=== PATIENT | female | born 1945 | race Caucasian/White ===

== ENCOUNTER 2020-03-28 07:40 | Outpatient (REF) | payer MEDICARE, SELFPAY ==
--- NOTE | 2020-03-28 09:06 | PM.OP ---
Brief Operative Note Date of procedure: 03/28/20 Procedure: This is doctor Joann Smith. This is an ultrasound-guided fine-needle aspiration report. Patient name: Ayana Aragon :1945 Date of Examination: 03/28/2020 Referring Physician Is: Marisol Haddad MD Indication: Multinodular Thyroid Porcedure: Procedure was explained to the patient. Alternatives, the risk and benefits were discussed. Written consent was obtained. A time-out was also obtained. After sterile preparation, fine-needle aspiration of a Left Mid Pole 1.4 cm thyroid nodule was performed using direct ultrasound guidance to confirm accurate needle placement. Four aspirations were made using 27 gauge needles. Samples were submitted for cytology. One pass was dedicated for [employer] sequencing risk and insurance manager testing. The patient tolerated the procedure well. Aftercare instructions were provided. Impression: Uncomplicated fine needle aspiration biopsy of a L Mid Pole 1.4 cm thyroid nodule under ultrasound guideance.
[2020-03-28] MEDS: Lidocaine HCl 1 % 20 ML VIAL 5 ML SUBCUT (11:56)
== END 2020-03-28 07:41 | disposition home or self-care (01) ==
LOC: HO.US 07:40
PROVIDERS: PCP Internal Medicine; Visit Provider Internal Medicine
DX: E04.2 Nontoxic multinodular goiter (principal)
CPT/HCPCS: 10005; 88172; 88173; 88177

== ENCOUNTER → 2020-04-15 09:10 | Outpatient (BNVA) | payer MEDICARE, SELFPAY | PROVIDERS: PCP Internal Medicine; Referring Provider Internal Medicine; Visit Provider Internal Medicine | DX: E21.3 Hyperparathyroidism, unspecified (principal); E05.90 Thyrotoxicosis, unspecified without thyrotoxic crisis or storm; E04.2 Nontoxic multinodular goiter; E55.9 Vitamin D deficiency, unspecified; M85.80 Other specified disorders of bone density and structure, unspecified site; Z79.899 Other long term (current) drug therapy | CPT/HCPCS: 99214; Q3014 ==

== ENCOUNTER 2020-04-15 15:11 | Outpatient (REF) | payer MEDICARE, SELFPAY ==
--- NOTE | 2020-04-15 15:20 | XR_ITS ---
EXAMINATION: XR HIP, LEFT CLINICAL INFORMATION: Left hip pain COMPARISON: Lumbar spine x-ray June 2006 TECHNIQUE: Two views of the left hip. FINDINGS: Bone alignment is normal. No fracture or dislocation is seen. The joint space is normal. There is a 5 mm calcification in the left pelvis just lateral to the bladder. This is new from previous lumbar spine x-ray June 2006. It is uncertain whether this could represent a left distal ureteral stone. Soft tissues are otherwise unremarkable. IMPRESSION: Normal-appearing left hip. 5 mm calcification in the left pelvis questionable for a left distal ureteral stone.
== END 2020-04-15 15:12 | disposition home or self-care (01) ==
LOC: HO.HMGCX 15:11
PROVIDERS: PCP Internal Medicine; Visit Provider Internal Medicine
DX: M25.552 Pain in left hip (principal)
CPT/HCPCS: 73502

== ENCOUNTER 2020-04-19 07:30 | Outpatient (REF) | payer MEDICARE, SELFPAY ==
[2020-04-19 11:58] LABS: Albumin Level 3.8 g/dL (3.5-5.0); Estimated Glomerular Filt Rate > 60
[2020-04-19 12:06] LABS: Calcium 10.4 mg/dL (8.4-10.2)
[2020-04-19 12:19] LABS: Thyroid Stimulating Hormone 0.11 mIU/mL (0.32-4.0); Vitamin D 25-OH Total 28.4 ng/mL (>30)
[2020-04-19 15:00] LABS: T4 Thyroxine 8.8 ug/dL (4.5-12.0)
[2020-04-20 09:06] LABS: Triiodothyronine T3 Total 116 ng/dL (76-181)
[2020-04-22 15:46] LABS: Calcium, Ionized 5.9 mg/dL (4.8-5.6)
[2020-04-22 20:21] LABS: Calcium (PTHI) 10.8 mg/dL (8.6-10.4); PTHI 107 pg/mL (14-64)
== END 2020-04-19 07:31 | disposition home or self-care (01) ==
LOC: HO.HMGCLDS 07:30
PROVIDERS: PCP Internal Medicine; Visit Provider Internal Medicine
DX: E21.3 Hyperparathyroidism, unspecified (principal); E05.90 Thyrotoxicosis, unspecified without thyrotoxic crisis or storm; E04.2 Nontoxic multinodular goiter; E55.9 Vitamin D deficiency, unspecified
CPT/HCPCS: 82040; 82306; 82310; 82330; 82565; 83970; 84100; 84436; 84443; 84480

== ENCOUNTER → 2020-05-28 09:40 | Outpatient (BNVA) | payer MEDICARE, SELFPAY | PROVIDERS: PCP Internal Medicine; Visit Provider Obstetrics & Gynecology | DX: Z76.89 Persons encountering health services in other specified circumstances (principal) ==

== ENCOUNTER 2020-05-31 14:19 | Outpatient (REF) | payer MEDICARE, SELFPAY ==
--- NOTE | 2020-05-31 14:23 | US_ITS ---
EXAMINATION: ULTRASOUND PELVIS COMPLETE CLINICAL INFORMATION: Postmenopausal bleeding. COMPARISON: Ultrasound pelvis 05/17/2019. TECHNIQUE: Routine transabdominal and transvaginal imaging of pelvis is performed. FINDINGS: On transabdominal ultrasound the uterus is anteverted and anteflexed measuring 12.7 cm in length, 5.7 cm in AP and 7.1 cm in transverse dimension. Endometrial thickness is 3.4 cm with thickened cystic area seen within the endometrium. There is a hypoechoic lesion in the anterior upper body of the uterus. It measures 2.3 x 1.7 x 1.7 cm and is suggestive of a fibroid. No additional lesion seen. Right ovary measures 2.0 x 1.5 x 2.1 cm and volume 3.1 mL. Previously it measured 1.8 x 1.2 x 1.8 cm. Left ovary is not seen. There is no free fluid in the cul-de-sac. US/US transvaginal IMPRESSION: Thickened endometrium with cystic areas and increased vascularity. This could be secondary to hormonal congestion. The rest of the uterus and right ovary is unremarkable. The left ovary is not seen.
--- NOTE | 2020-05-31 14:23 | US_ITS ---
EXAMINATION: ULTRASOUND PELVIS COMPLETE CLINICAL INFORMATION: Postmenopausal bleeding. COMPARISON: Ultrasound pelvis 05/17/2019. TECHNIQUE: Routine transabdominal and transvaginal imaging of pelvis is performed. FINDINGS: On transabdominal ultrasound the uterus is anteverted and anteflexed measuring 12.7 cm in length, 5.7 cm in AP and 7.1 cm in transverse dimension. Endometrial thickness is 3.4 cm with thickened cystic area seen within the endometrium. There is a hypoechoic lesion in the anterior upper body of the uterus. It measures 2.3 x 1.7 x 1.7 cm and is suggestive of a fibroid. No additional lesion seen. Right ovary measures 2.0 x 1.5 x 2.1 cm and volume 3.1 mL. Previously it measured 1.8 x 1.2 x 1.8 cm. Left ovary is not seen. There is no free fluid in the cul-de-sac. US/US pelvic complete IMPRESSION: Thickened endometrium with cystic areas and increased vascularity. This could be secondary to hormonal congestion. The rest of the uterus and right ovary is unremarkable. The left ovary is not seen.
== END 2020-05-31 14:20 | disposition home or self-care (01) ==
LOC: HO.HMGCX 14:19
PROVIDERS: PCP Internal Medicine; Visit Provider Obstetrics & Gynecology
DX: N95.0 Postmenopausal bleeding (principal)
CPT/HCPCS: 76830; 76856

== ENCOUNTER → 2020-06-14 10:45 | Outpatient (BNVA) | payer MEDICARE, SELFPAY | PROVIDERS: Visit Provider Obstetrics & Gynecology | DX: N95.0 Postmenopausal bleeding (principal) | CPT/HCPCS: 99212; Q3014 ==

== ENCOUNTER → 2020-07-08 11:38 | Outpatient (BNVA) | payer MEDICARE, SELFPAY | PROVIDERS: PCP Internal Medicine; Visit Provider Obstetrics & Gynecology | DX: N95.0 Postmenopausal bleeding (principal) | CPT/HCPCS: 99212 ==

== ENCOUNTER 2020-07-11 06:09 | Day surgery (SDC) | payer MEDICARE, SELFPAY ==
[2020-07-05 12:18] VITALS: BMI 32.5
--- NOTE | 2020-07-10 10:00 | HO.ANESPROP2 ---
Documented by User: Bridgett Pedraza 07/10/20 10:11 HPI - Anesthesia Eval Consult details Narrative: 75yo F for D&C Diagnostic Hysteroscopy,with possible myosure Pending parathyroidectomy and ? thyroidectomy PMFSH Past Medical History Medical History Breast cancer in situ Family history of premature CAD Hip pain, left History of Capone's esophagus HLD (hyperlipidemia) HTN (hypertension) Hyperparathyroidism Hyperthyroidism Multinodular thyroid Osteopenia Vitamin D deficiency Family History Family History Father History of heart attack CVD (cardiovascular disease) Unknown family medical history Mother Unknown family medical history CVD (cardiovascular disease) Cirrhosis of liver Heart disease Maternal Grandfather No problems noted. Maternal Grandmother No problems noted. Paternal Grandfather No problems noted. Paternal Grandmother No problems noted. Sister No problems noted. Sister No problems noted. Son No problems noted. Daughter No problems noted. Daughter No problems noted. Surgical History Surgical History H/O colonoscopy History of esophagogastroduodenoscopy (EGD) History of lumpectomy of left breast History of rotator cuff surgery Hx of cholecystectomy Hx of dilation and curettage Social History Social History Alcohol intake: current Alcohol intake frequency: a few times a month Alcohol type: wine Smoking Status: Never smoker Second Hand Smoke Exposure: No Use of substances other than those prescribed or required for medical reasons: No Advance Directives: Yes Advance Directives Information Provided: No Advance Directives on File: Yes Advance Directives Date on File: 03/28/20 Sexual orientation: Straight/Heterosexual Gender identity: female Narrative Narrative: Follow cardiology Q2 years for fam hx of premature CAD. Last seen 06/2019, stable and well optimized per cardiology. Meds Allergies Allergy/AdvReac Type Severity Reaction Status Date / Time codeine [Codeine] Allergy Mild SWELLING, Verified 07/11/20 06:16 vomiting, headache Home Medications Medication Instructions Recorded Confirmed Type albuterol sulfate 90 mcg/actuation 90 mcg INHALATION Q4-6H PRN 04/15/20 07/05/20 History breath activated powder inhaler apremilast 30 mg tablet 30 mg PO BID 04/15/20 07/05/20 History atorvastatin 10 mg tablet 10 mg PO DAILY 04/15/20 07/05/20 History biotin 10,000 mcg capsule 10,000 mcg PO DAILY 04/15/20 07/05/20 History cetirizine 10 mg tablet 10 mg PO BEDTIME PRN 04/15/20 07/05/20 History cholecalciferol (vitamin D3) 25 25 mcg PO DAILY 04/15/20 07/05/20 History mcg (1,000 unit) capsule Exam Exam Date and Time: July 10, 2020 1000 Height,Weight and Vital Signs: Height 5 ft Weight 75.75 kg Pertinent Lab Results Pertinent Lab Results: Laboratory Tests 04/19/20 04/19/20 07:39 07:39 Creatinine 0.73 Calcium 10.4 H TSH 0.11 L PTH Intact 107 H Calcium (PTH Intact) 10.8 H Narrative Narrative: EKG 06/2019: NSR ECHO 12/2017: LVEF 60-65%, Impaired relax, Mild AR, RV sys pressure nml Assessment and Plan Assessment Anesthesia Assessment: Chart Reviewed Documented by User: Nuvia Campbell 07/11/20 07:50 PMFSH Past Medical History Medical History Breast cancer in situ Family history of premature CAD Hip pain, left History of Capone's esophagus HLD (hyperlipidemia) HTN (hypertension) Hyperparathyroidism Hyperthyroidism Multinodular thyroid Osteopenia Vitamin D deficiency Family History Family History Father History of heart attack CVD (cardiovascular disease) Unknown family medical history Mother Unknown family medical history CVD (cardiovascular disease) Cirrhosis of liver Heart disease Maternal Grandfather No problems noted. Maternal Grandmother No problems noted. Paternal Grandfather No problems noted. Paternal Grandmother No problems noted. Sister No problems noted. Sister No problems noted. Son No problems noted. Daughter No problems noted. Daughter No problems noted. Family history of problems with anesthesia: No Surgical History Surgical History H/O colonoscopy History of esophagogastroduodenoscopy (EGD) History of lumpectomy of left breast History of rotator cuff surgery Hx of cholecystectomy Hx of dilation and curettage History of Problems with Anesthesia: Yes (PONV) Social History Social History Alcohol intake: current Alcohol intake frequency: a few times a month Alcohol type: wine Smoking Status: Never smoker Second Hand Smoke Exposure: No Use of substances other than those prescribed or required for medical reasons: No Advance Directives: Yes Advance Directives Information Provided: No Advance Directives on File: Yes Advance Directives Date on File: 03/28/20 Sexual orientation: Straight/Heterosexual Gender identity: female Meds Allergies Allergy/AdvReac Type Severity Reaction Status Date / Time codeine [Codeine] Allergy Mild SWELLING, Verified 07/11/20 06:16 vomiting, headache Home Medications Medication Instructions Recorded Confirmed Type albuterol sulfate 90 mcg/actuation 90 mcg INHALATION Q4-6H PRN 04/15/20 07/05/20 History breath activated powder inhaler apremilast 30 mg tablet 30 mg PO BID 04/15/20 07/05/20 History atorvastatin 10 mg tablet 10 mg PO DAILY 04/15/20 07/05/20 History biotin 10,000 mcg capsule 10,000 mcg PO DAILY 04/15/20 07/05/20 History cetirizine 10 mg tablet 10 mg PO BEDTIME PRN 04/15/20 07/05/20 History cholecalciferol (vitamin D3) 25 25 mcg PO DAILY 04/15/20 07/05/20 History mcg (1,000 unit) capsule Exam Height,Weight and Vital Signs: Vital Signs Temp Pulse Resp BP Pulse Ox 07/11/20 06:23 97.8 F 47 L 16 171/82 H 97 Airway Mallampati Class: III TM Dist: >3cm Neck ROM: Full Heart: RRR Lungs: CTAB Assessment and Plan Assessment Anesthesia Assessment: Anesthesia Plan Discussed and Chart Reviewed Final Anesthetic Review NPO: Yes ASA Class: II Final Preanesthetic Review: No Changes in Pt Med Stat, Meds/Allgs Chart Reviewed, Consent Obtained/Reviewed and Anes Risks/Benef Reviewed Patient Risk: Low Procedure Risk: Low Assessment/Block/Sedation in SS: Assess/Block/Sedation-SS Anesthetic Plan Anesthetic Plan: GA Disposition: Standard PACU
[2020-07-10 12:38] VITALS: BMI 32.5
[2020-07-11] VITALS (9 sets, daily range): BP systolic 111–171; BP diastolic 67–85; PULSE 45–58; RESP 12–18; TEMP 36.1–36.6; O2SAT 97–100
[2020-07-11] MEDS: Lactated Ringers 1,000 ML 100 ML IVCONT (06:40)
--- NOTE | 2020-07-11 07:17 | MHC.SHP ---
Pre-Procedural Eval Section A The patient is an INPATIENT: No Changes since office visit: No Cold of Flu in the past 2 weeks, No New Medical Problems, No Changes in Medication and No Patient answered all questions The History & Physical has been completed within 30 days and I have reviewed it.: Yes Section B Chief Complaint: postmenopausal bleeding Allergies: Allergies Allergy/AdvReac Type Severity Reaction Status Date / Time codeine [Codeine] Allergy Mild SWELLING, Verified 07/11/20 06:16 vomiting, headache Plan I have reviewed the history and physical and performed a pertinent physical examination on my patient. No changes have occurred unless specified.
--- NOTE | 2020-07-11 09:18 | P.OP_ITS ---
Operative Note Operative Note Date of Service: 07/11/20 Narrative: Ms. Aragon is a postmenopausal 75 year old with postmenopausal bleeding and thickened endometrial lining on US. She presents today for hysteroscopy d&c for sampling of the endometrial lining. Surgical Risks: The patient was informed of the risks and benefits of a hysteroscopy with dilation and curettage. Risks included but were not limited to bleeding, infection, injury to the vulva, vagina, or cervix, and uterine perforation with possible need for further surgery. The patient expressed understanding of the risks involved, all questions were answered, and the patient consented to the procedure. The patient was taken to the operating room where a time out was confirmed to confirm correct patient and correct procedure. Adequategeneral anesthesia was established. The patient was then positioned on the operating table in the dorsal lithotomy position with her legs supported using stirrups. All pressure points were padded and a warm blanket was placed to maintain control of core body temperature. The patient was then prepped and draped in the usual sterile fashion. A bimanual exam was performed and the uterus was found to be approximately 12 cm size, anteverted. A straight catheter was inserted into the bladder and urine was obtained. A bivalve speculum was then inserted into the vagina. The anterior lip of the cervix was visualized and grasped using a single tooth tenaculum. The cervix was adequately dilated using Serrano dilators for the introduction of the hysteroscope. The hysteroscope was introduced under direct visualization using normal saline solution as the distending media. The hysteroscope was advanced to the fundus and the entire uterine cavity was inspected. A polypoid mass was found to be filling the entire uterine cavity. The myosure device was inserted and advanced and sharp curettage was performed. Due to the size of the mass, the decision was made to switch the myosure XL and both hysteroscope and myosure were exchanged. Before the new hysteroscope was introduced, several passes were made with tracee stone forceps to manually remove portions of the mass. The XL hysteroscope was then introduced and the mass visualized. The myosure XL was then introduced and advanced and sharp curettage was performed until adequate visualization could no longer be achieved due to overdilation of the cervix as well as bleeding from the polyp. The hysteroscope was then removed. The tracee stone forceps were then advanced and used to remove more of the mass until nothing further was able to be removed. The suspected polyp was unable to be confirmed to have been removed in its entiretey and likely was not. The sharp curette was then introduced and a sharp curetting was performed starting at the 12 o?clock position and rotating a total of 360 degrees in order to cover all s urfaces. Endometrial tissue was obtained and was sent to pathology. Following the curetting, good hemostasis was noted. The single-tooth tenaculum was removed from the anterior lip of the cervix and hemostasis was also noted at the tenaculum puncture sites. The speculum was then removed from the vagina. At the end of the procedure, all needle, sponge, and instrument counts were noted to be correct x2. The patient was transferred to the recovery room in stable condition. Due to the amount of the fluid on the floor and soaking the surgeon's pants and socks, it was difficult to obtain an accurate fluid deficit; however, it was estimated at 1,000mL. EBL: 50cc
--- NOTE | 2020-07-11 12:27 | HO.POSTANES ---
Post Anesthesia Evaluation Post Anesthesia Evaluation Vital Signs: Vital Signs Temp Pulse Resp BP Pulse Ox 07/11/20 10:50 97.2 F 52 18 139/67 100 07/11/20 10:24 48 L 16 145/69 H 99 07/11/20 10:09 45 L 18 153/73 H 100 07/11/20 09:54 47 L 16 142/79 H 98 07/11/20 09:39 51 18 150/72 H 98 07/11/20 09:34 45 L 18 146/70 H 98 07/11/20 09:29 48 L 16 151/69 H 100 07/11/20 09:24 96.9 F 58 12 111/85 100 07/11/20 06:23 97.8 F 47 L 16 171/82 H 97 Anesthesia: General LMA Mental Status: Awake Pain Control: Satisfactory Nausea/Vomiting: None Hydration: Adequate Anesthesia-Related Issues: No Anes. Related Issues
== END 2020-07-11 11:17 | disposition home or self-care (01) ==
PROVIDERS: PCP Internal Medicine; Visit Provider Obstetrics & Gynecology
PROC: 0UDB8ZX Extraction of Endometrium, Via Natural or Artificial Opening Endoscopic, Diagnostic (ICD-10-PCS; CPT 58558; principal; 2020-07-11 07:30)
DX: N95.0 Postmenopausal bleeding (principal); N84.0 Polyp of corpus uteri; Z85.3 Personal history of malignant neoplasm of breast; I10 Essential (primary) hypertension; M85.80 Other specified disorders of bone density and structure, unspecified site; E55.9 Vitamin D deficiency, unspecified; E21.3 Hyperparathyroidism, unspecified; Z90.49 Acquired absence of other specified parts of digestive tract; Z79.899 Other long term (current) drug therapy; Z82.49 Family history of ischemic heart disease and other diseases of the circulatory system; Z88.8 Allergy status to other drugs, medicaments and biological substances
CPT/HCPCS: 58558; 88305; J1100; J1885; J2250; J2405; J3010

== ENCOUNTER → 2020-07-24 11:45 | Outpatient (BNVA) | payer MEDICARE, SELFPAY | PROVIDERS: PCP Internal Medicine; Visit Provider Obstetrics & Gynecology | DX: Z09 Encounter for follow-up examination after completed treatment for conditions other than malignant neoplasm (principal); Z87.42 Personal history of other diseases of the female genital tract | CPT/HCPCS: Q3014 ==

== ENCOUNTER 2020-08-08 08:53 | Outpatient (REF) | payer MEDICARE, SELFPAY ==
[2020-08-08 12:04] LABS: Alanine Aminotransferase 21 U/L (0-31); Aspartate Amino Transferase 16 U/L (5-31); Cholesterol 156 mg/dL; HDL Cholesterol 57 mg/dL; LDL Cholesterol Calculated 83 mg/dl; Triglycerides 83 mg/dL
== END 2020-08-08 08:54 | disposition home or self-care (01) ==
LOC: HO.HMGCLDS 08:53
PROVIDERS: PCP Internal Medicine; Visit Provider Internal Medicine
DX: I10 Essential (primary) hypertension (principal)
CPT/HCPCS: 36415; 80061; 84450; 84460

== ENCOUNTER 2020-08-26 11:09 | Outpatient (REF) | payer MEDICARE, SELFPAY ==
[2020-08-26 14:41] LABS: Free T4 (Free Thyroxine) 1.13 ng/dL (0.71-1.85); Thyroid Stimulating Hormone 0.06 uIU/mL (0.32-4.0)
[2020-08-27 20:47] LABS: Triiodothyronine T3 Total 126 ng/dL (76-181)
== END 2020-08-26 11:10 | disposition home or self-care (01) ==
LOC: HO.HMGCLDS 11:09
PROVIDERS: PCP Internal Medicine; Visit Provider Internal Medicine
DX: E05.90 Thyrotoxicosis, unspecified without thyrotoxic crisis or storm (principal)
CPT/HCPCS: 36415; 84439; 84443; 84480

== ENCOUNTER 2020-09-02 10:49 | Outpatient (REF) | payer MEDICARE, SELFPAY ==
[2020-09-02 14:51] LABS: Free T4 (Free Thyroxine) 1.14 ng/dL (0.71-1.85); Thyroid Stimulating Hormone 0.05 uIU/mL (0.32-4.0)
[2020-09-03 07:56] LABS: Triiodothyronine T3 Total 99 ng/dL (76-181)
== END 2020-09-02 10:50 | disposition home or self-care (01) ==
LOC: HO.HMGCLDS 10:49
PROVIDERS: PCP Internal Medicine; Visit Provider Internal Medicine
DX: E05.90 Thyrotoxicosis, unspecified without thyrotoxic crisis or storm (principal)
CPT/HCPCS: 36415; 84439; 84443; 84480

== ENCOUNTER → 2020-09-10 11:10 | Outpatient (BNVA) | payer MEDICARE, SELFPAY | PROVIDERS: Visit Provider Obstetrics & Gynecology | DX: N84.0 Polyp of corpus uteri (principal) | CPT/HCPCS: 99212 ==

== ENCOUNTER → 2020-09-11 08:52 | Outpatient (BNVA) | payer MEDICARE, SELFPAY | PROVIDERS: Visit Provider Internal Medicine | CPT/HCPCS: Q3014 ==

== ENCOUNTER 2020-09-12 06:07 | Day surgery (SDC) | payer MEDICARE, SELFPAY ==
[2020-09-05 14:44] VITALS: BMI 30.9
--- NOTE | 2020-09-11 09:03 | P.CONAN_ITS ---
Documented by User: Bridgett Keila 09/11/20 09:09 HPI - Anesthesia Eval Consult details Narrative: 75yo F for D&C Diagnostic Hysteroscopy s/p D&C 06/2020 with GA-LMA 4 (incomplete removal of polyp) PMFSH Active Problems Active Problems: All Active Problems (Updated 09/05/20 @ 14:48 by Mile Jose) Postmenopausal bleeding (Acute) Otitis media (Acute) Otalgia of left ear (Acute) HTN (hypertension) (Acute) Hip pain, left (Acute) Osteopenia (Acute) Vitamin D deficiency (Acute) Multinodular thyroid (Acute) Hyperthyroidism (Acute) Hyperparathyroidism (Acute) Past Medical History Medical History Breast cancer in situ COVID-19 vaccine administered Family history of premature CAD Hip pain, left History of Capone's esophagus History of postoperative nausea and vomiting HLD (hyperlipidemia) HTN (hypertension) Hx of bronchitis Hyperparathyroidism Hyperthyroidism Multinodular thyroid Osteopenia Otalgia of left ear Otitis media Vitamin D deficiency Family History Family History Father History of heart attack CVD (cardiovascular disease) Unknown family medical history Mother Unknown family medical history CVD (cardiovascular disease) Cirrhosis of liver Heart disease Maternal Grandfather No problems noted. Maternal Grandmother No problems noted. Paternal Grandfather No problems noted. Paternal Grandmother No problems noted. Sister No problems noted. Sister No problems noted. Son No problems noted. Daughter No problems noted. Daughter No problems noted. Surgical History Surgical History H/O colonoscopy History of esophagogastroduodenoscopy (EGD) History of hysteroscopy History of lumpectomy of left breast History of rotator cuff surgery Hx of cholecystectomy Hx of dilation and curettage Social History Social History Are you a primary animal care supervisor to a significant other at home: No Do you presently have visiting nurse or other home services: No Alcohol intake: current Alcohol intake frequency: a few times a month Alcohol type: wine Smoking Status: Never smoker Second Hand Smoke Exposure: No Use of substances other than those prescribed or required for medical reasons: No Have you been hit, kicked, punched, or otherwise hurt by someone within the past year? If so, by whom?: No Advance Directives: Yes Advance Directives Information Provided: Yes Advance Directives on File: Yes Advance Directives Date on File: 03/28/20 Recently lost weight without trying: No Sexual orientation: Straight/Heterosexual Gender identity: female Meds Allergies Allergy/AdvReac Type Severity Reaction Status Date / Time codeine [Codeine] Allergy Mild SWELLING, Verified 09/11/20 09:54 vomiting, headache Home Medications Medication Instructions Recorded Confirmed Last Taken Type albuterol sulfate 90 mcg/actuation 90 mcg INHALATION Q4-6H PRN 04/15/20 09/11/20 Unknown History breath activated powder inhaler apremilast 30 mg tablet 30 mg PO BID 04/15/20 09/11/20 Unknown History cetirizine 10 mg tablet 10 mg PO BEDTIME PRN 04/15/20 09/11/20 Unknown History cholecalciferol (vitamin D3) 25 25 mcg PO DAILY 04/15/20 09/11/20 Unknown History mcg (1,000 unit) capsule flu vacc (65yr ml IM 07/22/20 09/11/20 Unknown History up)-MF59C(PF) 60 mcg(15 mcgx4)/0.5 mL IM syringe metoprolol succinate 50 mg PO BEDTIME 09/05/20 09/11/20 Unknown History omeprazole 20 mg PO DAILY PRN 09/05/20 09/11/20 Unknown History Exam Exam Date and Time: September 11, 2020 0903 Height,Weight and Vital Signs: Height 4 ft 11.75 in Weight 71.214 kg Narrative Narrative: EKG 06/2019: NSR ECHO 12/2017: LVEF 60-65%, Impaired relax, Mild AR, RV sys pressure nml Assessment and Plan Assessment Anesthesia Assessment: Chart Reviewed Documented by User: Zulay Quezada 09/12/20 07:46 PMFSH Past Medical History Medical History Breast cancer in situ COVID-19 vaccine administered Family history of premature CAD Hip pain, left History of Capone's esophagus History of postoperative nausea and vomiting HLD (hyperlipidemia) HTN (hypertension) Hx of bronchitis Hyperparathyroidism Hyperthyroidism Multinodular thyroid Osteopenia Otalgia of left ear Otitis media Vitamin D deficiency Family History Family History Father History of heart attack CVD (cardiovascular disease) Unknown family medical history Mother Unknown family medical history CVD (cardiovascular disease) Cirrhosis of liver Heart disease Maternal Grandfather No problems noted. Maternal Grandmother No problems noted. Paternal Grandfather No problems noted. Paternal Grandmother No problems noted. Sister No problems noted. Sister No problems noted. Son No problems noted. Daughter No problems noted. Daughter No problems noted. Surgical History Surgical History H/O colonoscopy History of esophagogastroduodenoscopy (EGD) History of hysteroscopy History of lumpectomy of left breast History of rotator cuff surgery Hx of cholecystectomy Hx of dilation and curettage Social History Social History Are you a primary animal care supervisor to a significant other at home: No Do you presently have visiting nurse or other home services: No Alcohol intake: current Alcohol intake frequency: a few times a month Alcohol type: wine Smoking Status: Never smoker Second Hand Smoke Exposure: No Use of substances other than those prescribed or required for medical reasons: No Have you been hit, kicked, punched, or otherwise hurt by someone within the past year? If so, by whom?: No Advance Directives: Yes Advance Directives Information Provided: Yes Advance Directives on File: Yes Advance Directives Date on File: 03/28/20 Recently lost weight without trying: No Sexual orientation: Straight/Heterosexual Gender identity: female Meds Allergies Allergy/AdvReac Type Severity Reaction Status Date / Time codeine [Codeine] Allergy Mild SWELLING, Verified 09/11/20 09:54 vomiting, headache Home Medications Medication Instructions Recorded Confirmed Last Taken Type albuterol sulfate 90 mcg/actuation 90 mcg INHALATION Q4-6H PRN 04/15/20 09/11/20 Unknown History breath activated powder inhaler apremilast 30 mg tablet 30 mg PO BID 04/15/20 09/11/20 Unknown History cetirizine 10 mg tablet 10 mg PO BEDTIME PRN 04/15/20 09/11/20 Unknown History cholecalciferol (vitamin D3) 25 25 mcg PO DAILY 04/15/20 09/11/20 Unknown History mcg (1,000 unit) capsule flu vacc (65yr ml IM 07/22/20 09/11/20 Unknown History up)-MF59C(PF) 60 mcg(15 mcgx4)/0.5 mL IM syringe metoprolol succinate 50 mg PO BEDTIME 09/05/20 09/11/20 Unknown History omeprazole 20 mg PO DAILY PRN 09/05/20 09/11/20 Unknown History Exam Airway Mallampati Class: II TM Dist: >3cm Neck ROM: Full Loose/Missing/Broken Teeth: No Heart: RRR Lungs: CTA Assessment and Plan Assessment Anesthesia Assessment: Anesthesia Plan Discussed and Chart Reviewed Final Anesthetic Review NPO: Yes ASA Class: II Final Preanesthetic Review: Meds/Allgs Chart Reviewed, Consent Obtained/Reviewed and Anes Risks/Benef Reviewed Patient Risk: Low Procedure Risk: Low Anesthetic Plan Anesthetic Plan: GA Disposition: Standard PACU
[2020-09-12] VITALS (7 sets, daily range): BP systolic 118–160; BP diastolic 52–79; PULSE 43–56; RESP 14–18; TEMP 36.3–36.8; O2SAT 96–100; BMI 33.0
[2020-09-12] MEDS: Lactated Ringers 1,000 ML 100 ML IVCONT (06:36)
--- NOTE | 2020-09-12 07:08 | MHC.SHP ---
Pre-Procedural Eval Section A The patient is an INPATIENT: No Changes since office visit: No Cold of Flu in the past 2 weeks, No New Medical Problems, No Changes in Medication and No Patient answered all questions The History & Physical has been completed within 30 days and I have reviewed it.: Yes Section B Chief Complaint: PMB Allergies: Allergies Allergy/AdvReac Type Severity Reaction Status Date / Time codeine [Codeine] Allergy Mild SWELLING, Verified 09/11/20 09:54 vomiting, headache Plan I have reviewed the history and physical and performed a pertinent physical examination on my patient. No changes have occurred unless specified.
--- NOTE | 2020-09-12 09:02 | P.OP_ITS ---
Operative Note Operative Note Date of Service: 09/12/20 Narrative: Ms. Aragon is a 75 year old postmenopausal woman with postmenopausal bleeding. She previously underwent hysteroscopy D&C for further evaluation of her bleeding after US demonstrated a thickened endometrial lining; however, an endometrial polyp was identified at that time which was unable to be removed in entirety at that time. She presents today for planned hysteroscopy D&C to remove the remaining polyp given the increased risk of malignant transformation in postmenopausal women. Surgical Risks: The patient was informed of the risks and benefits of a hysteroscopy with dilation and curettage. Risks included but were not limited to bleeding, infection, injury to the vulva, vagina, or cervix, and uterine perforation with possible need for further surgery. The patient expressed understanding of the risks involved, all questions were answered, and the patient consented to the procedure. The patient was taken to the operating room where a time out was confirmed to confirm correct patient and correct procedure. Adequate general anesthesia was established. The patient was then positioned on the operating table in the dorsal lithotomy position with her legs supported using stirrups. All pressure points were padded and awarm blanket was placed to maintain control of core body temperature. The patient was then prepped and draped in the usual sterile fashion. A straight catheter was inserted into the bladder and 100mL of urine was obtained. A bivalve speculum was then inserted into the vagina. The anterior lip of the cervix was visualized and grasped using a single tooth tenaculum. A single Serrano dilator was used to gauge the direction of the cervix and hydrodilation was then performed with the hysteroscope in an attempt to avoid over-dilation. The hysteroscope was introduced under direct visualization using normal saline solution as the distending media. The hysteroscope was advanced to the fundus and the entire uterine cavity was inspected. A small polyp was noted on the posterior surface and a large polyp that appeared to be attached at the anterior and right side of the cavity filled the remaining cavity. The myosure device was advanced and curettage was performed until visibility deteriorated to the point that this was felt to be unsafe. The myosure was then withdrawn into the sleeve of the hysteroscope and the hysteroscope was removed from the uterus. Tracee Stone forceps were advanced and used to remove more of the polyp with limited success. The hysteroscope was again advanced to the fundus and the tenaculum was repositioned on the cervix to pinch the os closed around the hysteroscope. The myosure device then introduced and advanced and curettage was performed until visibility deteriorated to the point that this was felt to be unsafe. The tracee stone forceps were then advanced and used to remove more of the polyp until no further polyp was obtained. The hysteroscope was again advanced. Gauze was packed into the vagina in an attempt to form a seal around the cervix to keep fluid in. The myosure was then advanced and again curettage performed until visibility deteriorated and the procedure was no longer felt to be safe. Despite the extra measures taken, fluid was pouring out of the cervix and all over the floor. The myosure was withdrawn into the sleeve of the hysteroscope and the hysteroscope was then removed and a sharp curetting was performed starting at th e 12 o?clock position and rotating a total of 360 degrees in order to cover all surfaces. Endometrial tissue was obtained and was sent to pathology. Following the curetting, good hemostasis was noted. The single-tooth tenaculum was removed from the anterior lip of the cervix and hemostasis was also noted at the tenaculum puncture sites. The speculum was then removed from the vagina. At the end of the procedure, all needle, sponge, and instrument counts were noted to be correct x2. The patient was transferred to the recovery room in stable condition.
== END 2020-09-12 10:10 | disposition home or self-care (01) ==
LOC: HO.SSS 06:07
PROVIDERS: PCP Internal Medicine; Visit Provider Obstetrics & Gynecology
PROC: 0UDB8ZX Extraction of Endometrium, Via Natural or Artificial Opening Endoscopic, Diagnostic (ICD-10-PCS; CPT 58558; principal; 2020-09-12 07:30)
DX: N95.0 Postmenopausal bleeding (principal); N84.0 Polyp of corpus uteri; I10 Essential (primary) hypertension; E55.9 Vitamin D deficiency, unspecified; E21.3 Hyperparathyroidism, unspecified; M85.80 Other specified disorders of bone density and structure, unspecified site; Z85.3 Personal history of malignant neoplasm of breast; Z79.899 Other long term (current) drug therapy; Z90.49 Acquired absence of other specified parts of digestive tract; Z88.8 Allergy status to other drugs, medicaments and biological substances
CPT/HCPCS: 58558; 88305; J1100; J2405; J3010

== ENCOUNTER → 2020-09-27 11:19 | Outpatient (BNVA) | payer MEDICARE, SELFPAY | PROVIDERS: PCP Internal Medicine; Visit Provider Obstetrics & Gynecology | DX: N84.0 Polyp of corpus uteri (principal) | CPT/HCPCS: Q3014 ==

== ENCOUNTER 2020-12-18 08:00 | Outpatient (REF) | payer MEDICARE, SELFPAY ==
[2020-12-18 14:31] LABS: Alanine Aminotransferase 35 U/L (0-31); Albumin Level 4.3 g/dL (3.5-5.0); Alkaline Phosphatase 108 U/L (39-117); Anion Gap 13 (12-20); Aspartate Amino Transferase 25 U/L (5-31); Bilirubin Total 0.4 mg/dL (0.0-1.0); Blood Urea Nitrogen 17 mg/dL (9-16); Calcium 10.8 mg/dL (8.4-10.2); Carbon Dioxide 22 mmol/L (22-29); Chloride 110 mmol/L (96-108); Estimated Glomerular Filt Rate > 60; Glucose Random 93 mg/dL (60-115); Phosphorus 3.3 mg/dL (2.7-4.5); Potassium 4.6 mmol/L (3.3-5.1); Sodium 140 mmol/L (135-145); Total Protein 6.5 g/dL (6.5-8.0)
[2020-12-18 14:52] LABS: Free T4 (Free Thyroxine) 1.38 ng/dL (0.71-1.85); Vitamin D 25-OH Total 29.6 ng/mL (>30)
[2020-12-19 10:16] LABS: Calcium, Ionized 5.7 mg/dL (4.8-5.6)
[2020-12-19 13:32] LABS: Calcium (PTHI) 10.9 mg/dL (8.6-10.4); PTHI 85 pg/mL (14-64)
== END 2020-12-18 08:01 | disposition home or self-care (01) ==
LOC: HO.HMGCLDS 08:00
PROVIDERS: PCP Internal Medicine; Visit Provider Internal Medicine
DX: E21.3 Hyperparathyroidism, unspecified (principal); E04.2 Nontoxic multinodular goiter; M85.80 Other specified disorders of bone density and structure, unspecified site; E55.9 Vitamin D deficiency, unspecified; E89.0 Postprocedural hypothyroidism
CPT/HCPCS: 36415; 80053; 82306; 82330; 83970; 84100; 84439; 84443; Q3014

== ENCOUNTER 2021-02-05 08:04 | Outpatient (REF) | payer MEDICARE, SELFPAY ==
[2021-02-05 12:23] LABS: Alanine Aminotransferase 30 U/L (0-31); Albumin Level 4.1 g/dL (3.5-5.0); Alkaline Phosphatase 95 U/L (39-117); Anion Gap 10 (12-20); Aspartate Amino Transferase 20 U/L (5-31); Bilirubin Total 0.5 mg/dL (0.0-1.0); Blood Urea Nitrogen 18 mg/dL (9-16); Calcium 10.3 mg/dL (8.4-10.2); Carbon Dioxide 24 mmol/L (22-29); Chloride 110 mmol/L (96-108); Estimated Glomerular Filt Rate > 60; Glucose Random 99 mg/dL (60-115); Phosphorus 3.1 mg/dL (2.7-4.5); Potassium 4.6 mmol/L (3.3-5.1); Sodium 139 mmol/L (135-145); Total Protein 6.2 g/dL (6.5-8.0)
[2021-02-05 12:45] LABS: Thyroid Stimulating Hormone 0.43 uIU/mL (0.32-4.0); Vitamin D 25-OH Total 30.2 ng/mL (>30)
[2021-02-06 15:56] LABS: Calcium (PTHI) 10.1 mg/dL (8.6-10.4); PTHI 87 pg/mL (14-64)
== END 2021-02-05 08:05 | disposition home or self-care (01) ==
LOC: HO.HMGCLDS 08:04
PROVIDERS: PCP Internal Medicine; Visit Provider Internal Medicine
DX: E21.0 Primary hyperparathyroidism (principal); E03.9 Hypothyroidism, unspecified; E55.9 Vitamin D deficiency, unspecified
CPT/HCPCS: 36415; 80053; 82306; 83970; 84100; 84443

== ENCOUNTER → 2021-06-03 09:10 | Outpatient (BNVA) | payer MEDICARE, SELFPAY | PROVIDERS: PCP Internal Medicine; Visit Provider Advanced Practice Midwife ==

== ENCOUNTER → 2021-06-23 09:40 | Outpatient (BNVA) | payer MEDICARE, SELFPAY | PROVIDERS: PCP Internal Medicine; Visit Provider Obstetrics & Gynecology | DX: Q52.4 Other congenital malformations of vagina (principal); N84.0 Polyp of corpus uteri | CPT/HCPCS: 99212 ==

== ENCOUNTER → 2021-09-09 13:04 | Outpatient (BNVA) | payer MEDICARE, SELFPAY | PROVIDERS: PCP Internal Medicine; Referring Provider Internal Medicine; Visit Provider Internal Medicine Cardiovascular Disease | DX: R06.02 Shortness of breath (principal); I10 Essential (primary) hypertension | CPT/HCPCS: 93005; 99212 ==

== ENCOUNTER → 2021-09-10 10:03 | Outpatient (REF) | payer MEDICARE, SELFPAY ==
--- NOTE | 2021-09-10 10:10 | CA_ITS ---
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 The calculated ejection fraction is 64% by biplane method. - LV peak GLS -20.4%. - No obvious valvular pathology seen on this study. Findings Left Ventricle Normal left ventricular cavity size. There is normal left ventricular wall thickness. The left ventricular systolic function is normal. The calculated ejection fraction is 64% by biplane method. There is no evidence of regional wall motion abnormalities. Diastolic function is normal for age. LV peak GLS -20.4%. Right Ventricle Normal right ventricular cavity size and systolic function. Atria Both atria are normal in size. Aortic Valve There is a normal trileaflet aortic valve. There is no aortic valve stenosis. There is no aortic valve regurgitation. Mitral Valve The mitral valve appears normal. There is trace mitral valve regurgitation. There is no mitral valve stenosis. Pulmonic Valve The pulmonic valve was not well visualized. Tricuspid Valve Normal tricuspid valve structure. There is trace tricuspid valve regurgitation. The pulmonary artery systolic pressure is normal. Great Vessels The asc aorta is normal in size. Venous The inferior vena cava is normal in size and collapses greater than 50% with inspiration. Pericardium/Pleural There is no evidence of pericardial effusion. Prior Study Comparison No significant change compared to prior study dated: 01/25/2018. Recommendations, Care & Conclusions No obvious valvular pathology seen on this study. Measurements 2D Linear Measurements IVSd: 0.98 0.6-0.9/0.6-1.0 cm LVIDd: 4.56 3.9-5.3/4.2-5.9 cm LVIDd Index: 2.59 2.4-3.2/2.2-3.1 cm/m2 LVIDs: 2.51 2.0-3.6 cm LVPWd: 0.91 0.7-1.1 cm LA Diam: 3.10 2.7-3.8/3.0-4.0 cm LAIDs Index: 1.76 1.5-2.3 cm/m2 LV Mass: 180.46 67-162/88-224 g LV Mass Index: 102.53 43-95/49-115 g/m2 LVOT Diam: 1.70 3.0+(-)1.3 cm 2D Systolic Function EF 4C: 64.30 >55% EF 2C: 60.80 >55% EF BiP: 63.50 >55% Mitral Valve MV Pk E: 0.92 MV PK A: 0.94 MV Decel Time: 218.00 E/A: 1.00 E'Lateral: 10.90 E'Medial: 7.18 E/E' Med: 12.90 E/E' Lat: 8.50 PHT: 64.00 MVA PHT: 3.44 Decel Harnett: 4.23 Aortic Valve AoV Pk Anil: 1.72 AoV Mn Anil: 1.10 AoV VTI: 0.40 AoV Pk Grad: 12.00 Aov Mn Grad: 6.00 AMY Cont.VTI: 1.95 LVOT LVOT Pk Anil: 1.46 LVOT Mn Anil: 0.93 LVOT VTI: 0.34 LVOT Pk Grad: 9.00 LVOT Mn Grad: 4.00 LVOT Diam: 1.70 LVOT Area: 2.27 Diastolic Function MV Pk E: 0.92 MV Pk A: 0.94 E/A: 1.00 E'Medial: 7.18 E/E' Med: 12.90 E' Laterial: 10.90 E/E' Lat: 8.50 Right Ventricle TAPSE (mm): 24.30 TVS' Anil: 12.70 Tricuspid Valve TR Pk Anil: 2.09 TR Pk Grad: 17.00 RA Press: 3.00 RVSP: 20.00 Great Vessels Aorta Sinus of Valsalva: 3.30 2.0-3.[address] Ridge: 2.65 1.7-3.4 cm Ao Asc: 3.30 2.1-3.4 cm Ao Arch: 3.10 Updated in Other Vendor System with Status of Final Darion Batista MD electronically signed on 09/12/2021 4:20:23 PM with status of Final
== END ==
LOC: HO.CARD 10:03
PROVIDERS: PCP Internal Medicine; Visit Provider Internal Medicine Cardiovascular Disease
DX: R06.02 Shortness of breath (principal); I10 Essential (primary) hypertension
CPT/HCPCS: 93306; 93356

== ENCOUNTER → 2021-09-11 08:59 | Outpatient (REF) | payer MEDICARE, SELFPAY ==
--- NOTE | 2021-09-11 09:14 | CA_ITS ---
Acquisition Time: 2021-09-11 09:39:20 Total Exercise Time: 00:05:03 Test Indications: CP, SOB Medications: SEE CHART Protocol: ANTOINE Max HR: 166 BPM 113% of Pred: 146 BPM Max BP: 200/090 mmHG Max Work Load: 7.0 METS Exercise stress test with exercise 5 min 3 sec of Antoine protocol, achieving 103% MPHR, 6.9 METs, with moderate shortness of breath, no chest discomfort, with isolated PVC, with elevated BP 164/78 prior to exercise and heather to 194/74 with exercise, then down to 158/90 in recovery, with T wave inversion lead III and slightly in aVF at baseline, without EKG changes meeting criteria for ischemia with exercise or recovery. On arrival to stress lab, BP was 172/90 and then heather to 200/90. She had held her metoprolol last evening. She was given Metoprolol tartrate 25mg po and allowed to rest for 30 min. BP came down to 164/78, asymptomatic and test was started. Test reviewed with Dr Batista Referred By: Fredy Wise Overread By: GLORIA CASTRO
== END ==
LOC: HO.CARD 08:59
PROVIDERS: PCP Internal Medicine; Visit Provider Internal Medicine Cardiovascular Disease
DX: R06.02 Shortness of breath (principal); I10 Essential (primary) hypertension
CPT/HCPCS: 93017

== ENCOUNTER 2021-09-12 06:45 | Outpatient (REF) | payer MEDICARE, SELFPAY ==
[2021-09-12 12:03] LABS: Alanine Aminotransferase 23 U/L (0-31); Anion Gap 13 (12-20); Aspartate Amino Transferase 16 U/L (5-31); Blood Urea Nitrogen 14 mg/dL (9-16); Calcium 10.6 mg/dL (8.4-10.2); Carbon Dioxide 23 mmol/L (22-29); Chloride 109 mmol/L (96-108); Cholesterol 170 mg/dL; Estimated Glomerular Filt Rate > 60; Glucose Fasting 92 mg/dL (60-99); HDL Cholesterol 59 mg/dL; LDL Cholesterol Calculated 96 mg/dl; Potassium 4.7 mmol/L (3.3-5.1); Sodium 140 mmol/L (135-145); Triglycerides 75 mg/dL
[2021-09-12 12:07] LABS: Free T4 (Free Thyroxine) 1.37 ng/dL (0.71-1.85); Thyroid Stimulating Hormone 0.57 uIU/mL (0.32-4.0); Vitamin D 25-OH Total 27.1 ng/mL (>30)
== END 2021-09-12 06:46 | disposition home or self-care (01) ==
LOC: HO.HMGCLDS 06:45
PROVIDERS: Visit Provider Internal Medicine
DX: E89.0 Postprocedural hypothyroidism (principal); I10 Essential (primary) hypertension; E55.9 Vitamin D deficiency, unspecified; M25.552 Pain in left hip; M85.80 Other specified disorders of bone density and structure, unspecified site; N95.9 Unspecified menopausal and perimenopausal disorder
CPT/HCPCS: 36415; 80048; 80061; 82306; 84439; 84443; 84450; 84460

== ENCOUNTER 2021-11-03 09:03 | Outpatient (REF) | payer MEDICARE, SELFPAY ==
[2021-11-03 11:50] LABS: Albumin Level 4.1 g/dL (3.5-5.0)
[2021-11-03 12:08] LABS: Free T4 (Free Thyroxine) 1.56 ng/dL (0.71-1.85); Thyroid Stimulating Hormone 0.39 uIU/mL (0.32-4.0); Vitamin D 25-OH Total 45.6 ng/mL (>30)
[2021-11-04 12:42] LABS: Calcium (PTHI) 8.5 mg/dL (8.6-10.4); PTHI 6 pg/mL (16-77)
== END 2021-11-03 09:04 | disposition home or self-care (01) ==
LOC: HO.HMGCLDS 09:03
PROVIDERS: PCP Internal Medicine; Visit Provider Internal Medicine
DX: E21.0 Primary hyperparathyroidism (principal); M85.80 Other specified disorders of bone density and structure, unspecified site; E55.9 Vitamin D deficiency, unspecified; E89.0 Postprocedural hypothyroidism; E20.9 Hypoparathyroidism, unspecified
CPT/HCPCS: 36415; 82040; 82306; 83970; 84100; 84439; 84443; Q3014

== ENCOUNTER 2022-01-16 07:56 | Outpatient (REF) | payer MEDICARE, SELFPAY ==
[2022-01-16 12:27] LABS: Free T4 (Free Thyroxine) 1.75 ng/dL (0.71-1.85); Thyroid Stimulating Hormone 0.56 uIU/mL (0.32-4.0); Vitamin D 25-OH Total 56.9 ng/mL (>30)
[2022-01-16 12:34] LABS: Alanine Aminotransferase 17 U/L (0-31); Albumin Level 4.1 g/dL (3.5-5.0); Alkaline Phosphatase 74 U/L (39-117); Anion Gap 13 (12-20); Aspartate Amino Transferase 16 U/L (5-31); Bilirubin Total 0.5 mg/dL (0.0-1.0); Blood Urea Nitrogen 15 mg/dL (9-16); Calcium 8.3 mg/dL (8.4-10.2); Carbon Dioxide 25 mmol/L (22-29); Chloride 106 mmol/L (96-108); Estimated Glomerular Filt Rate > 60; Glucose Random 98 mg/dL (60-115); Phosphorus 4.8 mg/dL (2.7-4.5); Potassium 4.5 mmol/L (3.3-5.1); Sodium 139 mmol/L (135-145); Total Protein 6.4 g/dL (6.5-8.0)
[2022-01-20 15:52] LABS: Calcium (PTHI) 8.3 mg/dL (8.6-10.4); PTHI 11 pg/mL (16-77)
== END 2022-01-16 07:57 | disposition home or self-care (01) ==
LOC: HO.HMGCLDS 07:56
PROVIDERS: PCP Internal Medicine; Visit Provider Internal Medicine
DX: E20.9 Hypoparathyroidism, unspecified (principal); E55.9 Vitamin D deficiency, unspecified; E89.0 Postprocedural hypothyroidism
CPT/HCPCS: 36415; 80053; 82306; 83970; 84100; 84439; 84443

== ENCOUNTER 2022-01-20 09:55 | Outpatient (REF) | payer MEDICARE, SELFPAY ==
--- NOTE | ~2022-01-20 | MM_ITS ---
EXAMINATION: BONE DENSITOMETRY CLINICAL INDICATION: Primary hyperparathyroidism. COMPARISON: Previous BD dated 11/01/2018 and baseline BD dated 10/09/2010. TECHNIQUE: Using a OYE! DXA System (software version: 13.1) manufactured by [employer], dual-energy x-ray absorptiometry was performed of the lumbar spine, left hip, and left forearm radius 33%. The images are of good technical quality. Summary results are attached. FINDINGS: AP SPINE L1-L4: Current: BMD 1.367 g/cm2, Z-score 2.9, T-score 1.6, normal, 0.4% decrease from previous, 4.0% increase from baseline (<5% change is not significant). Prior: BMD 1.373 g/cm2. Baseline: BMD 1.315 g/cm2. LEFT FEMUR, NECK: Current: BMD 0.787 g/cm2, Z-score -0.2, T-score -1.8, osteopenia. Prior: BMD 0.846 g/cm2. Baseline: BMD 0.851 g/cm2. LEFT FEMUR, TOTAL: Current: BMD 0.944 g/cm2, Z-score 0.9, T-score -0.5, normal, 7.5% decrease from previous, 4.0% decrease from baseline (<5% change is not significant). Prior: BMD 1.021 g/cm2. Baseline: BMD 0.983 g/cm2. LEFT FOREARM RADIUS 33%: BMD 0.754 g/cm2, Z-score 0.8, T-score -1.4, osteopenia, 0.0% change from baseline (<5% change is not significant). Baseline: BMD 0.754 g/cm2. IDENTIFIED RISK FACTORS: Menopause, family history (parent hip fracture), hyperparathyroid. HISTORY OF FRACTURE: None listed. MEDICATIONS: Calcium, vitamin D. MM/XR DEXA appendicular skeleton IMPRESSION: 1. DIAGNOSIS: Osteopenia based on the lowest T-score value of -1.8 in the femoral neck applying World Health Organization criteria. 2. 10-YEAR FRACTURE RISK PREDICTION, FRAX: Major osteoporotic fracture (clinical spine, forearm, hip or shoulder) 19.4%. Hip fracture 10.1%. 3. Treatment Recommendations: NOF guidelines recommend consideration for treatment in postmenopausal women and men age 50 and older presenting with the following: -A hip or vertebral (clinical or morphometric) fracture. -T-score less than or equal to -2.5 at the femoral neck or spine after appropriate evaluation to exclude secondary causes. -Low bone mass at the hip or spine and a 10-year fracture probability by FRAX of greater than or equal to 3% for hip fracture or greater than or equal to 20% for major osteoporotic fracture based on the [place] adapted WHO algorithm. 4. Other Recommendations: All treatment decisions require clinical judgment and consideration of individual patient factors, including patient preferences, comorbidities, previous drug use, risk factors not captured in the FRAX model (e.g. frailty, falls, vitamin D deficiency, increased bone turnover, interval significant decline in bone density) and possible under or overestimation of fracture risk by FRAX. Additional medical evaluation for secondary cause of low bone mineral density may be appropriate. FUTURE SCAN RECOMMENDATION: People with diagnosed cases of osteoporosis or at high risk for fracture should have regular bone mineral density tests. For patients eligible for Medicare, routine testing is allowed once every 2 years. The testing frequency can be increased to one year for patients who have rapidly progressing disease, those who are receiving or discontinuing medical therapy to restore bone mass, or have additional risk factors.
== END 2022-01-20 09:56 | disposition home or self-care (01) ==
LOC: HO.MAMMO 09:55
PROVIDERS: PCP Internal Medicine; Visit Provider Internal Medicine
DX: Z13.820 Encounter for screening for osteoporosis (principal); E21.0 Primary hyperparathyroidism; Z78.0 Asymptomatic menopausal state
CPT/HCPCS: 77081

== ENCOUNTER 2022-01-24 10:07 | Outpatient (REF) | payer MEDICARE, SELFPAY ==
[2022-01-24 11:50] LABS: Alanine Aminotransferase 15 U/L (0-31); Albumin Level 4.2 g/dL (3.5-5.0); Alkaline Phosphatase 82 U/L (39-117); Anion Gap 15 (12-20); Aspartate Amino Transferase 15 U/L (5-31); Bilirubin Total 0.5 mg/dL (0.0-1.0); Blood Urea Nitrogen 21 mg/dL (9-16); Calcium 8.8 mg/dL (8.4-10.2); Carbon Dioxide 26 mmol/L (22-29); Chloride 104 mmol/L (96-108); Estimated Glomerular Filt Rate > 60; Glucose Random 94 mg/dL (60-115); Potassium 4.6 mmol/L (3.3-5.1); Sodium 140 mmol/L (135-145); Total Protein 6.5 g/dL (6.5-8.0)
== END 2022-01-24 10:08 | disposition home or self-care (01) ==
LOC: HO.HMGCLDS 10:07
PROVIDERS: PCP Internal Medicine; Visit Provider Internal Medicine
DX: E20.9 Hypoparathyroidism, unspecified (principal)
CPT/HCPCS: 36415; 80053

== ENCOUNTER → 2022-01-26 10:17 | Outpatient (BNVA) | payer MEDICARE, SELFPAY | PROVIDERS: PCP Internal Medicine; Visit Provider Internal Medicine | DX: E20.9 Hypoparathyroidism, unspecified (principal); E89.0 Postprocedural hypothyroidism; M85.80 Other specified disorders of bone density and structure, unspecified site; E55.9 Vitamin D deficiency, unspecified; Z79.899 Other long term (current) drug therapy | CPT/HCPCS: 99212 ==

== ENCOUNTER 2022-02-25 07:13 | Outpatient (REF) | payer MEDICARE, SELFPAY ==
[2022-02-25 11:43] LABS: Alanine Aminotransferase 18 U/L (0-31); Albumin Level 4.1 g/dL (3.5-5.0); Alkaline Phosphatase 74 U/L (39-117); Anion Gap 15 (12-20); Aspartate Amino Transferase 13 U/L (5-31); Bilirubin Total 0.3 mg/dL (0.0-1.0); Blood Urea Nitrogen 16 mg/dL (9-16); Calcium 8.5 mg/dL (8.4-10.2); Carbon Dioxide 26 mmol/L (22-29); Chloride 104 mmol/L (96-108); Estimated Glomerular Filt Rate > 60; Glucose Random 102 mg/dL (60-115); Phosphorus 4.7 mg/dL (2.7-4.5); Potassium 4.4 mmol/L (3.3-5.1); Sodium 141 mmol/L (135-145); Total Protein 6.6 g/dL (6.5-8.0)
[2022-02-25 11:51] LABS: Vitamin D 25-OH Total 55.8 ng/mL (>30)
[2022-02-26 12:26] LABS: Calcium (PTHI) 8.8 mg/dL (8.6-10.4); PTHI 8 pg/mL (16-77)
== END 2022-02-25 07:14 | disposition home or self-care (01) ==
LOC: HO.HMGCLDS 07:13
PROVIDERS: PCP Internal Medicine; Visit Provider Internal Medicine
DX: E20.9 Hypoparathyroidism, unspecified (principal); E55.9 Vitamin D deficiency, unspecified
CPT/HCPCS: 36415; 80053; 82306; 83970; 84100

== ENCOUNTER 2022-03-17 10:00 | Outpatient (RCR) | payer MEDICARE, SELFPAY ==
--- NOTE | 2022-02-25 12:31 | MHC.PT.EP ---
[facility] [place] Office [place] Office [place] Office [address] Glory Rossi [address] [phone] F: [phone] F: [phone] F: [phone] F: [phone] Physical Therapy Plan of Care Date of Evaluation: Date of Surgery: Diagnosis: This is a 76 yo female presenting to skilled PT with a script for pain in L shoulder. Assessment: This is a 76 yo female presenting to skilled PT with a script for pain in L shoulder. Patient reports L shoulder pain that started many years ago but has been increasing over the past few years. Pain is located bicep and radiates into the shoulder. Pain is described as achy. Pain increases with sleeping, lifting, reaching, UB ADL's (LB as well but not as severe). No pain at rest. Patient denies numbness or tingling. Denies falls, denies radiating symptoms and neck pain. Patient has a history of R rotator cuff repair and at that time she reports that she was told she had L shoulder bone spurs, arthritis and tears as well. She does not want another surgery and is interested in conservative tx only at this time. Assessment reveals pain that ranges up to a 6/10. She demos decreased shoulder and cervical ROM, decreased shoulder and scapular strength, impaired posture with forward GHJ and cervical spine, as well as gross functional decline with reaching, lifting, ADLs and sleeping. She is a good candidate for skilled PT 2x/wk for 5wks. Frequency and Duration: The patient will be seen 2x/wk for 5wks Short Term Goals: I in HEP Demo good scap/retract/stab with HEP without need from cues from PT Senior Care Goals: Demos functional ROM and strength Improve SPADI by at least 10 points Improve pain at the worst to no more than 2/10 Demo/report proper lifting, reaching, carrying techniques without increase in pain or radiating symptoms Treatment Plan: Modalities to reduce pain, spasms and effusion. Manual therapy to restore motion and function. Therapeutic exercise to improve strength and flexibility. Neuromuscular re-education for posture and balance. Therapeutic activities to return to functional activities of daily living. Electronically signed by: Dana Dubuc, PT Please sign and return to therapist. Thank you for your referral.
--- NOTE | 2022-03-17 10:57 | MHC.PT.PR ---
[facility] [place] Office [place] Office [employer] Office [address] [phone] F: [phone] F: [phone] F: [phone] F: [phone] Physical Therapy Progress Note Diagnosis: This is a 76 yo female presenting to skilled PT with a script for pain in L shoulder. Date of Surgery: Date of Evaluation: 02/25/22 Treatments to Date: 4 Cancellations to Date: 0 No Shows to Date: Subjective: Patient reporting that she continues to have pain, now feels like it is getting worse. Pain Score and Location: 5 L shoulder and bicep Objective Measures: Demos 155 flexion, 65 abduction, 35 ER in 45 degs abduction Assessment: 03/17: Ayana feels like she has not been improving with PT. She has trialed 4 weeks of PT. She has been faithful with her exercises and feels as if her pain may be getting worse. We have trialed strengthening, postural work, stretching/ROM and manual work for soft tissue. At this time she would like to hold PT and follow up with her PCP. She is interested in getting an injection for pain but not in surgery. Holding PT until she sees PCP tomorrow for further direction. PT Plan: Hold PT Frequency and Duration: The patient will be seen 2x/wk for 5wks Treatment Plan: Therapeutic Exercise Dynamic Therapeutic Activities Neuromuscular Re-ed Manual Therapies Taping Home Exercise Program Hot or Cold Pack Reviewed/ Agreed with Student Documentation: Therapist: Thank you once again for your referral.
--- NOTE | 2022-08-13 10:20 | MHC.PT.DC ---
[facility] [place] Office [place] Office [place] Office [address] Glory Rossi [address] [phone] F: [phone] F: [phone] F: [phone] F: [phone] Physical Therapy Discharge Report Diagnosis: This is a 76 yo female presenting to skilled PT with a script for pain in L shoulder. Date of Surgery: Date of Evaluation: 02/25/22 Date of Discharge: 08/13/22 Treatments to Date: 4 Cancellations to Date: 0 No Shows to Date: Discharge Status: Independent with HEP Patient Elected to Stop Recommend MD Follow-up Discharge Summary: Ayana feels like she has not been improving with PT. She has trialed 4 weeks of PT. She has been faithful with her exercises and feels as if her pain may be getting worse. We have trialed strengthening, postural work, stretching/ROM and manual work for soft tissue. At this time she would like to hold PT and follow up with her PCP. She is interested in getting an injection for pain but not in surgery. Holding PT until she sees PCP tomorrow for further direction. Electronically signed by: Dana Goodwin PT Please sign and return to therapist. Thank you for your referral.
== END 2022-08-13 10:20 | disposition home or self-care (01) ==
LOC: HO.PTCHIC 10:00
PROVIDERS: PCP Internal Medicine; Visit Provider Internal Medicine
DX: M25.512 Pain in left shoulder (principal)
CPT/HCPCS: 97110; 97140; 97162

== ENCOUNTER 2022-03-18 14:18 | Outpatient (REF) | payer MEDICARE, SELFPAY ==
--- NOTE | ~2022-03-18 | XR_ITS ---
EXAMINATION: XR SHOULDER, LEFT CLINICAL INFORMATION: Pain in left shoulder. COMPARISON: None TECHNIQUE: AP external rotation, Grashey, scapular Y, and axillary views of the left shoulder. FINDINGS: There is moderate acromioclavicular osteoarthritis. Small glenoid osteophytes. Glenohumeral joint is otherwise well preserved. No fracture. Alignment is anatomic. Soft tissues are normal with no abnormal calcifications. 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
== END 2022-03-18 14:19 | disposition home or self-care (01) ==
LOC: HO.HMGCX 14:18
PROVIDERS: PCP Internal Medicine; Visit Provider Internal Medicine
DX: M25.512 Pain in left shoulder (principal)
CPT/HCPCS: 73030

== ENCOUNTER 2022-03-26 13:23 | Outpatient (REF) | payer MEDICARE, SELFPAY ==
[2022-03-26 16:53] LABS: Albumin Level 4.3 g/dL (3.5-5.0); Calcium 8.6 mg/dL (8.4-10.2); Phosphorus 4.1 mg/dL (2.7-4.5)
[2022-03-27 12:47] LABS: Calcium (PTHI) 8.7 mg/dL (8.6-10.4); PTHI 9 pg/mL (16-77)
== END 2022-03-26 13:24 | disposition home or self-care (01) ==
LOC: HO.HMGCLDS 13:23
PROVIDERS: PCP Internal Medicine; Visit Provider Internal Medicine
DX: E20.9 Hypoparathyroidism, unspecified (principal)
CPT/HCPCS: 36415; 82040; 82310; 83970; 84100

== ENCOUNTER 2022-04-17 10:23 | Outpatient (REF) | payer MEDICARE, SELFPAY ==
[2022-04-17 12:17] LABS: Albumin Level 4.4 g/dL (3.5-5.0); Phosphorus 4.6 mg/dL (2.7-4.5)
[2022-04-17 12:44] LABS: Vitamin D 25-OH Total 57.7 ng/mL (>30)
[2022-04-19 13:07] LABS: Calcium (PTHI) 9.5 mg/dL (8.6-10.4); PTHI <6 pg/mL (16-77)
== END 2022-04-17 10:24 | disposition home or self-care (01) ==
LOC: HO.HMGCLDS 10:23
PROVIDERS: PCP Internal Medicine; Visit Provider Internal Medicine
DX: E20.9 Hypoparathyroidism, unspecified (principal); E55.9 Vitamin D deficiency, unspecified
CPT/HCPCS: 36415; 82040; 82306; 83970; 84100

== ENCOUNTER → 2022-04-20 08:38 | Outpatient (BNVA) | payer MEDICARE, SELFPAY | PROVIDERS: PCP Internal Medicine; Visit Provider Physician Assistant | DX: M19.012 Primary osteoarthritis, left shoulder (principal) | CPT/HCPCS: 20610; 99202; J1040 ==

== ENCOUNTER 2022-05-05 07:50 | Outpatient (REF) | payer MEDICARE, SELFPAY ==
[2022-05-05 11:53] LABS: Albumin Level 4.2 g/dL (3.5-5.0)
[2022-05-06 14:17] LABS: Calcium (PTHI) 8.4 mg/dL (8.6-10.4); PTHI 10 pg/mL (16-77)
== END 2022-05-05 07:51 | disposition home or self-care (01) ==
LOC: HO.HMGCLDS 07:50
PROVIDERS: PCP Internal Medicine; Visit Provider Internal Medicine
DX: E20.9 Hypoparathyroidism, unspecified (principal)
CPT/HCPCS: 36415; 82040; 83970

== ENCOUNTER 2022-05-19 08:24 | Outpatient (REF) | payer MEDICARE, SELFPAY ==
[2022-05-19 12:02] LABS: Albumin Level 4.2 g/dL (3.5-5.0); Phosphorus 4.9 mg/dL (2.7-4.5)
[2022-05-22 13:06] LABS: Calcium (PTHI) 8.4 mg/dL (8.6-10.4); PTHI 10 pg/mL (16-77)
== END 2022-05-19 08:25 | disposition home or self-care (01) ==
LOC: HO.HMGCLDS 08:24
PROVIDERS: PCP Internal Medicine; Visit Provider Internal Medicine
DX: E20.9 Hypoparathyroidism, unspecified (principal)
CPT/HCPCS: 36415; 82040; 83970; 84100

== ENCOUNTER 2022-07-01 09:40 | Outpatient (REF) | payer MEDICARE, SELFPAY ==
[2022-07-01 11:41] LABS: Phosphorus 4.5 mg/dL (2.7-4.5)
[2022-07-02 14:13] LABS: Calcium (PTHI) 8.9 mg/dL (8.6-10.4); PTHI 7 pg/mL (16-77)
== END 2022-07-01 09:41 | disposition home or self-care (01) ==
LOC: HO.HMGCLDS 09:40
PROVIDERS: PCP Internal Medicine; Visit Provider Internal Medicine
DX: E20.9 Hypoparathyroidism, unspecified (principal)
CPT/HCPCS: 36415; 83970; 84100

== ENCOUNTER → 2022-07-06 10:49 | Outpatient (BNVA) | payer MEDICARE, SELFPAY | PROVIDERS: PCP Internal Medicine; Visit Provider Internal Medicine | DX: E20.9 Hypoparathyroidism, unspecified (principal); E03.9 Hypothyroidism, unspecified; E55.9 Vitamin D deficiency, unspecified; M85.80 Other specified disorders of bone density and structure, unspecified site; Z79.899 Other long term (current) drug therapy | CPT/HCPCS: 99212 ==

== ENCOUNTER → 2022-07-08 14:07 | Outpatient (BNVA) | payer MEDICARE, SELFPAY | PROVIDERS: PCP Internal Medicine; Visit Provider Internal Medicine | DX: K21.9 Gastro-esophageal reflux disease without esophagitis (principal); K44.9 Diaphragmatic hernia without obstruction or gangrene; R12 Heartburn | CPT/HCPCS: 99202 ==

== ENCOUNTER 2022-08-04 10:21 | Outpatient (REF) | payer MEDICARE, SELFPAY ==
[2022-08-04 12:25] LABS: Alanine Aminotransferase 17 U/L (0-31); Albumin Level 4.2 g/dL (3.5-5.0); Alkaline Phosphatase 70 U/L (39-117); Anion Gap 16 (12-20); Aspartate Amino Transferase 17 U/L (5-31); Bilirubin Total 0.6 mg/dL (0.0-1.0); Blood Urea Nitrogen 18 mg/dL (9-16); Calcium 8.2 mg/dL (8.4-10.2); Carbon Dioxide 22 mmol/L (22-29); Chloride 107 mmol/L (96-108); Estimated Glomerular Filt Rate > 60; Glucose Random 98 mg/dL (60-115); Potassium 4.1 mmol/L (3.3-5.1); Sodium 141 mmol/L (135-145); Total Protein 6.5 g/dL (6.5-8.0)
[2022-08-04 12:28] LABS: Free T4 (Free Thyroxine) 1.39 ng/dL (0.71-1.85); Thyroid Stimulating Hormone 0.77 uIU/mL (0.32-4.0); Vitamin D 25-OH Total 51.8 ng/mL (>30)
[2022-08-05 11:49] LABS: PTHI 9 pg/mL (16-77)
== END 2022-08-04 10:22 | disposition home or self-care (01) ==
LOC: HO.HMGCLDS 10:21
PROVIDERS: PCP Internal Medicine; Visit Provider Internal Medicine
DX: E55.9 Vitamin D deficiency, unspecified (principal); E89.0 Postprocedural hypothyroidism; E20.9 Hypoparathyroidism, unspecified
CPT/HCPCS: 36415; 80053; 82306; 83970; 84100; 84439; 84443

== ENCOUNTER 2022-08-19 08:55 | Outpatient (REF) | payer MEDICARE, SELFPAY ==
[2022-08-19 11:55] LABS: Albumin Level 4.3 g/dL (3.5-5.0); Phosphorus 4.8 mg/dL (2.7-4.5)
[2022-08-21 13:19] LABS: Calcium (PTHI) 8.7 mg/dL (8.6-10.4); PTHI 10 pg/mL (16-77)
== END 2022-08-19 08:56 | disposition home or self-care (01) ==
LOC: HO.HMGCLDS 08:55
PROVIDERS: PCP Internal Medicine; Visit Provider Internal Medicine
DX: E20.9 Hypoparathyroidism, unspecified (principal)
CPT/HCPCS: 36415; 82040; 83970; 84100

== ENCOUNTER → 2022-08-31 11:06 | Outpatient (BNVA) | payer MEDICARE, SELFPAY | PROVIDERS: PCP Internal Medicine; Visit Provider Internal Medicine | DX: K21.9 Gastro-esophageal reflux disease without esophagitis (principal); R12 Heartburn; K44.9 Diaphragmatic hernia without obstruction or gangrene | CPT/HCPCS: 99212 ==

== ENCOUNTER → 2022-09-10 12:53 | Outpatient (BNVA) | payer MEDICARE, SELFPAY | PROVIDERS: PCP Internal Medicine; Referring Provider Internal Medicine; Visit Provider Internal Medicine Cardiovascular Disease | DX: I10 Essential (primary) hypertension (principal); Z79.899 Other long term (current) drug therapy | CPT/HCPCS: 93005; 99212 ==

== ENCOUNTER 2022-09-11 09:27 | Outpatient (REF) | payer MEDICARE, SELFPAY ==
[2022-09-11 13:09] LABS: Alanine Aminotransferase 18 U/L (0-31); Anion Gap 11 (12-20); Aspartate Amino Transferase 17 U/L (5-31); Blood Urea Nitrogen 19 mg/dL (9-16); Calcium 8.7 mg/dL (8.4-10.2); Carbon Dioxide 28 mmol/L (22-29); Chloride 107 mmol/L (96-108); Cholesterol 165 mg/dL; Estimated Glomerular Filt Rate 55; Glucose Fasting 98 mg/dL (60-99); HDL Cholesterol 54 mg/dL; LDL Cholesterol Calculated 97 mg/dl; Potassium 4.6 mmol/L (3.3-5.1); Sodium 141 mmol/L (135-145); Triglycerides 73 mg/dL
== END 2022-09-11 09:28 | disposition home or self-care (01) ==
LOC: HO.HMGCLDS 09:27
PROVIDERS: PCP Internal Medicine; Visit Provider Internal Medicine
DX: E78.00 Pure hypercholesterolemia, unspecified (principal); I10 Essential (primary) hypertension
CPT/HCPCS: 36415; 80048; 80061; 84450; 84460

== ENCOUNTER → 2022-10-01 08:21 | Outpatient (REF) | payer MEDICARE, SELFPAY ==
--- NOTE | ~2022-10-01 | NM_ITS ---
EXERCISE MYOCARDIAL PERFUSION STUDY INDICATION: Coronary disease, assess for ischemia TECHNIQUE: The patient was brought in for an exercise perfusion study on 10/01/2022. Patient performed exercise as per Antoine protocol and was injected 30 mCi of sestamibi once target heart rate was achieved. Images were obtained using the SPECT gamma camera interlaced with the gating device. Images were obtained in supine position. Resting perfusion study was performed on 10/05/2022. Patient was administered 30 mCi of sestamibi intravenously at rest. Images were then obtained in supine position. Images were processed with the software and compared side to side in short axis, horizontal long axis and vertical long axis views. Total DLP 95mGy-cm. FINDINGS: Raw images were reviewed. The stress perfusion study showed no significant perfusion abnormality. Both uncorrected as well as CT attenuation corrected images were reviewed. The gated study shows normal LV systolic function with calculated LVEF of 70%. LV cavity is normal in size. The gated study shows normal wall thickening and contraction of segments. Resting study shows no significant perfusion abnormality. Gating at rest reveals normal wall motion with ejection fraction at 69%. The findings are consistent with no reversible or fixed perfusion abnormality. NM/NM cardiolite stress test IMPRESSION: 1. Myocardial perfusion imaging study shows normal myocardial perfusion. 2. Gated LVEF is 70% during stress; 69% during rest. 3. Transient ischemic dilatation not present. EKG component of the test reported separately.
--- NOTE | 2022-10-01 08:23 | CA_ITS ---
Acquisition Time: 2022-10-01 08:36:47 Total Exercise Time: 00:04:38 Test Indications: SOB, PALPITATIONS Medications: SEE CHART Protocol: DIANE Max HR: 142 BPM 97% of Pred: 145 BPM Max BP: 172/088 mmHG Max Work Load: 6.5 METS Exercise stress test exercise 4 min 38 sec of Diane protocol achieving 94% MPHR with moderate SOB, no chest discomfort, with isolated PACs, with normotensive response to exercise, without EKG changes meeting criteria for ischemia. In recovery her breathing quickly improved. Nuclear images pending. Test reviewed with Dr. Metzger. Referred By: Fredy Wise Overread By: GLORIA CASTRO
== END ==
LOC: HO.CARD 08:21
PROVIDERS: PCP Internal Medicine; Visit Provider Internal Medicine Cardiovascular Disease
DX: I10 Essential (primary) hypertension (principal); M85.80 Other specified disorders of bone density and structure, unspecified site; Z82.49 Family history of ischemic heart disease and other diseases of the circulatory system
CPT/HCPCS: 78452; 93017; A9500

== ENCOUNTER 2022-10-08 07:52 | Outpatient (REF) | payer MEDICARE, SELFPAY ==
[2022-10-08 12:02] LABS: Alanine Aminotransferase 17 U/L (0-31); Albumin Level 4.1 g/dL (3.5-5.0); Alkaline Phosphatase 74 U/L (39-117); Anion Gap 15 (12-20); Aspartate Amino Transferase 14 U/L (5-31); Bilirubin Total 0.5 mg/dL (0.0-1.0); Blood Urea Nitrogen 18 mg/dL (9-16); Carbon Dioxide 23 mmol/L (22-29); Chloride 107 mmol/L (96-108); Estimated Glomerular Filt Rate > 60; Glucose Random 102 mg/dL (60-115); Phosphorus 4.4 mg/dL (2.7-4.5); Potassium 4.3 mmol/L (3.3-5.1); Sodium 141 mmol/L (135-145); Total Protein 6.3 g/dL (6.5-8.0)
[2022-10-08 12:18] LABS: Vitamin D 25-OH Total 59.3 ng/mL (>30)
[2022-10-12 11:03] LABS: Calcium (PTHI) 9.3 mg/dL (8.6-10.4); PTHI 8 pg/mL (16-77)
== END 2022-10-08 07:53 | disposition home or self-care (01) ==
LOC: HO.HMGCLDS 07:52
PROVIDERS: PCP Internal Medicine; Visit Provider Internal Medicine
DX: E20.9 Hypoparathyroidism, unspecified (principal); E55.9 Vitamin D deficiency, unspecified
CPT/HCPCS: 36415; 80053; 82306; 83970; 84100

== ENCOUNTER 2022-12-04 07:11 | Outpatient (REF) | payer MEDICARE, SELFPAY ==
[2022-12-04 11:58] LABS: Cholesterol 143 mg/dL; HDL Cholesterol 50 mg/dL; LDL Cholesterol Calculated 78 mg/dl; Triglycerides 78 mg/dL
== END 2022-12-04 07:12 | disposition home or self-care (01) ==
LOC: HO.HMGCLDS 07:11
PROVIDERS: PCP Internal Medicine; Visit Provider Internal Medicine Cardiovascular Disease
DX: E55.9 Vitamin D deficiency, unspecified (principal); E78.00 Pure hypercholesterolemia, unspecified; E89.0 Postprocedural hypothyroidism; I10 Essential (primary) hypertension; M85.80 Other specified disorders of bone density and structure, unspecified site; Z78.0 Asymptomatic menopausal state; Z87.19 Personal history of other diseases of the digestive system
CPT/HCPCS: 36415; 80061

== ENCOUNTER → 2022-12-08 13:13 | Outpatient (BNVA) | payer MEDICARE, SELFPAY | PROVIDERS: PCP Internal Medicine; Visit Provider Internal Medicine | DX: R12 Heartburn (principal); K21.9 Gastro-esophageal reflux disease without esophagitis; K44.9 Diaphragmatic hernia without obstruction or gangrene | CPT/HCPCS: 99212 ==

== ENCOUNTER 2023-01-08 07:43 | Outpatient (REF) | payer MEDICARE, SELFPAY ==
[2023-01-08 12:32] LABS: Calcium 8.6 mg/dL (8.4-10.2)
[2023-01-11 15:24] LABS: Calcium (PTHI) 8.4 mg/dL (8.6-10.4); PTHI 10 pg/mL (16-77)
== END 2023-01-08 07:44 | disposition home or self-care (01) ==
LOC: HO.HMGCLDS 07:43
PROVIDERS: PCP Internal Medicine; Visit Provider Internal Medicine
DX: E20.9 Hypoparathyroidism, unspecified (principal)
CPT/HCPCS: 36415; 82040; 82310; 83970; 84100

== ENCOUNTER 2023-02-03 07:50 | Outpatient (AMB) | payer MEDICARE, SELFPAY ==
--- NOTE | 2023-02-03 07:51 | MHC.OFFVIS ---
Intake Intake Visit Reasons: F/U Hypoparathyroidism Intake Note: Hypoparathyroidism follow up visit. [employer] Required: No Allergies codeine [Codeine] Allergy (Mild, Verified 02/03/23 09:07) SWELLING, vomiting, headache Medication List - Last Reconciled 02/03/23 by Joann Smith DO acetaminophen ER (Tylenol 8 Hour) 650 mg PO Q8H PRN albuterol sulfate 90 mcg/actuation 90 mcg inhalation Q4-6H PRN alclometasone 0.05% appl topical apremilast (Otezla) 30 mg PO BID atorvastatin 40 mg PO DAILY 90 days biotin 1 mg PO DAILY calcitriol 0.25 mcg PO DAILY 30 days [id number]-copper-jenna 325 mg-12.5 mcg -2.75 mg (Citracal-D3 Maximum Plus) 3 tabs PO DAILY cholecalciferol (vitamin D3) 25 mcg PO DAILY ketoconazole 2% 1 appl topical DAILY levothyroxine 112 mcg PO DAILY 30 days losartan 100 mg PO DAILY meclizine 25 mg PO BID PRN metoprolol succinate ER 50 mg PO BEDTIME omeprazole 20 mg (2 x 10 mg) PO DAILY 90 days [wedge pillow As directed] HPI HPI Comments History of Present Illness Details 77 YO F with PMHx NTMNG and Hypercalcemia who is seen in F/U for Hyperthyroidism with a MNG and hyperparathyroidism. 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 She underwent surgical resection of this 5th parathyroid gland 10/06/2021 with reimplantation of a small fragment in the L brachioradialis muscle on 10/06/2021. 1) NTMNG and Subclinical Hyperthyroidism: Patient has had biochemical evidence of subclinical hyperthyroidism. She had a Thyroid Uptake and Scan completed 02/15/20 with normal uptake, but marked heterogeneity within the gland consistent with a toxic MNG. The patient had a thyroid US completed in 2010 which revealed multiple bilateral thyroid nodules. Some of which did meet indication for FNA biopsy, but she did not pursue this until recently. Thyroid US was repeated 01/08/2020 and this did reveal a multinodular thyroid with multiple nodules meeting indication for FNA biopsy. She underwent FNA biopsy 03/28/2020, at which time only 1 nodule, a Left mid pole 1.4 cm nodule, was found to meet indication for FNA biopsy. Cytology was Benign ([place] Category II). She underwent a total thyroidectomy by Dr. Nikolay Hugo 11/18/2020 with benign surgical pathology. She remains on levothyroxine 112 mcg PO daily. TSH has remained at goal. 2) Hyperparathyroidism: The patient has had documented hypercalcemia since 2002. Her Calcium was 12.0 on 07/14/2019, with a PTH of 90. No Vitamin D or Albumin was assessed. Vitamin D level was 02/16/2019 and was 31.3. She had labs repeated 12/27/2019 which revealed Calcium 11.7 with PTH 97 and Vitamin D WNL. She was on HCTZ at this time. She was asked to stop the HCTZ and labs were repeated 3 weeks later on 01/31/2020 with Calcium 11.1, Albumin 4.2, Vitamin D 31.2 and PTH 80. Her 24 hour urine calcium was high normal at 254. She was referred to Dr. Hugo,. She underwent a 3.5 gland surgical parathyroidectomy with only a remnant of the R superior parathyroid remaining. Unfortunately intraoperative PTH did not meet curative cirteria, declining from 119-90. Thymus was resected, which did contain microscopic parathyroid tissue. She was referred again to Dr. 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 She underwent resection of this 5th parathyroid gland 10/06/2021 with reimplantation of a small fragment in the L brachioradialis muscle. Postoperative PTH declined to 9, and has remained low ever since. She has had issues with hypocalcemia as well as cramping. She remains on Citracal 325 mg 4 tabs daily in divided doses. She also remains on calcitriol 0.25 mcg PO daily. Calcium mildly above goal, but she does report that she experiences cramping and paresthesias approximately once a week. DEXA: 01/20/2022 FINDINGS: AP SPINE L1-L4: Current: BMD 1.367 g/cm2, Z-score 2.9, T-score 1.6, normal, 0.4% decrease from previous, 4.0% increase from baseline (<5% change is not significant). Prior: BMD 1.373 g/cm2. Baseline: BMD 1.315 g/cm2. LEFT FEMUR, NECK: Current: BMD 0.787 g/cm2, Z-score -0.2, T-score -1.8, osteopenia. Prior: BMD 0.846 g/cm2. Baseline: BMD 0.851 g/cm2. LEFT FEMUR, TOTAL: Current: BMD 0.944 g/cm2, Z-score 0.9, T-score -0.5, normal, 7.5% decrease from previous, 4.0% decrease from baseline (<5% change is not significant). Prior: BMD 1.021 g/cm2. Baseline: BMD 0.983 g/cm2. LEFT FOREARM RADIUS 33%: BMD 0.754 g/cm2, Z-score 0.8, T-score -1.4, osteopenia, 0.0% change from baseline (<5% change is not significant). Baseline: BMD 0.754 g/cm2. Labs: Laboratory Tests 01/08/23 01/08/23 07:49 07:49 Albumin 4.0 PTH Intact 10 L Calcium (PTH Intac t) 8.4 L PFSH Medical History Breast cancer in situ Chronic heartburn Family history of early CAD Family history of premature CAD Hip pain, left History of Capone's esophagus HLD (hyperlipidemia) HTN (hypertension) Hypoparathyroidism Hypothyroidism Osteopenia Primary hyperparathyroidism Psoriasis Shoulder pain, left Toxic multinodular goiter Vitamin D deficiency Surgical History H/O colonoscopy History of esophagogastroduodenoscopy (EGD) History of hysteroscopy History of lumpectomy of left breast History of rotator cuff surgery History of surgery History of total thyroidectomy Hx of cholecystectomy Hx of dilation and curettage S/P subtotal parathyroidectomy Family History Father History of heart attack CVD (cardiovascular disease) Unknown family medical history Mother Unknown family medical history CVD (cardiovascular disease) Cirrhosis of liver Heart disease Substance use disorder Maternal Grandfather No problems noted. Maternal Grandmother Breast cancer Paternal Grandfather No problems noted. Paternal Grandmother No problems noted. Sister No problems noted. Sister No problems noted. Son No problems noted. Daughter No problems noted. Daughter No problems noted. 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 This was resected 10/06/2021 with reimplantation of a fragment into the L brachioradialis. She has subsequently developed hypoparathyroidism. She remains on calcitriol 0.25 mcg PO daily and Citracal 4 tabs daily. We reviewed that goal Calcium is 8.0-8.5 currently to prevent calcium pyrophosphate deposition. Labs at goal. We will repeat labs in 4 weeks time. I advised her to contact our office for any paresthesias or cramping. She will then F/U in 3 months time. All of her questions were answered. She is in agreement with this plan of care. I spent 20 minutes in reviewing the record, seeing the patient and documenting in the medical record, including 5 minutes on the phone with the Patient. (2) Hypothyroidism: Code(s): E03.9 - Hypothyroidism, unspecified Qualifiers: Hypothyroidism type: postoperative Qualified Code(s): E89.0 - Postprocedural hypothyroidism Plan: Patient with postoperative hypothyroidism. Remains on Levothyroxine 112 mcg PO daily. TSH at goal. No changes. (3) Osteopenia: Code(s): M85.80 - Other specified disorders of bone density and structure, unspecified site Qualifiers: Osteopenia location: unspecified Qualified Code(s): M85.80 - Other specified disorders of bone density and structure, unspecified site Plan: She has osteopenia of the spine and the forearm. Risk factor is primary hyperparathyroidism. She is S/P parathyroidectomy 10/06/2021. DXA in osteopenic range. No treatment at this time. (4) Vitamin D deficiency: Code(s): E55.9 - Vitamin D deficiency, unspecified Plan: She remains on Vitamin D 1000 IU daily. Will continue. Orders: Orders Comprehensive Met. Panel 3 Months E89.2 - Postprocedural hypoparathyroidism Phosphorus 3 Months E89.2 - Postprocedural hypoparathyroidism PTHI 3 Months E89.2 - Postprocedural hypoparathyroidism Telehealth Telehealth Location of provider rendering services: practice address Location of patient: address on file Patient Identification confirmed using: Name, : Yes Telehealth method: voice only Patient verbally consented to treatment: Yes Patient verbally consented to billing insurance company: Yes Patient informed of any privacy concerns related to visit: Yes Coding Level of Care Code Tele Est Pt Level 3 (82113) Diagnoses Hypoparathyroidism E20.9 Hypothyroidism E89.0 Hypothyroidism type: postoperative Osteopenia M85.80 Osteopenia location: unspecified Vitamin D deficiency E55.9
== END 2023-02-03 14:23 | disposition home or self-care (01) ==
LOC: HO.ENCR 07:50
PROVIDERS: PCP Internal Medicine; Visit Provider Internal Medicine
DX: E20.9 Hypoparathyroidism, unspecified (principal); E89.0 Postprocedural hypothyroidism; M85.80 Other specified disorders of bone density and structure, unspecified site; E55.9 Vitamin D deficiency, unspecified
CPT/HCPCS: 99443

== ENCOUNTER → 2023-02-03 07:50 | Outpatient (BNVA) | payer MEDICARE, SELFPAY | PROVIDERS: PCP Internal Medicine; Visit Provider Internal Medicine ==

== ENCOUNTER 2023-03-04 06:54 | Day surgery (SDC) | payer MEDICARE, SELFPAY ==
[2023-03-02 15:02] VITALS: BMI 34.0
--- NOTE | 2023-03-03 09:13 | P.CONAN_ITS ---
Documented by User: Bridgett Pedraza NP 03/03/23 09:16 HPI - Anesthesia Eval Consult details Narrative: 77yo F for Upper Endoscopy 09/2022 cardiac w/u for ESCOBAR with stress test (nml) and coronary calcium score (nml) [facility] Active Problems Active Problems: All Active Problems (Updated 03/02/23 @ 15:08 by Elvia Farias, RN) Anomaly of vagina (Acute) Endometrial polyp (Acute) Heartburn symptom (Acute) Arthritis of left acromioclavicular joint (Acute) GERD (gastroesophageal reflux disease) (Acute) Hiatal hernia (Acute) HLD (hyperlipidemia) (Acute) History of Capone's esophagus (Acute) Chronic heartburn (Acute) Psoriasis (Acute) Shoulder pain, left (Acute) Hypoparathyroidism (Acute) Hypothyroidism (Acute) S/P subtotal parathyroidectomy (Acute) History of total thyroidectomy (Acute) HTN (hypertension) (Acute) Osteopenia (Acute) Vitamin D deficiency (Acute) Past Medical History Medical History PONV (postoperative nausea and vomiting) Family history of early CAD Chronic heartburn Psoriasis Shoulder pain, left Hypoparathyroidism Hypothyroidism Primary hyperparathyroidism Toxic multinodular goiter Family history of premature CAD History of Capone's esophagus Breast cancer in situ Hip pain, left HTN (hypertension) HLD (hyperlipidemia) Osteopenia Vitamin D deficiency Family History Family History Father History of heart attack CVD (cardiovascular disease) Unknown family medical history Mother Unknown family medical history CVD (cardiovascular disease) Cirrhosis of liver Heart disease Substance use disorder Maternal Grandfather No problems noted. Maternal Grandmother Breast cancer Paternal Grandfather No problems noted. Paternal Grandmother No problems noted. Sister No problems noted. Sister No problems noted. Son No problems noted. Daughter No problems noted. Daughter No problems noted. Family history of problems with anesthesia: No Surgical History Surgical History History of surgery S/P subtotal parathyroidectomy History of total thyroidectomy History of hysteroscopy Hx of dilation and curettage History of esophagogastroduodenoscopy (EGD) H/O colonoscopy History of lumpectomy of left breast Hx of cholecystectomy History of rotator cuff surgery History of Problems with Anesthesia: Yes (PONV) Social History Social History Housing: House Are you a primary care transition mgr to a significant other at home: No Do you presently have visiting nurse or other home services: No Alcohol intake: current Alcohol intake frequency: a few times a month Alcohol type: wine Patient Tobacco Use Status: Never used Tobacco e-Cigarette/Vaping Use: Never Used Second Hand Smoke Exposure: No Are you DNR?: No Advance Directives: No Advance Directives Information Provided: Yes Advance Directives Date on File: 03/28/20 Recently lost weight without trying: No Nutrition Risks: No Nutritional Risk Current occupational status: retired 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 Sexual orientation: Straight/Heterosexual Gender identity: Female Cognitive needs: No Hearing needs: No Vision needs: Yes Meds Allergies Allergy/AdvReac Type Severity Reaction Status Date / Time codeine [Codeine] Allergy Mild SWELLING, Verified 02/03/23 09:07 vomiting, headache Home Medications Medication Instructions Recorded Confirmed Last Taken Type albuterol sulfate 90 mcg/actuation 90 mcg inhalation Q4-6H PRN 04/15/20 02/03/23 Unknown History breath activated powder inhaler Shortness Of Breath apremilast 30 mg tablet (Otezla) 30 mg PO BID 04/15/20 02/03/23 Unknown History cholecalciferol (vitamin D3) 25 25 mcg PO DAILY 04/15/20 02/03/23 Unknown History mcg (1,000 unit) capsule biotin 1 mg capsule 1 mg PO DAILY 09/09/21 02/03/23 Unknown History alclometasone 0.05 % topical cream appl topical 09/18/21 02/03/23 Unknown History ketoconazole 2 % topical cream 1 appl topical DAILY 09/18/21 02/03/23 Unknown History calcium 325 mg-vit D3 12.5 3 tab PO DAILY 04/20/22 02/03/23 Unknown History mcg-zinc 2.75 [id number] tablet (Citracal-D3 Maximum Plus) Exam Exam Date and Time: March 03, 2023 0913 Height,Weight and Vital Signs: Height 5 ft Weight 78.999 kg Pertinent Lab Results Pertinent Lab Results: Laboratory Tests 10/08/22 07:59 Sodium 141 Potassium 4.3 Chloride 107 Carbon Dioxide 23 BUN 18 H Creatinine 0.84 Narrative Narrative: NM cardiolite stress test 09/2022 IMPRESSION: ? 1.? Myocardial perfusion imaging study shows normal myocardial perfusion. 2.? Gated LVEF is 70% during stress; 69% during rest. 3. Transient ischemic dilatation not present. ? EKG component of the test reported separately. Assessment and Plan Assessment Anesthesia Assessment: Chart Reviewed Final Anesthetic Review Family History of Problems with Anesthesia: No History of Problems with Anesthesia: Yes (PONV) Documented by User: Zulay Quezada MD 03/04/23 07:45 PMFSH Past Medical History Medical History PONV (postoperative nausea and vomiting) Family history of early CAD Chronic heartburn Psoriasis Shoulder pain, left Hypoparathyroidism Hypothyroidism Primary hyperparathyroidism Toxic multinodular goiter Family history of premature CAD History of Capone's esophagus Breast cancer in situ Hip pain, left HTN (hypertension) HLD (hyperlipidemia) Osteopenia Vitamin D deficiency Family History Family History Father History of heart attack CVD (cardiovascular disease) Unknown family medical history Mother Unknown family medical history CVD (cardiovascular disease) Cirrhosis of liver Heart disease Substance use disorder Maternal Grandfather No problems noted. Maternal Grandmother Breast cancer Paternal Grandfather No problems noted. Paternal Grandmother No problems noted. Sister No problems noted. Sister No problems noted. Son No problems noted. Daughter No problems noted. Daughter No problems noted. Surgical History Surgical History History of surgery S/P subtotal parathyroidectomy History of total thyroidectomy History of hysteroscopy Hx of dilation and curettage History of esophagogastroduodenoscopy (EGD) H/O colonoscopy History of lumpectomy of left breast Hx of cholecystectomy History of rotator cuff surgery Social History Social History Housing: House Are you a primary care transition mgr to a significant other at home: No Do you presently have visiting nurse or other home services: No Alcohol intake: current Alcohol intake frequency: a few times a month Alcohol type: wine Patient Tobacco Use Status: Never used Tobacco e-Cigarette/Vaping Use: Never Used Second Hand Smoke Exposure: No Are you DNR?: No Advance Directives: No Advance Directives Information Provided: Yes Advance Directives Date on File: 03/28/20 Recently lost weight without trying: No Nutrition Risks: No Nutritional Risk Current occupational status: retired 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 Sexual orientation: Straight/Heterosexual Gender identity: Female Cognitive needs: No Hearing needs: No Vision needs: Yes Meds Allergies Allergy/AdvReac Type Severity Reaction Status Date / Time codeine [Codeine] Allergy Mild SWELLING, Verified 02/03/23 09:07 vomiting, headache Home Medications Medication Instructions Recorded Confirmed Last Taken Type albuterol sulfate 90 mcg/actuation 90 mcg inhalation Q4-6H PRN 04/15/20 02/03/23 Unknown History breath activated powder inhaler Shortness Of Breath apremilast 30 mg tablet (Otezla) 30 mg PO BID 04/15/20 02/03/23 Unknown History cholecalciferol (vitamin D3) 25 25 mcg PO DAILY 04/15/20 02/03/23 Unknown History mcg (1,000 unit) capsule biotin 1 mg capsule 1 mg PO DAILY 09/09/21 02/03/23 Unknown History alclometasone 0.05 % topical cream appl topical 09/18/21 02/03/23 Unknown History ketoconazole 2 % topical cream 1 appl topical DAILY 09/18/21 02/03/23 Unknown History calcium 325 mg-vit D3 12.5 3 tab PO DAILY 04/20/22 02/03/23 Unknown History mcg-zinc 2.75 [id number]-[id number] tablet (Citracal-D3 Maximum Plus) Exam Airway Mallampati Class: II TM Dist: >3cm Neck ROM: Full Loose/Missing/Broken Teeth: No Heart: RRR Lungs: CTA Assessment and Plan Assessment Anesthesia Assessment: Anesthesia Plan Discussed Final Anesthetic Review NPO: Yes ASA Class: II Final Preanesthetic Review: Meds/Allgs Chart Reviewed, Consent Obtained/Reviewed and Anes Risks/Benef Reviewed Patient Risk: Low Procedure Risk: Intermediate Anesthetic Plan Anesthetic Plan: MAC: Disposition: Standard PACU
[2023-03-04 07:22] VITALS: BP 164/84; PULSE 57; RESP 18; TEMP 36.3; O2SAT 96; BMI 33.2
--- NOTE | 2023-03-04 08:13 | MHC.SHP ---
Pre-Procedural Eval Section A Date of Service: 03/04/23 Section B Chief Complaint: Heartburn,GERD,Diaphragmatic hernia Details of Present Illness: PMH: Breast cancer in situ Chronic heartburn Family history of early CAD Family history of premature CAD Hip pain, left History of Capone's esophagus HLD (hyperlipidemia) HTN (hypertension) Hypoparathyroidism Hypothyroidism Osteopenia Primary hyperparathyroidism Psoriasis Shoulder pain, left Toxic multinodular goiter Vitamin D deficiency Surgical History: H/O colonoscopy History of esophagogastroduodenoscopy (EGD) History of hysteroscopy History of lumpectomy of left breast History of rotator cuff surgery History of surgery History of total thyroidectomy Hx of cholecystectomy Hx of dilation and curettage S/P subtotal parathyroidectomy Present Medications: see Short Stay Collaborative assessment Allergies: Allergies Allergy/AdvReac Type Severity Reaction Status Date / Time codeine [Codeine] Allergy Mild SWELLING, Verified 02/03/23 09:07 vomiting, headache Review of Systems Review of Systems Comment: 10 point ROS negative except as above Exam Exam Comment: Gen appear: No acute distress HEENT: no icterus Chest: No overt resp distress Abd: soft, nontender, nondistended Psych: Stable affect, answering questions appropriately Neuro: A/Ox3 noted to move all extremities spontaneously Ext: no peripheral edema Plan Diagnosis/Plan: Unchanged I have reviewed the history and physical and performed a pertinent physical examination on my patient. No changes have occurred unless specified. Time Spent With Patient Time: Total time managing care of this patient today ____ minutes.
--- NOTE | 2023-03-04 08:15 | P.OP_ITS ---
Operative Note Operative Note Date of Service: 03/04/23 Narrative: Procedure: Esophagogastroduodenoscopy Endoscopist: Jyoti Luna MD Indication: Dysphagia, GERD Anesthesia Provider: Zulay Quezada MD Anesthesia Type: MAC Instrument: Olympus [id number] ?? EGD Procedure:?? The procedure, indications, preparation and potential complications were reviewed with the patient, who indicated understanding and gave written informed consent to proceed. A physical exam was performed. The endoscope was introduced through the mouth, and advanced to the second part of duodenum. The mucosa was carefully examined on slow withdrawal of the endoscope. The patient tolerated the procedure well. There were no immediate complications.? ? EGD Findings:? * Esophagus:? Normal mucosa noted in the entire esophagus. The Z line was at 32 with a small Schatzki's ring right above. There was a small hiatal hernia noted with the diaphragmatic pinch at 35 cm. Middle and lower esophagus forceps biopsies were obtained to rule out eosinophilic esophagitis. * Stomach:? Normal mucosa was noted in the stomach. * Duodenum:? Normal mucosa was noted in the whole of the examined duodenum. Additional intervention: A fixed wire through the scope balloon was utilized to dilate the Schatzki's ring incrementally from 15 to 18 mm with small mucosal breaks confirming disruption of the ring. ? EGD Impressions:? * Normal esophagus mucosa (biopsy) * Schatzki's ring (dilation) * Hiatal hernia * Normal stomach * Normal duodenum ?? Recommendations:?? * Dysphagia likely 2/2 to Schatzki's ring. Pt to call us for recurrence of symptoms to repeat dilation as needed. * Follow biopsy results. Our office will call or send a letter with results within 7-10 days. * Continue PPI therapy. * Avoid NSAIDs. Above has been reviewed with the patient. Relevant educational hand outs were provided at discharge.
[2023-03-04 08:45] VITALS: BP 112/61; PULSE 67; RESP 16; TEMP 35.6; O2SAT 98
[2023-03-04 09:00] VITALS: BP 153/79; PULSE 56; RESP 16; TEMP 36.2; O2SAT 98
== END 2023-03-04 09:55 | disposition home or self-care (01) ==
PROVIDERS: PCP Internal Medicine; Visit Provider Internal Medicine
PROC: 0DJ08ZZ Inspection of Upper Intestinal Tract, Via Natural or Artificial Opening Endoscopic (ICD-10-PCS; CPT 43235; principal; 2023-03-04 08:10)
DX: K22.2 Esophageal obstruction (principal); K44.9 Diaphragmatic hernia without obstruction or gangrene; R13.10 Dysphagia, unspecified; K21.9 Gastro-esophageal reflux disease without esophagitis; I10 Essential (primary) hypertension; E78.5 Hyperlipidemia, unspecified
CPT/HCPCS: 43239; 43249; 88305; C1726; J2405

== ENCOUNTER → 2023-03-04 06:54 | Outpatient (BNV) | payer MEDICARE, SELFPAY | PROVIDERS: PCP Internal Medicine; Visit Provider Internal Medicine | DX: K22.2 Esophageal obstruction (principal); K21.9 Gastro-esophageal reflux disease without esophagitis | CPT/HCPCS: 43239; 43249 ==

== ENCOUNTER 2023-03-11 07:17 | Outpatient (REF) | payer MEDICARE, SELFPAY ==
[2023-03-11 12:21] LABS: Alanine Aminotransferase 14 U/L (0-31); Anion Gap 13 (12-20); Aspartate Amino Transferase 15 U/L (5-31); Blood Urea Nitrogen 16 mg/dL (9-16); Calcium 9.3 mg/dL (8.4-10.2); Carbon Dioxide 25 mmol/L (22-29); Chloride 106 mmol/L (96-108); Estimated Glomerular Filt Rate > 60; Glucose Fasting 99 mg/dL (60-99); Potassium 3.9 mmol/L (3.3-5.1); Sodium 140 mmol/L (135-145)
[2023-03-11 12:42] LABS: Free T4 (Free Thyroxine) 1.14 ng/dL (0.71-1.85); Thyroid Stimulating Hormone 1.19 uIU/mL (0.32-4.0); Vitamin D 25-OH Total 67.9 ng/mL (>30)
== END 2023-03-11 07:18 | disposition home or self-care (01) ==
LOC: HO.HMGCLDS 07:17
PROVIDERS: PCP Internal Medicine; Visit Provider Internal Medicine
DX: E78.00 Pure hypercholesterolemia, unspecified (principal); I10 Essential (primary) hypertension; M85.80 Other specified disorders of bone density and structure, unspecified site; E55.9 Vitamin D deficiency, unspecified; E89.0 Postprocedural hypothyroidism; Z78.0 Asymptomatic menopausal state; Z87.19 Personal history of other diseases of the digestive system
CPT/HCPCS: 36415; 80048; 82306; 84439; 84443; 84450; 84460

== ENCOUNTER 2023-03-22 10:39 | Outpatient (AMB) | payer MEDICARE, SELFPAY ==
--- NOTE | 2023-03-22 11:01 | A.OFFPC_ITS ---
Vital Signs 03/22/23 11:03 Height 5 ft BP 168/78 H Blood Pressure Location Rt brachial Position Sitting Pulse 53 Pulse Source Pulse Oximeter Pulse Oximetry (%) 99 Oxygen Delivery Method Room Air Intake Visit Reasons: 6m follow up HTN Intake Note: patient is here for her 6 month f/u Allergies codeine [Codeine] Allergy (Mild, Verified 12/08/23 14:11) SWELLING, vomiting, headache Medication List - Last Reconciled 03/22/23 by Marisol Haddad MD acetaminophen ER (Tylenol 8 Hour) 650 mg PO Q8H PRN albuterol sulfate 90 mcg/actuation 90 mcg inhalation Q4-6H PRN alclometasone 0.05% appl topical apremilast (Otezla) 30 mg PO BID atorvastatin 40 mg PO DAILY 90 days biotin 1 mg PO DAILY calcitriol 0.25 mcg PO DAILY 30 days [id number]-copper-jenna 325 mg-12.5 mcg -2.75 mg (Citracal-D3 Maximum Plus) 3 tabs PO DAILY cholecalciferol (vitamin D3) 25 mcg PO DAILY ketoconazole 2% 1 appl topical DAILY levothyroxine 112 mcg PO DAILY 30 days losartan 100 mg PO DAILY meclizine 25 mg PO BID PRN metoprolol succinate ER 50 mg PO BEDTIME omeprazole 20 mg (2 x 10 mg) PO DAILY 90 days [wedge pillow As directed] Tobacco use date assessed: 03/22/23 Fall risk assessment: No Falls in past year Last assessed Fall Risk: 03/22/23 Dental Screening Dental Screen Date: 03/22/23 Did you have a dental visit in the last 12 months?: Yes Did you have a dental problem in the last 6 months where you did not have access to dental care?: No Was dental information given to patient?: Patient has dentist HPI 6m follow up HTN HPI Details 77-year-old lady here today for follow-u p. She has hypertension with elevated blood pressure today. Currently take losartan 100 mg daily and metoprolol succinate ER 50 mg at bed time. Has been feeling well with no complaints of headache, no lightheadedness, no chest pain, no shortness of breath, or palpitations PFSH Medical History (Updated 12/08/23 @ 14:21 by Marisol Haddad MD) PONV (postoperative nausea and vomiting) Family history of early CAD Psoriasis Hypothyroidism Primary hyperparathyroidism Toxic multinodular goiter Family history of premature CAD History of Capone's esophagus Breast cancer in situ HTN (hypertension) HLD (hyperlipidemia) Osteopenia Vitamin D deficiency Surgical History (Updated 12/08/23 @ 14:17 by Marisol Haddad MD) History of cardiac cath History of surgery S/P subtotal parathyroidectomy History of total thyroidectomy History of hysteroscopy Hx of dilation and curettage History of esophagogastroduodenoscopy (EGD) H/O colonoscopy History of lumpectomy of left breast Hx of cholecystectomy History of rotator cuff surgery Family History Father History of heart attack CVD (cardiovascular disease) Unknown family medical history Mother Unknown family medical history CVD (cardiovascular disease) Cirrhosis of liver Heart disease Substance use disorder Maternal Grandfather No problems noted. Maternal Grandmother Breast cancer Paternal Grandfather No problems noted. Paternal Grandmother No problems noted. Sister No problems noted. Sister No problems noted. Son No problems noted. Daughter No problems noted. Daughter No problems noted. 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 Depression Screening Interpretation: Negative Source: Developed by Drs. Hemant Morrison, Ashanti Chaves, Duong Matthews and colleagues, with an educational fabienne from [employer]. Thrive Questionnaire Date Thrive assessed: 09/16/22 AUDIT C Alcohol Use Questionnaire (AUDIT-C) 1. How often do you have a drink containing alcohol?: 2-4 times a month 2. How many drinks containing alcohol do you have on a typical day when you are drinking?: 1 or 2 3. How often do you have six or more drinks on one occasion?: Never Total Score: 2 GENESIS-7 AMB Questionnaire GENESIS-7 Date GENESIS - 7 assessed: 09/16/22 Feeling nervous, anxious, or on edge: 0 = Not at all Not being able to stop or control worryin = Not at all Worrying too much about different things: 0 = Not at all Trouble relaxin = Not at all Being so restless that it is hard to sit still: 0 = Not at all Becoming easily annoyed or irritable: 0 = Not at all Feeling afraid as if something awful might happen: 0 = Not at all Total GENESIS-7 score (0-4 normal; 5-9 mild; 10-14 moderate; 15-21 severe): 0 Source: Developed by Drs. Hemant Morrison, Ashanti Chaves, Duong Matthews and colleagues, with an educational fabienne from [employer]. Review of Systems Const Reports no additional complaints ENT Denies dizziness Card Denies chest pain, Denies chest pain with activity, Denies edema, Denies lightheadedness, Denies palpitations, Denies dyspnea and Denies orthopnea Resp Denies cough and Denies dyspnea Neuro Denies dizziness Endo Denies palpitations Physical exam (Primary Care) Vital Signs: Last Vital Signs Pulse 53 03/22/23 11:03 BP 168/78 H 03/22/23 11:03 Pulse Ox 99 03/22/23 11:03 Oxygen Delivery Method Room Air 03/22/23 11:03 BMI Assessment/Plan discussion: High BMI High, discussed plan: lifestyle, weight reduction, dietary and physical activity Tobacco/Smoking Status: Tobacco use Status Tobacco use date assessed 03/22/23 03/22/23 11:16 Patient Tobacco Use Status Never used Tobacco 03/22/23 11:02 e-Cigarette/Vaping Use Never Used 03/22/23 11:02 Depression Screening Interpretation: Negative Thrive Assessment: Date of Thrive Assessment Date Thrive assessed 09/16/22 03/22/23 11:02 Const General: no acute distress and alert Nutritional Appearance: obese Orientation/consciousness: patient oriented x3 HENMT Mouth: Normal oral and palatal mucosa present and moist mucous membranes Eyes General: appearance normal, both eyes and all related structures Neck Neck: Yes normal visual inspection, Yes full ROM, Yes no lymphadenopathy and Yes supple Resp Auscultation: clear to auscultation bilaterally Cardio Other: S1-S2 present regular rate and rhythm GI Palpation (GI): Soft to palpation, nontender, no guarding and no masses Neuro General: patient oriented x3, tone normal, moves all extremities, Normal light touch and pain sensation, no focal motor deficits and CN's II-XI intact bilaterally Extrem General: Yes full ROM, Yes no joint enlargement, Yes no clubbing, cyanosis or edema, Yes no pedal edema, Yes no calf tenderness and Yes normal gait Psych Appearance: grossly normal and well kempt Mental Status: mental status grossly normal Speech and movement: Normal speech and movement present Affect: normal affect Thought process: Normal thought process present Results Reviewed Results Reviewed: RUN: 03/22/23 112 PAGE 1 [facility] [address] [place] [id number] Ekg Manager: Abraham Andrade M.D. Specimen Inquiry Name: Ayana Aragon Age/Sex: 77/F : 1945 Unit#: [id number] Attend Dr: Marisol Haddad MD Re03/11/23 Status: DEP REF Location: [facility] Disch: SPEC : [id number] GISELLE: 03/11/23 STATUS: COMP REQ : [id number] RECD: 03/11/[address]: Marisol Haddad MD COMP: 03/11/23 ENTERED: 03/11/[address]: ORDERED: Met Prof Fast, AST, ALT, Vitamin D 25-OH, Free T4, TSH Test Result Flag Reference Site Sodium 140 135-145 mmol/L Potassium 3.9 3.3-5.1 mmol/L CL 106 96-108 mmol/L CO2 25 22-29 mmol/L Gap 13 12-20 BUN 16 9-16 mg/dL Creat 0.81 0.5-1.4 mg/dL EGFR > 60 NOTE: For -[place]ogol[place] individuals, multiply the result by 1.210. Chronic Kidney Disease: Estimated GFR < 60 mL/min/1.73m2 Severe Kidney Disease: Estimated GFR < 15 mL/min/1 .73m2 FBS 99 60-99 mg/dL CA 9.3 # 8.4-10.2 mg/dL AST (GOT) 15 5-31 U/L ALT (GPT) 14 0-31 U/L Vit D 25-OH Tot 67.9 >30 ng/mL Health Based Reference Values* < 20 ng/mL Deficient 20-30 ng/mL Insufficient > 30 ng/mL Sufficient *Natasha CHRISTIAN. N Engl J Med. 2007;[id number] Care must be taken in interpreting Vitamin D results from different laboratories and methodologies. Published data demonstrated that results from patients undergoing hemodialysis may show a negative bias when tested with various automated 25-OH vitamin D assays when compared to LC-MS/MS. When testing samples from patients whose predominant form of Vitamin D is Vitamin D2, such as patients receiving Vitamin D2 supplementation, results that are subtherapeutic should be confirmed with another method such as LC-MS/MS. Free T4 1.14 0.71-1.85 ng/dL TSH 3rd Gen. 1.19 0.32-4.0 uIU/mL Assessment and Plan Assessment & Plan (1) HTN (hypertension): Code(s): I10 - Essential (primary) hypertension Qualifiers: Hypertension type: essential hypertension Qualified Code(s): I10 - Essential (primary) hypertension Plan: Reviewed recent fasting labs which showed normal electrolytes, renal function, normal serum calcium and thyroid level. Blood pressure elevated today, continue metoprolol succinate 50 mg at bedtime, discontinued losartan 100 mg daily and changed to losartan-HCTZ 100-12.5 mg per tablet to take once a day in a.m.. Reinforced importance of following low-salt diet, advised to see nurse navigator in a week to check blood pressure after starting new medication Orders: Orders Aspartate Amino Transferase 08/27/23 I10 - Essential (primary) hypertension Basic Metabolic Panel Fasting 08/27/23 I10 - Essential (primary) hypertension Lipid Panel 08/27/23 I10 - Essential (primary) hypertension Alanine Aminotransferase 08/27/23 I10 - Essential (primary) hypertension Medications: New losartan-hydrochlorothiazide 100-12.5 mg 1 tab PO DAILY 90 tabs 1RF I10 - Essential (primary) hypertension Discontinued losartan Discontinued Reason: Doctor's Order 100 mg PO DAILY 90 tabs 1RF I10 - Essential (primary) hypertension Coding Level of Care Code Est Pt Level 4 (83264) Complex EM visit Add On G2211 Diagnoses Essential hypertension I10 Hypertension type: essential hypertension
[2023-03-22 11:03] VITALS: BP 168/78; PULSE 53; O2SAT 99
== END 2023-03-22 12:04 | disposition home or self-care (01) ==
PROVIDERS: Visit Provider Internal Medicine
DX: I10 Essential (primary) hypertension (principal)
CPT/HCPCS: 99214; G2211

== ENCOUNTER 2023-03-22 13:08 | Outpatient (AMB) | payer MEDICARE, SELFPAY ==
--- NOTE | 2023-03-22 13:17 | MHC.OFFVIS ---
Intake Vital Signs 03/22/23 13:19 Height 5 ft Weight 169 lb 12.095 oz BMI 33.1 BP 203/83 H Blood Pressure Location Lt brachial Position Sitting Pulse 51 Intake Visit Reasons: s/p egd- Jeremy Intake Note: Ayana presents in the office as a follow up egd. CC: She states that she is not having concerns since the procedure. She just wants to stop taking omeprazole. Tuber Machine Operator Required: No Allergies codeine [Codeine] Allergy (Mild, Verified 03/22/23 13:19) SWELLING, vomiting, headache HPI HPI Comments History of Present Illness Details This is a 77-year-old female with past medical history of history of Capone's in 2002 & 2005, with no further metaplasia noted on 2008 & 2011, nontoxic multinodular goiter, history of hyperparathyroidism, status post parathyroidectomy, osteopenia secondary to hyperparathyroidism, hypertension, osteoarthritis, psoriasis, obesity, hiatal hernia who presents to the office for follow up. Previously seen by Dr. Mann. Initial visit 07/08/22: Reports that has had intermittent issues with GERD in the past, which would resolve with p.r.n. Tums or omeprazole. For the past few months however, has been having daily GERD which describes as heartburn up to her throat especially at nighttime when she is laying down. Symptoms improved when she sleeps on a recliner. Continues to space out dinners from her bedtime by at least 4-5 hours. Tried omeprazole 20 mg with breakfast for a few weeks, which did not help when she was then switched to famotidine 40 mg. She takes this twice a day to get relief. Denies any regurgitation, nausea, vomiting, dysphagia or odynophagia. No unintentional weight loss. No abdominal pain. Colonoscopy 2016 (Dr Mann): sigmoid diverticulosis, no polyps EGD/colo 2011 (Dr Mann): Hiatal hernia, no BE on GEJ bx. Small T.A. Diverticulosis. 08/31/22: Reports complete resolution of symptoms since taking high-dose omeprazole for 4 weeks and adding a wedge pillow at nighttime. She in fact wonders if the omeprazole was can be reduced. Otherwise, no complaints to include abdominal pain, nausea vomiting, or regurgitation. No unintentional weight loss. 12/08/22: Still with intermittent heartburn with occasional feeling of food getting stuck in her upper throat. Stress test from September reassuring. 03/04/23: EGD with dilation Normal esophagus mucosa (biopsy) Schatzki's ring (dilation) Hiatal hernia Normal stomach Normal duodenum Path: A. Esophagus, lower, biopsy: Squamous mucosa with mild hyperplasia, spongiosis, and mild intraepithelial lymphocytic infiltrate; no columnar mucosa present (see comment). B. Esophagus, middle, biopsy: Squamous mucosa with mild hyperplasia, spongiosis, and mild intraepithelial lymphocytic infiltrate; no columnar mucosa present; no evidence of eosinophilic esophagitis (see comment). 03/22/23: Reports improvement in sensation of food getting stuck as well as regurgitation since dilation. Has hx of osteopenia 2/2 hyperparathyroidism and wonders if can go off PPI therapy. FOR[facility]LY [facility], [facility] Medical History PONV (postoperative nausea and vomiting) Family history of early CAD Chronic heartburn Psoriasis Shoulder pain, left Hypoparathyroidism Hypothyroidism Primary hyperparathyroidism Toxic multinodular goiter Family history of premature CAD History of Capone's esophagus Breast cancer in situ Hip pain, left HTN (hypertension) HLD (hyperlipidemia) Osteopenia Vitamin D deficiency Surgical History History of surgery S/P subtotal parathyroidectomy History of total thyroidectomy History of hysteroscopy Hx of dilation and curettage History of esophagogastroduodenoscopy (EGD) H/O colonoscopy History of lumpectomy of left breast Hx of cholecystectomy History of rotator cuff surgery Family History Father History of heart attack CVD (cardiovascular disease) Unknown family medical history Mother Unknown family medical history CVD (cardiovascular disease) Cirrhosis of liver Heart disease Substance use disorder Maternal Grandfather No problems noted. Maternal Grandmother Breast cancer Paternal Grandfather No problems noted. Paternal Grandmother No problems noted. Sister No problems noted. Sister No problems noted. Son No problems noted. Daughter No problems noted. Daughter No problems noted. 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 Sexual orientation: Straight/Heterosexual Gender identity: Female Cognitive needs: No Hearing needs: No Vision needs: Yes Physical Exam Vital Signs: Last Vital Signs Pulse 51 03/22/23 13:19 BP 203/83 H 03/22/23 13:19 BMI result Body Mass Index 33.1 Gen appear: NAD, well nourished HEENT: no icterus, no cervical lymphadenopathy Chest: clear to auscultation CVS: Regular S1/S2 Abd: soft, nontender, nondistended Ext: no peripheral edema Neuro: A/Ox3, noted to move all extremities spontaneously Assessment & Plan Assessment & Plan (1) GERD (gastroesophageal reflux disease): Code(s): K21.9 - Gastro-esophageal reflux disease without esophagitis (2) Schatzki's ring of distal esophagus: Code(s): K22.2 - Esophageal obstruction Plan Reports improvement in intermittent dysphagia to solids since dilation of schatzki's ring. EGD and path findings reviewed and since only mild reflux burden noted, can try H2 tere therapy instead of PPI as per pt's request due to underlying osteopenia. Pt was advised to call our office if sx of dysphagia return to consider repeat EGD with dilation. Follow up PRN Medications: New famotidine 20 mg PO BEDTIME 90 tabs 1RF Coding Level of Care Code Est Pt Level 4 (22644) Diagnoses GERD (gastroesophageal reflux disease) K21.9 Schatzki's ring of distal esophagus K22.2
[2023-03-22 13:19] VITALS: BP 203/83; PULSE 51; BMI 33.1
== END 2023-03-22 16:23 | disposition home or self-care (01) ==
PROVIDERS: PCP Internal Medicine; Visit Provider Internal Medicine
DX: K21.9 Gastro-esophageal reflux disease without esophagitis (principal); K22.2 Esophageal obstruction
CPT/HCPCS: 99214

== ENCOUNTER → 2023-03-22 13:08 | Outpatient (BNVA) | payer MEDICARE, SELFPAY | PROVIDERS: PCP Internal Medicine; Visit Provider Internal Medicine | DX: K21.9 Gastro-esophageal reflux disease without esophagitis (principal); K22.2 Esophageal obstruction | CPT/HCPCS: 99212 ==

== ENCOUNTER 2023-04-28 08:28 | Outpatient (REF) | payer MEDICARE, SELFPAY ==
[2023-04-28 11:55] LABS: Alanine Aminotransferase 19 U/L (0-31); Albumin Level 4.1 g/dL (3.5-5.0); Alkaline Phosphatase 91 U/L (39-117); Anion Gap 13 (12-20); Aspartate Amino Transferase 18 U/L (5-31); Bilirubin Total 0.3 mg/dL (0.0-1.0); Blood Urea Nitrogen 14 mg/dL (9-16); Calcium 9.5 mg/dL (8.4-10.2); Carbon Dioxide 28 mmol/L (22-29); Chloride 104 mmol/L (96-108); Estimated Glomerular Filt Rate > 60; Glucose Random 100 mg/dL (60-115); Potassium 4.2 mmol/L (3.3-5.1); Sodium 141 mmol/L (135-145); Total Protein 7.1 g/dL (6.5-8.0)
[2023-04-29 13:48] LABS: Calcium (PTHI) 9.3 mg/dL (8.6-10.4); PTHI <6 pg/mL (16-77)
== END 2023-04-28 08:29 | disposition home or self-care (01) ==
LOC: HO.HMGCLDS 08:28
PROVIDERS: PCP Internal Medicine; Visit Provider Internal Medicine
DX: E89.2 Postprocedural hypoparathyroidism (principal)
CPT/HCPCS: 36415; 80053; 83970; 84100

== ENCOUNTER 2023-05-06 09:48 | Outpatient (AMB) | payer MEDICARE, SELFPAY ==
--- NOTE | 2023-05-06 09:50 | A.OFFVIS_ITS ---
Intake Vital Signs 05/06/23 09:51 Height 5 ft Weight 167 lb 15.876 oz BMI 32.8 BP 126/64 Blood Pressure Location Lt brachial Position Sitting Pulse 52 Pulse Source Pulse Oximeter Intake Visit Reasons: F/U Hypoparathyroidism Intake Note: Patient present today for Hypoparathyroidism follow up visit. Armoured Corps Officer Required: No Accompanied by: Self / Same As Patient Allergies codeine [Codeine] Allergy (Mild, Verified 05/06/23 10:01) SWELLING, vomiting, headache HPI HPI Comments History of Present Illness Details 77 YO F with PMHx NTMNG and Hypercalcemia who is seen in F/U for Hyperthyroidism with a MNG and hyperparathyroidism. 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 She underwent surgical resection of this 5th parathyroid gland 10/06/2021 with reimplantation of a small fragment in the L brachioradialis muscle on 10/06/2021. Patient last saw Dr. Hogan on 02/03/2023 1) NTMNG and Subclinical Hyperthyroidism: Patient has had biochemical evidence of subclinical hyperthyroidism. She had a Thyroid Uptake and Scan completed 02/15/20 with normal uptake, but marked heterogeneity within the gland consistent with a toxic MNG. The patient had a thyroid US completed in 2010 which revealed multiple bilateral thyroid nodules. Some of which did meet indication for FNA biopsy, but she did not pursue this until recently. Thyroid US was repeated 01/08/2020 and this did reveal a multinodular thyroid with multiple nodules meeting indication for FNA biopsy. She underwent FNA biopsy 03/28/2020, at which time only 1 nodule, a Left mid pole 1.4 cm nodule, was found to meet indication for FNA biopsy. Cytology was Benign (Cutler Category II). She underwent a total thyroidectomy by Dr. Nikolay Hugo 11/18/2020 with benign surgical pathology. She remains on levothyroxine 112 mcg PO daily. TSH has remained at goal. 2) Hyperparathyroidism: The patient has had documented hypercalcemia since 2002. Her Calcium was 12.0 on 07/14/2019, with a PTH of 90. No Vitamin D or Albumin was assessed. Vitamin D level was 02/16/2019 and was 31.3. She had labs repeated 12/27/2019 which revealed Calcium 11.7 with PTH 97 and Vitamin D WNL. She was on HCTZ at this time. She was asked to stop the HCTZ and labs were repeated 3 weeks later on 01/31/2020 with Calcium 11.1, Albumin 4.2, Vitamin D 31.2 and PTH 80. Her 24 hour urine calcium was high normal at 254. She was referred to Dr. Hugo,. She underwent a 3.5 gland surgical parathyroidectomy with only a remnant of the R superior parathyroid remaining. Unfortunately intraoperative PTH did not meet curative cirteria, declining from 119-90. Thymus was resected, which did contain microscopic parathyroid tissue. She was referred again to Dr. 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 She underwent resection of this 5th parathyroid gland 10/06/2021 with reimplantation of a small fragment in the L brachioradialis muscle. Postoperative PTH declined to 9, and has rem ained low ever since. She has had issues with hypocalcemia as well as cramping. She remains on Citracal 325 mg 4 tabs daily in divided doses. She also remains on calcitriol 0.25 mcg PO daily. Calcium mildly above goal, but she does report that she experiences cramping and paresthesias approximately once a week. DEXA: 01/20/2022 FINDINGS: AP SPINE L1-L4: Current: BMD 1.367 g/cm2, Z-score 2.9, T-score 1.6, normal, 0.4% decrease from previous, 4.0% increase from baseline (<5% change is not significant). Prior: BMD 1.373 g/cm2. Baseline: BMD 1.315 g/cm2. LEFT FEMUR, NECK: Current: BMD 0.787 g/cm2, Z-score -0.2, T-score -1.8, osteopenia. Prior: BMD 0.846 g/cm2. Baseline: BMD 0.851 g/cm2. LEFT FEMUR, TOTAL: Current: BMD 0.944 g/cm2, Z-score 0.9, T-score -0.5, normal, 7.5% decrease from previous, 4.0% decrease from baseline (<5% change is not significant). Prior: BMD 1.021 g/cm2. Baseline: BMD 0.983 g/cm2. LEFT FOREARM RADIUS 33%: BMD 0.754 g/cm2, Z-score 0.8, T-score -1.4, osteopenia, 0.0% change from baseline (<5% change is not significant). Baseline: BMD 0.754 g/cm2. Labs: Laboratory Tests 01/08/23 01/08/23 07:49 07:49 Albumin 4.0 PTH Intact 10 L Calcium (PTH Intac t) 8.4 L PFSH Medical History PONV (postoperative nausea and vomiting) Family history of early CAD Chronic heartburn Psoriasis Shoulder pain, left Hypoparathyroidism Hypothyroidism Primary hyperparathyroidism Toxic multinodular goiter Family history of premature CAD History of Capone's esophagus Breast cancer in situ Hip pain, left HTN (hypertension) HLD (hyperlipidemia) Osteopenia Vitamin D deficiency Surgical History History of surgery S/P subtotal parathyroidectomy History of total thyroidectomy History of hysteroscopy Hx of dilation and curettage History of esophagogastroduodenoscopy (EGD) H/O colonoscopy History of lumpectomy of left breast Hx of cholecystectomy History of rotator cuff surgery Family History Father History of heart attack CVD (cardiovascular disease) Unknown family medical history Mother Unknown family medical history CVD (cardiovascular disease) Cirrhosis of liver Heart disease Substance use disorder Maternal Grandfather No problems noted. Maternal Grandmother Breast cancer Paternal Grandfather No problems noted. Paternal Grandmother No problems noted. Sister No problems noted. Sister No problems noted. Son No problems noted. Daughter No problems noted. Daughter No problems noted. 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 Assessment & Plan Assessment & Plan (1) Hypoparathyroidism: Code(s): E20.9 - Hypoparathyroidism, unspecified Plan: This is a 77-year-old white female with surgically induced hypoparathyroidism currently replaced on calcitriol 0.25 mcg per day and calcium supplementation with calcium in low normal range and the past normal 24 hour urine. Plan is to continue the current management (2) Hypothyroidism: Code(s): E03.9 - Hypothyroidism, unspecified Qualifiers: Hypothyroidism type: postoperative Qualified Code(s): E89.0 - Postprocedural hypothyroidism Plan: Clinically and biochemically euthyroid on levothyroxine 112 mcg. Plan is to continue the current management Orders: Orders Calcium, 24 Hr Ur Today E20.9 - Hypoparathyroidism, unspecified Creatinine, 24 Hr Group Today E20.9 - Hypoparathyroidism, unspecified Coding Level of Care Code Est Pt Level 3 (33854) Diagnoses Hypoparathyroidism E20.9 Postoperative hypothyroidism E89.0 Hypothyroidism type: postoperative
[2023-05-06 09:51] VITALS: BP 126/64; PULSE 52; BMI 32.8
== END 2023-05-06 10:14 | disposition home or self-care (01) ==
PROVIDERS: PCP Internal Medicine; Visit Provider Internal Medicine Endocrinology, Diabetes & Metabolism
DX: E20.9 Hypoparathyroidism, unspecified (principal); E89.0 Postprocedural hypothyroidism
CPT/HCPCS: 99213

== ENCOUNTER → 2023-05-06 09:48 | Outpatient (BNVA) | payer MEDICARE, SELFPAY | PROVIDERS: PCP Internal Medicine; Visit Provider Internal Medicine Endocrinology, Diabetes & Metabolism | DX: E20.9 Hypoparathyroidism, unspecified (principal); E89.0 Postprocedural hypothyroidism; M85.80 Other specified disorders of bone density and structure, unspecified site; E55.9 Vitamin D deficiency, unspecified; Z79.899 Other long term (current) drug therapy | CPT/HCPCS: 99212 ==

== ENCOUNTER 2023-06-18 11:12 | Outpatient (REF) | payer MEDICARE, SELFPAY ==
[2023-06-18 13:44] LABS: Appearance Urine Clear; Color Urine Dark Yellow; Glucose Urine UA Negative (Negative); Leukocyte Esterase Urine Moderate (2+) (Negative); Nitrite Urine Negative (Negative); Specific Gravity - Urine 1.025 (1.005-1.025); UMIC TRIGGER UACC YES; Urine Blood Negative (Negative); Urine Ketones Trace mg/dL (Negative); Urine Protein Negative (Neg-Trace)
[2023-06-18 13:52] LABS: Bacteria Urine None Seen (None Seen); Hyaline Casts Urine 0-2 /LPF (0-2); RBC Urine 0-2 /HPF (0-2); UACC Culture Trigger YES
== END 2023-06-18 11:13 | disposition home or self-care (01) ==
LOC: HO.HMGCLDS 11:12
PROVIDERS: PCP Internal Medicine; Visit Provider Internal Medicine
DX: R82.90 Unspecified abnormal findings in urine (principal)
CPT/HCPCS: 81001; 87086

== ENCOUNTER 2023-06-24 07:30 | Outpatient (REF) | payer MEDICARE, SELFPAY ==
[2023-06-24 11:40] LABS: Total Volume 24 Hour Urine 825 mL
[2023-06-24 12:53] LABS: Creatinine, 24Hr Urine 0.7 G/Day (1.0-2.0); Creatinine, mg/dL 84.41
[2023-06-25 16:33] LABS: Calcium, 24 Hr Urine 134 mg/24 h; Calcium/Creatinine Ratio 192 mg/g creat (30-275)
== END 2023-06-24 07:31 | disposition home or self-care (01) ==
LOC: HO.HMGCLNP 07:30
PROVIDERS: PCP Internal Medicine; Visit Provider Internal Medicine Endocrinology, Diabetes & Metabolism
DX: E20.9 Hypoparathyroidism, unspecified (principal)
CPT/HCPCS: 82340; 82570

== ENCOUNTER 2023-09-08 10:02 | Outpatient (AMB) | payer MEDICARE, SELFPAY ==
--- NOTE | 2023-09-08 10:37 | MHC.OFFWIV ---
Intake Vital Signs 09/08/23 10:38 09/08/23 11:21 Weight 166 lb BP 104/60 120/80 Blood Pressure Location Rt brachial Rt brachial Position Sitting Sitting Pulse 55 Pulse Source Pulse Oximeter Pulse Oximetry (%) 97 Oxygen Delivery Method Room Air Intake Visit Reasons: EP Wax removal LT ear Intake Note: Patient here for clogged left ear after having a cold but it has been present for a few weeks. Patient Tobacco Use Status: Never used Tobacco Allergies codeine [Codeine] Allergy (Mild, Verified 09/08/23 10:39) SWELLING, vomiting, headache Do you need a note to return to daycare/school/sports/work: No HPI HPI Comments History of Present Illness Details 78 y/o female patient who presents to walk in clinic with c/o clogged left ear for few weeks now. Reports hard of hearing on that ear. Denies pain or discharge. FOR[facility]LY [facility], [facility] Medical History PONV (postoperative nausea and vomiting) Family history of early CAD Chronic heartburn Psoriasis Shoulder pain, left Hypoparathyroidism Hypothyroidism Primary hyperparathyroidism Toxic multinodular goiter Family history of premature CAD History of Capone's esophagus Breast cancer in situ Hip pain, left HTN (hypertension) HLD (hyperlipidemia) Osteopenia Vitamin D deficiency Surgical History History of surgery S/P subtotal parathyroidectomy History of total thyroidectomy History of hysteroscopy Hx of dilation and curettage History of esophagogastroduodenoscopy (EGD) H/O colonoscopy History of lumpectomy of left breast Hx of cholecystectomy History of rotator cuff surgery Family History Father History of heart attack CVD (cardiovascular disease) Unknown family medical history Mother Unknown family medical history CVD (cardiovascular disease) Cirrhosis of liver Heart disease Substance use disorder Maternal Grandfather No problems noted. Maternal Grandmother Breast cancer Paternal Grandfather No problems noted. Paternal Grandmother No problems noted. Sister No problems noted. Sister No problems noted. Son No problems noted. Daughter No problems noted. Daughter No problems noted. 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 Sexual orientation: Straight/Heterosexual Gender identity: Female Cognitive needs: No Hearing needs: No Vision needs: Yes Review of Systems Const All systems reviewed & are unremarkable except as noted in HPI and below Physical Exam Vital Signs: Last Vital Signs Pulse 55 09/08/23 10:38 BP 104/60 09/08/23 10:38 Pulse Ox 97 09/08/23 10:38 Oxygen Delivery Method Room Air 09/08/23 10:38 Const General: comfortable and no acute distress Orientation/consciousness: patient oriented x3 HEENT Head: Yes normocephalic Ears: TM normal on the right, TM abnormal obstructed by cerumen on the left and unable to visualize TM General nose exam: Normal external nose present and No nasal discharge present Face and sinus: Yes sinuses nontender Mouth: moist mucous membranes Neuro General: patient oriented x3 Psych Speech and movement: Normal speech and movement present Office Procedures Cerumen Removal From which ear canal was the cerumen removed: left Removal: irrigation Notes: patient tolerated procedure well [id number] Irrigation/Lavage Assessment & Plan Assessment & Plan (1) Cerumen impaction: Code(s): H61.20 - Impacted cerumen, unspecified ear Qualifiers: Laterality: left Qualified Code(s): H61.22 - Impacted cerumen, left ear Plan: - Debrox for 7 days - If not better RTC for lavage Medications: New carbamide peroxide 6.5% (Debrox) 5 drps otic (ears) BID 15 mL 0RF 7 days H61.22 - Impacted cerumen, left ear Coding Level of Care Code Est Pt Level 3 (57586) Diagnoses Impacted cerumen of left ear H61.22 Laterality: left CPT Codes Office Procedure - CPT: 39305-Xet Irrigation/Lavage ([id number]) Time Spent (min) 15
[2023-09-08 10:38] VITALS: BP 104/60; PULSE 55; O2SAT 97
[2023-09-08 11:21] VITALS: BP 120/80
== END 2023-09-08 12:22 | disposition home or self-care (01) ==
PROVIDERS: PCP Internal Medicine; Visit Provider Nurse Practitioner Family
DX: H61.22 Impacted cerumen, left ear (principal)
CPT/HCPCS: 69209; 99213

== ENCOUNTER 2023-09-09 12:27 | Outpatient (AMB) | payer MEDICARE, SELFPAY ==
[2023-09-09 12:48] VITALS: BP 120/80; PULSE 57; BMI 32.3
--- NOTE | 2023-09-09 12:48 | A.OFFVIS_ITS ---
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 Allergies codeine [Codeine] Allergy (Mild, Verified 09/08/23 10:39) SWELLING, vomiting, headache Medication List - Last Reconciled 09/09/23 by Fredy Wise MD acetaminophen ER (Tylenol 8 Hour) 650 mg PO Q8H PRN albuterol sulfate 90 mcg/actuation 90 mcg inhalation Q4-6H PRN alclometasone 0.05% appl topical amlodipine 2.5 mg PO QAM apremilast (Otezla) 30 mg PO BID atorvastatin 40 mg PO DAILY biotin 1 mg PO DAILY calcitriol 0.25 mcg PO DAILY 30 days [id number]-copper-jenna 325 mg-12.5 mcg -2.75 mg (Citracal-D3 Maximum Plus) 4 tabs PO DAILY carbamide peroxide 6.5% (Debrox) 5 drps otic (ears) BID 7 days cholecalciferol (vitamin D3) 25 mcg PO DAILY famotidine 20 mg PO BEDTIME ketoconazole 2% 1 appl topical DAILY ketoconazole 2% topical levothyroxine 112 mcg PO DAILY losartan-hydrochlorothiazide 100-12.5 mg 1 tab PO DAILY meclizine 25 mg PO BID PRN metoprolol succinate ER 50 mg PO BEDTIME [wedge pillow As directed] HPI HPI Comments History of Present Illness Details Ayana comes for follow-up. She has had some GI issues and currently following with GI but she says since last year after getting coronary calcium score which showed predominantly high coronary calcium in the LAD territory greater than 500 she underwent a myocardial perfusion imaging where she walked 4-1/2 minutes within normal myocardial perfusion imaging. Since then she has been regularly exercising and walking although she notices that when she is walking in the park and walks up an incline she still gets short of breath despite regular walking for 45 minutes. She denies any chest pain. Denies any orthopnea, PND, leg edema. Takes all her medications. [facility] Medical History PONV (postoperative nausea and vomiting) Family history of early CAD Chronic heartburn Psoriasis Shoulder pain, left Hypoparathyroidism Hypothyroidism Primary hyperparathyroidism Toxic multinodular goiter Family history of premature CAD History of Capone's esophagus Breast cancer in situ Hip pain, left HTN (hypertension) HLD (hyperlipidemia) Osteopenia Vitamin D deficiency Surgical History History of surgery S/P subtotal parathyroidectomy History of total thyroidectomy History of hysteroscopy Hx of dilation and curettage History of esophagogastroduodenoscopy (EGD) H/O colonoscopy History of lumpectomy of left breast Hx of cholecystectomy History of rotator cuff surgery Family History Father History of heart attack CVD (cardiovascular disease) Unknown family medical history Mother Unknown family medical history CVD (cardiovascular disease) Cirrhosis of liver Heart disease Substance use disorder Maternal Grandfather No problems noted. Maternal Grandmother Breast cancer Paternal Grandfather No problems noted. Paternal Grandmother No problems noted. Sister No problems noted. Sister No problems noted. Son No problems noted. Daughter No problems noted. Daughter No problems noted. 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 Sexual orientation: Straight/Heterosexual Gender identity: Female Cognitive needs: No Hearing needs: No Vision needs: Yes Review of Systems Const Denies chills, Denies fatigue, Denies fever(s), Denies frequent falls, Denies weakness, Denies weight gain and Denies weight loss ENT Denies dizziness Card Denies chest pain, Denies leg edema, Denies lightheadedness, Denies palpitations, Denies dyspnea, Denies dyspnea on exertion, Denies orthopnea and Denies other (loss of consciousness) Resp Denies cough, Denies dyspnea and Denies dyspnea on exertion GI Denies hematochezia and Denies change in stool character Musc Denies abnormal gait, Denies muscle weakness, Denies numbness, Denies radiating pain into limb and Denies tingling Neuro Denies abnormal gait, Denies dizziness, Denies frequent falls, Denies numbness, Denies tingling and Denies weakness Endo Denies fatigue and Denies palpitations Physical Exam Vital Signs: Last Vital Signs Pulse 57 09/09/23 12:48 BP 120/80 09/09/23 12:48 BMI result Body Mass Index 32.3 Const General: cooperative, comfortable, no acute distress, alert, awake and well groomed Nutritional Appearance: obese Orientation/consciousness: patient oriented x3 Limitations: no limitations Neck Neck: Yes trachea midline, Yes supple and Yes no JVD Resp Effort & Inspection: normal respiratory effort Auscultation: clear to auscultation bilaterally Cardio Jugular venous distension: no JVD Palpation: normal PMI Rate: regular rate Rhythm: regular rhythm Heart sounds: S1 normal heart sound present, S2 normal heart sound present, no click, no gallops, no murmurs and no rubs GI Auscultation: normal bowel sounds Skin General skin exam: no rashes or lesions noted Neuro General: patient oriented x3 and no focal motor deficits Extrem General: Yes no clubbing, cyanosis or edema Office Procedures EKG Details: EKG shows sinus bradycardia otherwise normal EKG at 57 beats per minute [id number], Complete Assessment & Plan Assessment & Plan (1) CAD (coronary artery disease): Code(s): I25.10 - Atherosclerotic heart disease of [place] coronary artery without angina pectoris Plan: Coronary artery disease in this elderly woman with heavily calcified LAD on coronary calcium score subsequently myocardial perfusion imaging at moderate workload was within normal limits. She then participate in regular physical activity remains consistently symptomatic with exertional shortness of breath on walking up an incline. There is likelihood of significant LAD stenosis. This was discussed with her. Likelihood of false negative myocardial perfusion imaging was discussed. I do recommend her to undergo cardiac catheterization to evaluate for coronary anatomy and to evaluate if she has hemodynamically significant CAD in the LAD territory. This was discussed with her. She wants to think about it. Meanwhile I have advised her to start on low-dose aspirin therapy. Continue high-intensity statin therapy. Advised lipid panel in near future to target goal LDL closer to 60 mg/dL. Continue aggressive blood pressure control. Currently on both metoprolol and amlodipine therapy. (2) HTN (hypertension): Code(s): I10 - Essential (primary) hypertension Qualifiers: Hypertension type: essential hypertension Qualified Code(s): I10 - Essential (primary) hypertension Plan: Hypertension which is currently well optimized advised to monitor blood pressure at home maintain a log. Goal blood pressure less than 130/84. Encouraged to continue to participate in regular physical activity and advised to call me with worsening symptoms. Low-salt diet was discussed. Will follow up in the clinic in 1 year's time, sooner p.r.n.. Thank you for allowing me to partake in her care Coding Level of Care Code Est Pt Level 4 (42283) Diagnoses CAD (coronary artery disease) I25.10 Essential hypertension I10 Hypertension type: essential hypertension CPT Codes EKG - CPT: 84513-[id number], Complete ([id number])
== END 2023-09-09 13:23 | disposition home or self-care (01) ==
PROVIDERS: Visit Provider Internal Medicine Cardiovascular Disease
DX: I25.10 Atherosclerotic heart disease of native coronary artery without angina pectoris (principal); I10 Essential (primary) hypertension
CPT/HCPCS: 93010; 99214

== ENCOUNTER → 2023-09-09 12:27 | Outpatient (BNVA) | payer MEDICARE, SELFPAY | PROVIDERS: Visit Provider Internal Medicine Cardiovascular Disease | DX: I25.10 Atherosclerotic heart disease of native coronary artery without angina pectoris (principal); I10 Essential (primary) hypertension; Z79.899 Other long term (current) drug therapy | CPT/HCPCS: 93005; 99212 ==

== ENCOUNTER 2023-09-14 08:56 | Outpatient (REF) | payer MEDICARE, SELFPAY ==
[2023-09-14 12:35] LABS: Alanine Aminotransferase 24 U/L (0-31); Anion Gap 13 (12-20); Blood Urea Nitrogen 14 mg/dL (9-16); Calcium 8.7 mg/dL (8.4-10.2); Carbon Dioxide 27 mmol/L (22-29); Chloride 106 mmol/L (96-108); Cholesterol 129 mg/dL (<200); Estimated Glomerular Filt Rate > 60; Glucose Fasting 89 mg/dL (60-99); HDL Cholesterol 58 mg/dL (>40); LDL Cholesterol Calculated 61 mg/dL (<100); Potassium 4.1 mmol/L (3.3-5.1); Sodium 142 mmol/L (135-145); Triglycerides 52 mg/dL (<150)
== END 2023-09-14 08:57 | disposition home or self-care (01) ==
LOC: HO.HMGCLDS 08:56
PROVIDERS: PCP Internal Medicine; Referring Provider Internal Medicine Cardiovascular Disease; Visit Provider Internal Medicine
DX: I10 Essential (primary) hypertension (principal)
CPT/HCPCS: 36415; 80048; 80061; 84460

== ENCOUNTER 2023-09-20 06:41 | Outpatient (REF) | payer MEDICARE, SELFPAY ==
[2023-09-20 11:29] LABS: INTERNATIONAL NORM RATIO 0.9 (0.9-1.1); Prothrombin Time 10.8 SEC (11.1-13.3)
[2023-09-20 11:32] LABS: Hematocrit 39.7 % (37.0-47.0); Hemoglobin 13.1 g/dl (12.0-16.0); Mean Corpuscular Hemoglobin 30.3 pg (27.0-33.0); Mean Corpuscular Volume 91.9 fL (80.0-98.0); Mean Platelet Volume 11.6 fL (9.4-12.3); Platelet Count 311 X10*3/uL (160-400); Red Blood Count 4.32 X10*6/uL (4.20-5.50); White Blood Count 6.3 X10*3/uL (4.8-10.8)
[2023-09-20 13:36] LABS: Anion Gap 14 (12-20); Blood Urea Nitrogen 24 mg/dL (9-16); Calcium 8.7 mg/dL (8.4-10.2); Carbon Dioxide 24 mmol/L (22-29); Chloride 108 mmol/L (96-108); Cholesterol 146 mg/dL (<200); Estimated Glomerular Filt Rate > 60; Glucose Random 85 mg/dL (60-115); HDL Cholesterol 60 mg/dL (>40); LDL Cholesterol Calculated 75 mg/dL (<100); Sodium 142 mmol/L (135-145); Triglycerides 55 mg/dL (<150)
== END 2023-09-20 06:42 | disposition home or self-care (01) ==
LOC: HO.HMGCLDS 06:41
PROVIDERS: PCP Internal Medicine; Visit Provider Internal Medicine Cardiovascular Disease
DX: I25.10 Atherosclerotic heart disease of native coronary artery without angina pectoris (principal); R12 Heartburn; I10 Essential (primary) hypertension
CPT/HCPCS: 36415; 80048; 80061; 85027; 85610

== ENCOUNTER 2023-09-21 09:09 | Outpatient (AMB) | payer MEDICARE, SELFPAY ==
--- NOTE | 2023-09-21 09:34 | MHC.PC.OV ---
Vital Signs 09/21/23 09:38 Height 5 ft Weight 167 lb BMI 32.6 BP 134/68 Blood Pressure Location Lt brachial Position Sitting Pulse 59 Pulse Source Pulse Oximeter Pulse Oximetry (%) 98 Oxygen Delivery Method Room Air Intake Visit Reasons: Annual PE Intake Note: Pt is here today for her PE: Last mammogram 09/03/23, bone density scan 01/20/22 and colonoscopy 05/03/17 Allergies codeine [Codeine] Allergy (Mild, Verified 12/08/23 14:11) SWELLING, vomiting, headache Medication List - Last Reconciled 09/21/23 by Marisol Haddad MD acetaminophen ER (Tylenol 8 Hour) 650 mg PO Q8H PRN albuterol sulfate 90 mcg/actuation 90 mcg inhalation Q4-6H PRN alclometasone 0.05% appl topical amlodipine 2.5 mg PO QAM apremilast (Otezla) 30 mg PO BID atorvastatin 40 mg PO DAILY biotin 1 mg PO DAILY calcitriol 0.25 mcg PO DAILY 30 days [id number]-copper-jenna 325 mg-12.5 mcg -2.75 mg (Citracal-D3 Maximum Plus) 4 tabs PO DAILY cholecalciferol (vitamin D3) 25 mcg PO DAILY famotidine 20 mg PO BEDTIME ketoconazole 2% 1 appl topical DAILY ketoconazole 2% topical levothyroxine 112 mcg PO DAILY losartan-hydrochlorothiazide 100-12.5 mg 1 tab PO DAILY meclizine 25 mg PO BID PRN metoprolol succinate ER 50 mg PO BEDTIME [wedge pillow As directed] Tobacco use date assessed: 09/21/23 Fall risk assessment: No Falls in past year Last assessed Fall Risk: 09/21/23 Dental Screening Dental Screen Date: 09/21/23 Did you have a dental visit in the last 12 months?: Yes Did you have a dental problem in the last 6 months where you did not have access to dental care?: No Was dental information given to patient?: Patient has dentist HPI Annual PE HPI Details 78-year-old lady with hyperlipidemia, hypothyroidism status post total thyroidectomy, history of hyperparathyroidism s/p subtotal parathyroidectomy, chronic GERD with hiatal hernia, here today for her physical exam. Last mammogram 09/03/23, bone density scan 01/20/22 showing osteopenia in left femoral neck, normal in AP spine and in left femur . She is up-to-date with her screening colonoscopy done 05/03/[address] Mann with no further screening indicated . She was found to have a heavily calcified LAD on coronary calcium score, with subsequent myocardial perfusion imaging at moderate workload was within normal limits. She is scheduled for cardiac catheterization next week to be done by Dr. Wise. Denies chest pain, but does get short of breath on moderate exertion and on walking on an incline.. She sees Dr. Minaya for her routine skin exam, and is diagnosed with psoriasis and asteatosis cutis, currently controlled with alcometasone and Otezla. She is up-to-date with all her vaccinations. [facility] Medical History (Updated 12/08/23 @ 14:21 by Marisol Haddad MD) PONV (postoperative nausea and vomiting) Family history of early CAD Psoriasis Hypothyroidism Primary hyperparathyroidism Toxic multinodular goiter Family history of premature CAD History of Capone's esophagus Breast cancer in situ HTN (hypertension) HLD (hyperlipidemia) Osteopenia Vitamin D deficiency Surgical History (Updated 12/08/23 @ 14:17 by Marisol Haddad MD) History of cardiac cath History of surgery S/P subtotal parathyroidectomy History of total thyroidectomy History of hysteroscopy Hx of dilation and curettage History of esophagogastroduodenoscopy (EGD) H/O colonoscopy History of lumpectomy of left breast Hx of cholecystectomy History of rotator cuff surgery Family History Father History of heart attack CVD (cardiovascular disease) Unknown family medical history Mother Unknown family medical history CVD (cardiovascular disease) Cirrhosis of liver Heart disease Substance use disorder Maternal Grandfather No problems noted. Maternal Grandmother Breast cancer Paternal Grandfather No problems noted. Paternal Grandmother No problems noted. Sister No problems noted. Sister No problems noted. Son No problems noted. Daughter No problems noted. Daughter No problems noted. 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 1. Little interest or pleasure in doing things: not at all 2. Feeling down, depressed, or hopeless: not at all 3. Trouble falling or staying asleep, or sleeping too much: not at all 4. Feeling tired or having little energy: not at all 5. Poor appetite or overeating: not at all 6. Feeling bad about yourself - or that you are a failure or have let yourself or your family down: not at all 7. Trouble concentrating on things, such as reading the newspaper or watching television: not at all 8. Moving or speaking so slowly that other people could have noticed. Or the opposite - being so fidgety or restless that you have been moving around a lot more than usual: not at all 9. Thoughts that you would be better off or of hurting yourself in some way: not at all Total score: 0 Depression Screening Interpretation: Negative Depression Screening Done: Yes 84351 - PHQ-9 Billing: Yes Source: Developed by Drs. Hemant Morrison, Ashanti Chaves, Duong Matthews and colleagues, with an educational fabienne from [employer]. Thrive Questionnaire Date Thrive assessed: 09/21/23 I am a: Patient What is your living situation today?: I have a steady place to live Within the past 12 months, did the food you bought not last and you didn't have the money to get more?: Never true Within the past 12 months, did you worry whether your food would run out before you got money to buy more?: Never true Do you have trouble paying for medicines?: No Do you have trouble getting transportation to medical appointments?: No Do you have trouble paying your heating and electricity bill?: No Do you have trouble taking care of your child, family member or friend?: No Do you have trouble with day-to-day activities such as bathing, preparing meals, shopping, managing finances, etc.?: No Are you currently unemployed and looking for a job?: No Are you interested in more education?: No THRIVE Score: 0 AUDIT C Alcohol Use Questionnaire (AUDIT-C) 1. How often do you have a drink containing alcohol?: Monthly or less 2. How many drinks containing alcohol do you have on a typical day when you are drinking?: 1 or 2 3. How often do you have six or more drinks on one occasion?: Never Total Score: 1 GENESIS-7 AMB Questionnaire GENESIS-7 Date GENESIS - 7 assessed: 09/21/23 Feeling nervous, anxious, or on edge: 0 = Not at all Not being able to stop or control worryin = Not at all Worrying too much about different things: 0 = Not at all Trouble relaxin = Not at all Being so restless that it is hard to sit still: 0 = Not at all Becoming easily annoyed or irritable: 0 = Not at all Feeling afraid as if something awful might happen: 0 = Not at all Total GENESIS-7 score (0-4 normal; 5-9 mild; 10-14 moderate; 15-21 severe): 0 Source: Developed by Drs. Hemant Morrison, Ashanti Chaves, Duong Matthews and colleagues, with an educational fabienne from [employer]. GENESIS-7 Assessment Billing GENESIS-7 Assessment Tool: GENESIS-7 Assessment 06978 Review of Systems Const Denies chills, Denies fever(s), Denies frequent falls and Denies weakness Eyes Details: goes to [facility] Dr. Nugent Denies change in vision ENT Denies dizziness Card Denies chest pain, Denies leg edema and Denies lightheadedness Resp Reports as per HPI, Denies cough and Denies excessive phlegm production GI Denies hematochezia and Denies change in stool character Reports no additional complaints Musc Denies abnormal gait, Denies muscle weakness, Denies numbness, Denies radiating pain into limb and Denies tingling Skin/Breast Details: sees Dr Minaya for psoriasis currently on Otezla, seborrheic dermatitis controlled with ketoconazole cream Denies breast pain and Denies breast mass Neuro Denies abnormal gait, Denies dizziness, Denies frequent falls, Denies numbness, Denies tingling and Denies weakness Psych Reports no additional complaints Endo Reports no additional complaints Juan/Lymph Reports no additional complaints Aller/Immun Reports no additional complaints Physical exam (Primary Care) Vital Signs: Last Vital Signs Pulse 59 09/21/23 09:38 BP 134/68 09/21/23 09:38 Pulse Ox 98 09/21/23 09:38 Oxygen Delivery Method Room Air 09/21/23 09:38 BMI result Body Mass Index 32.6 BMI Assessment/Plan discussion: High BMI High, discussed plan: lifestyle, weight reduction, dietary and physical activity Tobacco/Smoking Status: Tobacco use Status Tobacco use date assessed 09/21/23 09/21/23 09:37 Patient Tobacco Use Status Never used Tobacco 09/21/23 09:37 e-Cigarette/Vaping Use Never Used 09/21/23 09:37 PHQ-9: PHQ-9 Score PHQ-9: Total score 0 09/22/23 23:52 Depression Screening Interpretation: Negative Thrive Assessment: Date of Thrive Assessment Date Thrive assessed 09/21/23 09/21/23 09:43 Const General: no acute distress and alert Nutritional Appearance: obese Orientation/consciousness: patient oriented x3 HENMT Mouth: Normal oral and palatal mucosa present and moist mucous membranes Eyes General: appearance normal, both eyes and all related structures Neck Neck: Yes normal visual inspection, Yes full ROM, Yes no lymphadenopathy and Yes supple Chest Breast/axilla palpation: normal palpation of the breasts Resp Auscultation: clear to auscultation bilaterally Cardio Other: S1-S2 present regular rate and rhythm GI Palpation (GI): Soft to palpation, nontender, no guarding and no masses General: Yes no CVA tenderness Back/Spine/Pelvis Back: no CVA tenderness and No back tenderness Skin General skin exam: no rashes or lesions noted Neuro General: patient oriented x3, tone normal, moves all extremities, Normal light touch and pain sensation, no focal motor deficits and CN's II-XI intact bilaterally Extrem General: Yes full ROM, Yes no joint enlargement, Yes no clubbing, cyanosis or edema, Yes no pedal edema, Yes no calf tenderness and Yes normal gait Psych Appearance: grossly normal and well kempt Mental Status: mental status grossly normal Speech and movement: Normal speech and movement present Affect: normal affect Thought process: Normal thought process present Results Reviewed Results Reviewed: Name: Ayana Aragon Age/Sex: 78/[facility] 1945 [id number] [id number] Attend Dr: Fredy Wise MD Re09/20/23 Status: DEP REF Location: [facility] Disch: SPEC : [id number] GISELLE: 09/20/23 STATUS: COMP REQ : [id number] RECD: 09/20/[address]: Fredy Wise MD COMP: 09/20/23 ENTERED: 09/20/[address]: Marisol Haddad MD ORDERED: CBC No Diff Test Result Flag Reference WBC 6.3 4.8-10.8 X10*3/uL RBC 4.32 4.20-5.50 X10*6/uL HGB 13.1 12.0-16.0 g/dl HCT 39.7 37.0-47.0 % MCV 91.9 80.0-98.0 fL MCH 30.3 27.0-33.0 pg MCHC 33.0 31.0-35.0 g/dl RDW 14.0 11.0-16.0 % PLT 311 160-400 X10*3/uL MPV 11.6 9.4-12.3 fL NRBC Pct Auto 0.0 0.0-0.2 /100WBC NRBC Abs Auto 0.000 0.0-0.012 X10*3/uL RECD: 09/20/[address]: Fredy Wise MD COMP: 09/20/23 ENTERED: 09/20/[address]: Marisol Haddad MD ORDERED: BMP, Lipid Panel Test Result Flag Reference Sodium 142 135-145 mmol/L Potassium 4.0 3.3-5.1 mmol/L CL 108 96-108 mmol/L CO2 24 22-29 mmol/L Gap 14 12-20 BUN 24 H 9-16 mg/dL Creat 0.78 0.5-1.4 mg/dL EGFR > 60 NOTE: For -[place] individuals, multiply the result by 1.210. Chronic Kidney Disease: Estimated GFR < 60 mL/min/1.73m2 Severe Kidney Disease: Estimated GFR < 15 mL/min/1.73m2 Glucose, Random 85 60-115 mg/dL CA 8.7 8.4-10.2 mg/dL Triglyceride 55 <150 mg/dL Desirable Triglyceride: less than 150 mg/dL Borderline High Triglyceride 150-199 mg/dL High Triglyceride: 200-499 mg/dL Very High Triglyceride: greater than or equal to 5OO mg/dL Cholesterol 146 <200 mg/dL Desirable Cholesterol: less than 200 mg/dL Borderline High Cholesterol: 200-239 mg/dL High Cholesterol: greater than 239 mg/dL LDL Calculated 75 <100 mg/dL Desirable LDL: less than 100 mg/dL Near Optimal/Above Optimal LDL: 110-129 mg/dL Borderline High LDL: 130-159 mg/dL High LDL: 160-189 mg/dL Very High LDL: greater than or equal to 190 mg/dL HDL 60 >40 mg/dL Desirable HDL: greater than 40 mg/dL Assessment and Plan Assessment & Plan (1) CAD (coronary artery disease): Code(s): I25.10 - Atherosclerotic heart disease of [place] coronary artery without angina pectoris Qualifiers: Associated angina: without angina Coronary Disease-Associated Artery/Lesion type: [place] artery [place] vs. transplanted heart: [place] heart Qualified Code(s): I25.10 - Atherosclerotic heart disease of [place] coronary artery without angina pectoris Plan: Scheduled for cardiac catheterization to be done at [facility] next week (2) HLD (hyperlipidemia): Code(s): E78.5 - Hyperlipidemia, unspecified Qualifiers: Hyperlipidemia type: pure hypercholesterolemia Qualified Code(s): E78.00 - Pure hypercholesterolemia, unspecified Plan: Reviewed recent fasting lipid profile with patient with LDL goal closer to 60 mg/dL . Continue with atorvastatin 40 mg daily , in addition to adherence to low-cholesterol diet and regular exercise, at least 30 minutes 3 to 4 times a week. Advised patient to make healthy food choices, eat more fruits, vegetables, whole grains, wild caught fish and low-fat dairy. Limit amount of meat and fried or fatty food products, as well as processed foods and fast foods. Follow-up scheduled with repeat fasting lipid panel in 6 months. (3) HTN (hypertension): Code(s): I10 - Essential (primary) hypertension Qualifiers: Hypertension type: essential hypertension Qualified Code(s): I10 - Essential (primary) hypertension Plan: Blood pressure at goal of less than 130/80. Continue amlodipine, metoprolol succinate ER, and losartan-HCT. Reinforced importance of following a low sodium diet, getting regular exercise, and lowering stress levels. (4) GERD (gastroesophageal reflux disease): Code(s): K21.9 - Gastro-esophageal reflux disease without esophagitis Qualifiers: Esophagitis presence: without esophagitis Qualified Code(s): K21.9 - Gastro-esophageal reflux disease without esophagitis Plan: Currently on famotidine 20 mg at bedtime (5) Psoriasis: Comment: On Otezla followed by Dr. Minaya Code(s): L40.9 - Psoriasis, unspecified Plan: Currently on Otezla, followed by Dr. Minaya (6) Hypoparathyroidism: Code(s): E20.9 - Hypoparathyroidism, unspecified Plan: Status post total parathyroidectomy, continue with calcium supplement and vitamin-D (7) Hypothyroidism: Code(s): E03.9 - Hypothyroidism, unspecified Qualifiers: Hypothyroidism type: postoperative Qualified Code(s): E89.0 - Postprocedural hypothyroidism Plan: Takes levothyroxine 112 mcg daily 1 hour before breakfast (8) Osteopenia: Code(s): M85.80 - Other specified disorders of bone density and structure, unspecified site Qualifiers: Osteopenia location: unspecified Qualified Code(s): M85.80 - Other specified disorders of bone density and structure, unspecified site Plan: Advised to do regular weight-bearing exercise, continue taking calcium and vitamin-D 3 supplement (9) Annual visit for general adult medical examination with abnormal findings: Code(s): Z00.01 - Encounter for general adult medical examination with abnormal findings Plan: Reviewed recent fasting lab results with patient.. Continue regular dental visit every 6 months and regular eye exams, at least every 2 years. Take adequate calcium in diet and vitamin-D 3 at 2000 IU per cap once a day, in addition to weight-bearing exercises to help maintain good muscle tone and weight control. Instructed to do self-breast exam, and continue yearly mammogram, , currently up-to-date. Up-to-date with her bone density scan and screening colonoscopy. Up-to-date with all her vaccines Orders: Orders Basic Metabolic Panel Fasting 6 Months I25.10 - Atherosclerotic heart disease of [place] coronary artery without angina pectoris, E78.5 - Hyperlipidemia, unspecified, I10 - Essential (primary) hypertension Alanine Aminotransferase 6 Months I25.10 - Atherosclerotic heart disease of [place] coronary artery without angina pectoris, E78.5 - Hyperlipidemia, unspecified, I10 - Essential (primary) hypertension Lipid Panel 6 Months I25.10 - Atherosclerotic heart disease of [place] coronary artery without angina pectoris, E78.5 - Hyperlipidemia, unspecified, I10 - Essential (primary) hypertension Aspartate Amino Transferase 6 Months I25.10 - Atherosclerotic heart disease of [place] coronary artery without angina pectoris, E78.5 - Hyperlipidemia, unspecified, I10 - Essential (primary) hypertension Coding Level of Care Code Est Pt Prev Care >65y(91222) Diagnoses Coronary artery disease involving [place] coronary artery of [place] heart without angina pectoris I25.10 Associated angina: without angina Coronary Disease-Associated Artery/Lesion type: [place] artery [place] vs. transplanted heart: [place] heart Pure hypercholesterolemia E78.00 Hyperlipidemia type: pure hypercholesterolemia Essential hypertension I10 Hypertension type: essential hypertension Gastroesophageal reflux disease without esophagitis K21.9 Esophagitis presence: without esophagitis Psoriasis L40.9 Hypoparathyroidism E20.9 Postoperative hypothyroidism E89.0 Hypothyroidism type: postoperative Osteopenia, unspecified location M85.80 Osteopenia location: unspecified Annual visit for general adult medical examination with abnormal findings Z00.01 Additional Codes GENESIS-7 Assessment Billing - GENESIS-7 Assessment Tool: GENESIS-7 Assessment [id number] ([id number])
[2023-09-21 09:38] VITALS: BP 134/68; PULSE 59; O2SAT 98; BMI 32.6
== END 2023-09-21 10:26 | disposition home or self-care (01) ==
PROVIDERS: PCP Internal Medicine; Visit Provider Internal Medicine
DX: Z00.00 Encounter for general adult medical examination without abnormal findings (principal); I25.10 Atherosclerotic heart disease of native coronary artery without angina pectoris; E20.9 Hypoparathyroidism, unspecified; E78.00 Pure hypercholesterolemia, unspecified; I10 Essential (primary) hypertension; K21.9 Gastro-esophageal reflux disease without esophagitis; L40.9 Psoriasis, unspecified; E89.0 Postprocedural hypothyroidism; M85.80 Other specified disorders of bone density and structure, unspecified site
CPT/HCPCS: 99397

== ENCOUNTER → 2023-09-28 23:59 | Outpatient (BNV) | payer MEDICARE, SELFPAY | PROVIDERS: PCP Internal Medicine; Visit Provider Internal Medicine Cardiovascular Disease | DX: I20.89 Other forms of angina pectoris (principal); R93.1 Abnormal findings on diagnostic imaging of heart and coronary circulation | CPT/HCPCS: 93458; 99152 ==

== ENCOUNTER 2023-10-07 13:37 | Outpatient (AMB) | payer MEDICARE, SELFPAY ==
[2023-10-07 13:40] VITALS: BP 120/62; PULSE 66; BMI 32.3
--- NOTE | 2023-10-07 13:40 | MHC.OFFVIS ---
Intake Vital Signs 10/07/23 13:40 Height 5 ft Weight 165 lb 5.547 oz BMI 32.3 BP 120/62 Blood Pressure Location Lt brachial Position Sitting Pulse 66 Pulse Source Pulse Oximeter Intake Visit Reasons: Follow up post cardiac cath Academic Support Director Required: No Allergies codeine [Codeine] Allergy (Mild, Verified 10/07/23 13:44) SWELLING, vomiting, headache Medication List - Last Reconciled 10/07/23 by Thelma Leigh NP-C acetaminophen ER (Tylenol 8 Hour) 650 mg PO Q8H PRN albuterol sulfate 90 mcg/actuation 90 mcg inhalation Q4-6H PRN alclometasone 0.05% appl topical amlodipine 2.5 mg PO QAM apremilast (Otezla) 30 mg PO BID atorvastatin 40 mg PO DAILY biotin 1 mg PO DAILY calcitriol 0.25 mcg PO DAILY 30 days [id number]-copper-jenna 325 mg-12.5 mcg -2.75 mg (Citracal-D3 Maximum Plus) 4 tabs PO DAILY cholecalciferol (vitamin D3) 25 mcg PO DAILY famotidine 20 mg PO BEDTIME furosemide 20 mg PO DAILY ketoconazole 2% 1 appl topical DAILY ketoconazole 2% topical levothyroxine 112 mcg PO DAILY losartan-hydrochlorothiazide 100-12.5 mg 1 tab PO DAILY meclizine 25 mg PO BID PRN metoprolol succinate ER 50 mg PO BEDTIME [wedge pillow As directed] HPI Follow up post cardiac cath HPI Details Ayana is a 78-year-old female with past medical history of hypertension, hyperlipidemia who reported symptoms of shortness of breath with exertion who had elevated calcium score then underwent diagnostic cardiac catheterization and now presents for follow-up. Today she reports that she does still have some shortness of breath with exertion but feels that it may be from deconditioning. She denies PND, orthopnea or edema. She has no chest discomfort at rest or with activity. No heart palpitations, lightheadedness, presyncope, syncope, PND, orthopnea or edema. Has been taking the Lasix since the time of cardiac catheterization. [facility] Medical History PONV (postoperative nausea and vomiting) Family history of early CAD Psoriasis Hypoparathyroidism Hypothyroidism Primary hyperparathyroidism Toxic multinodular goiter Family history of premature CAD History of Capone's esophagus Breast cancer in situ Hip pain, left HTN (hypertension) HLD (hyperlipidemia) Osteopenia Vitamin D deficiency Surgical History (Updated 10/07/23 @ 18:44 by Thelma Leigh, STAFFING RECRUITER-C) History of cardiac cath History of surgery S/P subtotal parathyroidectomy History of total thyroidectomy History of hysteroscopy Hx of dilation and curettage History of esophagogastroduodenoscopy (EGD) H/O colonoscopy History of lumpectomy of left breast Hx of cholecystectomy History of rotator cuff surgery Family History Father History of heart attack CVD (cardiovascular disease) Unknown family medical history Mother Unknown family medical history CVD (cardiovascular disease) Cirrhosis of liver Heart disease Substance use disorder Maternal Grandfather No problems noted. Maternal Grandmother Breast cancer Paternal Grandfather No problems noted. Paternal Grandmother No problems noted. Sister No problems noted. Sister No problems noted. Son No problems noted. Daughter No problems noted. Daughter No problems noted. 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 Sexual orientation: Straight/Heterosexual Gender identity: Female Cognitive needs: No Hearing needs: No Vision needs: Yes Review of Systems Const All systems reviewed & are unremarkable except as noted in HPI and below ENT Denies dizziness Card Denies chest pain, Denies chest pain at rest, Denies chest pain with activity, Denies rapid heart rate, Denies pedal edema, Denies edema, Denies leg edema, Denies lightheadedness, Denies palpitations, Denies dyspnea, Reports dyspnea on exertion and Denies orthopnea Resp Denies cough, Denies dyspnea and Reports dyspnea on exertion GI Denies hematochezia and Denies change in stool character Musc Denies abnormal gait, Denies limited range of motion, Denies muscle cramps, Denies muscle weakness, Denies numbness, Denies radiating pain into limb, Denies stiffness and Denies tingling Neuro Denies abnormal gait, Denies dizziness, Denies numbness and Denies tingling Endo Denies palpitations Physical Exam Vital Signs: Last Vital Signs Pulse 66 10/07/23 13:40 BP 120/62 10/07/23 13:40 BMI result Body Mass Index 32.3 Const General: cooperative, healthy appearing, comfortable and no acute distress Orientation/consciousness: patient oriented x3 Neck Neck: Yes normal visual inspection Resp Effort & Inspection: normal respiratory effort Auscultation: clear to auscultation bilaterally, no crackles, no rales, no rhonchi and no wheezes Cardio Jugular venous distension: no JVD Rate: regular rate Rhythm: regular rhythm Heart sounds: S1 normal heart sound present, S2 normal heart sound present, no murmurs and no rubs Neuro General: patient oriented x3 Extrem Other: right radial cath site with palp radial pulse, hand assessment normal General: Yes normal to inspection and No no pedal edema Psych Appearance: grossly normal Mental Status: mental status grossly normal Speech and movement: Normal speech and movement present Assessment & Plan Assessment & Plan (1) CAD (coronary artery disease): Code(s): I25.10 - Atherosclerotic heart disease of [place] coronary artery without angina pectoris Qualifiers: Associated angina: without angina Coronary Disease-Associated Artery/Lesion type: [place] artery [place] vs. transplanted heart: [place] heart Qualified Code(s): I25.10 - Atherosclerotic heart disease of [place] coronary artery without angina pectoris Plan: Reported Symptom of shortness of breath with activity. Patient with cardiac risks of hypertension, hyperlipidemia, obesity. Last echo was 09/10/2021 showing normal EF, no valve abnormalities. She underwent coronary calcium score on 09/22/2022 which was elevated at 687, primarily in the LAD. A nuclear stress test was done 10/05/2022 showing normal myocardial perfusion imaging, normal EF. She then underwent a cardiac catheterization on 09/28/2023 due to persistent shortness of breath with exertion which showed no significant coronary artery stenosis. Test results reviewed with her in detail. Right radial catheterization site well healed. Mild coronary artery disease discussed. Will have her continue on aspirin indefinitely. Continue atorvastatin 40 mg daily with ideal LDL goal less than 70. Labs done on 09/14/2023 showed LDL 61, labs done 09/20/2023 showed LDL 75. Continue metoprolol and amlodipine. Blood pressure currently well controlled. Cardiac risk factor modification reviewed with her. Signs and symptoms of angina reviewed with her. Cardiology follow-up in 6 months, sooner if needed (2) History of cardiac cath: Comment: Or to 2023, left main normal, lad, RCA, left circumflex minimal luminal irregularities, elevated filling pressures, Lasix 20 mg daily started Code(s): Z98.890 - Other specified postprocedural states Plan: As above. Lasix started at time of catheterization. So far no improvement in her breathing. Her symptom may be related to deconditioning as she suspects. (3) HTN (hypertension): Code(s): I10 - Essential (primary) hypertension Qualifiers: Hypertension type: essential hypertension Qualified Code(s): I10 - Essential (primary) hypertension Plan: Well controlled. No medication changes made (4) HLD (hyperlipidemia): Code(s): E78.5 - Hyperlipidemia, unspecified Qualifiers: Hyperlipidemia type: pure hypercholesterolemia Qualified Code(s): E78.00 - Pure hypercholesterolemia, unspecified Plan: ideal LDL goal less than 70. Based on recent labs she is at goal. Continue atorvastatin. Plan Time spent on chart review, documentation, interview and assessment Orders: Orders Basic Metabolic Panel Today I10 - Essential (primary) hypertension Medications: New furosemide 20 mg PO DAILY 90 tabs 1RF Coding Level of Care Code Est Pt Level 4 (85372) Diagnoses Coronary artery disease involving [place] coronary artery of [place] heart without angina pectoris I25.10 Associated angina: without angina Coronary Disease-Associated Artery/Lesion type: [place] artery [place] vs. transplanted heart: [place] heart History of cardiac cath Z98.890 Essential hypertension I10 Hypertension type: essential hypertension Pure hypercholesterolemia E78.00 Hyperlipidemia type: pure hypercholesterolemia Time Spent (min) 28
== END 2023-10-07 14:07 | disposition home or self-care (01) ==
PROVIDERS: PCP Internal Medicine; Visit Provider Nurse Practitioner Family
DX: I25.10 Atherosclerotic heart disease of native coronary artery without angina pectoris (principal); Z98.890 Other specified postprocedural states; I10 Essential (primary) hypertension; E78.00 Pure hypercholesterolemia, unspecified
CPT/HCPCS: 99214

== ENCOUNTER 2023-10-07 14:30 | Outpatient (REF) | payer MEDICARE, SELFPAY ==
[2023-10-07 16:35] LABS: Anion Gap 12 (12-20); Aspartate Amino Transferase 20 U/L (5-31); Blood Urea Nitrogen 17 mg/dL (9-16); Calcium 9.3 mg/dL (8.4-10.2); Carbon Dioxide 32 mmol/L (22-29); Chloride 102 mmol/L (96-108); Estimated Glomerular Filt Rate > 60; Glucose Random 91 mg/dL (60-115); Potassium 3.6 mmol/L (3.3-5.1); Sodium 142 mmol/L (135-145)
== END 2023-10-07 14:31 | disposition home or self-care (01) ==
LOC: HO.HMGCLDS 14:30
PROVIDERS: PCP Internal Medicine; Visit Provider Nurse Practitioner Family
DX: I10 Essential (primary) hypertension (principal); E78.5 Hyperlipidemia, unspecified; I25.10 Atherosclerotic heart disease of native coronary artery without angina pectoris; E78.00 Pure hypercholesterolemia, unspecified; Z98.890 Other specified postprocedural states; Z79.899 Other long term (current) drug therapy
CPT/HCPCS: 36415; 80048; 84450; 99212

== ENCOUNTER 2024-02-11 08:02 | Outpatient (AMB) | payer MEDICARE, SELFPAY ==
--- NOTE | 2024-02-11 08:03 | AM.OFFWIN_ITS ---
Intake Vital Signs 02/11/24 08:04 Height 5 ft Weight 170 lb BMI 33.2 BP 122/78 Blood Pressure Location Lt brachial Position Sitting Pulse 55 Pulse Source Pulse Oximeter Temp 98.1 F Temp Source Oral Pulse Oximetry (%) 98 Oxygen Delivery Method Room Air Intake Visit Reasons: EP RT foot pain Intake Note: Pt c/o RT foot pain, bottom of foot . Started 5-6 weeks ago. Patient Tobacco Use Status: Never used Tobacco Allergies codeine [Codeine] Allergy (Mild, Verified 02/11/24 08:03) SWELLING, vomiting, headache Do you need a note to return to daycare/school/sports/work: No HPI HPI Comments History of Present Illness Details 78 y/o female patient who [facility] with c/o right foot pain x 6 weeks. Reports pain is located at the bottom of the foot. Pain worse with standing and walking. Denies injury or trauma to the foot. She has an Appointment with Podiatry scheduled. [facility] Medical History (Updated 12/08/23 @ 14:21 by Marisol Haddad MD) PONV (postoperative nausea and vomiting) Family history of early CAD Psoriasis Hypothyroidism Primary hyperparathyroidism Toxic multinodular goiter Family history of premature CAD History of Capone's esophagus Breast cancer in situ HTN (hypertension) HLD (hyperlipidemia) Osteopenia Vitamin D deficiency Surgical History (Updated 12/08/23 @ 14:17 by Marisol Haddad MD) History of cardiac cath History of surgery S/P subtotal parathyroidectomy History of total thyroidectomy History of hysteroscopy Hx of dilation and curettage History of esophagogastroduodenoscopy (EGD) H/O colonoscopy History of lumpectomy of left breast Hx of cholecystectomy History of rotator cuff surgery Family History Father History of heart attack CVD (cardiovascular disease) Unknown family medical history Mother Unknown family medical history CVD (cardiovascular disease) Cirrhosis of liver Heart disease Substance use disorder Maternal Grandfather No problems noted. Maternal Grandmother Breast cancer Paternal Grandfather No problems noted. Paternal Grandmother No problems noted. Sister No problems noted. Sister No problems noted. Son No problems noted. Daughter No problems noted. Daughter No problems noted. 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 Sexual orientation: Straight/Heterosexual Gender identity: Female Cognitive needs: No Hearing needs: No Vision needs: Yes Review of Systems Const All systems reviewed & are unremarkable except as noted in HPI and below Physical Exam Vital Signs: Last Vital Signs Temp 98.1 F 02/11/24 08:04 Pulse 55 02/11/24 08:04 BP 122/78 02/11/24 08:04 Pulse Ox 98 02/11/24 08:04 Oxygen Delivery Method Room Air 02/11/24 08:04 BMI result Body Mass Index 33.2 Const General: comfortable and no acute distress Nutritional Appearance: obese Orientation/consciousness: patient oriented x3 Neuro General: patient oriented x3, gait normal and moves all extremities Extrem Right lower extremity: normal to inspection, full ROM and foot Details: normal capillary refill, tenderness Location: of the plantar foot, toes with normal ROM and no edema; no unusual warmth, no ecchymosis and no crepitus Left lower extremity: normal to inspection, full ROM and foot Details: normal capillary refill, normal to inspection and toes with normal ROM Psych Speech and movement: Normal speech and movement present Assessment & Plan Assessment & Plan (1) Right foot pain: Code(s): M79.671 - Pain in right foot Plan: DDx's: Plantar Fasciitis. NSAIDs PRN for pain relief Soak feet in warm water 20 minutes on/off Wear comfortable shoes Avoid prolonged walking or standing. Coding Level of Care Code Est Pt Level 3 (12331) Diagnoses Right foot pain M79.671 Time Spent (min) 15
[2024-02-11 08:04] VITALS: BP 122/78; PULSE 55; TEMP 36.7; O2SAT 98; BMI 33.2
== END 2024-02-11 08:29 | disposition home or self-care (01) ==
PROVIDERS: PCP Internal Medicine; Visit Provider Nurse Practitioner Family
DX: M79.671 Pain in right foot (principal)
CPT/HCPCS: 99213

== ENCOUNTER 2024-04-04 13:32 | Outpatient (AMB) | payer MEDICARE, SELFPAY ==
--- NOTE | 2024-04-04 13:35 | MHC.OFFVIS ---
Vital Signs 04/04/24 13:37 Height 5 ft Weight 169 lb 12.095 oz BMI 33.1 BP 118/72 Blood Pressure Location Lt brachial Position Sitting Pulse 60 Intake Visit Reasons: 6 month f/u per DC Intake Note: 6 month follow-up last saw DC feeling good Allergies codeine [Codeine] Allergy (Mild, Verified 02/11/24 08:03) SWELLING, vomiting, headache Medication List - Last Reconciled 04/04/24 by Fredy Wise MD acetaminophen ER (Tylenol 8 Hour) 650 mg PO Q8H PRN albuterol sulfate 90 mcg/actuation 90 mcg inhalation Q4-6H PRN alclometasone 0.05% appl topical amlodipine 2.5 mg PO QAM apremilast (Otezla) 30 mg PO BID atorvastatin 40 mg PO DAILY biotin 1 mg PO DAILY calcitriol 0.25 mcg PO DAILY [id number]-copper-jenna 325 mg-12.5 mcg -2.75 mg (Citracal-D3 Maximum Plus) 4 tabs PO DAILY cholecalciferol (vitamin D3) 25 mcg PO DAILY famotidine 20 mg PO BEDTIME furosemide 20 mg PO DAILY ketoconazole 2% 1 appl topical DAILY ketoconazole 2% topical levothyroxine 112 mcg PO DAILY losartan-hydrochlorothiazide 100-12.5 mg 1 tab PO DAILY meclizine 25 mg PO BID PRN metoprolol succinate ER 50 mg PO BEDTIME [wedge pillow As directed] HPI Comments Details: Ayana comes for follow-up. Overall she has been doing well. She continues to have exertional shortness of breath when she walks up a hill. Denies any chest pain. This is not change. Continues to have issues with swallowing and right parascapular pain intermittently. Denies any orthopnea, PND, leg edema. Taking all her medications. Last LDL was not well optimized. [facility] Medical History (Updated 12/08/23 @ 14:21 by Marisol Haddad MD) PONV (postoperative nausea and vomiting) Family history of early CAD Psoriasis Hypothyroidism Primary hyperparathyroidism Toxic multinodular goiter Family history of premature CAD History of Capone's esophagus Breast cancer in situ HTN (hypertension) HLD (hyperlipidemia) Osteopenia Vitamin D deficiency Surgical History (Updated 12/08/23 @ 14:17 by Marisol Haddad MD) History of cardiac cath History of surgery S/P subtotal parathyroidectomy History of total thyroidectomy History of hysteroscopy Hx of dilation and curettage History of esophagogastroduodenoscopy (EGD) H/O colonoscopy History of lumpectomy of left breast Hx of cholecystectomy History of rotator cuff surgery Family History Father History of heart attack CVD (cardiovascular disease) Unknown family medical history Mother Unknown family medical history CVD (cardiovascular disease) Cirrhosis of liver Heart disease Substance use disorder Maternal Grandfather No problems noted. Maternal Grandmother Breast cancer Paternal Grandfather No problems noted. Paternal Grandmother No problems noted. Sister No problems noted. Sister No problems noted. Son No problems noted. Daughter No problems noted. Daughter No problems noted. 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 Sexual orientation: Straight/Heterosexual Gender identity: Female Cognitive needs: No Hearing needs: No Vision needs: Yes Review of Systems Const Denies chills, Denies fatigue, Denies fever(s), Denies frequent falls, Denies weakness, Denies weight gain and Denies weight loss ENT Denies dizziness Card Denies chest pain, Denies leg edema, Denies lightheadedness, Denies palpitations, Denies dyspnea, Denies dyspnea on exertion, Denies orthopnea and Denies other (loss of consciousness) Resp Denies cough, Denies dyspnea and Denies dyspnea on exertion GI Denies hematochezia and Denies change in stool character Musc Denies abnormal gait, Denies muscle weakness, Denies numbness, Denies radiating pain into limb and Denies tingling Neuro Denies abnormal gait, Denies dizziness, Denies frequent falls, Denies numbness, Denies tingling and Denies weakness Endo Denies fatigue and Denies palpitations Physical Exam Vital Signs: Last Vital Signs Pulse 60 04/04/24 13:37 BP 118/72 04/04/24 13:37 BMI result Body Mass Index 33.1 Const General: cooperative, healthy appearing, comfortable and no acute distress Orientation/consciousness: patient oriented x3 Neck Neck: Yes normal visual inspection Resp Effort & Inspection: normal respiratory effort Auscultation: clear to auscultation bilaterally, no crackles, no rales, no rhonchi and no wheezes Cardio Jugular venous distension: no JVD Rate: regular rate Rhythm: regular rhythm Heart sounds: S1 normal heart sound present, S2 normal heart sound present, no murmurs and no rubs Neuro General: patient oriented x3 Extrem Other: right radial cath site with palp radial pulse, hand assessment normal General: Yes normal to inspection and No no pedal edema Psych Appearance: grossly normal Mental Status: mental status grossly normal Speech and movement: Normal speech and movement present Assessment & Plan Assessment & Plan (1) CAD (coronary artery disease): Code(s): I25.10 - Atherosclerotic heart disease of [place] coronary artery without angina pectoris Category: Medical Qualifiers: Coronary Disease-Associated Artery/Lesion type: [place] artery [place] vs. transplanted heart: [place] heart Associated angina: without angina Qualified Code(s): I25.10 - Atherosclerotic heart disease of [place] coronary artery without angina pectoris Plan: CAD with dense calcium in the LAD territory but with nonobstructive disease by cardiac catheterization. Exertional shortness of breath is not related to CAD. Continue aggressive medical therapy. Continue low-dose aspirin therapy for life. Will bump up atorvastatin 80 mg daily to improve goal LDL less than 70 mg/dL. Advise follow-up lipids in 3 months time. Continue aggressive blood pressure control. Encouraged to continue to participate in physical activity as tolerated. (2) HTN (hypertension): Code(s): I10 - Essential (primary) hypertension Category: Medical Qualifiers: Hypertension type: essential hypertension Qualified Code(s): I10 - Essential (primary) hypertension Plan: Hypertension which is currently well optimized advised to monitor blood pressure at home maintain a log. Goal blood pressure less than 130/80. Low-salt diet was discussed. Importance of good blood pressure control was discussed. Continue current therapy. Follow up in the clinic in 1 year's time, sooner p.r.n.. Thank you for allowing me to partake in his care Orders: Orders Lipid Panel 3 Months I25.10 - Atherosclerotic heart disease of [place] coronary artery without angina pectoris Medications: New atorvastatin 80 mg PO DAILY 90 tabs 3RF Discontinued atorvastatin Discontinued Reason: Doctor's Order 40 mg PO DAILY 90 tabs 3RF Coding Level of Care Code Est Pt Level 4 (36090) Complex EM visit Add On G2211 Diagnoses Coronary artery disease involving [place] coronary artery of [place] heart without angina pectoris I25.10 Coronary Disease-Associated Artery/Lesion type: [place] artery [place] vs. transplanted heart: [place] heart Associated angina: without angina Essential hypertension I10 Hypertension type: essential hypertension
[2024-04-04 13:37] VITALS: BP 118/72; PULSE 60; BMI 33.1
== END 2024-04-04 13:56 | disposition home or self-care (01) ==
PROVIDERS: PCP Internal Medicine; Visit Provider Internal Medicine Cardiovascular Disease
DX: I25.10 Atherosclerotic heart disease of native coronary artery without angina pectoris (principal); I10 Essential (primary) hypertension
CPT/HCPCS: 99214; G2211

== ENCOUNTER → 2024-04-04 13:32 | Outpatient (BNVA) | payer MEDICARE, SELFPAY | PROVIDERS: PCP Internal Medicine; Visit Provider Internal Medicine Cardiovascular Disease | DX: I25.10 Atherosclerotic heart disease of native coronary artery without angina pectoris (principal); I10 Essential (primary) hypertension | CPT/HCPCS: 99212 ==

== ENCOUNTER 2024-04-24 07:36 | Outpatient (REF) | payer MEDICARE, SELFPAY ==
[2024-04-24 10:35] LABS: Alanine Aminotransferase 22 U/L (0-31); Anion Gap 9 (12-20); Aspartate Amino Transferase 22 U/L (5-31); Blood Urea Nitrogen 16 mg/dL (9-16); Carbon Dioxide 29 mmol/L (22-29); Chloride 106 mmol/L (96-108); Cholesterol 125 mg/dL (<200); Estimated Glomerular Filt Rate > 60; Glucose Fasting 97 mg/dL (60-99); HDL Cholesterol 57 mg/dL (>40); LDL Cholesterol Calculated 57 mg/dL (<100); Sodium 140 mmol/L (135-145); Triglycerides 57 mg/dL (<150)
== END 2024-04-24 07:37 | disposition home or self-care (01) ==
LOC: HO.HMGCLDS 07:36
PROVIDERS: PCP Internal Medicine; Visit Provider Internal Medicine
DX: I25.10 Atherosclerotic heart disease of native coronary artery without angina pectoris (principal); E78.5 Hyperlipidemia, unspecified; I10 Essential (primary) hypertension
CPT/HCPCS: 36415; 80048; 80061; 84450; 84460

== ENCOUNTER 2024-04-27 15:10 | Outpatient (AMB) | payer MEDICARE, SELFPAY ==
[2024-04-27 15:16] VITALS: BP 120/60; PULSE 67; O2SAT 99; BMI 33.8
--- NOTE | 2024-04-27 15:16 | A.OFFPC_ITS ---
Vital Signs 04/27/24 15:16 Height 5 ft Weight 173 lb BMI 33.8 BP 120/60 Blood Pressure Location Rt brachial Position Sitting Pulse 67 Pulse Source Pulse Oximeter Pulse Oximetry (%) 99 Oxygen Delivery Method Room Air Intake Visit Reasons: follow up Intake Note: Pt is here today for her f/u lipids Allergies codeine [Codeine] Allergy (Mild, Verified 04/27/24 15:41) SWELLING, vomiting, headache Medication List - Last Reconciled 04/27/24 by Marisol Haddad MD acetaminophen ER (Tylenol 8 Hour) 650 mg PO Q8H PRN albuterol sulfate 90 mcg/actuation 90 mcg inhalation Q4-6H PRN alclometasone 0.05% appl topical amlodipine 2.5 mg PO QAM apremilast (Otezla) 30 mg PO BID atorvastatin 80 mg PO DAILY biotin 1 mg PO DAILY calcitriol 0.25 mcg PO DAILY fbvuhgj-B9-qnoj-copper-jenna 325 mg-12.5 mcg -2.75 mg (Citracal-D3 Maximum Plus) 4 tabs PO DAILY cholecalciferol (vitamin D3) 25 mcg PO DAILY famotidine 20 mg PO BEDTIME furosemide 20 mg PO DAILY ketoconazole 2% 1 appl topical DAILY ketoconazole 2% topical levothyroxine 112 mcg PO DAILY losartan-hydrochlorothiazide 100-12.5 mg 1 tab PO DAILY meclizine 25 mg PO BID PRN metoprolol succinate ER 50 mg PO BEDTIME [wedge pillow As directed] Tobacco use date assessed: 04/27/24 Fall risk assessment: No Falls in past year Last assessed Fall Risk: 04/27/24 Dental Screening Dental Screen Date: 04/27/24 Did you have a dental visit in the last 12 months?: Yes Did you have a dental problem in the last 6 months where you did not have access to dental care?: No Was dental information given to patient?: Patient has dentist HPI follow up HPI Details 78-year-old lady here today for follow-u p on her lipids. Currently taking atorvastatin 80 mg daily, compliant with taking her medications and has been following recommended diet. Recent fasting labs done showed lipids are within normal limits. Patient however reports having occasional muscle pains in arms. She also has been experiencing intermittent episodes of nocturnal leg cramps. [facility] Medical History (Updated 04/27/24 @ 15:58 by Marisol Haddad MD) Nocturnal leg cramps PONV (postoperative nausea and vomiting) Family history of early CAD Psoriasis Hypothyroidism Primary hyperparathyroidism Toxic multinodular goiter Family history of premature CAD History of Capone's esophagus Breast cancer in situ HTN (hypertension) HLD (hyperlipidemia) Osteopenia Vitamin D deficiency Surgical History History of cardiac cath History of surgery S/P subtotal parathyroidectomy History of total thyroidectomy History of hysteroscopy Hx of dilation and curettage History of esophagogastroduodenoscopy (EGD) H/O colonoscopy History of lumpectomy of left breast Hx of cholecystectomy History of rotator cuff surgery Family History Father History of heart attack CVD (cardiovascular disease) Unknown family medical history Mother Unknown family medical history CVD (cardiovascular disease) Cirrhosis of liver Heart disease Substance use disorder Maternal Grandfather No problems noted. Maternal Grandmother Breast cancer Paternal Grandfather No problems noted. Paternal Grandmother No problems noted. Sister No problems noted. Sister No problems noted. Son No problems noted. Daughter No problems noted. Daughter No problems noted. 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 1. Little interest or pleasure in doing things: not at all 2. Feeling down, depressed, or hopeless: not at all 3. Trouble falling or staying asleep, or sleeping too much: several days 4. Feeling tired or having little energy: several days 5. Poor appetite or overeating: not at all 6. Feeling bad about yourself - or that you are a failure or have let yourself or your family down: not at all 7. Trouble concentrating on things, such as reading the newspaper or watching television: not at all 8. Moving or speaking so slowly that other people could have noticed. Or the opposite - being so fidgety or restless that you have been moving around a lot more than usual: not at all 9. Thoughts that you would be better off or of hurting yourself in some way: not at all Total score: 2 Depression Screening Interpretation: Negative Depression Screening Done: Yes 15416 - PHQ-9 Billing: Yes Source: Developed by Drs. Hemant Morrison, Ashanti Chaves, Duong Matthews and colleagues, with an educational fabinene from [employer]. Thrive Questionnaire Date Thrive assessed: 04/24/24 I am a: Patient What is your living situation today?: I have a steady place to live Within the past 12 months, did the food you bought not last and you didn't have the money to get more?: Never true Within the past 12 months, did you worry whether your food would run out before you got money to buy more?: Never true Do you have trouble paying for medicines?: No Do you have trouble getting transportation to medical appointments?: No Do you have trouble paying your heating and electricity bill?: No Do you have trouble taking care of your child, family member or friend?: No Do you have trouble with day-to-day activities such as bathing, preparing meals, shopping, managing finances, etc.?: No Are you currently unemployed and looking for a job?: No Are you interested in more education?: No Please select the resources that you would like help with: None Currently or been in a relationship where the following occur: No concerns reported THRIVE Score: 0 AUDIT C Alcohol Use Questionnaire (AUDIT-C) 1. How often do you have a drink containing alcohol?: 2-4 times a month 2. How many drinks containing alcohol do you have on a typical day when you are drinking?: 1 or 2 3. How often do you have six or more drinks on one occasion?: Never Total Score: 2 GENESIS-7 AMB Questionnaire GENESIS-7 Date GENESIS - 7 assessed: 09/21/23 Feeling nervous, anxious, or on edge: 0 = Not at all Not being able to stop or control worryin = Not at all Worrying too much about different things: 0 = Not at all Trouble relaxin = Not at all Being so restless that it is hard to sit still: 0 = Not at all Becoming easily annoyed or irritable: 0 = Not at all Feeling afraid as if something awful might happen: 0 = Not at all Total GENESIS-7 score (0-4 normal; 5-9 mild; 10-14 moderate; 15-21 severe): 0 Source: Developed by Drs. Hemnat Morrison, Ashanti Chaves, Duong Matthews and colleagues, with an educational fabienne from [employer]. GENESIS-7 Assessment Billing GENESIS-7 Assessment Tool: GENESIS-7 Assessment 28990 Review of Systems Const Denies fatigue, Denies frequent falls, Denies weakness and Denies weight loss ENT Denies dizziness Card Denies chest pain, Denies leg edema, Denies lightheadedness, Denies palpitations, Denies dyspnea, Denies dyspnea on exertion and Denies orthopnea Resp Denies cough, Denies dyspnea and Denies dyspnea on exertion GI Denies hematochezia and Denies change in stool character Musc Reports as per HPI, Denies abnormal gait, Denies arthralgias, Denies muscle weakness, Denies numbness, Denies radiating pain into limb, Denies stiffness and Denies tingling Neuro Denies abnormal gait, Denies dizziness, Denies frequent falls, Denies numbness, Denies tingling and Denies weakness Endo Denies fatigue and Denies palpitations Physical exam (Primary Care) Vital Signs: Last Vital Signs Pulse 67 04/27/24 15:16 BP 120/60 04/27/24 15:16 Pulse Ox 99 04/27/24 15:16 Oxygen Delivery Method Room Air 04/27/24 15:16 BMI result Body Mass Index 33.8 BMI Assessment/Plan discussion: High BMI High, discussed plan: lifestyle, weight reduction, dietary and physical activity Tobacco/Smoking Status: Tobacco use Status Tobacco use date assessed 04/27/24 04/27/24 15:18 Patient Tobacco Use Status Never used Tobacco 04/27/24 15:18 e-Cigarette/Vaping Use Never Used 04/27/24 15:18 PHQ-9: PHQ-9 Score PHQ-9: Total score 2 04/27/24 15:18 Depression Screening Interpretation: Negative Thrive Assessment: Date of Thrive Assessment Date Thrive assessed 04/24/24 04/27/24 15:18 Currently or been in a relationship where the following occur: No concerns reported Const General: no acute distress and alert Nutritional Appearance: obese Orientation/consciousness: patient oriented x3 HENMT Ears: external ears normal, TM's normal bilaterally and EAC's normal Mouth: Normal oral and palatal mucosa present and moist mucous membranes Eyes General: appearance normal, both eyes and all related structures Neck Neck: Yes normal visual inspection, Yes full ROM, Yes no lymphadenopathy and Yes supple Resp Auscultation: clear to auscultation bilaterally Cardio Other: S1-S2 present regular rate and rhythm GI Palpation (GI): Soft to palpation, nontender, no guarding and no masses Neuro General: patient oriented x3, tone normal, moves all extremities, Normal light touch and pain sensation, no focal motor deficits and CN's II-XI intact bilaterally Extrem General: Yes full ROM, Yes no joint enlargement, Yes no clubbing, cyanosis or edema, Yes no pedal edema, Yes no calf tenderness and Yes normal gait Results Reviewed Results Reviewed: Name: Ayana Aragon Age/Sex: 78/F : 1945 Unit#: [id number] Attend Dr: Marisol Haddad MD Re04/24/24 Status: DEP REF Location: [facility] Disch: SPEC : [id number] GISELLE: 04/24/24 STATUS: COMP REQ : [id number] RECD: 04/24/[address]: Marisol Haddad MD COMP: 04/24/24 ENTERED: 04/24/[address]: ORDERED: Met Prof Fast, AST, ALT, Lipid Panel Test Result Flag Reference Sodium 140 135-145 mmol/L Potassium 4.0 3.3-5.1 mmol/L CL 106 96-108 mmol/L CO2 29 22-29 mmol/L Gap 9 L 12-20 BUN 16 9-16 mg/dL Creat 0.80 0.5-1.4 mg/dL EGFR > 60 NOTE: For -[place] individuals, multiply the result by 1.210. Chronic Kidney Disease: Estimated GFR < 60 mL/min/1.73m2 Severe Kidney Disease: Estimated GFR < 15 mL/min/1.73m2 FBS 97 60-99 mg/dL CA 9.0 8.4-10.2 mg/dL AST (GOT) 22 5-31 U/L ALT (GPT) 22 0-31 U/L Triglyceride 57 <150 mg/dL Desirable Triglyceride: less than 150 mg/dL Borderline High Triglyceride 150-199 mg/dL High Triglyceride: 200-499 mg/dL Very High Triglyceride: greater than or equal to 5OO mg/dL Cholesterol 125 <200 mg/dL Desirable Cholesterol: less than 200 mg/dL Borderline High Cholesterol: 200-239 mg/dL High Cholesterol: greater than 239 mg/dL LDL Calculated 57 <100 mg/dL Desirable LDL: less than 100 mg/dL Near Optimal/Above Optimal LDL: 110-129 mg/dL Borderline High LDL: 130-159 mg/dL High LDL: 160-189 mg/dL Very High LDL: greater than or equal to 190 mg/dL HDL 57 >40 mg/dL Desirable HDL: greater than 40 mg/dL Note: This HDL assay may give artificially low results in patients with liver disease. Coding Level of Care Code Est Pt Level 4 (89477) Complex EM visit Add On G2211 Diagnoses Pure hypercholesterolemia E78.00 Hyperlipidemia type: pure hypercholesterolemia Nocturnal leg cramps G47.62 Additional Codes GENESIS-7 Assessment Billing - GENESIS-7 Assessment Tool: GENESIS-7 Assessment 46669 ([id number]) Assessment & Plan Assessment & Plan (1) HLD (hyperlipidemia): Code(s): E78.5 - Hyperlipidemia, unspecified Category: Medical Qualifiers: Hyperlipidemia type: pure hypercholesterolemia Qualified Code(s): E78.00 - Pure hypercholesterolemia, unspecified Plan: Fasting lipids are within normal limits, has been experiencing intermittent episodes of muscle pain when taking atorvastatin, advised to try taking Co Q10 100 mcg capsules together with her atorvastatin. Reinforced importance of following low-cholesterol diet and getting regular exercise (2) Nocturnal leg cramps: Code(s): G47.62 - Sleep related leg cramps Category: Medical Plan: Advised to try [id number] migraine oxide 400 mg per tablet taken once a day as needed for liquid Orders: Orders Aspartate Amino Transferase 09/10/24 E78.00 - Pure hypercholesterolemia, unspecified, I10 - Essential (primary) hypertension, I25.10 - Atherosclerotic heart disease of [place] coronary artery without angina pectoris, M85.80 - Other specified disorders of bone density and structure, unspecified site Creatine Kinase Total 09/10/24 E78.00 - Pure hypercholesterolemia, unspecified, I10 - Essential (primary) hypertension, I25.10 - Atherosclerotic heart disease of [place] coronary artery without angina pectoris, M85.80 - Other specified disorders of bone density and structure, unspecified site Lipid Panel 09/10/24 E78.00 - Pure hypercholesterolemia, unspecified, I10 - Essential (primary) hypertension, I25.10 - Atherosclerotic heart disease of [place] coronary artery without angina pectoris, M85.80 - Other specified disorders of bone density and structure, unspecified site Alanine Aminotransferase 09/10/24 E78.00 - Pure hypercholesterolemia, unspecified, I10 - Essential (primary) hypertension, I25.10 - Atherosclerotic heart disease of [place] coronary artery without angina pectoris, M85.80 - Other specified disorders of bone density and structure, unspecified site Vitamin D 25-OH Total 09/10/24 E78.00 - Pure hypercholesterolemia, unspecified, I10 - Essential (primary) hypertension, I25.10 - Atherosclerotic heart disease of [place] coronary artery without angina pectoris, M85.80 - Other specified disorders of bone density and structure, unspecified site
== END 2024-04-27 16:01 | disposition home or self-care (01) ==
LOC: HO.HMCC 15:11
PROVIDERS: PCP Internal Medicine; Visit Provider Internal Medicine
DX: E78.00 Pure hypercholesterolemia, unspecified (principal); G47.62 Sleep related leg cramps

== ENCOUNTER → 2024-04-27 15:10 | Outpatient (BNVA) | payer MEDICARE, SELFPAY | PROVIDERS: PCP Internal Medicine; Visit Provider Internal Medicine | DX: E78.00 Pure hypercholesterolemia, unspecified (principal); G47.62 Sleep related leg cramps | CPT/HCPCS: 96127; 99212 ==

== ENCOUNTER 2024-05-09 09:53 | Outpatient (AMB) | payer MEDICARE, SELFPAY ==
--- NOTE | 2024-05-09 09:56 | A.OFFVIS_ITS ---
Vital Signs 05/09/24 09:59 Height 5 ft Weight 172 lb 2.896 oz BMI 33.6 BP 124/64 Blood Pressure Location Rt brachial Position Sitting Pulse 55 Pulse Source Pulse Oximeter Intake Visit Reasons: f/u postsurg hypoparathyroidism and hypothyroidism Intake Note: Patient present today for post-surg Hypoparathyroidism follow up. Conventional Mortgage Underwriter Required: No Accompanied by: Self / Same As Patient Allergies codeine [Codeine] Allergy (Mild, Verified 05/09/24 10:00) SWELLING, vomiting, headache Medication List - Last Reconciled 05/09/24 by Hemant Arizmendi MD acetaminophen ER (Tylenol 8 Hour) 650 mg PO Q8H PRN albuterol sulfate 90 mcg/actuation 90 mcg inhalation Q4-6H PRN alclometasone 0.05% appl topical amlodipine 2.5 mg PO QAM apremilast (Otezla) 30 mg PO BID atorvastatin 80 mg PO DAILY biotin 1 mg PO DAILY calcitriol 0.25 mcg PO DAILY cvdxlre-N7-yvnt-copper-jenna 325 mg-12.5 mcg -2.75 mg (Citracal-D3 Maximum Plus) 4 tabs PO DAILY cholecalciferol (vitamin D3) 25 mcg PO DAILY famotidine 20 mg PO BEDTIME furosemide 20 mg PO DAILY ketoconazole 2% 1 appl topical DAILY ketoconazole 2% topical levothyroxine 112 mcg PO DAILY losartan-hydrochlorothiazide 100-12.5 mg 1 tab PO DAILY meclizine 25 mg PO BID PRN metoprolol succinate ER 50 mg PO BEDTIME [wedge pillow As directed] HPI Comments Details: 79 YO F with PMHx NTMNG and Hypercalcemia who is seen in F/U for Hyperthyroidism with a MNG and hyperparathyroidism. 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 She underwent surgical resection of this 5th parathyroid gland 10/06/2021 with reimplantation of a small fragment in the L brachioradialis muscle on 10/06/2021. Patient last saw Dr. Hogan on 02/03/2023 1) NTMNG and Subclinical Hyperthyroidism: Patient has had biochemical evidence of subclinical hyperthyroidism. She had a Thyroid Uptake and Scan completed 02/15/20 with normal uptake, but marked heterogeneity within the gland consistent with a toxic MNG. The patient had a thyroid US completed in 2010 which revealed multiple bilateral thyroid nodules. Some of which did meet indication for FNA biopsy, but she did not pursue this until recently. Thyroid US was repeated 01/08/2020 and this did reveal a multinodular thyroid with multiple nodules meeting indication for FNA biopsy. She underwent FNA biopsy 03/28/2020, at which time only 1 nodule, a Left mid pole 1.4 cm nodule, was found to meet indication for FNA biopsy. Cytology was Benign ([place] Category II). She underwent a total thyroidectomy by Dr. Nikolay Hugo 11/18/2020 with benign surgical pathology. She remains on levothyroxine 112 mcg PO daily. TSH has remained at goal. 2) Hyperparathyroidism: The patient has had documented hypercalcemia since 2002. Her Calcium was 12.0 on 07/14/2019, with a PTH of 90. No Vitamin D or Albumin was assessed. Vitamin D level was 02/16/2019 and was 31.3. She had labs repeated 12/27/2019 which revealed Calcium 11.7 with PTH 97 and Vitamin D WNL. She was on HCTZ at this time. She was asked to stop the HCTZ and labs were repeated 3 weeks later on 01/31/2020 with Calcium 11.1, Albumin 4.2, Vitamin D 31.2 and PTH 80. Her 24 hour urine calcium was high normal at 254. She was referred to Dr. Hugo,. She underwent a 3.5 gland surgical parathyroidectomy with only a remnant of the R superior parathyroid remaining. Unfortunately intraoperative PTH did not meet curative cirteria, declining from 119-90. Thymus was resected, which did contain microscopic parathyroid tissue. She was referred again to Dr. 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 She underwent resection of this 5th parathyroid gland 10/06/2021 with reimplantation of a small fragment in the L brachioradialis muscle. Postoperative PTH declined to 9, and has remained low ever since. She has had issues with hypocalcemia as well as cramping. She remains on Citracal 325 mg 4 tabs daily in divided doses. She also remains on calcitriol 0.25 mcg PO daily. Calcium mildly above goal, but she does report that she experiences cramping and paresthesias approximately once a week. DEXA: 01/20/2022 FINDINGS: AP SPINE L1-L4: Current: BMD 1.367 g/cm2, Z-score 2.9, T-score 1.6, normal, 0.4% decrease from previous, 4.0% increase from baseline (<5% change is not significant). Prior: BMD 1.373 g/cm2. Baseline: BMD 1.315 g/cm2. LEFT FEMUR, NECK: Current: BMD 0.787 g/cm2, Z-score -0.2, T-score -1.8, osteopenia. Prior: BMD 0.846 g/cm2. Baseline: BMD 0.851 g/cm2. LEFT FEMUR, TOTAL: Current: BMD 0.944 g/cm2, Z-score 0.9, T-score -0.5, normal, 7.5% decrease from previous, 4.0% decrease from baseline (<5% change is not significant). Prior: BMD 1.021 g/cm2. Baseline: BMD 0.983 g/cm2. LEFT FOREARM RADIUS 33%: BMD 0.754 g/cm2, Z-score 0.8, T-score -1.4, osteopenia, 0.0% change from baseline (<5% change is not significant). Baseline: BMD 0.754 g/cm2. Labs: Laboratory Tests 01/08/23 01/08/23 07:49 07:49 Albumin 4.0 PTH Intact 10 L Calcium (PTH Intact) 8.4 L [facility] Medical History (Updated 04/27/24 @ 15:58 by Marisol Haddad MD) Nocturnal leg cramps PONV (postoperative nausea and vomiting) Family history of early CAD Psoriasis Hypothyroidism Primary hyperparathyroidism Toxic multinodular goiter Family history of premature CAD History of Capone's esophagus Breast cancer in situ HTN (hypertension) HLD (hyperlipidemia) Osteopenia Vitamin D deficiency Surgical History History of cardiac cath History of surgery S/P subtotal parathyroidectomy History of total thyroidectomy History of hysteroscopy Hx of dilation and curettage History of esophagogastroduodenoscopy (EGD) H/O colonoscopy History of lumpectomy of left breast Hx of cholecystectomy History of rotator cuff surgery Family History Father History of heart attack CVD (cardiovascular disease) Unknown family medical history Mother Unknown family medical history CVD (cardiovascular disease) Cirrhosis of liver Heart disease Substance use disorder Maternal Grandfather No problems noted. Maternal Grandmother Breast cancer Paternal Grandfather No problems noted. Paternal Grandmother No problems noted. Sister No problems noted. Sister No problems noted. Son No problems noted. Daughter No problems noted. Daughter No problems noted. 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 Assessment & Plan Assessment & Plan (1) Hypoparathyroidism: Code(s): E20.9 - Hypoparathyroidism, unspecified Category: Medical Plan: This is a 77-year-old white female with surgically induced hypoparathyroidism currently replaced on calcitriol 0.25 mcg per day and calcium supplementation with calcium in low normal range and the past normal 24 hour urine. Plan is to continue the current management. We will recheck phosphorus and magnesium level considering patient is having muscle cramps. Could consider use of recombinant parathyroid hormone ( Yorvipath) when this becomes available in future (2) Hypothyroidism: Code(s): E03.9 - Hypothyroidism, unspecified Category: Medical Qualifiers: Hypothyroidism type: postoperative Qualified Code(s): E89.0 - Postprocedural hypothyroidism Plan: Clinically euthyroid on levothyroxine 112 mcg. Plan is to TSH and free T4 adjust levothyroxine if necessary Orders: Orders XR DEXA axial skeleton Today M85.80 - Other specified disorders of bone density and structure, unspecified site Thyroid Stimulating Hormone Today E89.0 - Postprocedural hypothyroidism Free T4 (Free Thyroxine) Today E89.0 - Postprocedural hypothyroidism Phosphorus Today E89.0 - Postprocedural hypothyroidism Magnesium Today E89.0 - Postprocedural hypothyroidism Coding Level of Care Code Est Pt Level 3 (07477) Diagnoses Hypoparathyroidism E20.9 Postoperative hypothyroidism E89.0 Hypothyroidism type: postoperative
[2024-05-09 09:59] VITALS: BP 124/64; PULSE 55; BMI 33.6
== END 2024-05-09 10:44 | disposition home or self-care (01) ==
PROVIDERS: PCP Internal Medicine; Visit Provider Internal Medicine Endocrinology, Diabetes & Metabolism
DX: E20.9 Hypoparathyroidism, unspecified (principal); E89.0 Postprocedural hypothyroidism
CPT/HCPCS: 99213

== ENCOUNTER → 2024-05-09 09:53 | Outpatient (BNVA) | payer MEDICARE, SELFPAY | PROVIDERS: PCP Internal Medicine; Visit Provider Internal Medicine Endocrinology, Diabetes & Metabolism | DX: E20.9 Hypoparathyroidism, unspecified (principal); E89.0 Postprocedural hypothyroidism | CPT/HCPCS: 99212 ==

== ENCOUNTER 2024-05-10 07:55 | Outpatient (REF) | payer MEDICARE, SELFPAY ==
[2024-05-10 11:06] LABS: Magnesium 1.7 mg/dL (1.6-2.6); Phosphorus 4.2 mg/dL (2.7-4.5)
[2024-05-10 11:31] LABS: Free T4 (Free Thyroxine) 1.46 ng/dL (0.71-1.85); Thyroid Stimulating Hormone 0.66 uIU/mL (0.32-4.0)
== END 2024-05-10 07:56 | disposition home or self-care (01) ==
LOC: HO.HMGCLDS 07:55
PROVIDERS: PCP Internal Medicine; Visit Provider Internal Medicine Endocrinology, Diabetes & Metabolism
DX: E89.0 Postprocedural hypothyroidism (principal)
CPT/HCPCS: 36415; 83735; 84100; 84439; 84443

== ENCOUNTER 2024-05-29 13:43 | Outpatient (AMB) | payer MEDICARE, SELFPAY ==
--- NOTE | 2024-05-29 13:51 | A.OFFVIS_ITS ---
Vital Signs 05/29/24 14:27 Height 5 ft Weight 169 lb 12.095 oz BMI 33.1 BP 124/61 Blood Pressure Location Lt brachial Position Sitting Pulse 57 Intake Visit Reasons: Discuss EGD Intake Note: Ayana presents in the office to discuss having EGD. CC: She states that she is always having issues. She has issues in her throat - sometimes it does not bother her and other times it effects her life. She states that she tries not to eat at night. 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 Previously seen by Dr. Mann. Initial visit 07/08/22: Reports that has had intermittent issues with GERD in the past, which would resolve with p.r.n. Tums or omeprazole. For the past few months however, has been having daily GERD which describes as heartburn up to her throat especially at nighttime when she is laying down. Symptoms improved when she sleeps on a recliner. Continues to space out dinners from her bedtime by at least 4-5 hours. Tried omeprazole 20 mg with breakfast for a few weeks, which did not help when she was then switched to famotidine 40 mg. She takes this twice a day to get relief. Denies any regurgitation, nausea, vomiting, dysphagia or odynophagia. No unintentional weight loss. No abdominal pain. Colonoscopy 2016 (Dr Mann): sigmoid diverticulosis, no polyps EGD/colo 2011 (Dr Mann): Hiatal hernia, no BE on GEJ bx. Small T.A. Diverticulosis. 08/31/22: Reports complete resolution of symptoms since taking high-dose omeprazole for 4 weeks and adding a wedge pillow at nighttime. She in fact wonders if the omeprazole was can be reduced. Otherwise, no complaints to include abdominal pain, nausea vomiting, or regurgitation. No unintentional weight loss. 12/08/22: Still with intermittent heartburn with occasional feeling of food getting stuck in her upper throat. Stress test from September reassuring. 03/04/23: EGD with dilation * Normal esophagus mucosa (biopsy) * Schatzki's ring (dilation) * Hiatal hernia * Normal stomach * Normal duodenum Path: A. Esophagus, lower, biopsy: Squamous mucosa with mild hyperplasia, spongiosis, and mild intraepithelial lymphocytic infiltrate; no columnar mucosa present (see comment). B. Esophagus, middle, biopsy: Squamous mucosa with mild hyperplasia, spongiosis, and mild intraepithelial lymphocytic infiltrate; no columnar mucosa present; no evidence of eosinophilic esophagitis (see comment). 03/22/23: Reports improvement in sensation of food getting stuck as well as regurgitation since dilation. Has hx of osteopenia 2/2 hyperparathyroidism and wonders if can go off PPI therapy. 05/29/2024: Here for follow up. Has had recurrence of sx on and off the last few months and most prominent with solids. No coughing or choking. No unintentional weight loss. [facility] Medical History Nocturnal leg cramps PONV (postoperative nausea and vomiting) Family history of early CAD Psoriasis Hypothyroidism Primary hyperparathyroidism Toxic multinodular goiter Family history of premature CAD History of Capone's esophagus Breast cancer in situ HTN (hypertension) HLD (hyperlipidemia) Osteopenia Vitamin D deficiency Surgical History History of cardiac cath History of surgery S/P subtotal parathyroidectomy History of total thyroidectomy History of hysteroscopy Hx of dilation and curettage History of esophagogastroduodenoscopy (EGD) H/O colonoscopy History of lumpectomy of left breast Hx of cholecystectomy History of rotator cuff surgery Family History Father History of heart attack CVD (cardiovascular disease) Unknown family medical history Mother Unknown family medical history CVD (cardiovascular disease) Cirrhosis of liver Heart disease Substance use disorder Maternal Grandfather No problems noted. Maternal Grandmother Breast cancer Paternal Grandfather No problems noted. Paternal Grandmother No problems noted. Sister No problems noted. Sister No problems noted. Son No problems noted. Daughter No problems noted. Daughter No problems noted. 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 Sexual orientation: Straight/Heterosexual Gender identity: Female Cognitive needs: No Hearing needs: No Vision needs: Yes Review of Systems Const All systems reviewed & are unremarkable except as noted in HPI and below Physical Exam Vital Signs: Last Vital Signs Pulse 57 05/29/24 14:27 BP 124/61 05/29/24 14:27 BMI result Body Mass Index 33.1 No apparent distress Nonicteric Abdomen soft, nondistended Alert and oriented x3, normal gait Assessment & Plan Assessment & Plan (1) GERD (gastroesophageal reflux disease): Code(s): K21.9 - Gastro-esophageal reflux disease without esophagitis Category: Medical Qualifiers: Esophagitis presence: without esophagitis Qualified Code(s): K21.9 - Gastro-esophageal reflux disease without esophagitis (2) Schatzki's ring of distal esophagus: Code(s): K22.2 - Esophageal obstruction Category: Medical Plan Has known Schatzki's ring. PReviously had improvement in intermittent dysphagia to solids since dilation of schatzki's ring. Now with recurrence. Plan: - Cont pepcid (hx of osteoporosis) - EGD with dil to be booked Follow up after EGD Coding Level of Care Code Est Pt Level 3 (94637) Diagnoses Gastroesophageal reflux disease without esophagitis K21.9 Esophagitis presence: without esophagitis Schatzki's ring of distal esophagus K22.2
[2024-05-29 14:27] VITALS: BP 124/61; PULSE 57; BMI 33.1
== END 2024-05-29 15:36 | disposition home or self-care (01) ==
PROVIDERS: PCP Internal Medicine; Visit Provider Internal Medicine
DX: K21.9 Gastro-esophageal reflux disease without esophagitis (principal); K22.2 Esophageal obstruction
CPT/HCPCS: 99213

== ENCOUNTER → 2024-05-29 13:43 | Outpatient (BNVA) | payer MEDICARE, SELFPAY | PROVIDERS: PCP Internal Medicine; Visit Provider Internal Medicine | DX: K21.9 Gastro-esophageal reflux disease without esophagitis (principal); K22.2 Esophageal obstruction | CPT/HCPCS: 99212 ==

== ENCOUNTER 2024-06-13 08:34 | Outpatient (REF) | payer MEDICARE, SELFPAY ==
--- NOTE | ~2024-06-13 | MM_ITS ---
EXAMINATION: BONE DENSITOMETRY CLINICAL INDICATION: Osteopenia. COMPARISON: Previous BD dated 01/20/2022 and baseline BD dated 10/09/2010. TECHNIQUE: Using a [employer] DXA System (software version: 13.1) manufactured by [employer], dual-energy x-ray absorptiometry was performed of the lumbar spine and left hip. The images are of good technical quality. Summary results are attached. FINDINGS: LEFT FEMUR, NECK: Current: BMD 0.886 g/cm2, Z-score 0.7, T-score -1.1, osteopenia. Prior: BMD 0.787 g/cm2. Baseline: BMD 0.851 g/cm2. LEFT FEMUR, TOTAL: Current: BMD 1.055 g/cm2, Z-score 2.0, T-score 0.4, normal, 11.8% increase from previous, 7.3% increase from baseline (<5% change is not significant). Prior: BMD 0.944 g/cm2. Baseline: BMD 0.983 g/cm2. AP SPINE L1-L2 (excluding L3 and L4): The data of L1-L4 has been changed to exclude the L3 and L4 vertebral bodies, because degenerative sclerosis at these levels may cause overestimation of lumbar spine density. Current: BMD 1.293 g/cm2, Z-score 2.5, T-score 1.1, normal, 0.6% decrease from previous, 2.9% increase from baseline (<5% change is not significant). Prior: BMD 1.301 g/cm2. Baseline: BMD 1.256 g/cm2. IDENTIFIED RISK FACTORS: Menopause, thiazide, family history (parent hip fracture). HISTORY OF FRACTURE: None listed. MEDICATIONS: Calcium, vitamin D. MM/XR DEXA axial skeleton IMPRESSION: 1. DIAGNOSIS: Osteopenia based on the lowest T-score value of -1.1 in the femoral neck applying World Health Organization criteria. 2. 10-YEAR FRACTURE RISK PREDICTION, FRAX: Major osteoporotic fracture (clinical spine, forearm, hip or shoulder) 16.5%. Hip fracture 7.4%. 3. Treatment Recommendations: NOF guidelines recommend consideration for treatment in postmenopausal women and men age 50 and older presenting with the following: -A hip or vertebral (clinical or morphometric) fracture. -T-score less than or equal to -2.5 at the femoral neck or spine after appropriate evaluation to exclude secondary causes. -Low bone mass at the hip or spine and a 10-year fracture probability by FRAX of greater than or equal to 3% for hip fracture or greater than or equal to 20% for major osteoporotic fracture based on the [place] adapted WHO algorithm. 4. Other Recommendations: All treatment decisions require clinical judgment and consideration of individual patient factors, including patient preferences, comorbidities, previous drug use, risk factors not captured in the FRAX model (e.g. frailty, falls, vitamin D deficiency, increased bone turnover, interval significant decline in bone density) and possible under or overestimation of fracture risk by FRAX. Additional medical evaluation for secondary cause of low bone mineral density may be appropriate. FUTURE SCAN RECOMMENDATION: People with diagnosed cases of osteoporosis or at high risk for fracture should have regular bone mineral density tests. For patients eligible for Medicare, routine testing is allowed once every 2 years. The testing frequency can be increased to one year for patients who have rapidly progressing disease, those who are receiving or discontinuing medical therapy to restore bone mass, or have additional risk factors. Electronically signed by: Edgard Aguilera MD 06/14/2024 01:54 PM TAY HITCHCOCK
--- OUTSIDE RECORDS SUMMARY | 2024-06-13 08:43 | XMS_ITS ---
[facility] Address [address] [place] [address] Care Team Providers Care Manager Of Training And Development Name Role Phone Catie SAVAGE, Marisol Ko Primary Care Provider Un available Elias Workman Unavailable [phone] Allergies Allergen (clinical drug ingredient) Drug/Non Drug Allergy documented on EMR Reaction Allergy Type Onset Date Status codeine Codeine headache Drug Allergy Active REASON FOR VISIT Foot pain, Painful nail(s) aggravated by shoes causing difficulty standing/walking Medications Medication SIG (Take, Route, Frequency, Duration) Notes Start Date End Date Status Lisinopril Unknown Multivitamins Unknow n Baby Aspirin 81 mg U nknown Atenolol Unknown hydroCHLOROthiazide 25 MG 1 tablet Orall y Once a day for 30 day(s) Unknown amLODIPine Besylate Active Calcitriol Active Biotin Active Furosemide Active Vitamin D3 Active Losartan Potassium A ctive Levothyroxine Sodium Active Citracal Plus Active Atorvastatin Calcium Active Metoprolol Succinate Active Omeprazole Unknown Simvastatin Unknown Otezla Active Social History Tobacco Use: Social History Observation Description Date Details (start date - stop date) Never Smoker NA - NA Tobacco Use/Smoking Question Answer Notes Are you a: nonsmoker Additional Findings: Tobacco Non-User Current no n-smoker Tobacco use other than smoking: Question Answer Notes Are you an other tobacco user? No Problems Problem Type SNOMED Code ICD Code Onset Dates Problem Status W/U Status Risk Notes Problem [id number] Onychomycosis (B35.1) Active confirmed Vital Signs Height 4 ft 11 in in 04/21/2024 Weight 170 lbs 04/21/2024 BMI 34.33 kg/m2 04/21/2024 Procedures Procedure Date Ordered Date Performed Result Body Sit e 11610-NKKRNBE NAIL, 6 OR MORE 04/21/2024 N/A Encounters Encounter Location Date Provider Diagnosis [facility] [address] [place] [address] 04/21/2024 Eliasjennifer Chengier Pain in right foot M79.671 ; Pain in right ankle and joints of right foot M25.571 ; Bursitis of intermetatarsal bursa of right foot M77.51 ; Metatarsalgia, right foot M77.41 ; Onychomycosis B35.1 ; Pain in right toe(s) M79.674 and Pain in left toe(s) M79.675 Assessments Encounter Date Diagnosis (ICD Code) Assessment Notes Treatment Notes Treatment Clinical Notes Section Notes 04/21/2024 Pain in right foot (ICD-10 - M79.671) 04/21/2024 Pain in right ankle and joints of right foot (ICD-10 - M25.571) 04/21/2024 Bursitis of intermetatarsal bursa of right foot (ICD-10 - M77.51) 04/21/2024 Metatarsalgia, right foot (ICD-10 - M77.41) 04/21/2024 Onychomycosis (ICD-10 - B35.1) 04/21/2024 Pain in right toe(s) (ICD-10 - M79.674) 04/21/2024 Pain in left toe(s) (ICD-10 - M79.675) Plan Of Treatment Pending Test Test Name Order Date X ray : Foot, right 3V 04/21/2024 [id number] NAIL, 6 OR MORE 04/21/2024 Next Appt Details Follow Up: prn, Reason: Provider Name:Elias Workman , 07/21/2024 10:00:00 AM, [address] [place] [address], [phone], Procedure Notes * Category Sub-Category Detail Notes Debride Nail 6-10 Nail debridement Performance o f this nail treatment by a nonprofessional would put this patients foot and overall health at risk. Therefore, nail debridement was performed extensively to reduce/remove overall nail length, girth, thickness, subungual debris, and necrotic tissue, by manual and/or electrical means through the use of a nail nipper and/or dremel-type cutter grinder, to a more viable healthy nail plate or bed tissue 6-10. Silver nitrate used for any petechial bleeding as necessary. Definitive antifungal treatment options have been reviewed and discussed with the patient. The patient chooses, no pharmaceutical tx - 43170 Progress Notes * Ayana ARAGON TDOB: 7 (78 yo F)Acc No.[id number]:04/21/2024 Progress Notes Patient:?Ayana Aragon T Provider:?Elias Workman DPM :1945???Age:78 Y???Sex:Female D ate:04/21/2024 Address:[address] [place], [place] [id number] Pcp:Bhupendra Way Subjective: * Chief Complaints: * ???Foot painPainful nail(s) aggravated by shoes causing difficulty standing/walking * HPI: ???Foot Pain:?Location:?Bottom, Forefoot, RIGHT.?Duration:?several months.?Course:?worse.?Treatments:?rest/alter normal daily activity , change in shoes.?Painful Nails:?Pt States Last PCP Visit:?Date:?01/12/2024 * ROS:?General/Constitutional:?Nausea?denies.?Vomiting?denies.?Hunger Thirst?denies.?Loss appetite?denies.?Chills?denies.?Fatigue?denies.?Fever?denies.?Night Sweats?denies.?Unexplained weight loss?denies.?Unexplained weight gain?denies.?HEENTM:?Dentures?denies.?Dizziness?denies.?Glasses/contacts?admits.?Retinopathy?de nies.?Blurred/double vision?denies.?TMJ?denies.?Discharge/drainage?denies.?Implants?denies.?Sore throat?denies.?Dental implants?denies.?Hard of hearing ?denies.?Difficulty chewing/swallowing/speaking?denies.?Nose bleeds?denies.?Sore mouth?denies.?Respiratory:?On Oxygen?denies.?Pneumonia/pleurisy?denies.?Bronchitis?denies.?Emphysema?denies.?C oughing?denies.?Cough blood?denies.?Shortness of breath?denies.?Wheezing?denies.?Cardiovascular:?Pacemaker?denies.?MVP?denies.?WPW?denies.?CHF?denies.?Heart attack?denies.?Septal defect?denies.?Rapid beat?denies.?Chest pain ?denies.?Atrial Fib.?denies.?Murmur/Palpitations?denies.?Gastrointestinal:?Hemorrhoids?denies.?Stomach/Abdominal pain?denies.?Dark blood stool?denies.?Irritable bowel ?denies.?Constipation?denies.?Diarrhea?denies.?Hematology:?Swelling?admits.?Clots?denies.?Varicose Veins?admits.?Bruising?denies.?Bleeding problem?denies.?Genitourinary:?Blood urine?denies.?Frequent/Painfu/urination/bladder control?denies.?Kidney stones?denies.?Infection (UTI)?denies.?Nephropathy?denies.?sex trans dis (STD)?denies.?Prostate?denies.?Musculoskeletal:?Hammertoes?denies.?Bunions?denies.?Back Pain?denies.?Muscle Cramps/ Resting?denies.?Muscle cramps / walking?denies.?Generalized aches and pains?denies.?Weakness?denies.?Integ.:?Mckeon?denies.?Scars?denies.?Corns/calluses?admits.?Ingrown nails?admits.?Painful nails?admits.?Open Sores?denies.?Rashes?denies.?Neurologic:?Difficulty sleeping?denies.?Brain disorder?denies.?Numbness?denies.?Balance trouble?denies.?Confusion?denies.?Fainting/blackouts?denies.?Tingling?denies.?Tr emors?denies.? * Medical History:? * Surgical History:?cholecyste ctomy 1987rotator cuff tear repair 2009Gall bladder removal 1987Thyroid Surgery 2021 * Hospitalization/Major Diagno stic Procedure:?Denies Past Hospitalization * Family History:?Mother: dece ased, hypertension.?Father: , heart attack.? * Social History:?Tobacco Use:?Tobacco Use/Smoking?Are you a:?nonsmoker ?Additional Findings: Tobacco Non-User?Current non-smoker ?Tobacco use other than smoking?Are you an other tobacco user??No ???Drugs/Alcohol:?Drugs?Have you used drugs other than those for medical reasons in the past 12 months??No ?Alcohol Screen?Did you have a drink containing alcohol in the past year?: Yes, Points: 0, Interpretation: Negative.?Miscellaneous:?Caffeine: yes, 1-2 cups per day. ?Children: yes, 3. ?no Exercise. ?Marital status: . * Medications:?TakingOtezla At orvastatin Calcium Metoprolol Succinate Losartan Potassium Levothyroxine Sodium Citracal Plus Calcitriol amLODIPine Besylate Furosemide Vitamin D3 Biotin Taking Otezla Taking Atorvastatin Calcium Taking Metoprolol Succinate Taking Losartan Potassium Taking Levothyroxine Sodium Taking Citracal Plus Taking Calcitriol Taking amLODIPine Besylate Taking Furosemide Taking Vitamin D3 Taking Biotin UnknownBaby Aspirin 81 mg Atenolol hydroCHLOROthiazide 25 MG Tablet 1 tablet Orally Once a dayLisinopril Multivitamins Omeprazole Simvastatin Medication List reviewed and reconciled with the patientUnknown Baby Aspirin 81 mg Unknown Atenolol Unknown hydroCHLOROthiazide 25 MG Tablet 1 tablet Orally Once a dayUnknown Lisinopril Unknown Multivitamins Unknown Omeprazole Unknown Simvastatin Medication List reviewed and reconciled with the patient * Allergies:?Codeine: headache Objective: * Vitals:?Ht: 4 ft 11 in, Wt: 170, BMI: 34.33, Shoe size: 7.5, Ht-cm: 149.86 cm, Wt-k.11 kg. * Examination: ???Orthopedic: ?MUSCLE STRENGTH:?5/5 all groups in a symmetrical fashion , B/L.?GAIT ABNORMALITY:?antalgic.?FOOT MORPHOLOGY:?Pes Cavus structure.?MPJ PATHOLOGY:? Pain, swelling, and inflammation to plantar 3rd, MPJ(s), RIGHT, No MPJ pain with ROM, [ - ] Ecchymosis.?X-Rays - IMAGING REPORT: ?Clinical Indication(s):? Evaluate for Fracture.?Views:? 3 views of Foot, AP, LAT, LO, RIGHT.?Findings:?normal bone and soft tissue density consistent for patients age and sex , elongated plantarflexed [ 2,3] metatarsal with hypertrophied MTH.?Fracture:?Negative fractures identified.?Nails: ?NAILS are:?Elongated, overgrown, dystrophic, lytic, greater than 3mm thick, discolored and friable with crumbly malodorous subungual debris, with pain on palpation , TA , T4 , T5 , T6 , T8 , T9.?Neurological: ?SENSORY:?Neurological exam reveals intact sensorium, pain sensation normal, vibration sensation intact, pinprick sensation is normal in the lower extremities, Pt denies, anesthesia, burning, paresthesia, tingling, B/L.?TINEL'S COMPRESSION:? Negative tarsal tunnel, sarah pedis, and medial calcaneal nerves, Right.?DEEP TENDON REFLEXES:?Achilles, 2/4, B/L.?Neuroma Pain: ?PALPATION:?No interspace pain noted on palpation.?Vascular: ?DP PULSES(B):?2/4, B/L.?PT PULSES(B):?/4, B/L.?CAPILLARY FILL TIME:?immediate, all digits, B/L.?TROPHIC CONDITION-TEXTURE/ELASTICITY/TURGOR/HAIR GROWTH(B):?normal, B/L.?TEMPERTURE GRADIENT(C):?warm to cool, proximal to distal, B/L.?PIGMENTATION:?normal, B/L.?EDEMA(C):?1/4 , non-pitting , without aching pain , Leg(s) , Ankle(s) , Foot , B/L.?Dermatologic: ?SKIN FINDINGS:?Skin exam reveals normal texture, elasticity, and turgor. There are no masses. The interspaces are clear.?General Examination: ?GENERAL APPEARANCE:?Reveals a pleasant, alert, well-nourished, well- developed, well hydrated individual, who demonstrates proper attention to hygiene/body habitus, and is in no acute distress, Pt serves as own?historian for office visit today.?ORIENTED:?person, place, and time.? Assessment: * Assessment: 1.?Pain in right ankle and j oints of right foot - M25.571?2.?Pain in right foot - M79.671 (Primary)?3.?Bursitis of intermetatarsal bursa of right foot - M77.51?4.?Metatarsalgia, right foot - M77.41, Acute problem, Complicated w/ Multiple Tx Options(4),Dx New problem, Prognosis Uncertain (4)?5.?Onychomycosis - B35.1?6.?Pain in right toe(s) - M79.674?7.?Pain in left toe(s) - M79.675? Plan: * Treatment: 2.?Onychomycosis?Procedure: 50153-[id number] NAIL, 6 OR MORE * Procedures:?Debride Nail 6-10:?Nail debridement?Performance of this nail treatment by a nonprofessional would put this patients foot and overall health at risk. Therefore, nail debridement was performed extensively to reduce/remove overall nail length, girth, thickness, subungual debris, and necrotic tissue, by manual and/or electrical means through the use of a nail nipper and/or dremel-type cutter grinder, to a more viable healthy nail plate or bed tissue 6-10. Silver nitrate used for any petechial bleeding as necessary. Definitive antifungal treatment options have been reviewed and discussed with the patient. The patient chooses, no pharmaceutical tx - 11579.? * Procedure Codes:?79849 DEBRI DE NAIL, 6 OR [id number] X-RAY EXAM OF RIGHT FOOT 3V, Modifiers: 26 , RT * Preventive Medicine:? ??Counseling:?Discussion:?-04: Office or other outpatient visit for the evaluation and management of a new patient, which required a medically appropriate history and/or examination and MODERATE level of DECISION MAKING for: 1 OR MORE CHRONIC PROBLEM(S) THATS WORSENING, 2 STABLE CHRONIC PROBLEMS, A NEWLY DIAGNOSED PROBLEM WITH UNCERTAIN PROGNOSIS, AN ACUTE COMPLICATED INJURY WITH MULTIPLE TREATMENT OPTIONS, OR AN ACUTE PROBLEM WITH ACCOMPANYING SYSTEMIC SYMPTOMS, THAT POSE(S) A MODERATE RISK OF MORBIDITY. THIS CONDITION MAY ALSO INCLUDE RX DRUG MANAGEMENT, OR A DECISON FOR MINOR SURGERY. The visit on the day of the encounter encompassed interpreting the data and educating the patient as to the nature of their condition, treatment options available according to their individual PMH, meds, allergies, and overall health/living conditions, as well as any potential risks or complications that may occur from a failure to adhere to, and participate in, the recommended course of therapy. The discussion included a complete verbal, and/or written explanation of the examination results, any x-rays taken, the proposed diagnosis, and outline of the treatment plan. A schedule for future care needs was also explained. The patient verbalized an understanding of the instructions at this time and agreed to be an active participant in their treatment. If the patient should think of any questions or concerns after the visit, I have encouraged the patient to call the office.?Metatarsalgea:?I explained to the patient the possible etiologies of their Metatarsalgea Foot pain, including foot type/shoegear/activity level/exercise routine and the risks/benefits of all the different treatment options for pain including: No treatment at all, Rest, Ice, NSAIDs(only if well tolerated after meals), New/supportive Shoegear, Strappings and Tapings, Foot/Ankle AFO Bracing, Stretching exercises, Deep Tissue Massage, Arch support/shoe inserts, Custom orthoses, Topical analgesics including Aspercream/Voltaren gel, Physical Therapy, Cortisone injection therapy, EPAT/ESWT. Advantages and disadvantages of each option were discussed and the patients questions re: shoegear, custom vs prefabricated inserts, activity level, PO vs Topical medications (and their respective potential complications/drug interactions/side effects), and consistency in home treatment regimens for optimal success were answered to their verbally confirmed satisfaction.?Orthotics:?I explained to the patient the benefits of OT use. I explained that orthoses are medically necessary to decrease the foot pain through proper mechanical control, support of their foot, decrease pain under the painful metatarsal by supplementing the soft tissue, cushion the forefoot by supplementing the soft tissue.?P.R.I.C.E.:?The patient was counseled on the use of P.R.I.C.E. and NSAIDS (if well tolerated) to aid in the recovery from their painful condition.?Podiatric Surgery Counseling:?Surgical procedures to treat the patients foot problem were discussed. We reviewed the risks of the procedure (described below) vs not having the procedure (persistent pain, deformity, risk for skin ulceration/infection, loss of toe). We discussed the potential procedure complications including, but not limited to: pain, swelling, bleeding, scarring, numbness, infection, delayed/non healing, floppy/unstable/shorthened toe, recurrence, failure of the procedure, overcorrection leading to plantarflexed/downward positioned toe, recurrence, need for further surgery, as well as the possibility for loss of the toe itself. We discussed the use of IV/Local anesthesia, and the usual post-op course for healing. No guarentees were given. The patient verbally indicated a full understanding of the above conversation, and any other of their questions were answered to their satisfaction.?Shoe Gear Counseling:?The patient and I reviewed the types of shoes they should be wearing. My recommendation included obtaining a well-fitted shoe with a good supportive, non-foldable nor twistable sole, plenty of toe/room for the forefoot, and proper arch support. Based on todays examination, I recommended the patient look for new shoes, by having their feet professionally measured. We discussed that generally the best time of the day for a shoe fitting is the afternoon. Different shoes types and brands to best match the patients occupation and vocation were discussed. Specific brand selection will be up to the patient, their individual foot condition/deformities, and fit. The patient and I reviewed the standard new shoe break in period by wearing them for a few hours a day while checking for redness or sores as wear time is increased. The patient verbally confirmed to understanding the information discussed.?Steriod Injection:?I explained that a steroid and local anesthetic injections are administered to relieve pain and inflammation and thereby meant to improve function. I explained the possible complications including but not limited to signs/symptoms of steroid flare, infection, bruising, atrophy, discoloration of skin, change/deviation in toe position, and that additional injections may be necessary, cortisone post-injection informative educational handout was dispensed to and reviewed with the patient, In order to prevent any compromise of an effective immune response, it was recommended the patient refrain from any vaccine therapy for the month before or after injection. Patient verbally confirmed understanding the previously mentioned protocol.? * Follow Up:?prn * Images: * Sign off status: Completed true * Provider:?Elias Workman DPM Date:?2023 Generated for Yash garza/Home/eTransmitting on:?06/13/2024 08:43 AM EST History and Physical Notes * HPI (History of Present Illness) Category Sub-Category Detail Notes Category Not es Painful Nails Pt States Last PCP Visit: Date:: 01/12/2024 Foot Pain Location: Bottom, Forefoot, RIGHT Duration: several months Course: worse Treatments: rest/alter normal da tanner activity , change in shoes Examination Category Sub-Category Detail Notes Category Not es Neuroma Pain PALPATION: No interspace pain noted on palpation Neurological SENSORY: Neurological exa m reveals intact sensorium, pain sensation normal, vibration sensation intact, pinprick sensation is normal in the lower extremities, Pt denies, anesthesia, burning, paresthesia, tingling, B/L TINEL'S COMPRESSION: Negative tarsal patrick lori, sarah pedis, and medial calcaneal nerves, Right DEEP TENDON REFLEXES: Achilles, 2/4, B/L Dermatologic SKIN FINDINGS: Skin exam reveal s normal texture, elasticity, and turgor. There are no masses. The interspaces are clear Orthopedic GAIT ABNORMALITY: antalgic FOOT MORPHOLOGY: Pes Cavus structure MPJ PATHOLOGY: Pain, swelling, and inflammation to plantar 3rd, MPJ(s), RIGHT, No MPJ pain with ROM, [ - ] Ecchymosis MUSCLE STRENGTH: 5/5 all groups in a symmetrical fashion , B/L General Examination GENERAL APPEARANCE: Reveals a pleasant, alert, well- nourished, well-developed, well hydrated individual, who demonstrates proper attention to hygiene/body habitus, and is in no acute distress, Pt serves as own historian for office visit today ORIENTED: person, place, and t aydin Vascular DP PULSES(B): 2/4, B/L PT PULSES(B): 1/4, B/L CAPILLARY FILL TIME: immediate, all digi ts, B/L TEMPERTURE GRADIENT(C): warm to cool, pr oximal to distal, B/L TROPHIC CONDITION-TEXTURE/ELASTICITY/TURGOR/HAIR GROWTH(B): normal, B/L EDEMA(C): 1/4 , non-pitting , without aching pain , Leg(s) , Ankle(s) , Foot , B/L PIGMENTATION: normal, B/L Nails NAILS are: Elongated, overg rown, dystrophic, lytic, greater than 3mm thick, discolored and friable with crumbly malodorous subungual debris, with pain on palpation , TA , T4 , T5 , T6 , T8 , T9 X-Rays - IMAGING REPORT Findings: normal b one and soft tissue density consistent for patients age and sex , elongated plantarflexed [ 2,3] metatarsal with hypertrophied MTH Fracture: Negative fractures i dentified Views: 3 views of Foot, AP, LAT, LO, RIGHT Clinical Indication(s): Evaluate for Fra cture
--- OUTSIDE RECORDS SUMMARY | 2024-06-13 08:43 | XMS_ITS ---
Author Organization [facility] Address [address] [place] [address] Care Team Providers Care Quality Assurance Supervisor Final Name Role Phone Catie SAVAGE, Marisol Ko Primary Care Provider Un available Elias Workman Unavailable [phone] Chandni Dawson Unavailable [phone] REASON FOR VISIT Seen Sooner Encounters Encounter Location Date Provider Diagnosis [address] [address] 05/31/2024 Chandni Dawson Plan Of Treatment Next Appt Details Provider Name:Elias Workman , 07/21/2024 10:00:00 AM, [address] [place] [address], [phone], Progress Notes * Ayana ARAGON TDOB: (79 yo F)Acc No.[id number]:05/31/2024 Progress Notes Patient:?Omi ARAGONice Nazia Provider:?Chandni Dawson DPM :1945???Age:79 Y???Sex:Female D ate:05/31/2024 Address:[address] [place], [place] [id number] Pcp:Bhupendra Way Subjective: * Chief Complaints: * ???1. Seen Sooner. * Medical History:? Objective: * Vitals:? Assessment: Plan: * Treatment: * Images: * The named appointment provid er may or may not be the originator of this progress note, and it is not deemed complete until electronically signed by the appointment provider. Sign off status: Pending * Provider:?Chandni Dawson DPM Date:?09/2023 Generated for Yash garza/Home/Josey on:?06/13/2024 08:43 AM EST
--- OUTSIDE RECORDS SUMMARY | 2024-06-13 08:44 | XMS_ITS ---
Author Organization [facility] Address [address] [place] [address] Care Team Providers Care Department Mgr Name Role Phone Catie SAVAGE, Marisol Ko Primary Care Provider Un available Elias Workman Unavailable [phone] REASON FOR VISIT CORNICE UPHOLSTERER PPWK Entered Encounters Encounter Location Date Provider Diagnosis [address] [address] 02/24/2024 Elias Workman Plan Of Treatment Next Appt Details Provider Name:Elias Workman , 07/21/2024 10:00:00 AM, [address] [place] [address], [phone], Progress Notes * Ayana ARAGON TDOB: [birth year] (78 yo F)Acc No.[id number]:02/24/2024 Patient:?Ayana Aragon :1945???Age:78 Y???Sex:Female Address:[address] [place] [address] * true * Date:? Generated for Printi ng/Faxing/eTransmitting on:?06/13/2024 08:43 AM EST
--- OUTSIDE RECORDS SUMMARY | 2024-06-13 08:44 | XMS_ITS | Patient Health Record ---
Author Organization [facility] Address [address] [place] [address] Care Team Providers Care Storage Battery Inspector And Tester Name Role Phone Catie SAVAGE, Marisol Ko Primary Care Provider Un available Elias Workman Unavailable [phone] Chandni Dawson Unavailable [phone] Allergies Allergen (clinical drug ingredient) Drug/Non Drug Allergy documented on EMR Reaction Allergy Type Onset Date Status codeine Codeine headache Drug Allergy Active Reason For Referral No Information Medications Medication SIG (Take, Route, Frequency, Duration) Notes Start Date End Date Status amLODIPine Besylate Active Losartan Potassium A ctive Lisinopril Unknown Levothyroxine Sodium Active Multivitamins Unknow n Citracal Plus Active Omeprazole Unknown Calcitriol Active Simvastatin Unknown Biotin Active Otezla Active Baby Aspirin 81 mg U nknown Atorvastatin Calcium Active Atenolol Unknown Metoprolol Succinate Active hydroCHLOROthiazide 25 MG 1 tablet Orall y Once a day for 30 day(s) Unknown Furosemide Active Vitamin D3 Active Social History Tobacco Use: Social History [...] Problem Status W/U Status Risk Notes Problem 390393619 Onychomycosis (B35.1) Active confirmed Vital Signs Height 4 ft 11 in in 04/21/2024 Weight 170 lbs 04/21/2024 BMI 34.33 kg/m2 04/21/2024 Procedures Procedure Date Ordered Date Performed Result Body Sit e 12427-PEXXRFP NAIL, 6 OR MORE 04/21/2024 N/A Encounters Encounter Location Date Provider Diagnosis [facility] [address] 04/21/2024 Eliasjennifer StevensJacinta Pain in right foot M79.671 ; Pain in right ankle and joints of right foot M25.571 ; Bursitis of intermetatarsal bursa of right foot M77.51 ; Metatarsalgia, right foot M77.41 ; Onychomycosis B35.1 ; Pain in right toe(s) M79.674 and Pain in left toe(s) M79.675 [facility] [address] 02/24/2024 Elias Workman Assessments Encounter Date Diagnosis (ICD Code) Assessment Notes Treatment Notes Treatment Clinical Notes Section Notes 04/21/2024 Pain in right ankle and joints of right foot (ICD-10 - M25.571) 04/21/2024 Pain in right foot (ICD-10 - M79.671) 04/21/2024 Bursitis of intermetatarsal bursa of right foot (ICD-10 - M77.51) 04/21/2024 Metatarsalgia, right foot (ICD-10 - M77.41) 04/21/2024 Onychomycosis (ICD-10 - B35.1) 04/21/2024 Pain in right toe(s) (ICD-10 - M79.674) 04/21/2024 Pain in left toe(s) (ICD-10 - M79.675) Plan Of Treatment Pending Test Test Name Order Date X ray : Foot, left 3V 07/07/2012 X ray : Foot, right 3V 04/21/2024 [id number] NAIL, 6 OR MORE 04/21/2024 Next Appt Details Provider Name:Elias Workman , 07/21/2024 10:00:00 AM, [address] [place] [address], [phone], Insurance Providers Payer Name Payer Address Payer Phone Subscriber Number Group Number Insured Name Patient Relationship to Insured Coverage Start Date Coverage End Date [employer]vantage [address] [facility] [place] [address] [id number] Ayana Aragon Self - patient is the insured Medical (General) History Medical History History ICD Code mumps measles chicken pox hypertension gall bladder problems cholesterol reflux Gall bladder problems Psoriasis/eczema Reflux ( GERD) thyroid Surgical History Surgery Date(Month/Year) cholecystectomy 1986 rotator cuff tear repair 2009 Gall bladder removal 1986 Thyroid Surgery 2021
--- OUTSIDE RECORDS SUMMARY | 2024-06-13 08:44 | XMS_ITS | Patient Health Record ---
Author Organization [facility] Address [address] [place] [address] Care Team Providers Care Peoplesoft Financial Developer Name Role Phone Catie SAVAGE, Marisol Primary Care Provider Hemant Masters [phone] ALLERGIES Allergen (clinical drug ingredient) Drug/Non Drug Allergy documented on EMR Reaction Allergy Type Onset Date Status EPINEPHrine Unknown Drug Allergy Activ e codeine Codeine Sulfate Unknown Drug Allergy A ctive REASON FOR REFERRAL No Information MEDICATIONS Medication SIG (Take, Route, Frequency, Duration) Notes Start Date End Date Status Ranitidine HCl 300 MG 1 capsule at bedti me Orally Once a day Active Cozaar 50 MG 1 tablet Orally Once a day Active Hydrocortisone 2.5 % 1 application to af fected area Externally Twice a day Active Aspir-81 81 MG 1 tablet Orally Once a day Active Atenolol 25 MG 1 tablet Orally Once a day Active Tamoxifen Citrate 20 MG 1 tablet Orally Once a day Active hydroCHLOROthiazide 25 MG 1 tablet in morning Orally Once a day Active SOCIAL HISTORY Sex Assigned At : Social History Observation Description Sex Assigned At Unknown PROBLEMS Problem Type ICD Code Onset Dates Problem Status W/U Status Risk SNOMED Code Notes Problem Encounter for screening for malignant neoplasm of colon (Z12.11) Active confirmed 770899777 Problem Personal history of colonic polyps (Z86.010) Active confirmed History of polyp of colon (170906584) Problem Gastroesophageal reflux disease without esophagitis (K21.9) Active confirmed 835544335 Problem Hiatal hernia (K44.9) Active confirmed 74102482 PLAN OF TREATMENT Future Test Test Name Order Date UPPER GI ENDOSCOPY 03/10/2012 COLONOSCOPY 03/10/2012 COLONOSCOPY 09/30/2016 Insurance Providers Payer Name Payer Address Payer Phone Subscriber Number Group Number Insured Name Patient Relationship to Insured Coverage Start Date Coverage End Date [facility] [address] [facility] [place] [phone] [id number] JIGAR CASTILLO Self - patient is the insured MEDICAL (GENERAL) HISTORY Medical History History ICD Code GERD with Capone's esophagu s on previous EGD's--but the EGD in 2011 revealed a moderate-sized HH and no Capone's mucosa HTN Hyperlipidemia Denies [place],DM,CVA,Lung disease,renal dise ase 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 colonoscopy in 2002 Surgical History Surgery Date(Month/Year) CCY Right rotator cuff surgery Breast biopsy--DCIS as above Sceduled for cataract surgery in 10/2016
== END 2024-06-13 08:35 | disposition home or self-care (01) ==
LOC: HO.MAMMO 08:34
PROVIDERS: PCP Internal Medicine; Visit Provider Internal Medicine Endocrinology, Diabetes & Metabolism
DX: Z13.820 Encounter for screening for osteoporosis (principal); M85.80 Other specified disorders of bone density and structure, unspecified site; Z82.69 Family history of other diseases of the musculoskeletal system and connective tissue
CPT/HCPCS: 77080

== ENCOUNTER 2024-07-11 08:34 | Outpatient (REF) | payer MEDICARE, SELFPAY ==
--- OUTSIDE RECORDS SUMMARY | 2024-07-11 08:53 | XMS_ITS ---
Author Organization [facility] Address [address] [place] [address] Care Team Providers Care Delivery Route Driver Name Role Phone Catie SAVAGE, Marisol Ko Primary Care Provider Un available Elias Workman Unavailable [phone] Chandni Dawson Unavailable [phone] REASON FOR VISIT Seen Sooner Encounters Encounter Location Date Provider Diagnosis [facility] [address] [place] [address] 05/31/2024 Chandni Dawson Plan Of Treatment No Information Progress Notes * Ayana ARAGON TDOB: 7 (79 yo F)Acc No.[id number]:05/31/2024 Progress Notes Patient:?Ayana ARAGON Provider:?Chandni Dawson DPM :1945???Age:79 Y???Sex:Female D ate:05/31/2024 Address:[address] [place] [phone] Pcp:Bhupendra Way Subjective: * Chief Complaints: * [...] Dawson DPM Date:?09/2023 Generated for Yash garza/Home/Josey on:?07/11/2024 08:53 AM EST
--- OUTSIDE RECORDS SUMMARY | 2024-07-11 08:54 | XMS_ITS | Patient Health Record ---
Author Organization [facility] Address [address] [place] [address] Care Team Providers Care Railroad Engineer Name Role Phone Catie SAVAGE, Marisol Primary Care Provider Hemant Masters [phone] ALLERGIES Allergen (clinical drug ingredient) Drug/Non Drug [...] malignant neoplasm of colon (Z12.11) Active confirmed 176715112 Problem Personal history of colonic polyps (Z86.010) Active confirmed History of polyp of colon (694247181) Problem Gastroesophageal reflux disease without esophagitis (K21.9) Active confirmed 951697805 Problem Hiatal hernia (K44.9) Active confirmed 34247951 PLAN OF TREATMENT Future Test Test Name Order Date UPPER GI ENDOSCOPY 03/10/2012 COLONOSCOPY 03/10/2012 COLONOSCOPY 09/30/2016 Insurance Providers Payer Name Payer Address Payer Phone Subscriber Number Group Number Insured Name Patient Relationship to Insured Coverage Start Date Coverage End Date [facility] [address] [facility] [place] [phone] [id number] JIGAR CASTILLO Self - patient is the insured MEDICAL (GENERAL) HISTORY Medical History History ICD Code GERD with Capone's esophagu s on previous EGD's--but the EGD in 2011 revealed a moderate-sized HH and no Capone's mucosa HTN Hyperlipidemia Denies [place],DM,CVA,Lung disease,renal dise ase 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 colonoscopy in 2002 Surgical History Surgery Date(Month/Year) CCY Right rotator cuff surgery Breast biopsy--DCIS as above Sceduled for cataract surgery in 10/2016
--- OUTSIDE RECORDS SUMMARY | 2024-07-11 08:54 | XMS_ITS | Patient Health Record ---
Author Organization [facility] Address [address] [place] [address] Care Team Providers Care Licensed Therapist Name Role Phone Catie SAVAGE, Marisol Ko Primary Care Provider Un available Elias Workman Unavailable [phone] Chandni Dawson Unavailable [phone] Allergies Allergen (clinical drug ingredient) Drug/Non Drug [...] Problem Status W/U Status Risk Notes Problem 703859648 Onychomycosis (B35.1) Active confirmed Vital Signs Height 4 ft 11 in in 04/21/2024 Weight 170 lbs 04/21/2024 BMI 34.33 kg/m2 04/21/2024 Procedures Procedure Date Ordered Date Performed Result Body Sit e 90840-KAVPOUY NAIL, 6 OR MORE 04/21/2024 N/A Encounters Encounter Location Date Provider Diagnosis [facility] [address] 04/21/2024 Elias Workman Pain in right foot M79.671 ; Pain in right ankle and joints of right foot M25.571 ; Bursitis of intermetatarsal bursa of right foot M77.51 ; Metatarsalgia, right foot M77.41 ; Onychomycosis B35.1 ; Pain in right toe(s) M79.674 and Pain in left toe(s) M79.[address] [facility] [address] 02/24/2024 Elias Workman [facility] [address] 07/07/2024 Elias Workman Assessments Encounter Date Diagnosis (ICD [...] X ray : Foot, right 3V 04/21/2024 [id number] NAIL, 6 OR MORE 04/21/2024 Insurance Providers Payer Name Payer Address Payer Phone Subscriber Number Group Number Insured Name Patient Relationship to Insured Coverage Start Date Coverage End Date [employer] Advantage [address] [facility] [place] [address] [phone] [id number] Ayana Aragon Self - patient is the insured Medical (General) History Medical History History ICD Code mumps measles chicken pox hypertension gall bladder problems cholesterol reflux Gall bladder problems Psoriasis/eczema Reflux ( GERD) thyroid Surgical History Surgery Date(Month/Year) cholecystectomy 1986 rotator cuff tear repair 2009 Gall bladder removal 1986 Thyroid Surgery 2021
--- OUTSIDE RECORDS SUMMARY | 2024-07-11 08:54 | XMS_ITS ---
Author Organization [facility] Address [address] [place] [address] Care Team Providers Care Locomotive Repairer Diesel Name Role Phone Catie SAVAGE, Marisol Ko Primary Care Provider Un available Elias Workman Unavailable [phone] Allergies Allergen (clinical drug ingredient) Drug/Non Drug [...] Problem Status W/U Status Risk Notes Problem 174103082 Onychomycosis (B35.1) Active confirmed Vital Signs Height 4 ft 11 in in 04/21/2024 Weight 170 lbs 04/21/2024 BMI 34.33 kg/m2 04/21/2024 Procedures Procedure Date Ordered Date Performed Result Body Sit e 45668-HIAMMII NAIL, 6 OR MORE 04/21/2024 N/A Encounters Encounter Location Date Provider Diagnosis [facility] [place] [address] [place] [address] 04/21/2024 Elias Jacinta Pain in right foot M79.671 ; Pain [...] X ray : Foot, right 3V 04/21/2024 [id number] NAIL, 6 OR MORE 04/21/2024 Next Appt Details Follow Up: prn, Reason: Procedure Notes * Category Sub-Category Detail Notes Debride Nail 6-10 Nail debridement Performance o f this nail treatment by a nonprofessional would put this patients foot and overall health at risk. Therefore, nail debridement was performed extensively to reduce/remove overall nail length, girth, thickness, subungual debris, and necrotic tissue, by manual and/or electrical means through the use of a nail nipper and/or dremel-type lens grinder and polisher, to a more viable healthy nail plate or bed tissue 6-10. Silver nitrate used for any petechial bleeding as necessary. Definitive antifungal treatment options have been reviewed and discussed with the patient. The patient chooses, no pharmaceutical tx - [address] Progress Notes * Ayana ARAGON TDOB: 7 (79 yo F)Acc No.[id number]:04/21/2024 Progress Notes Patient:?Ayana ARAGON T Provider:?Elias Workman DPM :1945???Age:78 Y???Sex:Female D ate:04/21/2024 Address:[address] [place] [phone] Pcp:Bhupendra Way Subjective: * Chief Complaints: * [...] 1-2 cups per day. ?Children: yes, 3. ?Exercise: no. ?Marital status: . * Medications:?TakingOtezla At orvastatin [...] MG Tablet 1 tablet Orally Once a day Lisinopril Multivitamins Omeprazole Simvastatin Medication List reviewed and reconciled with the patientOumouwtrisha Baby Aspirin 81 mg Unknown Atenolol Unknown hydroCHLOROthiazide 25 MG Tablet 1 tablet Orally Once a day Unknown Lisinopril Unknown Multivitamins Unknown Omeprazole Unknown Simvastatin Medication List reviewed and reconciled with the patient * Allergies:?Codeine: headache yes[Allergies Verified] Objective: * Vitals:?Ht: 4 ft 11 in, [...] ?PALPATION:?No interspace pain noted on palpation.?Vascular: ?DP PULSES (B):?2/4, B/L.?PT PULSES (B):?1/4, B/L.?CAPILLARY FILL TIME:?immediate, all digits, B/L.?TROPHIC CONDITION-TEXTURE/ELASTICITY/TURGOR/HAIR GROWTH (B):?normal, B/L.?TEMPERTURE GRADIENT (C):?warm to cool, proximal to distal, B/L.?PIGMENTATION:?normal, B/L.?EDEMA (C):?1/4 , non-pitting , without aching pain , [...] and j oints of right foot - M25.571???2.?Pain in right foot - M79.671 (Primary)???3.?Bursitis of intermetatarsal bursa of right foot - M77.51???4.?Metatarsalgia, right foot - M77.41???Specify :Acute problem, Complicated w/ Multiple Tx Options(4),Dx New problem, Prognosis Uncertain (4)???5.?Onychomycosis - B35.1???6.?Pain in right toe(s) - M79.674???7.?Pain in left toe(s) - M79.675??? Plan: * Treatment: 2.?Onychomycosis?Procedure: [id number] NAIL, 6 OR MORE * Procedures:?Debride Nail 6-10:?Nail debridement?Performance of this nail treatment by a nonprofessional would put this patients foot and overall health at risk. Therefore, nail debridement was performed extensively to reduce/remove overall nail length, girth, thickness, subungual debris, and necrotic tissue, by manual and/or electrical means through the use of a nail nipper and/or dremel-type lens grinder and polisher, to a more viable healthy nail plate or bed tissue 6-10. Silver nitrate used for any petechial bleeding as necessary. Definitive antifungal treatment options have been reviewed and discussed with the patient. The patient chooses, no pharmaceutical tx - 70387.? * Procedure Codes:?94349 DEBRI DE NAIL, 6 OR [id number] X-RAY EXAM OF RIGHT FOOT 3V, Modifiers: [...] verbally confirmed understanding the previously mentioned protocol.? ??Screening/Special Tests:?Fall Risk?Screening:?No falls in the past year ?FALLS: Screening for Future Fall Risk?Have you had any falls with injury in the past year??No * Follow Up:?prn * Images: * Sign off status: Completed true * Provider:?Elias Workman DPM Date:?2023 Generated for Yash garza/Home/Josey on:?07/11/2024 08:53 AM EST History and Physical Notes * [...] person, place, and t aydin Vascular DP PULSES (B): 2/4, B/L PT PULSES (B): 1/4, B/L CAPILLARY FILL TIME: immediate, all digi ts, B/L TEMPERTURE GRADIENT (C): warm to cool, p roximal to distal, B/L TROPHIC CONDITION-TEXTURE/ELASTICITY/TURGOR/HAIR GROWTH (B): normal, B/L EDEMA (C): 1/4 , non-pitting , without aching pain [...]
[2024-07-11 10:40] LABS: Cholesterol 113 mg/dL (<200); HDL Cholesterol 47 mg/dL (>40); LDL Cholesterol Calculated 53 mg/dL (<100); Triglycerides 69 mg/dL (<150)
== END 2024-07-11 08:35 | disposition home or self-care (01) ==
LOC: HO.HMGCLDS 08:34
PROVIDERS: PCP Internal Medicine; Visit Provider Internal Medicine Cardiovascular Disease
DX: I25.10 Atherosclerotic heart disease of native coronary artery without angina pectoris (principal)
CPT/HCPCS: 36415; 80061

== ENCOUNTER 2024-09-27 08:44 | Outpatient (AMB) | payer MEDICARE, SELFPAY ==
[2024-09-27 08:46] VITALS: BP 118/66; PULSE 60; O2SAT 98; BMI 33.4
--- NOTE | 2024-09-27 08:46 | A.OFFPC_ITS ---
Vital Signs 09/27/24 08:46 Height 5 ft Weight 171 lb BMI 33.4 BP 118/66 Blood Pressure Location Rt brachial Position Sitting Pulse 60 Pulse Source Pulse Oximeter Pulse Oximetry (%) 98 Oxygen Delivery Method Room Air Intake Visit Reasons: PE Refractory Products Supervisor Required: No Accompanied by: Self / Same As Patient Allergies codeine [Codeine] Allergy (Mild, Verified 09/27/24 09:24) SWELLING, vomiting, headache Medication List - Last Reconciled 09/27/24 by Marisol Haddad MD acetaminophen ER (Tylenol 8 Hour) 650 mg PO Q8H PRN albuterol sulfate 90 mcg/actuation 90 mcg inhalation Q4-6H PRN alclometasone 0.05% appl topical amlodipine 2.5 mg PO QAM apremilast (Otezla) 30 mg PO BID atorvastatin 80 mg PO DAILY betamethasone dipropionate 0.05% topical biotin 1 mg PO DAILY calcitriol 0.25 mcg PO DAILY jaurgty-N1-gbmd-copper-jenna 325 mg-12.5 mcg -2.75 mg (Citracal-D3 Maximum Plus) 4 tabs PO DAILY cholecalciferol (vitamin D3) 25 mcg PO DAILY famotidine 20 mg PO BEDTIME furosemide 20 mg PO DAILY ketoconazole 2% 1 appl topical DAILY ketoconazole 2% topical levothyroxine 112 mcg PO DAILY losartan 100 mg PO DAILY meclizine 25 mg PO BID PRN metoprolol succinate ER 50 mg PO BEDTIME triamcinolone acetonide 0.1% appl topical [wedge pillow As directed] Tobacco use date assessed: 09/27/24 Fall risk assessment: No Falls in past year Last assessed Fall Risk: 09/27/24 Dental Screening Dental Screen Date: 09/27/24 Did you have a dental visit in the last 12 months?: Yes Did you have a dental problem in the last 6 months where you did not have access to dental care?: No Was dental information given to patient?: Patient has dentist HPI PE HPI Details 79 year lady with history of hypertensio n, dyslipidemia, coronary artery disease, chronic GERD, hypothyroidism, osteopenia, here today for her physical exam. She has been feeling well, compliant with taking medications, no new complaints at present time. She is up-to-date with her screening mammogram, with normal findings. Last colonoscopy was done by Dr. Mann, with no further screening needed. She sees Dr. Arizmendi for her osteopenia, would last bone density done in May 2024 showing presence of osteopenia in left femoral neck normal in lumbar spine and left femur. She takes levothyroxine 112 mcg daily for hypothyroidism, which is stable and controlled on present treatment. Currently takes famotidine 40 mg at bedtime for heartburn symptoms, has GERD, hiatal hernia and Schatzki's ring seen on previous upper endoscopy. She sees Dermatology for treatment of her psoriasis currently controlled on Otezla. [facility] Medical History Nocturnal leg cramps PONV (postoperative nausea and vomiting) Family history of early CAD Psoriasis Hypothyroidism Primary hyperparathyroidism Toxic multinodular goiter Family history of premature CAD History of Capone's esophagus Breast cancer in situ HTN (hypertension) HLD (hyperlipidemia) Osteopenia Vitamin D deficiency Surgical History History of cardiac cath History of surgery S/P subtotal parathyroidectomy History of total thyroidectomy History of hysteroscopy Hx of dilation and curettage History of esophagogastroduodenoscopy (EGD) H/O colonoscopy History of lumpectomy of left breast Hx of cholecystectomy History of rotator cuff surgery Family History Father History of heart attack CVD (cardiovascular disease) Unknown family medical history Mother Unknown family medical history CVD (cardiovascular disease) Cirrhosis of liver Heart disease Substance use disorder Maternal Grandfather No problems noted. Maternal Grandmother Breast cancer Paternal Grandfather No problems noted. Paternal Grandmother No problems noted. Sister No problems noted. Sister No problems noted. Son No problems noted. Daughter No problems noted. Daughter No problems noted. 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 1. Little interest or pleasure in doing things: not at all 2. Feeling down, depressed, or hopeless: not at all 3. Trouble falling or staying asleep, or sleeping too much: not at all 4. Feeling tired or having little energy: not at all 5. Poor appetite or overeating: not at all 6. Feeling bad about yourself - or that you are a failure or have let yourself or your family down: not at all 7. Trouble concentrating on things, such as reading the newspaper or watching television: not at all 8. Moving or speaking so slowly that other people could have noticed. Or the opposite - being so fidgety or restless that you have been moving around a lot m ore than usual: not at all 9. Thoughts that you would be better off or of hurting yourself in some way: not at all Total score: 0 Depression Screening Interpretation: Negative Depression Screening Done: Yes 81782 - PHQ-9 Billing: Yes Source: Developed by Drs. Hemant Morrison, Ashanti Chaves, Duong Matthews and colleagues, with an educational fabienne from [employer]. Thrive Questionnaire Date Thrive assessed: 09/27/24 I am a: Patient What is your living situation today?: I have a steady place to live Within the past 12 months, did the food you bought not last and you didn't have the money to get more?: Never true Within the past 12 months, did you worry whether your food would run out before you got money to buy more?: Never true Do you have trouble paying for medicines?: No Do you have trouble getting transportation to medical appointments?: No Do you have trouble paying your heating and electricity bill?: No Do you have trouble taking care of your child, family member or friend?: No Do you have trouble with day-to-day activities such as bathing, preparing meals, shopping, managing finances, etc.?: No Are you currently unemployed and looking for a job?: No Are you interested in more education?: No Please select the resources that you would like help with: None Currently or been in a relationship where the following occur: No concerns reported THRIVE Score: 0 AUDIT C Alcohol Use Questionnaire (AUDIT-C) 1. How often do you have a drink containing alcohol?: Monthly or less 2. How many drinks containing alcohol do you have on a typical day when you are drinking?: 1 or 2 3. How often do you have six or more drinks on one occasion?: Never Total Score: 1 Score Reviewed/Action Taken: Yes GENESIS-7 AMB Questionnaire GENESIS-7 Date GENESIS - 7 assessed: 09/27/24 Feeling nervous, anxious, or on edge: 0 = Not at all Not being able to stop or control worryin = Not at all Worrying too much about different things: 0 = Not at all Trouble relaxin = Not at all Being so restless that it is hard to sit still: 0 = Not at all Becoming easily annoyed or irritable: 0 = Not at all Feeling afraid as if something awful might happen: 0 = Not at all Total GENESIS-7 score (0-4 normal; 5-9 mild; 10-14 moderate; 15-21 severe): 0 Source: Developed by Drs. Hemant Morrison, Ashanti Chaves, Duong Matthews and colleagues, with an educational fabienne from [employer]. GENESIS-7 Assessment Billing GENESIS-7 Assessment Tool: GENESIS-7 Assessment 69130 Review of Systems Const Denies fatigue, Denies frequent falls, Denies weakness and Denies weight loss Eyes Details: Sees Dr Rich yearly ENT Details: Gets dental prophylaxis every 6 months Denies dizziness Card Denies chest pain, Denies leg edema, Denies lightheadedness, Denies palpitations, Denies dyspnea, Denies dyspnea on exertion and Denies orthopnea Resp Denies cough, Denies dyspnea and Denies dyspnea on exertion GI Denies hematochezia and Denies change in stool character Reports no additional complaints Musc Reports as per HPI, Denies abnormal gait, Denies arthralgias, Denies muscle weakness, Denies numbness, Denies radiating pain into limb, Denies stiffness and Denies tingling Skin/Breast Reports as per HPI, Denies breast pain, Denies breast mass and Denies rash Neuro Denies abnormal gait, Denies dizziness, Denies frequent falls, Denies numbness, Denies tingling and Denies weakness Psych Reports no additional complaints Endo Denies fatigue and Denies palpitations Juan/Lymph Reports no additional complaints Aller/Immun Reports no additional complaints Physical exam (Primary Care) Vital Signs: Last Vital Signs Pulse 60 09/27/24 08:46 BP 118/66 09/27/24 08:46 Pulse Ox 98 09/27/24 08:46 Oxygen Delivery Method Room Air 09/27/24 08:46 BMI result Body Mass Index 33.4 BMI Assessment/Plan discussion: High BMI High, discussed plan: lifestyle, weight reduction, dietary and physical activity Tobacco/Smoking Status: Tobacco use Status Tobacco use date assessed 09/27/24 09/27/24 08:47 Patient Tobacco Use Status Never used Tobacco 09/27/24 08:47 e-Cigarette/Vaping Use Never Used 09/27/24 08:47 PHQ-9: PHQ-9 Score PHQ-9: Total score 0 09/27/24 09:43 Depression Screening Interpretation: Negative Thrive Assessment: Date of Thrive Assessment Date Thrive assessed 09/27/24 09/27/24 08:47 Currently or been in a relationship where the following occur: No concerns reported Const General: no acute distress and alert Nutritional Appearance: obese Orientation/consciousness: patient oriented x3 HENMT Ears: external ears normal, TM's normal bilaterally and EAC's normal Mouth: Normal oral and palatal mucosa present and moist mucous membranes Eyes General: appearance normal, both eyes and all related structures Neck Neck: Yes normal visual inspection, Yes full ROM, Yes no lymphadenopathy and Yes supple Chest Breast/axilla palpation: normal palpation of the breasts Resp Auscultation: clear to auscultation bilaterally Cardio Other: S1-S2 present regular rate and rhythm GI Palpation (GI): Soft to palpation, nontender, no guarding and no masses General: Yes no CVA tenderness Back/Spine/Pelvis Back: no CVA tenderness and No back tenderness Skin General skin exam: no rashes or lesions noted Neuro General: patient oriented x3, tone normal, moves all extremities, Normal light touch and pain sensation, no focal motor deficits and CN's II-XI intact bilaterally Extrem General: Yes full ROM, Yes no joint enlargement, Yes no clubbing, cyanosis or edema, Yes no pedal edema, Yes no calf tenderness and Yes normal gait Psych Appearance: grossly normal and well kempt Mental Status: mental status grossly normal Speech and movement: Normal speech and movement present Affect: normal affect Coding Level of Care Code Est Pt Prev Care >65y(13797) Diagnoses Annual visit for general adult medical examination with abnormal findings Z00.01 Osteopenia, unspecified location M85.80 Osteopenia location: unspecified Pure hypercholesterolemia E78.00 Hyperlipidemia type: pure hypercholesterolemia Essential hypertension I10 Hypertension type: essential hypertension Postoperative hypothyroidism E89.0 Hypothyroidism type: postoperative Gastroesophageal reflux disease without esophagitis K21.9 Esophagitis presence: without esophagitis Additional Codes GENESIS-7 Assessment Billing - GENESIS-7 Assessment Tool: GENESIS-7 Assessment 81025 ([id number]) PHQ-9 - 02821 - PHQ-9 Billing: Yes ([id number]) Assessment & Plan Assessment & Plan (1) Annual visit for general adult medical examination with abnormal findings: Code(s): Z00.01 - Encounter for general adult medical examination with abnormal findings Plan: Will check appropriate labs. Continue with regular dental visit every 6 months and regular eye exams, at least every 2 years. continue calcium and vitamin-D 3 supplements, in addition to weight-bearing exercises to help maintain good muscle tone and weight control. Instructed to do self-breast exam, and continue with yearly mammogram Currently see Dr. Arizmendi for follow-up on her osteopenia. She has has had a colonoscopy screening which came back with normal findings, no further screening indicated per Dr. Mann . up-to-date with all her vaccinations (2) Osteopenia: Code(s): M85.80 - Other specified disorders of bone density and structure, unspecified site Category: Medical Qualifiers: Osteopenia location: unspecified Qualified Code(s): M85.80 - Other specified disorders of bone density and structure, unspecified site Plan: Currently taking Citracal +D and additional cholecalciferol daily . Stressed importance of doing regular weight-bearing exercise for cervical followed by endocrine clinic (3) HLD (hyperlipidemia): Code(s): E78.5 - Hyperlipidemia, unspecified Category: Medical Qualifiers: Hyperlipidemia type: pure hypercholesterolemia Qualified Code(s): E78.00 - Pure hypercholesterolemia, unspecified Plan: Fasting labs ordered today to check lipids, currently on 80 mg atorvastatin daily (4) HTN (hypertension): Code(s): I10 - Essential (primary) hypertension Category: Medical Qualifiers: Hypertension type: essential hypertension Qualified Code(s): I10 - Essential (primary) hypertension Plan: Blood pressure at goal of less than 130/80. Continue losartan 100 mg daily, metoprolol succinate ER 50 mg at bedtime , furosemide 20 mg daily, and amlodipine 2.5 mg daily. Reinforced importance of following a low sodium diet, getting regular exercise, and lowering stress levels. (5) Hypothyroidism: Code(s): E03.9 - Hypothyroidism, unspecified Category: Medical Qualifiers: Hypothyroidism type: postoperative Qualified Code(s): E89.0 - Postprocedural hypothyroidism Plan: Will check thyroid levels, continued on levothyroxine 112 mcg daily in a.m. (6) GERD (gastroesophageal reflux disease): Code(s): K21.9 - Gastro-esophageal reflux disease without esophagitis Category: Medical Qualifiers: Esophagitis presence: without esophagitis Qualified Code(s): K21.9 - Gastro-esophageal reflux disease without esophagitis Plan: Currently on famotidine 20 mg at bedtime Orders: Orders Thyroid Stimulating Hormone 09/28/24 E78.00 - Pure hypercholesterolemia, unspecified, E89.0 - Postprocedural hypothyroidism, G47.62 - Sleep related leg cramps, I10 - Essential (primary) hypertension, I25.10 - Atherosclerotic heart disease of [place] coronary artery without angina pectoris, K21.9 - Gastro- esophageal reflux disease without esophagitis, M85.80 - Other specified disorders of bone density and structure, unspecified site Free T4 (Free Thyroxine) 09/28/24 E78.00 - Pure hypercholesterolemia, unspecified, E89.0 - Postprocedural hypothyroidism, G47.62 - Sleep related leg cramps, I10 - Essential (primary) hypertension, I25.10 - Atherosclerotic heart disease of [place] coronary artery without angina pectoris, K21.9 - Gastro- esophageal reflux disease without esophagitis, M85.80 - Other specified disorders of bone density and structure, unspecified site Complete Blood Count Auto Diff 09/28/24 E78.00 - Pure hypercholesterolemia, unspecified, E89.0 - Postprocedural hypothyroidism, G47.62 - Sleep related leg cramps, I10 - Essential (primary) hypertension, I25.10 - Atherosclerotic heart disease of [place] coronary artery without angina pectoris, K21.9 - Gastro- esophageal reflux disease without esophagitis, M85.80 - Other specified diso rders of bone density and structure, unspecified site Basic Metabolic Panel Fasting 09/28/24 E78.00 - Pure hypercholesterolemia, unspecified, E89.0 - Postprocedural hypothyroidism, G47.62 - Sleep related leg cramps, I10 - Essential (primary) hypertension, I25.10 - Atherosclerotic heart disease of [place] coronary artery without angina pectoris, K21.9 - Gastro- esophageal reflux disease without esophagitis, M85.80 - Other specified disorders of bone density and structure, unspecified site
--- OUTSIDE RECORDS SUMMARY | 2024-09-27 09:15 | XMS_ITS | Patient Health Record ---
Author Organization [facility] Address [address] [place] [address] Care Team Providers Care Newspaper Or Periodical Editor Name Role Phone Catie SAVAGE, Marisol Primary Care Provider Hemant [facility] [phone] Allergies Allergen (clinical drug ingredient) Drug/Non Drug Allergy documented on EMR Reaction Allergy Type Onset Date Status EPINEPHrine Unknown Drug Allergy Activ e codeine Codeine Sulfate Unknown Drug Allergy A ctive Reason For Referral No Information Medications Medication [...] Active hydroCHLOROthiazide 25 MG 1 tablet in th e morning Orally Once a day Active Problems Problem Type SNOMED Code ICD Code Onset Dates Problem Status W/U Status Risk Notes Problem 732825850 Encounter for screening for malignant neoplasm of colon (Z12.11) Active confirmed Problem History of polyp of colon (533474073) Personal history of colonic polyps (Z86.010) Active confirmed Problem 377925570 Gastroesophageal reflux disease without esophagitis (K21.9) Active confirmed Problem 28267616 Hiatal hernia (K44.9) Active confirmed Plan Of Treatment Future Test Test Name Order Date UPPER GI ENDOSCOPY 03/10/2012 COLONOSCOPY 03/10/2012 COLONOSCOPY 09/30/2016 Insurance Providers Payer Name Payer Address Payer Phone Subscriber Number Group Number Insured Name Patient Relationship to Insured Coverage Start Date Coverage End Date 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 colonoscopy in 2002 Surgical History Surgery Date(Month/Year) CCY Right rotator cuff surgery Breast biopsy--DCIS as above Sceduled for cataract surgery in 10/2016
--- OUTSIDE RECORDS SUMMARY | 2024-09-27 09:15 | XMS_ITS ---
Author Organization [facility] Address [address] [place] [address] Care Team Providers Care Classifier Name Role Phone Catie SAVAGE, Marisol Ko Primary Care Provider Un available Elias Workman Unavailable [phone] Chandni Dawson Unavailable [phone] REASON FOR VISIT Seen Sooner Encounters Encounter Location Date Provider Diagnosis [facility] [address] [place] [address] 05/31/2024 Chandni Dawson Plan Of Treatment No Information Progress Notes * Ayana ARAGON TDOB: [birth year] (79 yo F)Acc No.[id number]:05/31/2024 Progress Notes Patient:?Ayana ARAGON Provider:?Chandni Dawson DPM :1945???Age:79 Y???Sex:Female D ate:05/31/2024 Address:[address] [place] [id number] Pcp:Bhupendra Way Subjective: * Chief Complaints: * [...] Dawson DPM Date:?09/2023 Generated for Yash garza/Home/Josey on:?09/27/2024 09:14 AM EDT
--- OUTSIDE RECORDS SUMMARY | 2024-09-27 09:15 | XMS_ITS ---
Author Organization [facility] Address [address] [place] [address] Care Team Providers Care Sugar Cane Grower Name Role Phone Catie SAVAGE, Marisol Ko Primary Care Provider Un available Elias Workman Unavailable [phone] Encounters Encounter Location Date Provider Diagnosis [facility] [address] [place] [address] 07/21/2024 Elias Workman Plan Of Treatment No Information Progress Notes * Ayana ARAGON TDOB: [birth year] (79 yo F)Acc No.[id number]:07/21/2024 Progress Note Patient:Ayana DICKSON Provider:?Elias Workman DPM :1945???Age:79 Y???Sex:Female D ate:07/21/2024 Address:[address] [place] [phone] Pcp:Bhupendra Way Subjective: * Chief Complaints: * ??? * Medical History:? Objective: * Vitals:? Assessment: Plan: * Treatment: * Images: * The named appointment provid er may or may not be the originator of this progress note, and it is not deemed complete until electronically signed by the appointment provider. Sign off status: Pending * Provider:?Elias Workman DPM Date:?01/24/ 2025 Generated for Yash garza/Home/Josey on:?09/27/2024 09:15 AM EDT
--- OUTSIDE RECORDS SUMMARY | 2024-09-27 09:15 | XMS_ITS ---
Author Organization [facility] Address [address] [place] [address] Care Team Providers Care Medicare Specialist Name Role Phone Catie SAVAGE, Marisol Ko Primary Care Provider Un available Elias Workman [phone] REASON FOR VISIT cx 07/21/24 appt Encounters Encounter Location Date Provider Diagnosis [facility] [address] [place] [address] 07/07/2024 Elias Workman Plan Of Treatment No Information Progress Notes * Ayana ARAGON TDOB: [birth year] (79 yo F)Acc No.[id number]:07/07/2024 Patient:?ARAGON Ayana Mandujano :1945???Age:79 Y???Sex:Female Address:[address] [place] [address] * true * Date:? Generated for Printi ng/Faxing/eTransmitting on:?09/27/2024 09:15 AM EDT
--- OUTSIDE RECORDS SUMMARY | 2024-09-27 09:16 | XMS_ITS | Patient Health Record ---
Author Organization [facility] Address [address] [place] [address] Care Team Providers Care Irrigation Teacher Name Role Phone Catie SAVAGE, Marisol Ko Primary Care Provider Un available Elias Workman Unavailable [phone] Chandni Dawson Unavailable [phone] Allergies Allergen (clinical drug ingredient) Drug/Non Drug [...] Problem Status W/U Status Risk Notes Problem 625839009 Onychomycosis (B35.1) Active confirmed Vital Signs Height 4 ft 11 in in 04/21/2024 Weight 170 lbs 04/21/2024 BMI 34.33 kg/m2 04/21/2024 Procedures Procedure Date Ordered Date Performed Result Body [place] e [id number]-[id number] NAIL, 6 OR MORE 04/21/2024 N/A Encounters Encounter Location Date Provider Diagnosis [facility] [address] 04/21/2024 Elias Workman Pain in right foot M79.671 ; Pain in right ankle and joints of right foot M25.571 ; Bursitis of intermetatarsal bursa of right foot M77.51 ; Metatarsalgia, right foot M77.41 ; Onychomycosis B35.1 ; Pain in right toe(s) M79.674 and Pain in left toe(s) M79.[address] [facility] [address] 02/24/2024 [facility] [address] 07/07/2024 Elias Workman Assessments Encounter Date Diagnosis [...] X ray : Foot, right 3V 04/21/2024 [id number]-[id number] NAIL, 6 OR MORE 04/21/2024 Insurance Providers Payer Name Payer Address Payer Phone Subscriber Number Group Number Insured Name Patient Relationship to Insured Coverage Start Date Coverage End Date [employer] [place] [employer] [address] [facility] [place] [address] [id number] Ayana Aragon Self - patient is the insured Medical (General) History Medical History History ICD Code mumps measles chicken pox hypertension gall bladder problems cholesterol reflux Gall bladder problems Psoriasis/eczema Reflux ( GERD) thyroid Surgical History Surgery Date(Month/Year) cholecystectomy 1986 rotator cuff tear repair 2009 Gall bladder removal 1986 Thyroid Surgery 2021
== END 2024-09-27 09:53 | disposition home or self-care (01) ==
LOC: HO.HMCC 08:44
PROVIDERS: PCP Internal Medicine; Visit Provider Internal Medicine
DX: Z00.01 Encounter for general adult medical examination with abnormal findings (principal); M85.80 Other specified disorders of bone density and structure, unspecified site; E78.00 Pure hypercholesterolemia, unspecified; I10 Essential (primary) hypertension; E89.0 Postprocedural hypothyroidism; K21.9 Gastro-esophageal reflux disease without esophagitis

== ENCOUNTER → 2024-09-27 08:44 | Outpatient (BNVA) | payer MEDICARE, SELFPAY | PROVIDERS: PCP Internal Medicine; Visit Provider Internal Medicine | DX: Z00.01 Encounter for general adult medical examination with abnormal findings (principal); M85.80 Other specified disorders of bone density and structure, unspecified site; E78.00 Pure hypercholesterolemia, unspecified; I10 Essential (primary) hypertension; E89.0 Postprocedural hypothyroidism; K21.9 Gastro-esophageal reflux disease without esophagitis | CPT/HCPCS: 96127; 99397 ==

== ENCOUNTER 2024-09-28 07:48 | Outpatient (REF) | payer MEDICARE, SELFPAY ==
--- OUTSIDE RECORDS SUMMARY | 2024-09-28 07:52 | XMS_ITS | Patient Health Record ---
Author Organization [facility] Address [address] [place] [address] Care Team Providers Care Cotton Farmworker Name Role Phone Catie SAVAGE, Marisol Ko Primary Care Provider Un available Elias Workman Unavailable [phone] Chandni Dawson Unavailable [phone] Allergies Allergen (clinical drug ingredient) Drug/Non Drug [...] Problem Status W/U Status Risk Notes Problem 842256502 Onychomycosis (B35.1) Active confirmed Vital Signs Height 4 ft 11 in in 04/21/2024 Weight 170 lbs 04/21/2024 BMI 34.33 kg/m2 04/21/2024 Procedures Procedure Date Ordered Date Performed Result Body Sit e [id number]-[id number] NAIL, 6 OR MORE 04/21/2024 N/A Encounters Encounter Location Date Provider Diagnosis [facility] [address] 04/21/2024 Elias Workman Pain in right foot M79.671 ; Pain in right ankle and joints of right foot M25.571 ; Bursitis of intermetatarsal bursa of right foot M77.51 ; Metatarsalgia, right foot M77.41 ; Onychomycosis B35.1 ; Pain in right toe(s) M79.674 and Pain in left toe(s) M79.[address] [facility] [address] 02/24/2024 [facility] [address] 07/07/2024 Elias Workman Assessments Encounter Date Diagnosis [...] X ray : Foot, right 3V 04/21/2024 [id number] NAIL, 6 OR MORE 04/21/2024 Insurance Providers Payer Name Payer Address Payer Phone Subscriber Number Group Number Insured Name Patient Relationship to Insured Coverage Start Date Coverage End Date [employer] [place] [employer] Advantage [address] [facility] [place] [address] [id number] Ayana Aragon Self - patient is the insured Medical (General) History Medical History History ICD Code mumps measles chicken pox hypertension gall bladder problems cholesterol reflux Gall bladder problems Psoriasis/eczema Reflux ( GERD) thyroid Surgical History Surgery Date(Month/Year) cholecystectomy 1986 rotator cuff tear repair 2009 Gall bladder removal 1986 Thyroid Surgery 2021
--- OUTSIDE RECORDS SUMMARY | 2024-09-28 07:52 | XMS_ITS ---
Author Organization [facility] Address [address] [place] [address] Care Team Providers Care Supervisor Ordnance Truck Installation Name Role Phone Catie SAVAGE, Marisol Ko Primary Care Provider Un available Elias Workman [phone] REASON FOR VISIT cx 07/21/24 appt Encounters Encounter Location Date Provider Diagnosis [facility] [address] [place] [address] 07/07/2024 Elias Workman Plan Of Treatment No Information Progress Notes * Ayana ARAGON TDOB: 7 (79 yo F)Acc No.[id number]:07/07/2024 Patient:?ARAGON Ayana Mandujano :1945???Age:79 Y???Sex:Female Address:[address] [place] [address] * true * Date:? Generated for Printi ng/Faxing/eTransmitting on:?09/28/2024 07:52 AM EDT
--- OUTSIDE RECORDS SUMMARY | 2024-09-28 07:52 | XMS_ITS | Patient Health Record ---
Author Organization [facility] Address [address] [place] [address] Care Team Providers Care Canal Structure Operator Name Role Phone Catie SAVAGE, Marisol Primary Care Provider Hemant Masters [facility] [phone] Allergies Allergen (clinical drug ingredient) Drug/Non Drug [...] Problem Status W/U Status Risk Notes Problem 083528969 Encounter for screening for malignant neoplasm of colon (Z12.11) Active confirmed Problem History of polyp of colon (042433090) Personal history of colonic polyps (Z86.010) Active confirmed Problem 393144393 Gastroesophageal reflux disease without esophagitis (K21.9) Active confirmed Problem 35273607 Hiatal hernia (K44.9) Active confirmed Plan Of Treatment Future Test Test Name Order Date UPPER GI ENDOSCOPY 03/10/2012 COLONOSCOPY 03/10/2012 COLONOSCOPY 09/30/2016 Insurance Providers Payer Name Payer Address Payer Phone Subscriber Number Group Number Insured Name Patient Relationship to Insured Coverage Start Date Coverage End Date [facility] [address] [place] [phone] [id number] JIGAR CASTILLO Self - patient is the insured Medical (General) History Medical History History ICD Code GERD with Capone's esophagu s on previous EGD's--but the EGD in 2011 revealed a moderate-sized HH and no Capone's mucosa HTN Hyperlipidemia Denies MA,DM,CVA,Lung disease,renal dise ase 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 colonoscopy in 2002 Surgical History Surgery Date(Month/Year) CCY Right rotator cuff surgery Breast biopsy--DCIS as above Sceduled for cataract surgery in 10/2016
--- OUTSIDE RECORDS SUMMARY | 2024-09-28 07:52 | XMS_ITS ---
Author Organization [facility] Address [address] [place] [address] Care Team Providers Care Modeling Manager Name Role Phone Catie SAVAGE, Marisol Ko Primary Care Provider Un available Elias Workman Unavailable [phone] Encounters Encounter Location Date Provider Diagnosis [facility] [address] [place] [address] 07/21/2024 Elias Workman Plan Of Treatment No Information Progress Notes * Ayana ARAGON TDOB: [birth year] (79 yo F)Acc No.[id number]:07/21/2024 Progress Note Patient:Ayana DICKSON Provider:?Elias Workman DPM :1945???Age:79 Y???Sex:Female D ate:07/21/2024 Address:[address] [place] [phone] Pcp:Bhupendra Way Subjective: * Chief Complaints: * [...] DPM Date:?01/24/ 2025 Generated for Yash garza/Home/Josey on:?09/28/2024 07:52 AM EDT
--- OUTSIDE RECORDS SUMMARY | 2024-09-28 07:52 | XMS_ITS ---
Author Organization [facility] Address [address] [place] [address] Care Team Providers Care Steam Finisher Name Role Phone Catie SAVAGE, Marisol Ko Primary Care Provider Un available Elias Workman Unavailable [phone] Chandni Dawson Unavailable [phone] REASON FOR VISIT Seen Sooner Encounters Encounter Location Date Provider Diagnosis [facility] [address] [place] [address] 05/31/2024 Chandni Dawson Plan Of Treatment No Information Progress Notes * Ayana ARAGON TDOB: [birth year] (79 yo F)Acc No.[id number]:05/31/2024 Progress Notes Patient:?Ayana ARAGON Provider:?Chandni Dawson DPM :1945???Age:79 Y???Sex:Female D ate:05/31/2024 Address:[address] [place] [address] Pcp:Bhupendra Way Subjective: * Chief Complaints: * [...] Dawson DPM Date:?09/2023 Generated for Yash garza/Home/Josey on:?09/28/2024 07:52 AM EDT
[2024-09-28 11:12] LABS: MANUAL DIFF FLAG NO
[2024-09-28 11:31] LABS: Basophils Absolute Auto 0.1 X10*3/uL (0.0-0.2); Basophils Percent Auto 1.4 % (0-2); Eosinophils Absolute Auto 0.2 X10*3/uL (0.0-0.4); Eosinophils Percent Auto 3.4 % (0-4); Hematocrit 36.8 % (37.0-47.0); Imm Gran Abs Auto 0.01 X10*3/uL (0.00-0.03); Imm Gran Pct Auto 0.2 % (0.0-0.4); Lymphocytes Absolute Auto 1.7 X10*3/uL (1.2-4.9); Lymphocytes Percent Auto 25.9 % (20-40); Mean Corpuscular HGB Conc 32.6 g/dl (31.0-35.0); Mean Corpuscular Hemoglobin 27.6 pg (27.0-33.0); Mean Corpuscular Volume 84.8 fL (80.0-98.0); Monocytes Absolute Auto 0.5 X10*3/uL (0.1-1.2); Neutrophils Percent Auto 61.1 % (45-73); Platelet Count 373 X10*3/uL (160-400); Red Blood Count 4.34 X10*6/uL (4.20-5.50); White Blood Count 6.5 X10*3/uL (4.8-10.8)
[2024-09-28 12:01] LABS: Alanine Aminotransferase 21 U/L (0-31); Anion Gap 14 (12-20); Aspartate Amino Transferase 25 U/L (5-31); Blood Urea Nitrogen 18 mg/dL (9-16); Calcium 8.9 mg/dL (8.4-10.2); Carbon Dioxide 26 mmol/L (22-29); Chloride 105 mmol/L (96-108); Cholesterol 123 mg/dL (<200); Estimated Glomerular Filt Rate > 60; Glucose Fasting 87 mg/dL (60-99); HDL Cholesterol 58 mg/dL (>40); LDL Cholesterol Calculated 53 mg/dL (<100); Sodium 141 mmol/L (135-145); Triglycerides 62 mg/dL (<150)
[2024-09-28 12:20] LABS: Free T4 (Free Thyroxine) 1.53 ng/dL (0.71-1.85); Thyroid Stimulating Hormone 1.21 uIU/mL (0.32-4.0); Vitamin D 25-OH Total 69.8 ng/mL (>30)
== END 2024-09-28 07:49 | disposition home or self-care (01) ==
LOC: HO.HMGCLDS 07:48
PROVIDERS: PCP Internal Medicine; Visit Provider Internal Medicine
DX: I25.10 Atherosclerotic heart disease of native coronary artery without angina pectoris (principal); E78.00 Pure hypercholesterolemia, unspecified; I10 Essential (primary) hypertension; M85.80 Other specified disorders of bone density and structure, unspecified site; G47.62 Sleep related leg cramps; K21.9 Gastro-esophageal reflux disease without esophagitis; E89.0 Postprocedural hypothyroidism
CPT/HCPCS: 36415; 80048; 80061; 82306; 82550; 84439; 84443; 84450; 84460; 85025

== ENCOUNTER 2024-10-12 11:59 | Outpatient (REF) | payer MEDICARE, SELFPAY ==
--- NOTE | ~2024-10-12 | XR_ITS ---
EXAMINATION: XR CHEST 2 VIEWS HISTORY: R05.9 - Cough, unspecified COMPARISON: There are no prior studies for comparison. FINDINGS: PA and lateral views of the chest are submitted. The lungs are expanded and clear. There is no pleural effusion, pneumothorax, or pulmonary vascular congestion. The heart is normal in size. There is degenerative disc disease of the spine. There are suture anchors in the right humeral head. XR/XR chest 2V IMPRESSION: Clear lungs. Electronically signed by: Hemant Mckinnon MD 10/12/2024 01:56 PM EDT
--- OUTSIDE RECORDS SUMMARY | 2024-10-12 16:01 | XMS_ITS ---
Author Organization [facility] Address [address] [place] [address] Care Team Providers Care Production Troubleshooter Name Role Phone Catie SAVAGE, Marisol Ko Primary Care Provider Un available Elias Workman Unavailable [phone] Encounters Encounter Location Date Provider Diagnosis [facility] [address] [place] [address] 07/21/2024 Elias Workman Plan Of Treatment No Information Progress Notes * Ayana ARAGON TDOB: [birth year] (79 yo F)Acc No.[id number]:07/21/2024 Progress Note Patient:Ayana DICKSON Provider:?Elias Workman DPM :1945???Age:79 Y???Sex:Female D ate:07/21/2024 Address:[address] [place] [phone] Pcp:Bhupendra Way Subjective: * Chief Complaints: * [...] DPM Date:?01/24/ 2025 Generated for Yash garza/Home/Josey on:?10/12/2024 04:01 PM EDT
[2024-10-12 19:00] LABS: Influenza A PCR NEGATIVE (Negative); Influenza B PCR NEGATIVE (Negative); Resp Syncy Virus RNA Qual PCR NEGATIVE (Negative); SARS COV2 PCR INHOUSE NEGATIVE (Negative)
== END 2024-10-12 12:00 | disposition home or self-care (01) ==
LOC: HO.HMGCX 11:59
PROVIDERS: PCP Internal Medicine; Visit Provider Physician Assistant
DX: J22 Unspecified acute lower respiratory infection (principal); R05.9 Cough, unspecified; R09.89 Other specified symptoms and signs involving the circulatory and respiratory systems
CPT/HCPCS: 0241U; 71046; 99212

== ENCOUNTER 2024-10-12 11:59 | Outpatient (AMB) | payer MEDICARE, SELFPAY ==
[2024-10-12 12:42] VITALS: BP 130/78; PULSE 68; TEMP 36.6; O2SAT 94
--- NOTE | 2024-10-12 12:42 | AM.OFFWIN_ITS ---
Intake Vital Signs 10/12/24 12:42 Weight 164 lb BP 130/78 Blood Pressure Location Rt brachial Position Sitting Pulse 68 Pulse Source Pulse Oximeter Temp 97.9 F Temp Source Oral Pulse Oximetry (%) 94 Oxygen Delivery Method Room Air Intake Visit Reasons: EP-cough, wheezing, diarrhea Intake Note: Patient here for cough, wheezing and diarrhea that has been going on and off since june. Patient Tobacco Use Status: Never used Tobacco Allergies codeine [Codeine] Allergy (Mild, Verified 10/12/24 12:48) SWELLING, vomiting, headache Do you need a note to return to daycare/school/sports/work: No HPI HPI Comments History of Present Illness Details History - The patient is a 79-year-old female pr esenting with wheezing and shortness of breath. - Symptoms began after feeling a scratch y throat approximately 5 days ago, especially exacerbated by lying down. - The patient was treated via Telehealth with antibiotics (Amoxicillin) and Tessalon Perles for persistent cough and congestion. - She has been taking both medications a nd a decongestant for the last 5 days. - Respiratory symptoms resulted in a min imal response to albuterol inhaler. - Previous and similar exacerbations in respiratory conditions have been attributed to episodes of bronchitis. - Recent self-administered COVID-19 test s were negative, and the patient has been vaccinated against influenza and RSV. Physical Exam General: Cooperative, healthy appearing, comfortable and no acute distress Orientation/consciousness: Patient oriented x3 Limitations: No limitations Head: Normal to inspection Ears: Hearing grossly normal bilaterally, external ears normal and TM's normal bilaterally Nose: Normal external nose present, Normal nares present and No nasal discharge present Face and sinus: Normal facial exam and Yes sinuses nontender Mouth: Normal oral and palatal mucosa present and moist mucous membranes Throat: Yes tonsils normal, Yes uvula midline. Posterior oropharynx erythema Eyes: Appearance normal, both eyes and all related structures Neck: Normal visual inspection Respiratory: Clear to auscultation bilaterally. Normal respiratory effort, able to speak in complete sentences, Actively coughing, no respiratory distress, not tachypneic, no tripod positioning and no use of accessory muscles Cardiovascular: Regular rate and rhythm. Normal S1 and S2 Skin: No rashes or lesions noted Neuro: Patient oriented x3 Extremities: Normal to inspection and Yes no clubbing, cyanosis or edema [facility] Medical History Nocturnal leg cramps PONV (postoperative nausea and vomiting) Family history of early CAD Psoriasis Hypothyroidism Primary hyperparathyroidism Toxic multinodular goiter Family history of premature CAD History of Capone's esophagus Breast cancer in situ HTN (hypertension) HLD (hyperlipidemia) Osteopenia Vitamin D deficiency Surgical History History of cardiac cath History of surgery S/P subtotal parathyroidectomy History of total thyroidectomy History of hysteroscopy Hx of dilation and curettage History of esophagogastroduodenoscopy (EGD) H/O colonoscopy History of lumpectomy of left breast Hx of cholecystectomy History of rotator cuff surgery Family History Father History of heart attack CVD (cardiovascular disease) Unknown family medical history Mother Unknown family medical history CVD (cardiovascular disease) Cirrhosis of liver Heart disease Substance use disorder Maternal Grandfather No problems noted. Maternal Grandmother Breast cancer Paternal Grandfather No problems noted. Paternal Grandmother No problems noted. Sister No problems noted. Sister No problems noted. Son No problems noted. Daughter No problems noted. Daughter No problems noted. 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 Sexual orientation: Straight/Heterosexual Gender identity: Female Cognitive needs: No Hearing needs: No Vision needs: Yes Review of Systems Const All systems reviewed & are unremarkable except as noted in HPI and below Physical Exam Vital Signs: Last Vital Signs Temp 97.9 F 10/12/24 12:42 Pulse 68 10/12/24 12:42 BP 130/78 10/12/24 12:42 Pulse Ox 94 10/12/24 12:42 Oxygen Delivery Method Room Air 10/12/24 12:42 Assessment & Plan Assessment & Plan (1) Lower respiratory infection (e.g., bronchitis, pneumonia, pneumonitis, pulmonitis): Code(s): J22 - Unspecified acute lower respiratory infection Plan: O2 sat low at 94%, other VSS, pt well appearing and PE unremarkable. With low O2, will get CXR. To manage the patient's acute bronchitis and shortness of breath, a six-day course of oral steroids will be initiated to reduce airway inflammation. The patient will follow a tapering schedule for steroids, starting with six tablets today. She will complete the antibiotics already started, acknowledging the viral nature of the symptoms. Tessalon Perles will continue for cough relief, and the albuterol inhaler should be used every four to six hours while she is awake. The chest imaging will provide clarity and assist in planning further management. Communication regarding test results and findings will follow, ensuring clear patient guidance. Symptomatic relief and prevention of infection are emphasized, continuing with hydration and rest while monitoring for signs of worsening conditions. Pamphlet given to pt including information on when to go to the ED. Patient was informed and verbally consented to the use of an ambient scribe for clinic note documentation during this visit Orders: Orders SARS-CoV2/FLU/RSV Today R09.89 - Other specified symptoms and signs involving the circulatory and respiratory systems XR chest 2V Today R05.9 - Cough, unspecified Coding Level of Care Code Est Pt Level 4 (91607) Diagnoses Lower respiratory infection (e.g., bronchitis, pneumonia, pneumonitis, pulmonitis) J22
--- OUTSIDE RECORDS SUMMARY | 2024-10-12 14:54 | XMS_ITS ---
Author Organization [facility] Address [address] [place] [address] Care Team Providers Care Assistant Scientist Name Role Phone Catie SAVAGE, Marisol Ko Primary Care Provider Un available Elias Workman Unavailable [phone] Chandni Dawson Unavailable [phone] REASON FOR VISIT Seen Sooner Encounters Encounter Location Date Provider Diagnosis [facility] [address] [place] [address] 05/31/2024 Chandni Dawson Plan Of Treatment No Information Progress Notes * Ayana ARAGON TDOB: [birth year] (79 yo F)Acc No.[id number]:05/31/2024 Progress Notes Patient:?Ayana ARAGON Provider:?Chandni Dawson DPM :1945???Age:79 Y???Sex:Female D ate:05/31/2024 Address:[address] [place] [phone] Pcp:Bhupendra Way Subjective: * Chief Complaints: * [...] Dawson DPM Date:?09/2023 Generated for Yash garza/Home/Josey on:?10/12/2024 02:54 PM EDT
--- OUTSIDE RECORDS SUMMARY | 2024-10-12 14:55 | XMS_ITS | Patient Health Record ---
Author Organization [facility] Address [address] [place] [address] Care Team Providers Care Surveyor Chain Helper Name Role Phone Catie SAVAGE, Marisol Ko Primary Care Provider Un available Elias Workman Unavailable [phone] Chandni Dawson Unavailable [phone] Allergies Allergen (clinical drug ingredient) Drug/Non Drug [...] Problem Status W/U Status Risk Notes Problem 311023230 Onychomycosis (B35.1) Active confirmed Vital Signs Height 4 ft 11 in in 04/21/2024 Weight 170 lbs 04/21/2024 BMI 34.33 kg/m2 04/21/2024 Procedures Procedure Date Ordered Date Performed Result Body Sit e 34541-[id number] NAIL, 6 OR MORE 04/21/2024 N/A Encounters Encounter Location Date Provider Diagnosis [facility] [address] 04/21/2024 Elias Workman Pain in right foot M79.671 ; Pain in right ankle and joints of right foot M25.571 ; Bursitis of intermetatarsal bursa of right foot M77.51 ; Metatarsalgia, right foot M77.41 ; Onychomycosis B35.1 ; Pain in right toe(s) M79.674 and Pain in left toe(s) M79.[address] [facility] [address] 02/24/[address] [facility] [address] 07/07/2024 Elias Workman Assessments Encounter Date Diagnosis [...] X ray : Foot, right 3V 04/21/2024 [id number] NAIL, 6 OR MORE 04/21/2024 Insurance Providers Payer Name Payer Address Payer Phone Subscriber Number Group Number Insured Name Patient Relationship to Insured Coverage Start Date Coverage End Date [employer] [place] [employer] Advantage [address] [place] [id number] Ayana Aragon Self - patient is the insured Medical (General) History Medical History History ICD Code mumps measles chicken pox hypertension gall bladder problems cholesterol reflux Gall bladder problems Psoriasis/eczema Reflux ( GERD) thyroid Surgical History Surgery Date(Month/Year) cholecystectomy 1986 rotator cuff tear repair 2009 Gall bladder removal 1986 Thyroid Surgery 2021
--- OUTSIDE RECORDS SUMMARY | 2024-10-12 14:55 | XMS_ITS | Patient Health Record ---
Author Organization [facility] Address [address] [place] [address] Care Team Providers Care Sports Writer Name Role Phone Catie SAVAGE, Marisol Primary Care Provider Hemant Masters [facility] [phone] Allergies Allergen (clinical drug ingredient) Drug/Non Drug [...] Problem Status W/U Status Risk Notes Problem 878430202 Encounter for screening for malignant neoplasm of colon (Z12.11) Active confirmed Problem History of polyp of colon (763201190) Personal history of colonic polyps (Z86.010) Active confirmed Problem 585207802 Gastroesophageal reflux disease without esophagitis (K21.9) Active confirmed Problem 73120678 Hiatal hernia (K44.9) Active confirmed Plan Of Treatment Future Test Test Name Order Date UPPER GI ENDOSCOPY 03/10/2012 COLONOSCOPY 03/10/2012 COLONOSCOPY 09/30/2016 Insurance Providers Payer Name Payer Address Payer Phone Subscriber Number Group Number Insured Name Patient Relationship to Insured Coverage Start Date Coverage End Date [facility] [address] [place] [phone] [id number] JIGAR CASTILLO Self - patient is the insured Medical (General) History Medical History History ICD Code GERD with Capone's esophagu s on previous EGD's--but the EGD in 2011 revealed a moderate-sized HH and no Capone's mucosa HTN Hyperlipidemia Denies DC,DM,CVA,Lung disease,renal dise ase 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 colonoscopy in 2002 Surgical History Surgery Date(Month/Year) CCY Right rotator cuff surgery Breast biopsy--DCIS as above Sceduled for cataract surgery in 10/2016
--- OUTSIDE RECORDS SUMMARY | 2024-10-12 14:55 | XMS_ITS ---
Author Organization [facility] Address [address] [place] [address] Care Team Providers Care Gamma Operator Name Role Phone Catie SAVAGE, Marisol Ko Primary Care Provider Un available Elias Workman [phone] REASON FOR VISIT cx 07/21/24 appt Encounters Encounter Location Date Provider Diagnosis [facility] [address] [place] [address] 07/07/2024 Elias Workman Plan Of Treatment No Information Progress Notes * Ayana ARAGON TDOB: [birth year] (79 yo F)Acc No.[id number]:07/07/2024 Patient:?ARAGON Ayana Mandujano :1945???Age:79 Y???Sex:Female Address:[address] [place] [address] * true * Date:? Generated for Printi ng/Faxing/eTransmitting on:?10/12/2024 02:54 PM EDT
== END 2024-10-12 13:25 | disposition home or self-care (01) ==
PROVIDERS: PCP Internal Medicine; Visit Provider Physician Assistant
DX: J22 Unspecified acute lower respiratory infection (principal)

== ENCOUNTER → 2024-10-12 13:31 | Outpatient (BNV) | payer MEDICARE, SELFPAY | PROVIDERS: PCP Internal Medicine; Visit Provider Radiology Diagnostic Radiology | DX: R05.9 Cough, unspecified (principal) | CPT/HCPCS: 71046 ==

== ENCOUNTER 2024-10-23 08:51 | Outpatient (AMB) | payer MEDICARE, SELFPAY ==
--- NOTE | 2024-10-23 08:53 | A.OFFVIS_ITS ---
Vital Signs 10/23/24 09:01 10/23/24 09:05 Height 5 ft 5 ft Weight 158 lb 11.725 oz BMI 31.0 BP 135/69 Blood Pressure Location Lt brachial Lt brachial Position Sitting Sitting Pulse 55 Intake Visit Reasons: gerd Intake Note: Ayana presents in the office as a follow up. CC: she is having issues with wheezing and a cough. She also states her weight loss is now becoming a concern. A couple weeks ago she was on the prednisone and an antibiotic due to the wheezing. 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 Previously seen by Dr. Mann. Initial visit 07/08/22: Reports that has had intermittent issues with GERD in the past, which would resolve with p.r.n. Tums or omeprazole. For the past few months however, has been having daily GERD which describes as heartburn up to her throat especially at nighttime when she is laying down. Symptoms improved when she sleeps on a recliner. Continues to space out dinners from her bedtime by at least 4-5 hours. Tried omeprazole 20 mg with breakfast for a few weeks, which did not help when she was then switched to famotidine 40 mg. She takes this twice a day to get relief. Denies any regurgitation, nausea, vomiting, dysphagia or odynophagia. No unintentional weight loss. No abdominal pain. Colonoscopy 2016 (Dr Mann): sigmoid diverticulosis, no polyps EGD/colo 2011 (Dr Mann): Hiatal hernia, no BE on GEJ bx. Small T.A. Diverticulosis. 08/31/22: Reports complete resolution of symptoms since taking high-dose omeprazole for 4 weeks and adding a wedge pillow at nighttime. She in fact wonders if the omeprazole was can be reduced. Otherwise, no complaints to include abdominal pain, nausea vomiting, or regurgitation. No unintentional weight loss. 12/08/22: Still with intermittent heartburn with occasional feeling of food getting stuck in her upper throat. Stress test from September reassuring. 03/04/23: EGD with dilation * Normal esophagus mucosa (biopsy) * Schatzki's ring (dilation) * Hiatal hernia * Normal stomach * Normal duodenum Path: A. Esophagus, lower, biopsy: Squamous mucosa with mild hyperplasia, spongiosis, and mild intraepithelial lymphocytic infiltrate; no columnar mucosa present (see comment). B. Esophagus, middle, biopsy: Squamous mucosa with mild hyperplasia, spongiosis, and mild intraepithelial lymphocytic infiltrate; no columnar mucosa present; no evidence of eosinophilic esophagitis (see comment). 03/22/23: Reports improvement in sensation of food getting stuck as well as regurgitation since dilation. Has hx of osteopenia 2/2 hyperparathyroidism and wonders if can go off PPI therapy. 05/29/2024: Here for follow up. Has had recurrence of sx on and off the last few months and most prominent with solids. No coughing or choking. No unintentional weight loss. 10/23/24: Here for follow up. Dysphagia unchanged, possibly a bit worse. Has not been able to eat as much because of this and has lost almost 10-12 lbs since Jun 2024. She has also had frequent URIs in the last 2 months so unsure if that is contributing. No nausea or vomiting. No change in bowel habits. [facility] Medical History Nocturnal leg cramps PONV (postoperative nausea and vomiting) Family history of early CAD Psoriasis Hypothyroidism Primary hyperparathyroidism Toxic multinodular goiter Family history of premature CAD History of Capone's esophagus Breast cancer in situ HTN (hypertension) HLD (hyperlipidemia) Osteopenia Vitamin D deficiency Surgical History History of cardiac cath History of surgery S/P subtotal parathyroidectomy History of total thyroidectomy History of hysteroscopy Hx of dilation and curettage History of esophagogastroduodenoscopy (EGD) H/O colonoscopy History of lumpectomy of left breast Hx of cholecystectomy History of rotator cuff surgery Family History Father History of heart attack CVD (cardiovascular disease) Unknown family medical history Mother Unknown family medical history CVD (cardiovascular disease) Cirrhosis of liver Heart disease Substance use disorder Maternal Grandfather No problems noted. Maternal Grandmother Breast cancer Paternal Grandfather No problems noted. Paternal Grandmother No problems noted. Sister No problems noted. Sister No problems noted. Son No problems noted. Daughter No problems noted. Daughter No problems noted. 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 Sexual orientation: Straight/Heterosexual Gender identity: Female Cognitive needs: No Hearing needs: No Vision needs: Yes Physical Exam Vital Signs: Last Vital Signs Pulse 55 10/23/24 09:01 BP 135/69 10/23/24 09:01 BMI result Body Mass Index 31.0 Assessment & Plan Assessment & Plan (1) GERD (gastroesophageal reflux disease): Code(s): K21.9 - Gastro-esophageal reflux disease without esophagitis Category: Medical Qualifiers: Esophagitis presence: without esophagitis Qualified Code(s): K21.9 - Gastro-esophageal reflux disease without esophagitis (2) Schatzki's ring of distal esophagus: Code(s): K22.2 - Esophageal obstruction Category: Medical (3) Dysphagia: Code(s): R13.10 - Dysphagia, unspecified Category: Medical Plan Has had mild symptom progression with weight loss. Although, patient is unsure if this is due to at least 3-4 URIs in the past couple of months which led to decreased appetite and dyschezia. Plan: -patient already scheduled for EGD on November 02. -will also get a barium swallow -continue PPI -okay for Tums for breakthrough reflux symptoms -follow-up after EGD Orders: Orders [place] barium swallow Today K21.9 - Gastro-esophageal reflux disease without esophagitis, K22.2 - Esophageal obstruction, R13.10 - Dysphagia, unspecified Coding Level of Care Code Est Pt Level 3 (33381) Diagnoses Gastroesophageal reflux disease without esophagitis K21.9 Esophagitis presence: without esophagitis Schatzki's ring of distal esophagus K22.2 Dysphagia R13.10
[2024-10-23 09:01] VITALS: BP 135/69; PULSE 55; BMI 31.0
--- OUTSIDE RECORDS SUMMARY | 2024-10-23 09:28 | XMS_ITS ---
Author Organization [facility] Address [address] [place] [address] Care Team Providers Care Cork Painter And Grader Name Role Phone Catie SAVAGE, Marisol Ko Primary Care Provider Un available Elias Workman Unavailable [phone] Chandni Dawson Unavailable [phone] REASON FOR VISIT Seen Sooner Encounters Encounter Location Date Provider Diagnosis [facility] [address] [place] [address] 05/31/2024 Chandni Dawson Plan Of Treatment No Information Progress Notes * Ayana ARAGON TDOB: [birth year] (79 yo F)Acc No.[id number]:05/31/2024 Progress Notes Patient:?Ayana ARAGON Provider:?Chandni Dawson DPM :1945???Age:79 Y???Sex:Female D ate:05/31/2024 Address:[address] [place] [phone] Pcp:Bhupendra Way Subjective: * Chief Complaints: * [...] Dawson DPM Date:?09/2023 Generated for Yash garza/Home/Josey on:?10/23/2024 09:28 AM EDT
--- OUTSIDE RECORDS SUMMARY | 2024-10-23 09:29 | XMS_ITS ---
Author Organization [facility] Address [address] [place] [address] Care Team Providers Care Patient'S Librarian Name Role Phone Catie SAVAGE, Marisol Ko Primary Care Provider Un available Elias Workman Unavailable [phone] Encounters Encounter Location Date Provider Diagnosis [facility] [address] [place] [address] 07/21/2024 Elias Workman Plan Of Treatment No Information Progress Notes * Ayana ARAGON TDOB: [birth year] (79 yo F)Acc No.[id number]:07/21/2024 Progress Note Patient:Ayana DICKSON Provider:?Elias Workman DPM :1945???Age:79 Y???Sex:Female D ate:07/21/2024 Address:[address] [place] [phone] Pcp:Bhupendra Way Subjective: * Chief Complaints: * [...] DPM Date:?01/24/ 2025 Generated for Yash garza/Home/Josey on:?10/23/2024 09:28 AM EDT
--- OUTSIDE RECORDS SUMMARY | 2024-10-23 09:29 | XMS_ITS | Patient Health Record ---
Author Organization [facility] Address [address] [place] [address] Care Team Providers Care Lab Scientist Name Role Phone Catie SAVAGE, Marisol Ko Primary Care Provider Un available Elias Workman Unavailable [phone] Chandni Dawson Unavailable [phone] Allergies Allergen (clinical drug ingredient) Drug/Non Drug [...] Problem Status W/U Status Risk Notes Problem 835665315 Onychomycosis (B35.1) Active confirmed Vital Signs Height 4 ft 11 in in 04/21/2024 Weight 170 lbs 04/21/2024 BMI 34.33 kg/m2 04/21/2024 Procedures Procedure Date Ordered Date Performed Result Body Sit e 12182-EKJUMJU NAIL, 6 OR MORE 04/21/2024 N/A Encounters Encounter Location Date Provider Diagnosis [facility] [address] 04/21/2024 Elias Workman Pain in right foot M79.671 ; Pain in right ankle and joints of right foot M25.571 ; Bursitis of intermetatarsal bursa of right foot M77.51 ; Metatarsalgia, right foot M77.41 ; Onychomycosis B35.1 ; Pain in right toe(s) M79.674 and Pain in left toe(s) M79.[address] [facility] [address] 02/24/2024 [facility] [address] 07/07/2024 Elias Workman Assessments Encounter Date Diagnosis [...] X ray : Foot, right 3V 04/21/2024 33644-LRIJQCI NAIL, 6 OR MORE 04/21/2024 Insurance Providers Payer Name Payer Address Payer Phone Subscriber Number Group Number Insured Name Patient Relationship to Insured Coverage Start Date Coverage End Date [employer] [place] Medicare Advantage [address] [place] [address] [phone] [id number] Ayana Aragon Self - patient is the insured Medical (General) History Medical History History ICD Code mumps measles chicken pox hypertension gall bladder problems cholesterol reflux Gall bladder problems Psoriasis/eczema Reflux ( GERD) thyroid Surgical History Surgery Date(Month/Year) cholecystectomy 1986 rotator cuff tear repair 2009 Gall bladder removal 1986 Thyroid Surgery 2021
--- OUTSIDE RECORDS SUMMARY | 2024-10-23 09:29 | XMS_ITS ---
Author Organization [facility] Address [address] [place] [address] Care Team Providers Care Programmer Developer Name Role Phone Catie SAVAGE, Marisol Ko Primary Care Provider Un available Elias Workman [phone] REASON FOR VISIT cx 07/21/24 appt Encounters Encounter Location Date Provider Diagnosis [facility] [address] [place] [address] 07/07/2024 Elias Workman Plan Of Treatment No Information Progress Notes * Ayana ARAGON TDOB: [birth year] (79 yo F)Acc No.[id number]:07/07/2024 Patient:?ARAGON Ayana Mandujano :1945???Age:79 Y???Sex:Female Address:[address] [place] [address] * true * Date:? Generated for Printi ng/Faxing/eTransmitting on:?10/23/2024 09:28 AM EDT
== END 2024-10-23 11:12 | disposition home or self-care (01) ==
LOC: HO.HGI 08:51
PROVIDERS: PCP Internal Medicine; Visit Provider Internal Medicine
DX: K21.9 Gastro-esophageal reflux disease without esophagitis (principal); K22.2 Esophageal obstruction; R13.10 Dysphagia, unspecified
CPT/HCPCS: 99213

== ENCOUNTER → 2024-10-23 08:51 | Outpatient (BNVA) | payer MEDICARE, SELFPAY | PROVIDERS: PCP Internal Medicine; Visit Provider Internal Medicine | DX: K21.9 Gastro-esophageal reflux disease without esophagitis (principal); K22.2 Esophageal obstruction; R13.10 Dysphagia, unspecified | CPT/HCPCS: 99212 ==

== ENCOUNTER 2024-11-02 09:46 | Day surgery (SDC) | payer MEDICARE, SELFPAY ==
--- OUTSIDE RECORDS SUMMARY | 2024-10-24 18:09 | XMS_ITS ---
Author Organization [facility] Address [address] [place] [address] Care Team Providers Care Taxi Dancer Name Role Phone Catie SAVAGE, Marisol Ko Primary Care Provider Un available Elias Workman [phone] REASON FOR VISIT cx 07/21/24 appt Encounters Encounter Location Date Provider Diagnosis [facility] [address] [place] [address] 07/07/2024 Elias Workman Plan Of Treatment No Information Progress Notes * Ayana ARAGON TDOB: [birth year] (79 yo F)Acc No.[id number]:07/07/2024 Patient:?ARAGON Ayana Mandujano :1945???Age:79 Y???Sex:Female Address:[address] [place] [address] * true * Date:? Generated for Printi ng/Faxing/eTransmitting on:?10/24/2024 06:09 PM EDT
--- OUTSIDE RECORDS SUMMARY | 2024-10-24 18:09 | XMS_ITS ---
Author Organization [facility] Address [address] [place] [address] Care Team Providers Care Blending Kettle Tender Name Role Phone Catie SAVAGE, Marisol Ko Primary Care Provider Un available Elias Workman Unavailable [phone] Chandni Dawson Unavailable [phone] REASON FOR VISIT Seen Sooner Encounters Encounter Location Date Provider Diagnosis [facility] [address] [place] [address] 05/31/2024 Chandni Dawson Plan Of Treatment No Information Progress Notes * Ayana ARAGON TDOB: [birth year] (79 yo F)Acc No.[id number]:05/31/2024 Progress Notes Patient:?Ayana ARAGON Provider:?Chandni Dawson DPM :1945???Age:79 Y???Sex:Female D ate:05/31/2024 Address:[address] [place] [phone] Pcp:Bhupendra Way Subjective: * Chief Complaints: * [...] Dawson DPM Date:?09/2023 Generated for Yash garza/Home/Josey on:?10/24/2024 06:09 PM EDT
--- OUTSIDE RECORDS SUMMARY | 2024-10-24 18:09 | XMS_ITS ---
Author Organization [facility] Address [address] [place] [address] Care Team Providers Care Managed Services Sales Consultant Name Role Phone Catie SAVAGE, Marisol Ko Primary Care Provider Un available Elias Workman Unavailable [phone] Encounters Encounter Location Date Provider Diagnosis [facility] [address] [place] [address] 07/21/2024 Elias Workman Plan Of Treatment No Information Progress Notes * Ayana ARAGON TDOB: [birth year] (79 yo F)Acc No.[id number]:07/21/2024 Progress Note Patient:Ayana DICKSON Provider:?Elias Workman DPM :1945???Age:79 Y???Sex:Female D ate:07/21/2024 Address:[address] [place] [phone] Pcp:Bhupendra Way Subjective: * Chief Complaints: * [...] DPM Date:?01/24/ 2025 Generated for Yash garza/Home/Josey on:?10/24/2024 06:09 PM EDT
--- OUTSIDE RECORDS SUMMARY | 2024-10-24 18:09 | XMS_ITS | Patient Health Record ---
Author Organization [facility] Address [address] [place] [address] Care Team Providers Care Supervisor Bottle Machines Name Role Phone Catie SAVAGE, Marisol Ko Primary Care Provider Un available Elias Workman Unavailable [phone] Chandni Dawson Unavailable [phone] Allergies Allergen (clinical drug ingredient) Drug/Non Drug [...] Problem Status W/U Status Risk Notes Problem [id number] Onychomycosis (B35.1) Active confirmed Vital Signs Height 4 ft 11 in in 04/21/2024 Weight 170 lbs 04/21/2024 BMI 34.33 kg/m2 04/21/2024 Procedures Procedure Date Ordered Date Performed Result Body Sit e 44446-GLIBIUJ NAIL, 6 OR MORE 04/21/2024 N/A Encounters Encounter Location Date Provider Diagnosis [facility] [address] 04/21/2024 Elias Workman Pain in right foot M79.671 ; Pain in right ankle and joints of right foot M25.571 ; Bursitis of intermetatarsal bursa of right foot M77.51 ; Metatarsalgia, right foot M77.41 ; Onychomycosis B35.1 ; Pain in right toe(s) M79.674 and Pain in left toe(s) M79.[address] [facility] [address] 02/24/2024 [facility] [address] 07/07/2024 Elias Workman Assessments Encounter Date Diagnosis [...] X ray : Foot, right 3V 04/21/2024 50667-HAVIVSE NAIL, 6 OR MORE 04/21/2024 Insurance Providers Payer Name Payer Address Payer Phone Subscriber Number Group Number Insured Name Patient Relationship to Insured Coverage Start Date Coverage End Date [employer] [place] [employer]vantage [address] [place] [address] [id number] Ayana Aragon Self - patient is the insured Medical (General) History Medical History History ICD Code mumps measles chicken pox hypertension gall bladder problems cholesterol reflux Gall bladder problems Psoriasis/eczema Reflux ( GERD) thyroid Surgical History Surgery Date(Month/Year) cholecystectomy 1986 rotator cuff tear repair 2009 Gall bladder removal 1986 Thyroid Surgery 2021
[2024-10-31 11:36] VITALS: BMI 31.0
--- NOTE | 2024-11-01 08:50 | HO.ANESPROP2 ---
Documented by User: Bridgett Pedraza NP 11/01/24 08:51 HPI - Anesthesia Eval Consult details Narrative: 79yo F for Upper Endoscopy with Balloon Dilitation [place] [facility] [place] with dense calcium in the LAD territory but with nonobstructive disease by cardiac catheterization PMF Active Problems Active Problems: All Active Problems Dysphagia (Acute) Lower respiratory infection (e.g., bronchitis, pneumonia, pneumonitis, pulmonitis) (Acute) CAD (coronary artery disease) (Acute) Schatzki's ring of distal esophagus (Acute) Hiatal hernia (Acute) GERD (gastroesophageal reflux disease) (Acute) Endometrial polyp (Acute) Anomaly of vagina (Acute) Nocturnal leg cramps (Acute) History of cardiac cath (Acute) HLD (hyperlipidemia) (Acute) Psoriasis (Acute) Hypothyroidism (Acute) HTN (hypertension) (Acute) Osteopenia (Acute) Past Medical History Medical History GERD (gastroesophageal reflux disease) CAD (coronary artery disease) Nocturnal leg cramps PONV (postoperative nausea and vomiting) Psoriasis Hypothyroidism Primary hyperparathyroidism Toxic multinodular goiter Family history of premature CAD History of Capone's esophagus Breast cancer in situ HTN (hypertension) HLD (hyperlipidemia) Osteopenia Vitamin D deficiency Family History Family History Father History of heart attack CVD (cardiovascular disease) Unknown family medical history Mother Unknown family medical history CVD (cardiovascular disease) Cirrhosis of liver Heart disease Substance use disorder Maternal Grandfather No problems noted. Maternal Grandmother Breast cancer Paternal Grandfather No problems noted. Paternal Grandmother No problems noted. Sister No problems noted. Sister No problems noted. Son No problems noted. Daughter No problems noted. Daughter No problems noted. Family history of problems with anesthesia: No Surgical History Surgical History History of cardiac cath History of surgery S/P subtotal parathyroidectomy History of total thyroidectomy History of hysteroscopy Hx of dilation and curettage History of esophagogastroduodenoscopy (EGD) H/O colonoscopy History of lumpectomy of left breast Hx of cholecystectomy History of rotator cuff surgery History of Problems with Anesthesia: Yes Social History Social History Housing: House Are you a primary care center manager to a significant other at home: No Do you presently have visiting nurse or other home services: No Alcohol intake: current Alcohol intake frequency: holidays/special occasions only Alcohol type: wine Comment: Pt declined pain meds Patient Tobacco Use Status: Never used Tobacco e-Cigarette/Vaping Use: Never Used Second Hand Smoke Exposure: No Use of substances other than those prescribed or required for medical reasons: No Have you been hit, kicked, punched, or otherwise hurt by someone within the past year? 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 Sexual orientation: Straight/Heterosexual Gender identity: Female Cognitive needs: No Hearing needs: No Vision needs: Yes Meds Allergies Allergy/AdvReac Type Severity Reaction Status Date / Time codeine [Codeine] Allergy Mild SWELLING, Verified 11/02/24 11:16 vomiting, headache Home Medications ?Medication ?Instructions ?Recorded ?Confirmed ?Last Taken ?Type apremilast 30 mg tablet (Otezla) 30 mg PO BID 04/15/20 10/31/24 Unknown History cholecalciferol (vitamin D3) 25 25 mcg PO DAILY 04/15/20 10/31/24 Unknown History mcg (1,000 unit) capsule biotin 1 mg capsule 1 mg PO DAILY 09/09/21 10/31/24 Unknown History alclometasone 0.05 % topical cream 1 appl topical DAILY 09/18/21 10/31/24 Unknown History ketoconazole 2 % topical cream 1 appl topical DAILY 09/18/21 10/31/24 Unknown History ketoconazole 2 % shampoo 1 appl topical DAILY 03/22/23 10/31/24 Unknown History calcium 325 mg-vit D3 12.5 4 tab PO DAILY 04/08/23 10/31/24 Unknown History mcg-zinc 2.75 rd-ladihi-rjvvxzrlo tablet (Citracal-D3 Maximum Plus) betamethasone dipropionate 0.05 % 1 appl topical DAILY 09/27/24 10/31/24 Unknown History lotion triamcinolone acetonide 0.1 % 1 appl topical DAILY 09/27/24 10/31/24 Unknown History topical cream Exam Height,Weight and Vital Signs: Height 5 ft Weight 72.121 kg Assessment and Plan Assessment Anesthesia Assessment: Chart Reviewed Final Anesthetic Review Family History of Problems with Anesthesia: No History of Problems with Anesthesia: Yes Documented by User: Nuvia Campbell MD 11/02/24 13:48 PMFSH Past Medical History Medical History GERD (gastroesophageal reflux disease) CAD (coronary artery disease) Nocturnal leg cramps PONV (postoperative nausea and vomiting) Psoriasis Hypothyroidism Primary hyperparathyroidism Toxic multinodular goiter Family history of premature CAD History of Capone's esophagus Breast cancer in situ HTN (hypertension) HLD (hyperlipidemia) Osteopenia Vitamin D deficiency Family History Family History Father History of heart attack CVD (cardiovascular disease) Unknown family medical history Mother Unknown family medical history CVD (cardiovascular disease) Cirrhosis of liver Heart disease Substance use disorder Maternal Grandfather No problems noted. Maternal Grandmother Breast cancer Paternal Grandfather No problems noted. Paternal Grandmother No problems noted. Sister No problems noted. Sister No problems noted. Son No problems noted. Daughter No problems noted. Daughter No problems noted. Family history of problems with anesthesia: No Surgical History Surgical History History of cardiac cath History of surgery S/P subtotal parathyroidectomy History of total thyroidectomy History of hysteroscopy Hx of dilation and curettage History of esophagogastroduodenoscopy (EGD) H/O colonoscopy History of lumpectomy of left breast Hx of cholecystectomy History of rotator cuff surgery History of Problems with Anesthesia: Yes (PONV) Social History Social History Housing: House Are you a primary care center manager to a significant other at home: No Do you presently have visiting nurse or other home services: No Alcohol intake: current Alcohol intake frequency: holidays/special occasions only Alcohol type: wine Comment: Pt declined pain meds Patient Tobacco Use Status: Never used Tobacco e-Cigarette/Vaping Use: Never Used Second Hand Smoke Exposure: No Use of substances other than those prescribed or required for medical reasons: No Have you been hit, kicked, punched, or otherwise hurt by someone within the past year? 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 Sexual orientation: Straight/Heterosexual Gender identity: Female Cognitive needs: No Hearing needs: No Vision needs: Yes Meds Allergies Allergy/AdvReac Type Severity Reaction Status Date / Time codeine [Codeine] Allergy Mild SWELLING, Verified 11/02/24 11:16 vomiting, headache Home Medications ?Medication ?Instructions ?Recorded ?Confirmed ?Last Taken ?Type apremilast 30 mg tablet (Otezla) 30 mg PO BID 04/15/20 10/31/24 Unknown History cholecalciferol (vitamin D3) 25 25 mcg PO DAILY 04/15/20 10/31/24 Unknown History mcg (1,000 unit) capsule biotin 1 mg capsule 1 mg PO DAILY 09/09/21 10/31/24 Unknown History alclometasone 0.05 % topical cream 1 appl topical DAILY 09/18/21 10/31/24 Unknown History ketoconazole 2 % topical cream 1 appl topical DAILY 09/18/21 10/31/24 Unknown History ketoconazole 2 % shampoo 1 appl topical DAILY 03/22/23 10/31/24 Unknown History calcium 325 mg-vit D3 12.5 4 tab PO DAILY 04/08/23 10/31/24 Unknown History mcg-zinc 2.75 pc-kkkiak-afqgqwfgg tablet (Citracal-D3 Maximum Plus) betamethasone dipropionate 0.05 % 1 appl topical DAILY 09/27/24 10/31/24 Unknown History lotion triamcinolone acetonide 0.1 % 1 appl topical DAILY 09/27/24 10/31/24 Unknown History topical cream Exam Height,Weight and Vital Signs: Height 5 ft Weight 72.121 kg Vital Signs Temp Pulse Resp BP Pulse Ox O2 Del Method 11/02/24 11:34 97.8 F 54 18 144/85 H 98 Room Air Airway Mallampati Class: II TM Dist: >3cm Neck ROM: Full Loose/Missing/Broken Teeth: Yes (Missing teeth back. Denies broken or loose teeth. Bridge intact) Heart: RRR Lungs: CTAB Assessment and Plan Assessment Anesthesia Assessment: Anesthesia Plan Discussed and Chart Reviewed Final Anesthetic Review Family History of Problems with Anesthesia: No History of Problems with Anesthesia: Yes (PONV) NPO: Yes ASA Class: III Final Preanesthetic Review: No Changes in Pt Med Stat, Meds/Allgs Chart Reviewed, Consent Obtained/Reviewed and Anes Risks/Benef Reviewed Patient Risk: Intermediate Procedure Risk: Low Assessment/Block/Sedation in SS: Assess/Block/Sedation-SS Anesthetic Plan Anesthetic Plan: TIVA Disposition: Standard PACU
[2024-11-02 11:34] VITALS: BP 144/85; PULSE 54; RESP 18; TEMP 36.6; O2SAT 98; BMI 32.2
[2024-11-02] MEDS: Lactated Ringers 1,000 ML 100 ML IVCONT (11:40)
--- NOTE | 2024-11-02 11:48 | MHC.SHP ---
Pre-Procedural Eval Section A - 24 Hr Update-Section A only Date of Service: 11/02/24 The patient is an INPATIENT: No The patient has been examined within 24 hours of the surgical procedure. The History & Physical has been completed within 30 days and I have reviewed it.: Yes Section B - Complete if H&P > 30 days Chief Complaint: Esophageal obstruction,gerd, Allergies: Allergies Allergy/AdvReac Type Severity Reaction Status Date / Time codeine [Codeine] Allergy Mild SWELLING, Verified 11/02/24 11:16 vomiting, headache Plan Diagnosis/Plan: Unchanged I have reviewed the history and physical and performed a pertinent physical examination on my patient. No changes have occurred unless specified. Time Spent With Patient Time: Total time managing care of this patient today ____ minutes.
--- NOTE | 2024-11-02 13:48 | P.OP_ITS ---
Operative Note Operative Note Date of Service: 11/02/24 Narrative: Procedure: Esophagogastroduodenoscopy Endoscopist: Jyoti Luna MD Indication: Dysphagia Anesthesia Provider: Dr Nuvia Campbell Anesthesia Type: MAC Instrument: Olympus [id number]-[id number] ?? EGD Procedure:?? The procedure, indications, preparation and potential complications were reviewed with the patient, who indicated understanding and gave written informed consent to proceed. A physical exam was performed. The endoscope was introduced through the mouth, and advanced to the second part of duodenum. The mucosa was carefully examined on slow withdrawal of the endoscope. The patient tolerated the procedure well. There were no immediate complications.? ? EGD Findings:? * Esophagus:? Normal mucosa noted in the entire esophagus with tertiary contractions. Has previously known Schatzki's ring which was not seen on exam today. The Z line was at 32 cm with a small hiatal hernia noted with the diaphragmatic pinch at 35 cm. Middle and lower esophagus forceps biopsies were obtained to rule out eosinophilic esophagitis. * Stomach:? Mild erythema and edema noted in antrum of the stomach. Retroflexion was performed in the cardia. Cold forceps biopsies were taken from the antrum and the body full stomach. * Duodenum:?Erythema and edema in the diodenal bulb. Polypoid appearing major papilla noted. Cold forceps biopsies were taken for histology. ? EGD Impressions:? * Normal esophagus mucosa * Hiatal hernia * Gastritis * Duodenitis * Ampullary polyp ?? Recommendations:?? * Barium swallow ordered for further evaluation for dysphagia * Follow path results * Continue PPI therapy. * Avoid NSAIDs. Above has been reviewed with the patient. Relevant educational hand outs were provided at discharge.
[2024-11-02 13:49] VITALS: BP 97/60; PULSE 75; TEMP 36.2; O2SAT 95
[2024-11-02 14:02] VITALS: BP 122/68; PULSE 66; TEMP 36.6; O2SAT 99
== END 2024-11-02 14:49 | disposition home or self-care (01) ==
PROVIDERS: PCP Internal Medicine; Visit Provider Internal Medicine
PROC: (CPT 43239; principal; 2024-11-02 13:10)
DX: K22.2 Esophageal obstruction (principal); K21.9 Gastro-esophageal reflux disease without esophagitis; R13.10 Dysphagia, unspecified; K29.50 Unspecified chronic gastritis without bleeding; K29.80 Duodenitis without bleeding; K31.7 Polyp of stomach and duodenum; K44.9 Diaphragmatic hernia without obstruction or gangrene; Z87.19 Personal history of other diseases of the digestive system; I10 Essential (primary) hypertension; E78.5 Hyperlipidemia, unspecified; E55.9 Vitamin D deficiency, unspecified; Z79.899 Other long term (current) drug therapy; Z88.5 Allergy status to narcotic agent; Z85.3 Personal history of malignant neoplasm of breast
CPT/HCPCS: 43239; 88305; 88313; 88342

== ENCOUNTER → 2024-11-02 09:46 | Outpatient (BNV) | payer MEDICARE, SELFPAY | PROVIDERS: PCP Internal Medicine; Visit Provider Internal Medicine | DX: R13.10 Dysphagia, unspecified (principal); K21.9 Gastro-esophageal reflux disease without esophagitis; K29.70 Gastritis, unspecified, without bleeding; K29.80 Duodenitis without bleeding | CPT/HCPCS: 43239 ==

== ENCOUNTER 2024-11-07 10:50 | Outpatient (AMB) | payer MEDICARE, SELFPAY ==
[2024-11-07 10:59] VITALS: BP 122/60; PULSE 57; O2SAT 97; BMI 33.1
--- NOTE | 2024-11-07 10:59 | MHC.OFFVIS ---
Vital Signs 11/07/24 10:59 Height 5 ft Weight 169 lb 12.095 oz BMI 33.1 BP 122/60 Blood Pressure Location Lt brachial Position Sitting Pulse 57 Pulse Source Pulse Oximeter Pulse Oximetry (%) 97 Oxygen Delivery Method Room Air Intake Visit Reasons: f/u postsurg hypoparathyroidism and hypothyroidism Intake Note: Patient present today for post-surg Hypoparathyroidism follow up. Adult Nurse Practitioner Required: No Accompanied by: Self / Same As Patient Allergies codeine [Codeine] Allergy (Mild, Verified 11/07/24 11:03) SWELLING, vomiting, headache Medication List - Last Reconciled 11/07/24 by Hemant Arizmendi MD acetaminophen ER (Tylenol 8 Hour) 650 mg PO Q8H PRN albuterol sulfate 90 mcg/actuation 90 mcg inhalation Q4-6H PRN alclometasone 0.05% 1 appl topical DAILY amlodipine 2.5 mg PO QAM apremilast (Otezla) 30 mg PO BID atorvastatin 80 mg PO DAILY betamethasone dipropionate 0.05% 1 appl topical DAILY biotin 1 mg PO DAILY calcitriol 0.25 mcg PO DAILY iqbkeik-O7-rzci-copper-jenna 325 mg-12.5 mcg -2.75 mg (Citracal-D3 Maximum Plus) 4 tabs PO DAILY cholecalciferol (vitamin D3) 25 mcg PO DAILY fluconazole 150 mg PO Q3D PRN 2 doses furosemide 20 mg PO DAILY ketoconazole 2% 1 appl topical DAILY ketoconazole 2% 1 appl topical DAILY levothyroxine 112 mcg PO DAILY losartan 100 mg PO DAILY meclizine 25 mg PO BID PRN metoprolol succinate ER 50 mg PO BEDTIME omeprazole 20 mg PO DAILY triamcinolone acetonide 0.1% 1 appl topical DAILY [wedge pillow As directed] HPI Comments Details: 79 YO F with PMHx NTMNG and Hypercalcemia who is seen in F/U for Hyperthyroidism with a MNG and hyperparathyroidism. 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 She underwent surgical resection of this 5th parathyroid gland 10/06/2021 with reimplantation of a small fragment in the L brachioradialis muscle on 10/06/2021. 1) NTMNG and Subclinical Hyperthyroidism: Patient has had biochemical evidence of subclinical hyperthyroidism. She had a Thyroid Uptake and Scan completed 02/15/20 with normal uptake, but marked heterogeneity within the gland consistent with a toxic MNG. The patient had a thyroid US completed in 2010 which revealed multiple bilateral thyroid nodules. Some of which did meet indication for FNA biopsy, but she did not pursue this until recently. Thyroid US was repeated 01/08/2020 and this did reveal a multinodular thyroid with multiple nodules meeting indication for FNA biopsy. She underwent FNA biopsy 03/28/2020, at which time only 1 nodule, a Left mid pole 1.4 cm nodule, was found to meet indication for FNA biopsy. Cytology was Benign ([place] Category II). She underwent a total thyroidectomy by Dr. Nikolay Hugo 11/18/2020 with benign surgical pathology. She remains on levothyroxine 112 mcg PO daily. TSH has remained at goal. 2) Hyperparathyroidism: The patient has had documented hypercalcemia since 2002. Her Calcium was 12.0 on 07/14/2019, with a PTH of 90. No Vitamin D or Albumin was assessed. Vitamin D level was 02/16/2019 and was 31.3. She had labs repeated 12/27/2019 which revealed Calcium 11.7 with PTH 97 and Vitamin D WNL. She was on HCTZ at this time. She was asked to stop the HCTZ and labs were repeated 3 weeks later on 01/31/2020 with Calcium 11.1, Albumin 4.2, Vitamin D 31.2 and PTH 80. Her 24 hour urine calcium was high normal at 254. She was referred to Dr. Hugo,. She underwent a 3.5 gland surgical parathyroidectomy with only a remnant of the R superior parathyroid remaining. Unfortunately intraoperative PTH did not meet curative cirteria, declining from 119-90. Thymus was resected, which did contain microscopic parathyroid tissue. She was referred again to Dr. 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 She underwent resection of this 5th parathyroid gland 10/06/2021 with reimplantation of a small fragment in the L brachioradialis muscle. Postoperative PTH declined to 9, and has remained low ever since. She has had issues with hypocalcemia as well as cramping. She remains on Citracal 325 mg 4 tabs daily in divided doses. She also remains on calcitriol 0.25 mcg PO daily. Calcium mildly above goal, but she does report that she experiences cramping and paresthesias approximately once a week. DEXA: 01/20/2022 FINDINGS: AP SPINE L1-L4: Current: BMD 1.367 g/cm2, Z-score 2.9, T-score 1.6, normal, 0.4% decrease from previous, 4.0% increase from baseline (<5% change is not significant). Prior: BMD 1.373 g/cm2. Baseline: BMD 1.315 g/cm2. LEFT FEMUR, NECK: Current: BMD 0.787 g/cm2, Z-score -0.2, T-score -1.8, osteopenia. Prior: BMD 0.846 g/cm2. Baseline: BMD 0.851 g/cm2. LEFT FEMUR, TOTAL: Current: BMD 0.944 g/cm2, Z-score 0.9, T-score -0.5, normal, 7.5% decrease from previous, 4.0% decrease from baseline (<5% change is not significant). Prior: BMD 1.021 g/cm2. Baseline: BMD 0.983 g/cm2. LEFT FOREARM RADIUS 33%: BMD 0.754 g/cm2, Z-score 0.8, T-score -1.4, osteopenia, 0.0% change from baseline (<5% change is not significant). Baseline: BMD 0.754 g/cm2. Labs: Laboratory Tests 01/08/23 01/08/23 07:49 07:49 Albumin 4.0 PTH Intact 10 L Calcium (PTH Intact) 8.4 L currently on 112 mcg levothyroxine for hypothyroidism as well as calcitriol 0.25 mcg daily and calcium and vitamin-D supplementation. No symptoms of hypocalcemia [facility] Medical History GERD (gastroesophageal reflux disease) CAD (coronary artery disease) Nocturnal leg cramps PONV (postoperative nausea and vomiting) Psoriasis Hypothyroidism Primary hyperparathyroidism Toxic multinodular goiter Family history of premature CAD History of Capone's esophagus Breast cancer in situ HTN (hypertension) HLD (hyperlipidemia) Osteopenia Vitamin D deficiency Surgical History History of cardiac cath History of surgery S/P subtotal parathyroidectomy History of total thyroidectomy History of hysteroscopy Hx of dilation and curettage History of esophagogastroduodenoscopy (EGD) H/O colonoscopy History of lumpectomy of left breast Hx of cholecystectomy History of rotator cuff surgery Family History Father History of heart attack CVD (cardiovascular disease) Unknown family medical history Mother Unknown family medical history CVD (cardiovascular disease) Cirrhosis of liver Heart disease Substance use disorder Maternal Grandfather No problems noted. Maternal Grandmother Breast cancer Paternal Grandfather No problems noted. Paternal Grandmother No problems noted. Sister No problems noted. Sister No problems noted. Son No problems noted. Daughter No problems noted. Daughter No problems noted. 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 Sexual orientation: Straight/Heterosexual Gender identity: Female Cognitive needs: No Hearing needs: No Vision needs: Yes Physical Exam Vital Signs: Last Vital Signs Pulse 57 11/07/24 10:59 BP 122/60 11/07/24 10:59 Pulse Ox 97 11/07/24 10:59 Oxygen Delivery Method Room Air 11/07/24 10:59 BMI result Body Mass Index 33.1 Assessment & Plan Assessment & Plan (1) Hypoparathyroidism: Code(s): E20.9 - Hypoparathyroidism, unspecified Category: Medical Plan: This is a 77-year-old white female with surgically induced hypoparathyroidism currently replaced on calcitriol 0.25 mcg per day and calcium supplementation with calcium in low normal range and the past normal 24 hour urine. Plan is to continue the current management. Could consider use of recombinant parathyroid hormone ( Yorvipath) in future. We discussed the use of this is at length and the patient is not interested in going to Yorvipath at this point but may consider in the future (2) Hypothyroidism: Code(s): E03.9 - Hypothyroidism, unspecified Category: Medical Qualifiers: Hypothyroidism type: postoperative Qualified Code(s): E89.0 - Postprocedural hypothyroidism Plan: Clinically and biochemically euthyroid on levothyroxine 112 mcg. Plan is to continue the current regimen. At this point, in terms of the hypothyroidism the patient returned to the care of her primary care provider returned back to endocrinology as necessary Orders: Orders Albumin Level 8 Months E20.9 - Hypoparathyroidism, unspecified Calcium 8 Months E20.9 - Hypoparathyroidism, unspecified Phosphorus 8 Months E20.9 - Hypoparathyroidism, unspecified Coding Level of Care Code Est Pt Level 3 (91516) Diagnoses Hypoparathyroidism E20.9 Postoperative hypothyroidism E89.0 Hypothyroidism type: postoperative
--- OUTSIDE RECORDS SUMMARY | 2024-11-07 12:15 | XMS_ITS ---
Author Organization [facility] Address [address] [place] [address] Care Team Providers Care Strike Planning Applications Name Role Phone Catie SAVAGE, Marisol Ko Primary Care Provider Un available Elias Workman Unavailable [phone] Chandni Dawson Unavailable [phone] REASON FOR VISIT Seen Sooner Encounters Encounter Location Date Provider Diagnosis [facility] [address] [place] [address] 05/31/2024 Chandni Dawson Plan Of Treatment No Information Progress Notes * Ayana ARAGON TDOB: [birth year] (79 yo F)Acc No.[id number]:05/31/2024 Progress Notes Patient:?Ayana ARAGON Provider:?Chandni Dawson DPM :1945???Age:79 Y???Sex:Female D ate:05/31/2024 Address:[address] [place] [id number] Pcp:Bhupendra [address] Subjective: * Chief Complaints: * [...] Dawson DPM Date:?09/2023 Generated for Yash garza/Home/Josey on:?11/07/2024 12:15 PM EDT
--- OUTSIDE RECORDS SUMMARY | 2024-11-07 12:15 | XMS_ITS ---
Author Organization [facility] Address [address] [place] [address] Care Team Providers Care Establishment Guide Name Role Phone Catie SAVAGE, Marisol Ko Primary Care Provider Un available Elias Workman [phone] REASON FOR VISIT cx 07/21/24 appt Encounters Encounter Location Date Provider Diagnosis [facility] [address] [place] [address] 07/07/2024 Elias Workman Plan Of Treatment No Information Progress Notes * Ayana ARAGON TDOB: [birth year] (79 yo F)Acc No.[id number]:07/07/2024 Patient:?ARAGON Ayana Mandujano :1945???Age:79 Y???Sex:Female Address:[address] [place] [id number] * true * Date:? Generated for Printi ng/Faxing/eTransmitting on:?11/07/2024 12:15 PM EDT
--- OUTSIDE RECORDS SUMMARY | 2024-11-07 12:15 | XMS_ITS ---
Author Organization [facility] Address [address] [place] [id number] Care Team Providers Care Business Development Specialist Name Role Phone Catie SAVAGE, Marisol Ko Primary Care Provider Un available Elias Workman Unavailable [phone] Encounters Encounter Location Date Provider Diagnosis [facility] [address] [place] [address] 07/21/2024 Elias Workman Plan Of Treatment No Information Progress Notes * Ayana ARAGON TDOB: [birth year] (79 yo F)Acc No.[id number]:07/21/2024 Progress Note Patient:Ayana DICKSON Provider:?Elias Workman DPM :1945???Age:79 Y???Sex:Female D ate:07/21/2024 Address:[address] [place] [id number] Pcp:Bhupendra Way Subjective: * Chief Complaints: * [...] DPM Date:?01/24/ 2025 Generated for Yash garza/Home/Josey on:?11/07/2024 12:15 PM EDT
--- OUTSIDE RECORDS SUMMARY | 2024-11-07 12:16 | XMS_ITS | Patient Health Record ---
Author Organization [facility] Address [address] [place] [address] Care Team Providers Care Music Pastor Name Role Phone Catie SAVAGE, Marisol Primary Care Provider Hemant Masters [facility] [phone] Allergies Allergen (clinical drug ingredient) Drug/Non Drug [...] Problem Status W/U Status Risk Notes Problem 694236143 Encounter for screening for malignant neoplasm of colon (Z12.11) Active confirmed Problem History of polyp of colon (097448571) Personal history of colonic polyps (Z86.010) Active confirmed Problem 702392081 Gastroesophageal reflux disease without esophagitis (K21.9) Active confirmed Problem 99222523 Hiatal hernia (K44.9) Active confirmed Plan Of Treatment Future Test Test Name Order Date UPPER GI ENDOSCOPY 03/10/2012 COLONOSCOPY 03/10/2012 COLONOSCOPY 09/30/2016 Insurance Providers Payer Name Payer Address Payer Phone Subscriber Number Group Number Insured Name Patient Relationship to Insured Coverage Start Date Coverage End Date [facility] [address] [place] [place] [phone] [id number] JIGAR CASTILLO Self - patient is the insured Medical (General) History Medical History History ICD Code GERD with Capone's esophagu s on previous EGD's--but the EGD in 2011 revealed a moderate-sized HH and no Acpone's mucosa HTN Hyperlipidemia Denies [place],DM,CVA,Lung disease,renal dise ase 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 colonoscopy in 2002 Surgical History Surgery Date(Month/Year) CCY Right rotator cuff surgery Breast biopsy--DCIS as above Sceduled for cataract surgery in 10/2016
--- OUTSIDE RECORDS SUMMARY | 2024-11-07 12:16 | XMS_ITS | Patient Health Record ---
Author Organization [facility] Address [address] [place] [address] Care Team Providers Care Door To Door Salesperson Name Role Phone Catie SAVAGE, Marisol Ko Primary Care Provider Un available Elias Workman Unavailable [phone] Chandni Dawson Unavailable [phone] Allergies Allergen (clinical drug ingredient) Drug/Non Drug [...] Problem Status W/U Status Risk Notes Problem 167419066 Onychomycosis (B35.1) Active confirmed Vital Signs Height 4 ft 11 in in 04/21/2024 Weight 170 lbs 04/21/2024 BMI 34.33 kg/m2 04/21/2024 Procedures Procedure Date Ordered Date Performed Result Body Sit e [id number]-[id number] NAIL, 6 OR MORE 04/21/2024 N/A Encounters Encounter Location Date Provider Diagnosis [facility] [address] 04/21/2024 Elias Workman Pain in right foot M79.671 ; Pain in right ankle and joints of right foot M25.571 ; Bursitis of intermetatarsal bursa of right foot M77.51 ; Metatarsalgia, right foot M77.41 ; Onychomycosis B35.1 ; Pain in right toe(s) M79.674 and Pain in left toe(s) M79.[address] [facility] [address] 02/24/2024 [facility] [address] 07/07/2024 Elias Workman Assessments Encounter Date Diagnosis [...] X ray : Foot, right 3V 04/21/2024 [id number] NAIL, 6 OR MORE 04/21/2024 Insurance Providers Payer Name Payer Address Payer Phone Subscriber Number Group Number Insured Name Patient Relationship to Insured Coverage Start Date Coverage End Date [employer] [address] [place] [address] [id number] Ayana Aragon Self - patient is the insured Medical (General) History Medical History History ICD Code mumps measles chicken pox hypertension gall bladder problems cholesterol reflux Gall bladder problems Psoriasis/eczema Reflux ( GERD) thyroid Surgical History Surgery Date(Month/Year) cholecystectomy 1986 rotator cuff tear repair 2009 Gall bladder removal 1986 Thyroid Surgery 2021
== END 2024-11-07 11:21 | disposition home or self-care (01) ==
LOC: HO.ENCR 10:51
PROVIDERS: PCP Internal Medicine; Visit Provider Internal Medicine Endocrinology, Diabetes & Metabolism
DX: E20.9 Hypoparathyroidism, unspecified (principal); E89.0 Postprocedural hypothyroidism
CPT/HCPCS: 99213

== ENCOUNTER → 2024-11-07 10:50 | Outpatient (BNVA) | payer MEDICARE, SELFPAY | PROVIDERS: PCP Internal Medicine; Visit Provider Internal Medicine Endocrinology, Diabetes & Metabolism | DX: E20.9 Hypoparathyroidism, unspecified (principal); E89.0 Postprocedural hypothyroidism | CPT/HCPCS: 99212 ==

== ENCOUNTER 2025-01-25 09:36 | Outpatient (REF) | payer MEDICARE, SELFPAY ==
--- OUTSIDE RECORDS SUMMARY | 2024-05-31 09:00 | XMS_ITS ---
Author Organization [facility] Address [address] [place] [address] Care Team Providers Care Lathe Sander Name Role Phone Catie SAVAGE, Marisol Ko Primary Care Provider Un available Elias Workman Unavailable [phone] Chandni Dawson Unavailable [phone] REASON FOR VISIT Seen Sooner Encounters Encounter Location Date Provider Diagnosis [facility] [address] [place] [address] 05/31/2024 Chandni Dawson Plan Of Treatment No Information Progress Notes * Ayana ARAGON TDOB: [birth year] (79 yo F)Acc No.[id number]:05/31/2024 Progress Notes Patient: Ayana ANNA Provider: Daniel Dawson DPM :1945 A ge:79 Y S ex:Female Date:05/31/2024 Address:[address] [place] [phone] Pcp:Bhupendra Way Subjective: * Chief Complaints: * 1 . Seen Sooner. * Medical History: Objective: * Vitals: Assessment: Plan: * Treatment: * Images: * The named appointment provid er may or may not be the originator of this progress note, and it is not deemed complete until electronically signed by the appointment provider. Sign off status: Pending * Provider: Daniel Dawson DPM Date: 1 08/01/2023 Generated for Yash garza/Home/Josey on: 0 01/25/2025 09:59 AM EDT
--- NOTE | ~2025-01-25 | FL_ITS ---
EXAMINATION: XR BARIUM SWALLOW CLINICAL INFORMATION: Esophageal obstruction COMPARISON: None available. TECHNIQUE: Routine upright barium swallow with thick barium and saltine crackers was performed. Thin barium with straw was administered in prone lying position. FINDINGS: Following oral administration of thick barium there is normal propagation of bolus from the oral cavity through the pharynx, esophagus into stomach without any evidence of obstruction, narrowing or stricture. On oral administration of saltine crackers coated barium there is normal oral mastication and propagation of solid food from the oral cavity through the pharynx, esophagus into stomach. Incidental finding of surgical ji in the neck from previous thyroid nodule resection. No obstruction seen at this level. FLUOROSCOPY TIME: 1 minute 58 seconds DOSE AREA PRODUCT: 1196 uGy-m2 (microgray-meter squared) FL/FL barium swallow IMPRESSION: Unremarkable barium swallow examination. Surgical ji in the neck from previous thyroid nodule resection. Electronically signed by: Morgan Matthews MD 01/25/2025 10:19 AM EDT
--- OUTSIDE RECORDS SUMMARY | 2025-01-25 09:59 | XMS_ITS | Patient Health Record ---
Author Organization [facility] Address [address] [place] [address] Care Team Providers Care Sleeve Turner Name Role Phone Catie SAVAGE, Marisol Primary Care Provider Hemant Masters [facility] [phone] Allergies Allergen (clinical drug ingredient) Drug/Non Drug [...] Problem Status W/U Status Risk Notes Problem 307561760 Encounter for screening for malignant neoplasm of colon (Z12.11) Active confirmed Problem History of polyp of colon (403421792) Personal history of colonic polyps (Z86.010) Active confirmed Problem 517162463 Gastroesophageal reflux disease without esophagitis (K21.9) Active confirmed Problem 00161649 Hiatal hernia (K44.9) Active confirmed Plan Of Treatment Future Test Test Name Order Date UPPER GI ENDOSCOPY 03/10/2012 COLONOSCOPY 03/10/2012 COLONOSCOPY 09/30/2016 Insurance Providers Payer Name Payer Address Payer Phone Subscriber Number Group Number Insured Name Patient Relationship to Insured Coverage Start Date Coverage End Date [facility] [address] [place] [phone] [id number] JIGAR CASTILLO Self - patient is the insured Medical (General) History Medical History History ICD Code GERD with Capone's esophagu s on previous EGD's--but the EGD in 2011 revealed a moderate-sized HH and no Capone's mucosa HTN Hyperlipidemia Denies [place],DM,CVA,Lung disease,renal dise ase 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 colonoscopy in 2002 Surgical History Surgery Date(Month/Year) CCY Right rotator cuff surgery Breast biopsy--DCIS as above Sceduled for cataract surgery in 10/2016
== END 2025-01-25 09:37 | disposition home or self-care (01) ==
LOC: HO.XRAY 09:36
PROVIDERS: PCP Internal Medicine; Visit Provider Internal Medicine
DX: R13.10 Dysphagia, unspecified (principal); K21.9 Gastro-esophageal reflux disease without esophagitis; K22.2 Esophageal obstruction
CPT/HCPCS: 74220

== ENCOUNTER → 2025-01-25 09:37 | Outpatient (BNV) | payer MEDICARE, SELFPAY | PROVIDERS: PCP Internal Medicine; Visit Provider Radiology Diagnostic Radiology | DX: K22.2 Esophageal obstruction (principal) | CPT/HCPCS: 74220 ==

== ENCOUNTER 2025-02-07 13:12 | Outpatient (AMB) | payer MEDICARE, SELFPAY ==
--- OUTSIDE RECORDS SUMMARY | 2024-05-31 09:00 | XMS_ITS ---
Author Organization [facility] Address [address] [place] [address] Care Team Providers Care Crossing Gateman Name Role Phone Catie SAVAGE, Marisol Ko Primary Care Provider Un available Elias Workman Unavailable [phone] Chandni Dawson Unavailable [phone] REASON FOR VISIT Seen Sooner Encounters Encounter Location Date Provider Diagnosis [facility] [address] [place] [address] 05/31/2024 Chandni Dawson Plan Of Treatment No Information Progress Notes * Ayana ARAGON TDOB: [birth year] (79 yo F)Acc No.[id number]:05/31/2024 Progress Notes Patient: Ayana ANNA Provider: Daniel Dawson DPM :1945 A ge:79 Y S ex:Female Date:05/31/2024 Address:[address] [place] [phone] Pcp:Bhupendra Way Subjective: * Chief Complaints: * [...] 08/01/2023 Generated for Yash garza/Home/Josey on: 0 02/07/2025 01:43 PM EDT
--- NOTE | 2025-02-07 13:19 | A.OFFVIS_ITS ---
Vital Signs 02/07/25 13:22 Height 5 ft Weight 169 lb 12.095 oz BMI 33.1 BP 118/58 L Blood Pressure Location Lt brachial Position Sitting Pulse 65 Intake Visit Reasons: f/u BA swallow and EGD Intake Note: Oksana presents in the office as a follow up CC: States that she is here for results to her EGD and BA swallow. 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 Previously seen by Dr. Mann. Initial visit 07/08/22: Reports that has had intermittent issues with GERD in the past, which would resolve with p.r.n. Tums or omeprazole. For the past few months however, has been having daily GERD which describes as heartburn up to her throat especially at nighttime when she is laying down. Symptoms improved when she sleeps on a recliner. Continues to space out dinners from her bedtime by at least 4-5 hours. Tried omeprazole 20 mg with breakfast for a few weeks, which did not help when she was then switched to famotidine 40 mg. She takes this twice a day to get relief. Denies any regurgitation, nausea, vomiting, dysphagia or odynophagia. No unintentional weight loss. No abdominal pain. Colonoscopy 2016 (Dr Mann): sigmoid diverticulosis, no polyps EGD/colo 2011 (Dr Mann): Hiatal hernia, no BE on GEJ bx. Small T.A. Diverticulosis. 08/31/22: Reports complete resolution of symptoms since taking high-dose omeprazole for 4 weeks and adding a wedge pillow at nighttime. She in fact wonders if the omeprazole was can be reduced. Otherwise, no complaints to include abdominal pain, nausea vomiting, or regurgitation. No unintentional weight loss. 12/08/22: Still with intermittent heartburn with occasional feeling of food getting stuck in her upper throat. Stress test from September reassuring. 03/04/23: EGD with dilation * Normal esophagus mucosa (biopsy) * Schatzki's ring (dilation) * Hiatal hernia * Normal stomach * Normal duodenum Path: A. Esophagus, lower, biopsy: Squamous mucosa with mild hyperplasia, spongiosis, and mild intraepithelial lymphocytic infiltrate; no columnar mucosa present (see comment). B. Esophagus, middle, biopsy: Squamous mucosa with mild hyperplasia, spongiosis, and mild intraepithelial lymphocytic infiltrate; no columnar mucosa present; no evidence of eosinophilic esophagitis (see comment). 03/22/23: Reports improvement in sensation of food getting stuck as well as regurgitation since dilation. Has hx of osteopenia 2/2 hyperparathyroidism and wonders if can go off PPI therapy. 05/29/2024: Here for follow up. Has had recurrence of sx on and off the last few months and most prominent with solids. No coughing or choking. No unintentional weight loss. 10/23/24: Here for follow up. Dysphagia unchanged, possibly a bit worse. Has not been able to eat as much because of this and has lost almost 10-12 lbs since Jun 2024. She has also had frequent URIs in the last 2 months so unsure if that is contributing. No nausea or vomiting. No change in bowel habits. 11/02/24: * Normal esophagus mucosa * Hiatal hernia * Gastritis * Duodenitis * Ampullary polyp ?? Path: (A): Additional levels with AB/PAS stain shows mild changes suggesting chronic injury. Control stains appropriately. Additional H&E levels show no dysplasia. Electronically Signed By: Elvia Canchola 11/09/24 0854 Diagnosis A. Duodenum, ampullary polyp, biopsy: Polypoid duodenal mucosa with preserved villi and no specific change (see comment). B. Gastric antrum, biopsy: Gastric antral mucosa with focal minimal chronic inactive inflammation; negative for H. pylori, intestinal metaplasia and dysplasia. C. Gastric body, biopsy: Gastric body mucosa with focal minimal chronic inactive inflammation; negative for H. pylori, intestinal metaplasia and dysplasia. D. Esophagus, lower, biopsy: Squamous mucosa with no specific change; no columnar mucosa present. E. Esophagus, middle, biopsy: Squamous mucosa with no specific change; no columnar mucosa present. 01/25/25:Barium swallow: - Unremarkable barium swallow examination. - Surgical ji in the neck from previous thyroid nodule resection. 02/07/25: Doing well overall. EGD results and biopsy reviewed with the patient. Barium swallow, which essentially normal, also reviewed. Reports that swallowing is not a major issue anymore, but still notices reflux and regurgitation of gastric contents especially at nighttime. This is despite using a wedge pillow. Has been spacing out her dinner to bedtime, which has helped. Has stopped omeprazole. Will switch to famotidine, as patient has underlying osteopenia. [facility] Medical History GERD (gastroesophageal reflux disease) CAD (coronary artery disease) Nocturnal leg cramps PONV (postoperative nausea and vomiting) Psoriasis Hypothyroidism Primary hyperparathyroidism Toxic multinodular goiter Family history of premature CAD History of Capone's esophagus Breast cancer in situ HTN (hypertension) HLD (hyperlipidemia) Osteopenia Vitamin D deficiency Surgical History History of cardiac cath History of surgery S/P subtotal parathyroidectomy History of total thyroidectomy History of hysteroscopy Hx of dilation and curettage History of esophagogastroduodenoscopy (EGD) H/O colonoscopy History of lumpectomy of left breast Hx of cholecystectomy History of rotator cuff surgery Family History Father History of heart attack CVD (cardiovascular disease) Unknown family medical history Mother Unknown family medical history CVD (cardiovascular disease) Cirrhosis of liver Heart disease Substance use disorder Maternal Grandfather No problems noted. Maternal Grandmother Breast cancer Paternal Grandfather No problems noted. Paternal Grandmother No problems noted. Sister No problems noted. Sister No problems noted. Son No problems noted. Daughter No problems noted. Daughter No problems noted. 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 Sexual orientation: Straight/Heterosexual Gender identity: Female Cognitive needs: No Hearing needs: No Vision needs: Yes Review of Systems Const All systems reviewed & are unremarkable except as noted in HPI and below Physical Exam Exam Exam: No apparent distress Nonicteric Abdomen soft, nondistended Alert and oriented x3, normal gait Vital Signs: Last Vital Signs Pulse 65 02/07/25 13:22 BP 118/58 L 02/07/25 13:22 BMI result Body Mass Index 33.1 Assessment & Plan Assessment & Plan (1) GERD (gastroesophageal reflux disease): Code(s): K21.9 - Gastro-esophageal reflux disease without esophagitis Category: Medical Qualifiers: Esophagitis presence: without esophagitis Qualified Code(s): K21.9 - Gastro-esophageal reflux disease without esophagitis (2) Schatzki's ring of distal esophagus: Code(s): K22.2 - Esophageal obstruction Category: Medical (3) Dysphagia: Code(s): R13.10 - Dysphagia, unspecified Category: Medical Plan Dysphagia resolved. Has intermittent reflux symptoms, advised to avoid meals with heavy fat or protein content at nighttime. To also avoid laying down at least 3 hours after a meal. Given underlying osteopenia and hypoparathyroidism, will avoid PPI. Famotidine 20 mg prescribed instead. Follow-up in 6 months to review symptoms, and to reduce famotidine to 10 mg. Medications: New famotidine 20 mg PO DAILY 90 tabs 1RF Coding Level of Care Code Est Pt Level 4 (59167) Diagnoses Gastroesophageal reflux disease without esophagitis K21.9 Esophagitis presence: without esophagitis Schatzki's ring of distal esophagus K22.2 Dysphagia R13.10
[2025-02-07 13:22] VITALS: BP 118/58; PULSE 65; BMI 33.1
--- OUTSIDE RECORDS SUMMARY | 2025-02-07 13:44 | XMS_ITS | Patient Health Record ---
Author Organization [facility] Address [address] [place] [address] Care Team Providers Care Hay Sorter Name Role Phone Catie SAVAGE, Marisol Primary Care Provider Hemant Masters [facility] [phone] Allergies Allergen (clinical drug ingredient) Drug/Non Drug [...] Problem Status W/U Status Risk Notes Problem 498261410 Encounter for screening for malignant neoplasm of colon (Z12.11) Active confirmed Problem History of polyp of colon (203492859) Personal history of colonic polyps (Z86.010) Active confirmed Problem 269669000 Gastroesophageal reflux disease without esophagitis (K21.9) Active confirmed Problem 16969408 Hiatal hernia (K44.9) Active confirmed Plan Of Treatment Future Test Test Name Order Date UPPER GI ENDOSCOPY 03/10/2012 COLONOSCOPY 03/10/2012 COLONOSCOPY 09/30/2016 Insurance Providers Payer Name Payer Address Payer Phone Subscriber Number Group Number Insured Name Patient Relationship to Insured Coverage Start Date Coverage End Date [facility] [address] [place] [phone] [id number] JIGAR CASTILLO Self - patient is the insured Medical (General) History Medical History History ICD Code GERD with Capone's esophagu s on previous EGD's--but the EGD in 2011 revealed a moderate-sized HH and no Capone's mucosa HTN Hyperlipidemia Denies [place],DM,CVA,Lung disease,renal dise ase 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 colonoscopy in 2002 Surgical History Surgery Date(Month/Year) CCY Right rotator cuff surgery Breast biopsy--DCIS as above Sceduled for cataract surgery in 10/2016
== END 2025-02-07 13:55 | disposition home or self-care (01) ==
LOC: HO.HGI 13:13
PROVIDERS: PCP Internal Medicine; Visit Provider Internal Medicine
DX: K21.9 Gastro-esophageal reflux disease without esophagitis (principal); K22.2 Esophageal obstruction; R13.10 Dysphagia, unspecified
CPT/HCPCS: 99214

== ENCOUNTER → 2025-02-07 13:12 | Outpatient (BNVA) | payer MEDICARE, SELFPAY | PROVIDERS: PCP Internal Medicine; Visit Provider Internal Medicine | DX: K21.9 Gastro-esophageal reflux disease without esophagitis (principal); K22.2 Esophageal obstruction; R13.10 Dysphagia, unspecified | CPT/HCPCS: 99212 ==

== ENCOUNTER 2025-03-21 06:37 | Outpatient (REF) | payer MEDICARE, SELFPAY ==
--- OUTSIDE RECORDS SUMMARY | 2024-05-31 09:00 | XMS_ITS ---
Author Organization [facility] Address [address] [place] [address] Care Team Providers Care Boat Canvas Maker And Installer Name Role Phone Catie SAVAGE, Marisol Ko Primary Care Provider Un available Elias Workman Unavailable [phone] Chandni Dawson Unavailable [phone] REASON FOR VISIT Seen Sooner Encounters Encounter Location Date Provider Diagnosis [facility] [address] [place] [address] 05/31/2024 Chandni Dawson Plan Of Treatment No Information Progress Notes * Ayana ARAGON TDOB: [birth year] (79 yo F)Acc No.[id number]:05/31/2024 Progress Notes Patient: Ayana ANNA Provider: Daniel Dawson DPM :1945 A ge:79 Y S ex:Female Date:05/31/2024 Address:[address] [place] [phone] Pcp:Bhupendra Way Subjective: * Chief Complaints: * [...] 08/01/2023 Generated for Yash garza/Home/Josey on: 0 03/21/2025 06:39 AM EDT
--- OUTSIDE RECORDS SUMMARY | 2024-07-21 06:00 | XMS_ITS ---
Author Organization [facility] Address [address] [place] [address] Care Team Providers Care Athletics Teacher Name Role Phone Catie SAVAGE, Marisol Ko Primary Care Provider Un available Elias Workman Unavailable [phone] Encounters Encounter Location Date Provider Diagnosis [address] [address] 07/21/2024 Elias Workman Plan Of Treatment No Information Progress Notes * Ayana ARAGON TDOB: [birth year] (79 yo F)Acc No.[id number]:07/21/2024 Progress Note Patient: Ayana ANNA Provider: Kiko Workman DPM :1945 A ge:79 Y S ex:Female Date:07/21/2024 Address:[address] [place] [address] Pcp:Bhupendra Way Subjective: * Chief Complaints: * * Medical History: Objective: * Vitals: Assessment: Plan: * Treatment: * Images: * The named appointment provid er may or may not be the originator of this progress note, and it is not deemed complete until electronically signed by the appointment provider. Sign off status: Pending * Provider: Kiko Workman DPM Date: 07/21/2024 Generated for Printi ng/Faxing/eTransmitting on: 0 03/21/2025 06:39 AM EDT
--- OUTSIDE RECORDS SUMMARY | 2025-03-21 06:40 | XMS_ITS | Patient Health Record ---
Author Organization [facility] Address [address] [place] [address] Care Team Providers Care Video Intern Name Role Phone Catie SAVAGE, Marisol Ko Primary Care Provider Un available Elias Workman Unavailable [phone] Chandni Dawson Unavailable [phone] Allergies Allergen (clinical drug ingredient) Drug/Non Drug [...] MG 1 tablet Orall y Once a day; Duration: 30 day(s) Unknown Furosemide Active Vitamin D3 [...] Problem Status W/U Status Risk Notes Problem Onychomycosis (790199576) Onychomycosis (B35.1) Active confirmed Vital Signs Height 4 ft 11 in in 04/21/2024 Weight 170 lbs 04/21/2024 BMI 34.33 kg/m2 04/21/2024 Procedures Procedure Date Ordered Date Performed Result Body Sit e [id number]-[id number] NAIL, 6 OR MORE 04/21/2024 N/A Encounters Encounter Location Date Provider Diagnosis [facility] [address] 04/21/2024 Elias Workman Pain in right foot M79.671 ; Pain in right ankle and joints of right foot M25.571 ; Bursitis of intermetatarsal bursa of right foot M77.51 ; Metatarsalgia, right foot M77.41 ; Onychomycosis B35.1 ; Pain in right toe(s) M79.674 and Pain in left toe(s) M79.675 [facility] [address] [address] 07/07/2024 Elias Workman Assessments Encounter Date Diagnosis [...] X ray : Foot, right 3V 04/21/2024 [id number] NAIL, 6 OR MORE 04/21/2024 Insurance Providers Payer Name Payer Address Payer Phone Subscriber Number Group Number Insured Name Patient Relationship to Insured Coverage Start Date Coverage End Date [employer] [address] [facility] [address] [phone] [id number] Margo Ayana Self - patient is the insured Medical (General) History Medical History History ICD Code mumps measles chicken pox hypertension gall bladder problems cholesterol reflux Gall bladder problems Psoriasis/eczema Reflux ( GERD) thyroid Surgical History Surgery Date(Month/Year) cholecystectomy 1986 rotator cuff tear repair 2009 Gall bladder removal 1986 Thyroid Surgery 2021
--- OUTSIDE RECORDS SUMMARY | 2025-03-21 06:40 | XMS_ITS | Patient Health Record ---
Author Organization [facility] Address [address] [place] [address] Care Team Providers Care Pillar Man Name Role Phone Catie SAVAGE, Marisol Primary Care Provider Hemant Masters [facility] [phone] Allergies Allergen (clinical drug ingredient) Drug/Non Drug [...] Problem Status W/U Status Risk Notes Problem 471344548 Encounter for screening for malignant neoplasm of colon (Z12.11) Active confirmed Problem History of polyp of colon (007724599) Personal history of colonic polyps (Z86.010) Active confirmed Problem 305504566 Gastroesophageal reflux disease without esophagitis (K21.9) Active confirmed Problem 86986925 Hiatal hernia (K44.9) Active confirmed Plan Of Treatment Future Test Test Name Order Date UPPER GI ENDOSCOPY 03/10/2012 COLONOSCOPY 03/10/2012 COLONOSCOPY 09/30/2016 Insurance Providers Payer Name Payer Address Payer Phone Subscriber Number Group Number Insured Name Patient Relationship to Insured Coverage Start Date Coverage End Date [facility] [address] [place] [phone] [id number] JIGAR CASTILLO Self - patient is the insured Medical (General) History Medical History History ICD Code GERD with Capone's esophagu s on previous EGD's--but the EGD in 2011 revealed a moderate-sized HH and no Capone's mucosa HTN Hyperlipidemia Denies [place],DM,CVA,Lung disease,renal dise ase 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 colonoscopy in 2002 Surgical History Surgery Date(Month/Year) CCY Right rotator cuff surgery Breast biopsy--DCIS as above Sceduled for cataract surgery in 10/2016
[2025-03-21 11:16] LABS: Alanine Aminotransferase 22 U/L (0-31); Anion Gap 11 (12-20); Aspartate Amino Transferase 25 U/L (5-31); Blood Urea Nitrogen 17 mg/dL (9-16); Calcium 9.1 mg/dL (8.4-10.2); Carbon Dioxide 27 mmol/L (22-29); Chloride 107 mmol/L (96-108); Cholesterol 116 mg/dL (<200); Estimated Glomerular Filt Rate > 60; HDL Cholesterol 55 mg/dL (>40); Potassium 4.1 mmol/L (3.3-5.1); Sodium 141 mmol/L (135-145); Triglycerides 56 mg/dL (<150)
[2025-03-21 11:37] LABS: Free T4 (Free Thyroxine) 1.25 ng/dL (0.71-1.85); Thyroid Stimulating Hormone 1.07 uIU/mL (0.32-4.0)
== END 2025-03-21 06:38 | disposition home or self-care (01) ==
LOC: HO.HMGCLDS 06:37
PROVIDERS: PCP Internal Medicine; Visit Provider Internal Medicine
DX: I10 Essential (primary) hypertension (principal); I25.10 Atherosclerotic heart disease of native coronary artery without angina pectoris; E78.00 Pure hypercholesterolemia, unspecified; E89.0 Postprocedural hypothyroidism; M85.80 Other specified disorders of bone density and structure, unspecified site
CPT/HCPCS: 36415; 80048; 80061; 84439; 84443; 84450; 84460

== ENCOUNTER 2025-03-28 11:24 | Outpatient (AMB) | payer MEDICARE, SELFPAY ==
--- NOTE | 2025-03-28 12:02 | A.OFFPC_ITS ---
Vital Signs 03/28/25 12:03 Height 5 ft Weight 170 lb BMI 33.2 BP 98/62 Blood Pressure Location Lt brachial Position Sitting Respiration 16 Pulse 63 Pulse Source Pulse Oximeter Temp 98.1 F Temp Source Oral Pulse Oximetry (%) 98 Oxygen Delivery Method Room Air Intake Visit Reasons: 6 month f/u Intake Note: Pt is here today for her 6mo. f/u [employer] Specialist Required: No Allergies codeine (Codeine) Allergy (Mild, Verified 03/28/25 12:29) SWELLING, vomiting, headache Medication List - Last Reconciled 03/28/25 by Marisol Haddad MD acetaminophen ER (Tylenol 8 Hour) 650 mg PO Q8H PRN albuterol sulfate 90 mcg/actuation 90 mcg inhalation Q4-6H PRN alclometasone 0.05% 1 appl topical DAILY amlodipine 2.5 mg PO QAM apremilast (Otezla) 30 mg PO BID atorvastatin 80 mg PO DAILY betamethasone dipropionate 0.05% 1 appl topical DAILY biotin 1 mg PO DAILY calcitriol 0.25 mcg PO DAILY pjjouuz-F9-egte-copper-jenna 325 mg-12.5 mcg -2.75 mg (Citracal-D3 Maximum Plus) 4 tabs PO DAILY cholecalciferol (vitamin D3) 25 mcg PO DAILY famotidine 20 mg PO DAILY furosemide 20 mg PO DAILY ketoconazole 2% 1 appl topical DAILY ketoconazole 2% 1 appl topical DAILY levothyroxine 112 mcg PO DAILY losartan 100 mg PO DAILY meclizine 25 mg PO BID PRN metoprolol succinate ER 50 mg PO BEDTIME triamcinolone acetonide 0.1% 1 appl topical DAILY [wedge pillow As directed] Tobacco use date assessed: 03/28/25 Fall risk assessment: No Falls in past year Last assessed Fall Risk: 03/28/25 Dental Screening Dental Screen Date: 03/28/25 Did you have a dental visit in the last 12 months?: Yes Did you have a dental problem in the last 6 months where you did not have access to dental care?: No Was dental information given to patient?: Patient has dentist HPI 6 month f/u HPI Details 79 year lady with history of hypertensio n, dyslipidemia, coronary artery disease, chronic GERD, hypothyroidism, osteopenia, here today for her six-month follow-up. Hypertension has been managed with multiple medications, including amlodipine, losartan, furosemide, and metoprolol. The patient reports experiencing low blood pressure, particularly after taking her morning medications, leading to symptoms of lightheadedness. Amlodipine has been identified as a potential cause of hypotension, and its discontinuation is planned to assess the impact on blood pressure levels. The patient's lipid profile indicates hyperlipidemia, although recent blood work shows improvement with triglycerides at 56 mg/dL and total cholesterol below 200 mg/dL. The patient adheres to dietary modifications, avoiding salt and incorporating garlic as a seasoning alternative. Preventative care measures include vaccinations for flu, pneumonia, and shingles, with plans to receive the updated flu vaccine. [facility] Medical History GERD (gastroesophageal reflux disease) CAD (coronary artery disease) Nocturnal leg cramps PONV (postoperative nausea and vomiting) Psoriasis Hypothyroidism Primary hyperparathyroidism Toxic multinodular goiter Family history of premature CAD History of Capone's esophagus Breast cancer in situ HTN (hypertension) HLD (hyperlipidemia) Osteopenia Vitamin D deficiency Surgical History History of cardiac cath History of surgery S/P subtotal parathyroidectomy History of total thyroidectomy History of hysteroscopy Hx of dilation and curettage History of esophagogastroduodenoscopy (EGD) H/O colonoscopy History of lumpectomy of left breast Hx of cholecystectomy History of rotator cuff surgery Family History Father History of heart attack CVD (cardiovascular disease) Unknown family medical history Mother Unknown family medical history CVD (cardiovascular disease) Cirrhosis of liver Heart disease Substance use disorder Maternal Grandfather No problems noted. Maternal Grandmother Breast cancer Paternal Grandfather No problems noted. Paternal Grandmother No problems noted. Sister No problems noted. Sister No problems noted. Son No problems noted. Daughter No problems noted. Daughter No problems noted. 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 1. Little interest or pleasure in doing things: not at all 2. Feeling down, depressed, or hopeless: not at all 3. Trouble falling or staying asleep, or sleeping too much: not at all 4. Feeling tired or having little energy: not at all 5. Poor appetite or overeating: not at all 6. Feeling bad about yourself - or that you are a failure or have let yourself or your family down: not at all 7. Trouble concentrating on things, such as reading the newspaper or watching television: not at all 8. Moving or speaking so slowly that other people could have noticed. Or the opposite - being so fidgety or restless that you have been moving around a lot more than usual: not at all 9. Thoughts that you would be better off or of hurting yourself in some way: not at all Total score: 0 Depression Screening Interpretation: Negative Depression Screening Done: Yes Source: Developed by Drs. Hemant Morrison, Ashanti Chaves, Duong Matthews and colleagues, with an educational fabienne from [employer]. Thrive Questionnaire Date Thrive assessed: 09/20/24 I am a: Patient What is your living situation today?: I have a steady place to live Within the past 12 months, did the food you bought not last and you didn't have the money to get more?: Never true Within the past 12 months, did you worry whether your food would run out before you got money to buy more?: Never true Do you have trouble paying for medicines?: No Do you have trouble getting transportation to medical appointments?: No Do you have trouble paying your heating and electricity bill?: No Do you have trouble taking care of your child, family member or friend?: No Do you have trouble with day-to-day activities such as bathing, preparing meals, shopping, managing finances, etc.?: No Are you currently unemployed and looking for a job?: No Are you interested in more education?: No Please select the resources that you would like help with: None Currently or been in a relationship where the following occur: No concerns reported THRIVE Score: 0 AUDIT C Alcohol Use Questionnaire (AUDIT-C) 1. How often do you have a drink containing alcohol?: Monthly or less 2. How many drinks containing alcohol do you have on a typical day when you are drinking?: 1 or 2 3. How often do you have six or more drinks on one occasion?: Never Total Score: 1 GENESIS-7 AMB Questionnaire GENESIS-7 Date GENESIS - 7 assessed: 09/27/24 Feeling nervous, anxious, or on edge: 0 = Not at all Not being able to stop or control worryin = Not at all Worrying too much about different things: 0 = Not at all Trouble relaxin = Not at all Being so restless that it is hard to sit still: 0 = Not at all Becoming easily annoyed or irritable: 0 = Not at all Feeling afraid as if something awful might happen: 0 = Not at all Total GENESIS-7 score (0-4 normal; 5-9 mild; 10-14 moderate; 15-21 severe): 0 Source: Developed by Drs. Hemant Morrison, Ashanti Chaves, Duong Matthews and colleagues, with an educational fabienne from [employer]. Review of Systems Const All systems reviewed & are unremarkable except as noted in HPI and below Denies fatigue, Denies frequent falls, Denies weakness and Denies weight loss Eyes Details: Sees Dr Rich yearly ENT Details: Gets dental prophylaxis every 6 months Denies dizziness Card Denies chest pain, Denies leg edema, Denies lightheadedness, Denies palpitations, Denies dyspnea and Denies dyspnea on exertion Resp Denies cough, Denies dyspnea and Denies dyspnea on exertion GI Denies hematochezia and Denies change in stool character Reports no additional complaints Musc Reports as per HPI, Denies abnormal gait, Denies arthralgias, Denies muscle weakness, Denies numbness, Denies radiating pain into limb, Denies stiffness and Denies tingling Neuro Denies abnormal gait, Denies dizziness, Denies frequent falls, Denies numbness, Denies tingling and Denies weakness Psych Reports no additional complaints Endo Denies fatigue and Denies palpitations Juan/Lymph Reports no additional complaints Aller/Immun Reports no additional complaints Physical exam (Primary Care) Vital Signs: Last Vital Signs Temp 98.1 F 03/28/25 12:03 Pulse 63 03/28/25 12:03 Resp 16 03/28/25 12:03 BP 98/62 03/28/25 12:03 Pulse Ox 98 03/28/25 12:03 Oxygen Delivery Method Room Air 03/28/25 12:03 BMI result Body Mass Index 33.2 BMI Assessment/Plan discussion: High BMI High, discussed plan: lifestyle, weight reduction, dietary and physical activity Tobacco/Smoking Status: Tobacco use Status Tobacco use date assessed 03/28/25 03/28/25 12:10 Patient Tobacco Use Status Never used Tobacco 03/28/25 12:03 e-Cigarette/Vaping Use Never Used 03/28/25 12:03 PHQ-9: PHQ-9 Score PHQ-9: Total score 0 03/28/25 12:44 Depression Screening Interpretation: Negative Thrive Assessment: Date of Thrive Assessment Date Thrive assessed 09/20/24 03/28/25 12:03 Currently or been in a relationship where the following occur: No concerns reported Const General: no acute distress and alert Nutritional Appearance: obese Orientation/consciousness: patient oriented x3 HENMT Ears: external ears normal Mouth: Normal oral and palatal mucosa present and moist mucous membranes Eyes General: appearance normal, both eyes and all related structures Neck Neck: Yes normal visual inspection, Yes full ROM, Yes no lymphadenopathy and Yes supple Resp Auscultation: clear to auscultation bilaterally Cardio Other: S1-S2 present regular rate and rhythm GI Palpation (GI): Soft to palpation, nontender, no guarding and no masses Skin General skin exam: no rashes or lesions noted Neuro General: patient oriented x3, tone normal, moves all extremities, Normal light touch and pain sensation, no focal motor deficits and CN's II-XI intact bilaterally Extrem General: Yes full ROM, Yes no joint enlargement, Yes no clubbing, cyanosis or edema, Yes no pedal edema, Yes no calf tenderness and Yes normal gait Psych Appearance: grossly normal and well kempt Mental Status: mental status grossly normal Speech and movement: Normal speech and movement present Affect: normal affect Results Reviewed Results Reviewed: Name: Ayana Aragon Age/Sex: 79/F : 1945 Unit#: [id number] Attend Dr: Marisol Haddad MD Re03/21/25 Status: DEP REF Location: [facility] Disch: SPEC : [id number] GISELLE: 03/21/25 STATUS: COMP REQ : [id number] RECD: 03/21/25-[address]: Marisol Haddad MD COMP: 03/21/25 ENTERED: 03/21/25 [facility] DR: ORDERED: Met Prof Fast, AST, ALT, Lipid Panel, Free T4, TSH Test Result Flag Reference Sodium 141 135-145 mmol/L Potassium 4.1 3.3-5.1 mmol/L CL 107 96-108 mmol/L CO2 27 22-29 mmol/L Gap 11 L 12-20 BUN 17 H 9-16 mg/dL Creat 0.88 0.5-1.4 mg/dL eGFR > 60 Chronic Kidney Disease: Estimated GFR < 60 mL/min/1.73m2 Severe Kidney Disease: Estimated GFR < 15 mL/min/1.73m2 FBS 96 60-99 mg/dL CA 9.1 8.4-10.2 mg/dL AST (GOT) 25 5-31 U/L ALT (GPT) 22 0-31 U/L Triglyceride 56 <150 mg/dL Desirable Triglyceride: less than 150 mg/dL Borderline High Triglyceride 150-199 mg/dL High Triglyceride: 200-499 mg/dL Very High Triglyceride: greater than or equal to 5OO mg/dL Cholesterol 116 <200 mg/dL Desirable Cholesterol: less than 200 mg/dL Borderline High Cholesterol: 200-239 mg/dL High Cholesterol: greater than 239 mg/dL LDL Calculated 50 <100 mg/dL Desirable LDL: less than 100 mg/dL Near Optimal/Above Optimal LDL: 110-129 mg/dL Borderline High LDL: 130-159 mg/dL High LDL: 160-189 mg/dL Very High LDL: greater than or equal to 190 mg/dL HDL 55 >40 mg/dL Desirable HDL: greater than 40 mg/dL Note: This HDL assay may give artificially low results in patients with liver disease. Free T4 1.25 0.71-1.85 ng/dL TSH 3rd Gen. 1.07 0.32-4.0 uIU/mL TSH 3rd Generation ([facility]) Coding Level of Care Code Est Pt Level 4 (38239) Complex EM visit Add On G2211 Diagnoses Essential hypertension I10 Hypertension type: essential hypertension Pure hypercholesterolemia E78.00 Hyperlipidemia type: pure hypercholesterolemia Postoperative hypothyroidism E89.0 Hypothyroidism type: postoperative Assessment & Plan Assessment & Plan (1) HTN (hypertension): Code(s): I10 - Essential (primary) hypertension Category: Medical Qualifiers: Hypertension type: essential hypertension Qualified Code(s): I10 - Essential (primary) hypertension Plan: Has been having recurrent episodes of hypotension usually occurring in the morning after sudden changes in positions. Will discontinue amlodipine, and continue on furosemide losartan and metoprolol succinate at the same dose. Advised to check blood pressure at home with a goal of less than 130/80. Reinforced importance of adhering to a healthy diet and getting regular exercise. Schedule an appointment with nurse navigator in 2 weeks to check blood pressure (2) HLD (hyperlipidemia): Code(s): E78.5 - Hyperlipidemia, unspecified Category: Medical Qualifiers: Hyperlipidemia type: pure hypercholesterolemia Qualified Code(s): E78.00 - Pure hypercholesterolemia, unspecified Plan: Reviewed recent fasting lipid profile with patient with levels within normal limits . Continue adherence to low-cholesterol diet and regular exercise, at least 30 minutes 3 to 4 times a week. Advised patient to make healthy food choices, eat more fruits, vegetables, whole grains, wild caught fish and low- fat dairy. Limit amount of meat and fried or fatty food products, as well as processed foods and fast foods. (3) Hypothyroidism: Code(s): E03.9 - Hypothyroidism, unspecified Category: Medical Qualifiers: Hypothyroidism type: postoperative Qualified Code(s): E89.0 - Postprocedural hypothyroidism Plan: Latest thyroid levels are within normal limits, continue with current dose of levothyroxine at 112 mcg daily Medications: Discontinued amlodipine Discontinued Reason: Doctor's Order 2.5 mg PO QAM 90 tabs 1RF
[2025-03-28 12:03] VITALS: BP 98/62; PULSE 63; RESP 16; TEMP 36.7; O2SAT 98; BMI 33.2
== END 2025-03-28 12:45 | disposition home or self-care (01) ==
LOC: HO.HMCC 11:24
PROVIDERS: PCP Internal Medicine; Visit Provider Internal Medicine
DX: I10 Essential (primary) hypertension (principal); E78.00 Pure hypercholesterolemia, unspecified; E89.0 Postprocedural hypothyroidism

== ENCOUNTER → 2025-03-28 11:24 | Outpatient (BNVA) | payer MEDICARE, SELFPAY | PROVIDERS: PCP Internal Medicine; Visit Provider Internal Medicine | DX: I10 Essential (primary) hypertension (principal); I25.10 Atherosclerotic heart disease of native coronary artery without angina pectoris; K21.9 Gastro-esophageal reflux disease without esophagitis; E78.00 Pure hypercholesterolemia, unspecified; E89.0 Postprocedural hypothyroidism | CPT/HCPCS: 96127; 99212 ==

== ENCOUNTER 2025-04-05 13:39 | Outpatient (REF) | payer MEDICARE, SELFPAY ==
--- NOTE | ~2025-04-05 | XR_ITS ---
EXAMINATION: XR CHEST CLINICAL INFORMATION: R06.02 - Shortness of breath COMPARISON: Previous chest x-ray September 2024 TECHNIQUE: 2 views of the chest were obtained. FINDINGS: Cardiac and mediastinal contours are stable. The lungs are clear. No pleural effusion or pneumothorax. Postsurgical changes to the left breast, stable. Small radiopaque density projects over the right cervicothoracic inlet region, stable. Surgical tacks or anchors project over the right humeral head. Degenerative changes of the spine. XR/XR chest 2V IMPRESSION: No evidence for acute disease in the chest. Electronically signed by: Zulay Price MD 04/05/2025 03:00 PM EDT
== END 2025-04-05 13:40 | disposition home or self-care (01) ==
LOC: HO.XRAY 13:39
PROVIDERS: PCP Internal Medicine; Visit Provider Internal Medicine Cardiovascular Disease
DX: I25.10 Atherosclerotic heart disease of native coronary artery without angina pectoris (principal); I10 Essential (primary) hypertension; R06.02 Shortness of breath; R06.2 Wheezing; Z79.82 Long term (current) use of aspirin; Z79.899 Other long term (current) drug therapy
CPT/HCPCS: 71046; 93005; 99212

== ENCOUNTER 2025-04-05 13:39 | Outpatient (AMB) | payer MEDICARE, SELFPAY ==
--- NOTE | 2025-04-05 13:45 | MHC.OFFVIS ---
Vital Signs 04/05/25 13:46 Height 5 ft Weight 167 lb 8.821 oz BMI 32.7 BP 110/70 Blood Pressure Location Lt brachial Position Sitting Pulse 78 Intake Visit Reasons: 1 yr f/up Intake Note: 1 year follow-up with ekg Handkerchief Folder Required: No Allergies codeine (Codeine) Allergy (Mild, Verified 03/28/25 12:29) SWELLING, vomiting, headache Medication List - Last Reconciled 04/05/25 by Fredy Wise MD acetaminophen ER (Tylenol 8 Hour) 650 mg PO Q8H PRN albuterol sulfate 90 mcg/actuation 90 mcg inhalation Q4-6H PRN alclometasone 0.05% 1 appl topical DAILY apremilast (Otezla) 30 mg PO BID atorvastatin 80 mg PO DAILY betamethasone dipropionate 0.05% 1 appl topical DAILY biotin 1 mg PO DAILY calcitriol 0.25 mcg PO DAILY rfmzryt-G2-wdfx-copper-jenna 325 mg-12.5 mcg -2.75 mg (Citracal-D3 Maximum Plus) 4 tabs PO DAILY cholecalciferol (vitamin D3) 25 mcg PO DAILY famotidine 20 mg PO DAILY furosemide 20 mg PO DAILY ketoconazole 2% 1 appl topical DAILY ketoconazole 2% 1 appl topical DAILY levothyroxine 112 mcg PO DAILY losartan 100 mg PO DAILY meclizine 25 mg PO BID PRN metoprolol succinate ER 50 mg PO BEDTIME triamcinolone acetonide 0.1% 1 appl topical DAILY [wedge pillow As directed] HPI Comments Details: Ayana comes for follow-up. She said about a week ago amlodipine was discontinued because she was having symptoms of lightheadedness in his blood pressure consistently low in the 90s. Since stopping her amlodipine she says a blood pressures improved in the 120 range in his lightheadedness has improved. She has not syncopal episode. She complains of exertional shortness of breath. She also says she developed a cough after seeing you last week and has a persistent cough with some wheezing. No fever or chills. Denies any orthopnea, PND, leg edema. No exertional chest pain. [facility] Medical History GERD (gastroesophageal reflux disease) CAD (coronary artery disease) Nocturnal leg cramps PONV (postoperative nausea and vomiting) Psoriasis Hypothyroidism Primary hyperparathyroidism Toxic multinodular goiter Family history of premature CAD History of Capone's esophagus Breast cancer in situ HTN (hypertension) HLD (hyperlipidemia) Osteopenia Vitamin D deficiency Surgical History History of cardiac cath History of surgery S/P subtotal parathyroidectomy History of total thyroidectomy History of hysteroscopy Hx of dilation and curettage History of esophagogastroduodenoscopy (EGD) H/O colonoscopy History of lumpectomy of left breast Hx of cholecystectomy History of rotator cuff surgery Family History Father History of heart attack CVD (cardiovascular disease) Unknown family medical history Mother Unknown family medical history CVD (cardiovascular disease) Cirrhosis of liver Heart disease Substance use disorder Maternal Grandfather No problems noted. Maternal Grandmother Breast cancer Paternal Grandfather No problems noted. Paternal Grandmother No problems noted. Sister No problems noted. Sister No problems noted. Son No problems noted. Daughter No problems noted. Daughter No problems noted. 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 Sexual orientation: Straight/Heterosexual Gender identity: Female Cognitive needs: No Hearing needs: No Vision needs: Yes Review of Systems Const Denies chills, Denies fatigue, Denies fever(s), Denies frequent falls, Denies weakness, Denies weight gain and Denies weight loss ENT Denies dizziness Card Denies chest pain, Denies leg edema, Denies lightheadedness, Denies palpitations, Denies dyspnea, Denies dyspnea on exertion, Denies orthopnea and Denies other (loss of consciousness) Resp Denies cough, Denies dyspnea and Denies dyspnea on exertion GI Denies hematochezia and Denies change in stool character Musc Denies abnormal gait, Denies muscle weakness, Denies numbness, Denies radiating pain into limb and Denies tingling Neuro Denies abnormal gait, Denies dizziness, Denies frequent falls, Denies numbness, Denies tingling and Denies weakness Endo Denies fatigue and Denies palpitations Physical Exam Vital Signs: Last Vital Signs Pulse 78 04/05/25 13:46 BP 110/70 04/05/25 13:46 BMI result Body Mass Index 32.7 Const General: cooperative, comfortable, no acute distress, alert and awake Nutritional Appearance: obese Orientation/consciousness: patient oriented x3 Limitations: no limitations HEENT Head: Yes normocephalic and Yes atraumatic Neck Neck: Yes trachea midline, Yes supple and Yes no JVD Resp Effort & Inspection: normal respiratory effort Auscultation: wheezes expiratory wheezes and right lower and diminished lung sounds Cardio Jugular venous distension: no JVD Rate: regular rate Rhythm: regular rhythm Heart sounds: S1 normal heart sound present, S2 normal heart sound present, no click, no gallops, no murmurs and no rubs GI Auscultation: normal bowel sounds Skin General skin exam: no rashes or lesions noted Neuro General: patient oriented x3 and no focal motor deficits Extrem General: Yes no clubbing, cyanosis or edema Psych Appearance: grossly normal Office Procedures EKG Details: EKG shows normal sinus rhythm normal EKG [id number], Complete Assessment & Plan Assessment & Plan (1) CAD (coronary artery disease): Code(s): I25.10 - Atherosclerotic heart disease of [place] coronary artery without angina pectoris Category: Medical Qualifiers: Coronary Disease-Associated Artery/Lesion type: [place] artery [place] vs. transplanted heart: [place] heart Associated angina: without angina Qualified Code(s): I25.10 - Atherosclerotic heart disease of [place] coronary artery without angina pectoris Plan: Patient with CAD with dense calcification in the LAD with nonobstructive disease. Currently not having any concerning symptoms. Continue aggressive medical therapy including low-dose aspirin therapy. Continue high-intensity statin therapy with well optimized LDL at 50 mg/dL. Continue aggressive blood pressure control. Continue aggressive lifestyle modification. (2) HTN (hypertension): Code(s): I10 - Essential (primary) hypertension Category: Medical Qualifiers: Hypertension type: essential hypertension Qualified Code(s): I10 - Essential (primary) hypertension Plan: Hypertension which is currently well optimized with improved symptoms off amlodipine therapy. Currently on furosemide therapy which she does not require from cardiac perspective. Can be discontinued. Continue blood pressure control with losartan and metoprolol therapy. Low-salt diet was discussed. Encouraged to maintain activity level and weight loss program. (3) SOB (shortness of breath): Code(s): R06.02 - Shortness of breath Plan: Today having shortness of breath and wheezing suggestive of bronchitis especially right lung. Will obtain a chest x-ray to assess for any process of pneumonia that might change therapy. Otherwise she is advised to start inhaler therapy. I think she probably has underlying chronic parenchymal disease I have suggested her to undergo PFT. I have advised her that if she does not improve in a week's time to call your office and may need therapy for her acute bronchitis from that perspective. Will follow up in the clinic in 1 year's time, sooner PRN. Thank you for allowing me to partake in her care Orders: Orders XR chest 2V Today R06.02 - Shortness of breath, R06.2 - Wheezing PFT pulmonary function test 4 Weeks R06.02 - Shortness of breath Coding Level of Care Code Est Pt Level 4 (58762) Complex EM visit Add On G2211 Diagnoses Coronary artery disease involving [place] coronary artery of [place] heart without angina pectoris I25.10 Coronary Disease-Associated Artery/Lesion type: [place] artery [place] vs. transplanted heart: [place] heart Associated angina: without angina Essential hypertension I10 Hypertension type: essential hypertension SOB (shortness of breath) R06.02 CPT Codes EKG - CPT: [id number], Complete ([id number])
[2025-04-05 13:46] VITALS: BP 110/70; PULSE 78; BMI 32.7
== END 2025-04-05 14:12 | disposition home or self-care (01) ==
LOC: HO.HCS 13:40
PROVIDERS: PCP Internal Medicine; Visit Provider Internal Medicine Cardiovascular Disease
DX: I25.10 Atherosclerotic heart disease of native coronary artery without angina pectoris (principal); I10 Essential (primary) hypertension; R06.02 Shortness of breath
CPT/HCPCS: 93010; 99214; G2211

== ENCOUNTER → 2025-04-05 14:18 | Outpatient (BNV) | payer MEDICARE, SELFPAY | PROVIDERS: PCP Internal Medicine; Visit Provider Radiology Diagnostic Radiology | DX: R06.02 Shortness of breath (principal) | CPT/HCPCS: 71046 ==

== ENCOUNTER → 2025-04-12 09:49 | Outpatient (BNVA) | payer MEDICARE, SELFPAY | PROVIDERS: PCP Internal Medicine | DX: Z01.30 Encounter for examination of blood pressure without abnormal findings (principal); I10 Essential (primary) hypertension | CPT/HCPCS: 99211 ==

== ENCOUNTER 2025-04-16 09:14 | Outpatient (AMB) | payer MEDICARE, SELFPAY ==
[2025-04-16 09:47] VITALS: BP 122/62; PULSE 64; RESP 16; TEMP 36.8; O2SAT 96; BMI 32.0
--- NOTE | 2025-04-16 09:47 | A.OFFPC_ITS ---
Vital Signs 04/16/25 09:47 Height 5 ft Weight 164 lb BMI 32.0 BP 122/62 Blood Pressure Location Rt brachial Position Sitting Respiration 16 Pulse 64 Pulse Source Pulse Oximeter Temp 98.3 F Temp Source Oral Pulse Oximetry (%) 96 Oxygen Delivery Method Room Air Intake Visit Reasons: SOB and wheezing per Dr. Hoover Intake Note: Pt is here today c/o SOB, wheezing and coughing Allergies codeine (Codeine) Allergy (Mild, Verified 04/16/25 10:09) SWELLING, vomiting, headache Medication List - Last Reconciled 04/16/25 by Marisol Haddad MD acetaminophen ER (Tylenol 8 Hour) 650 mg PO Q8H PRN albuterol sulfate 90 mcg/actuation 90 mcg inhalation Q4-6H PRN alclometasone 0.05% 1 appl topical DAILY apremilast (Otezla) 30 mg PO BID atorvastatin 80 mg PO DAILY betamethasone dipropionate 0.05% 1 appl topical DAILY biotin 1 mg PO DAILY calcitriol 0.25 mcg PO DAILY viprhge-Q7-qkaf-copper-jenna 325 mg-12.5 mcg -2.75 mg (Citracal-D3 Maximum Plus) 4 tabs PO DAILY cholecalciferol (vitamin D3) 25 mcg PO DAILY famotidine 20 mg PO DAILY ketoconazole 2% 1 appl topical DAILY ketoconazole 2% 1 appl topical DAILY levothyroxine 112 mcg PO DAILY losartan 100 mg PO DAILY metoprolol succinate ER 50 mg PO BEDTIME triamcinolone acetonide 0.1% 1 appl topical DAILY [wedge pillow As directed] Tobacco use date assessed: 04/16/25 Fall risk assessment: No Falls in past year Last assessed Fall Risk: 04/16/25 Dental Screening Dental Screen Date: 04/16/25 Did you have a dental visit in the last 12 months?: Yes Did you have a dental problem in the last 6 months where you did not have access to dental care?: No Was dental information given to patient?: Patient has dentist HPI SOB and wheezing per Dr. Hoover HPI Details The patient is a 79-year-old female presenting with a persistent cough, accompanied by wheezing and occurs more at night when she lying down The patient has been using an inhaler, which provides some relief, and has been take Mucinex for productive coughs. She has not been on antibiotics recently, although she has used them in the past for severe episodes. The patient reports improvement in symptoms but continues to experience a cough, particularly when lying down. The patient has a history of gastroesophageal reflux disease (GERD), which may contribute to her cough. She experiences heartburn, particularly at night, and takes famotidine in the morning, now advised to take it at night. The patient has been advised to elevate the head of her bed to prevent reflux symptoms. The patient also reports symptoms consistent with allergic rhinitis, including postnasal drainage, and has been advised to take levcetirizine at night. She has not been taking any medication for allergies prior to this visit. [facility] Medical History GERD (gastroesophageal reflux disease) CAD (coronary artery disease) Nocturnal leg cramps PONV (postoperative nausea and vomiting) Psoriasis Hypothyroidism Primary hyperparathyroidism Toxic multinodular goiter Family history of premature CAD History of Capone's esophagus Breast cancer in situ HTN (hypertension) HLD (hyperlipidemia) Osteopenia Vitamin D deficiency Surgical History History of cardiac cath History of surgery S/P subtotal parathyroidectomy History of total thyroidectomy History of hysteroscopy Hx of dilation and curettage History of esophagogastroduodenoscopy (EGD) H/O colonoscopy History of lumpectomy of left breast Hx of cholecystectomy History of rotator cuff surgery Family History Father History of heart attack CVD (cardiovascular disease) Unknown family medical history Mother Unknown family medical history CVD (cardiovascular disease) Cirrhosis of liver Heart disease Substance use disorder Maternal Grandfather No problems noted. Maternal Grandmother Breast cancer Paternal Grandfather No problems noted. Paternal Grandmother No problems noted. Sister No problems noted. Sister No problems noted. Son No problems noted. Daughter No problems noted. Daughter No problems noted. 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 1. Little interest or pleasure in doing things: not at all 2. Feeling down, depressed, or hopeless: not at all 3. Trouble falling or staying asleep, or sleeping too much: not at all 4. Feeling tired or having little energy: not at all 5. Poor appetite or overeating: not at all 6. Feeling bad about yourself - or that you are a failure or have let yourself or your family down: not at all 7. Trouble concentrating on things, such as reading the newspaper or watching television: not at all 8. Moving or speaking so slowly that other people could have noticed. Or the opposite - being so fidgety or restless that you have been moving around a lot more than usual: not at all 9. Thoughts that you would be better off or of hurting yourself in some way: not at all Total score: 0 Depression Screening Interpretation: Negative Depression Screening Done: Yes Source: Developed by Drs. Hemant Morrison, Ashanti Chaves, Duong Matthews and colleagues, with an educational fabienne from [employer]. Thrive Questionnaire Date Thrive assessed: 09/20/24 I am a: Patient What is your living situation today?: I have a steady place to live Within the past 12 months, did the food you bought not last and you didn't have the money to get more?: Never true Within the past 12 months, did you worry whether your food would run out before you got money to buy more?: Never true Do you have trouble paying for medicines?: No Do you have trouble getting transportation to medical appointments?: No Do you have trouble paying your heating and electricity bill?: No Do you have trouble taking care of your child, family member or friend?: No Do you have trouble with day-to-day activities such as bathing, preparing meals, shopping, managing finances, etc.?: No Are you currently unemployed and looking for a job?: No Are you interested in more education?: No Please select the resources that you would like help with: None Currently or been in a relationship where the following occur: No concerns reported THRIVE Score: 0 AUDIT C Alcohol Use Questionnaire (AUDIT-C) 1. How often do you have a drink containing alcohol?: Monthly or less 2. How many drinks containing alcohol do you have on a typical day when you are drinking?: 1 or 2 3. How often do you have six or more drinks on one occasion?: Never Total Score: 1 GENESIS-7 AMB Questionnaire GENESIS-7 Date GENESIS - 7 assessed: 09/27/24 Feeling nervous, anxious, or on edge: 0 = Not at all Not being able to stop or control worryin = Not at all Worrying too much about different things: 0 = Not at all Trouble relaxin = Not at all Being so restless that it is hard to sit still: 0 = Not at all Becoming easily annoyed or irritable: 0 = Not at all Feeling afraid as if something awful might happen: 0 = Not at all Total GENESIS-7 score (0-4 normal; 5-9 mild; 10-14 moderate; 15-21 severe): 0 Source: Developed by Drs. Hemant Morrison, Ashanti Chaves, Duong Matthews and colleagues, with an educational fabienne from [employer]. Review of Systems Const All systems reviewed & are unremarkable except as noted in HPI and below Physical exam (Primary Care) Vital Signs: Last Vital Signs Temp 98.3 F 04/16/25 09:47 Pulse 64 04/16/25 09:47 Resp 16 04/16/25 09:47 BP 122/62 04/16/25 09:47 Pulse Ox 96 04/16/25 09:47 Oxygen Delivery Method Room Air 04/16/25 09:47 BMI result Body Mass Index 32.0 Tobacco/Smoking Status: Tobacco use Status Tobacco use date assessed 04/16/25 04/16/25 10:00 Patient Tobacco Use Status Never used Tobacco 04/16/25 09:50 e-Cigarette/Vaping Use Never Used 04/16/25 09:50 PHQ-9: PHQ-9 Score PHQ-9: Total score 0 04/16/25 10:18 Depression Screening Interpretation: Negative Thrive Assessment: Date of Thrive Assessment Date Thrive assessed 09/20/24 04/16/25 09:50 Currently or been in a relationship where the following occur: No concerns reported Const General: no acute distress and alert Nutritional Appearance: obese HENMT Ears: external ears normal Mouth: Normal oral and palatal mucosa present and moist mucous membranes Neck Neck: Yes normal visual inspection, Yes full ROM, Yes no lymphadenopathy and Yes supple Resp Auscultation: clear to auscultation bilaterally Cardio Other: S1-S2 present regular rate and rhythm GI Palpation (GI): Soft to palpation, nontender, no guarding and no masses Skin General skin exam: no rashes or lesions noted Coding Level of Care Code Est Pt Level 4 (21753) Diagnoses Cough present for greater than 3 weeks R05.8 Assessment & Plan Assessment & Plan (1) Cough present for greater than 3 weeks: Code(s): R05.8 - Other specified cough Plan: Pulmonary function test has already been ordered, but not scheduled until 06/19/2025. Will empirically place her on levo cetirizine 5 mg per tablet to take 1 at bedtime to decrease postnasal drainage, switch taking famotidine to nighttime dosing, and elevate head of bed when sleeping to prevent reflux. May take Mucinex as needed for episodes of productive cough, and do 1 inhalation of albuterol inhaler at night before sleeping. Call back in a week if no improvement of symptoms. Medications: New levocetirizine 5 mg PO QPM 30 tabs 0RF allergy symptoms
== END 2025-04-16 13:24 | disposition home or self-care (01) ==
LOC: HO.HMCC 09:14
PROVIDERS: PCP Internal Medicine; Visit Provider Internal Medicine
DX: R05.8 Other specified cough (principal)

== ENCOUNTER → 2025-04-16 09:14 | Outpatient (BNVA) | payer MEDICARE, SELFPAY | PROVIDERS: PCP Internal Medicine; Visit Provider Internal Medicine | DX: R05.8 Other specified cough (principal); Z13.31 Encounter for screening for depression | CPT/HCPCS: 96127; 99212 ==

== ENCOUNTER 2025-06-19 09:36 | Outpatient (REF) | payer MEDICARE, SELFPAY ==
--- OUTSIDE RECORDS SUMMARY | 2024-05-31 08:00 | XMS_ITS ---
Author Organization [facility] Address [address] [place] [address] Care Team Providers Care Washing Machine Operator Name Role Phone Catie SAVAGE, Marisol Ko Primary Care Provider Un available Elias Workman Unavailable [phone] Chandni Dawson Unavailable [phone] REASON FOR VISIT Seen Sooner Encounters Encounter Location Date Provider Diagnosis [facility] [address] [place] [address] 05/31/2024 Chandni Dawson Plan Of Treatment No Information Progress Notes * Ayana ARAGON TDOB: [birth year] (80 yo F)Acc No.[id number]:05/31/2024 Progress Notes Patient: Ayana ANNA Provider: Daniel Dawson DPM :1945 A ge:79 Y S ex:Female Date:05/31/2024 Address:[address] [place] [id number] Pcp:Bhupendra Way Subjective: * Chief Complaints: * 1 . Seen Sooner. * Medical History: Objective: * Vitals: Assessment: Plan: * Treatment: * Images: * The named appointment provid er may or may not be the originator of this progress note, and it is not deemed complete until electronically signed by the appointment provider. Sign off status: Pending * Provider: Daniel Dawson DPM Date: 08/01/2023 Generated for Yash garza/Home/Josey on: 08/20/2024 10:24 AM EST
--- OUTSIDE RECORDS SUMMARY | 2024-07-21 05:00 | XMS_ITS ---
Author Organization [facility] Address [address] [place] [address] Care Team Providers Care Culinary Worker Name Role Phone Catie SAVAGE, Marisol Ko Primary Care Provider Un available Elias Workman Unavailable [phone] Encounters Encounter Location Date Provider Diagnosis [address] [address] 07/21/2024 Elias Workman Plan Of Treatment No Information Progress Notes * Ayana ARAGON TDOB: [birth year] (80 yo F)Acc No.[id number]:07/21/2024 Progress Note Patient: Ayana ANNA Provider: Kiko Workman DPM :1945 A ge:79 Y S ex:Female Date:07/21/2024 Address:[address] [place] [address] Pcp:Bhupendra Way Subjective: * Chief Complaints: * * Medical History: Objective: * Vitals: Assessment: Plan: * Treatment: * Images: * The named appointment provid er may or may not be the originator of this progress note, and it is not deemed complete until electronically signed by the appointment provider. Sign off status: Pending * Provider: Kiko Workman DPM Date: 0 07/21/2024 Generated for Printi ng/Faxing/eTransmitting on: 1 08/20/2024 10:24 AM EST
--- NOTE | 2025-06-19 09:38 | PFT_ITS ---
Indication: Dyspnea Spirometry FEV1 to FVC 67% pre bronchodilators and 73% post bronchodilators; FEV1 1.56 L; FVC 2.12 L. No significant response to bronchodilators noted. To note the FEF 11/14/2074 decreased to 48% predicted Lung Volumes Total lung capacity 83% predicted; residual volume 70% predicted Diffusion Capacity DLCO 61% predicted MVV 89% predicted Comparisons None Interpretation There is a reversible obstructive ventilatory defects suggestive of a diagnosis of asthma. No significant response to bronchodilators noted. Significant small airways disease noted. Lung volumes are low normal. The patient does have a moderate diffusion impairment. Should correct for hemoglobin. Clinical correlation warranted. MTDD
[2025-06-19 10:17] VITALS: PULSE 68
--- OUTSIDE RECORDS SUMMARY | 2025-06-19 10:25 | XMS_ITS | Patient Health Record ---
Author Organization [facility] Address [address] [place] [id number] Care Team Providers Care Library Circulation Assistant Name Role Phone Catie SAVAGE, Marisol Primary Care Provider Hemant Masters Unavailable [phone] Allergies Allergen (clinical drug ingredient) Drug/Non Drug Allergy documented on EMR Reaction Allergy Type Onset Date Status codeine Codeine Sulfate Unknown Drug Allergy A ctive EPINEPHrine Unknown Drug Allergy Activ e Reason For Referral No Information Medications Medication SIG (Take, Route, Frequency, Duration) Notes Start Date End Date Status Ranitidine HCl 300 MG Capsule 1 capsule at bedtime Orally Once a day Active Cozaar 50 MG Tablet 1 tablet Orally Once a day Active Hydrocortisone 2.5 % Cream 1 application to affected area Externally Twice a day Active Aspir-81 81 MG Tablet Delaye d Release 1 tablet Orally Once a day Active Atenolol 25 MG Tablet 1 tablet Orally On ce a day Active Tamoxifen Citrate 20 MG Tablet 1 tablet Orally Once a day Active hydroCHLOROthiazide 25 MG Tablet 1 tablet in the morning Orally Once a day Active Social History Social History Additional Details Category Social Info Options Details Miscellaneous: Marital status: Occupation: Retired Section Notes: She does not smoke, and uses occasional alcohol She does not smoke, and uses occasional alcohol She does not smoke, and uses occasional alcohol Problems Problem Type SNOMED Code ICD Code Onset Dates Problem Status W/U Status Risk Notes Problem Screening for malignant neoplasm of colon (734130936) Encounter for screening for malignant neoplasm of colon (Z12.11) Active confirmed Problem History of polyp of colon (situation) (842787643) Personal history of colonic polyps (Z86.010) Active confirmed Problem Gastroesophageal reflux disease without esophagitis (545051425) Gastroesophageal reflux disease without esophagitis (K21.9) Active confirmed Problem Hiatal hernia (89306515) Hiatal hernia (K44.9) Active confirmed Plan Of Treatment Future Test Test Name Order Date UPPER GI ENDOSCOPY 03/10/2012 COLONOSCOPY 03/10/2012 COLONOSCOPY 09/30/2016 Insurance Providers Payer Name Payer Address Payer Phone Subscriber Number Group Number Insured Name Patient Relationship to Insured Coverage Start Date Coverage End Date [facility] [address] [address] [address] [place] [phone] [id number] JIGAR CASTILLO Self - patient is the [...]
--- OUTSIDE RECORDS SUMMARY | 2025-06-19 10:25 | XMS_ITS | Patient Health Record ---
Author Organization [facility] Address [address] [place] [address] Care Team Providers Care Receiver Stocker Name Role Phone Catie SAVAGE, Marisol Ko Primary Care Provider Un available Elias Workman Unavailable [phone] Allergies Allergen (clinical drug ingredient) Drug/Non Drug [...] Status W/U Status Risk Notes Problem Onychomycosis (256798264) Onychomycosis (B35.1) Active confirmed Encounters Encounter Location Date Provider Diagnosis [facility] [address] [place] [address] 07/07/2024 Elias Workman Plan Of Treatment Pending Test Test Name Order Date X ray : Foot, left 3V 07/07/2012 X ray : Foot, right 3V 04/21/2024 [id number] NAIL, 6 OR MORE 04/21/2024 Insurance Providers Payer Name Payer Address Payer Phone Subscriber Number Group Number Insured Name Patient Relationship to Insured Coverage Start Date Coverage End Date [employer] [place] [employer]age [facility] [address] [place] [address] [id number] Ayana Aragon Self - patient is the insured Medical (General) History Medical History History ICD Code mumps measles chicken pox hypertension gall bladder problems cholesterol reflux Gall bladder problems Psoriasis/eczema Reflux ( GERD) thyroid Surgical History Surgery Date(Month/Year) cholecystectomy 1986 rotator cuff tear repair 2009 Gall bladder removal 1986 Thyroid Surgery 2021
== END 2025-06-19 09:37 | disposition home or self-care (01) ==
LOC: HO.RESP 09:36
PROVIDERS: PCP Internal Medicine; Visit Provider Internal Medicine Cardiovascular Disease
DX: R06.02 Shortness of breath (principal)
CPT/HCPCS: 94060; 94640; 94727; 94729

== ENCOUNTER → 2025-06-19 09:38 | Outpatient (BNV) | payer MEDICARE, SELFPAY | PROVIDERS: PCP Internal Medicine; Visit Provider Hospitalist | DX: R06.02 Shortness of breath (principal) | CPT/HCPCS: 94060; 94727; 94729 ==